=== PATIENT | male | born 1980 | race Caucasian/White ===

== ENCOUNTER 2025-02-22 13:12 | Inpatient (IN) | payer OTHER, SELFPAY ==
[2025-02-22] VITALS (12 sets, daily range): BP systolic 91–106; BP diastolic 45–77; PULSE 101–125; RESP 18–28; TEMP 36.4–36.7; O2SAT 9–100; BMI 22.9
--- NOTE | ~2025-02-22 | US_ITS ---
EXAMINATION: US venous doppler UAlejandra LT, 03/01/2025 15:30 OCULARIST HISTORY: swelling Comparison: None Technique: Multiple almendarez scale and color Doppler sonographic images were obtained of the internal jugular, subclavian, axillary, brachial, basilar, radial and ulnar veins. Findings: Venous System:There is thrombus with diminished flow in the jugular vein, subclavian, axillary and distal cephalic veins. Soft tissues: Soft tissues are unremarkable. Impression: DVT with superficial thrombophlebitis. Reviewed, dictated and finalized at location P. ARIST Impression: DVT with superficial thrombophlebitis.
--- NOTE | ~2025-02-22 | CT_ITS ---
EXAMINATION:CT diagnostic chest wo con DATE: 02/25/2025 09:12 INDICATION: Pneumonia TECHNIQUE: Computed tomography (CT) of the chest was performed without intravenous contrast. The dose-length product (DLP) was 139.95 mGy-cm. COMPARISON: February 22, 2025 FINDINGS: Large left and moderate right-sided pleural effusions present have increased somewhat since the February 22 exam. Extensive volume loss and consolidation throughout the left lung, and to a lesser extent the right lower lobe also appear slightly worse. Heart and great vessels stable. Small pericardial effusion. Mild cardiomegaly. No gross interval change seen in the visualized portion of the upper abdomen, bony thorax or extrathoracic soft tissues. IMPRESSION: Worsening bilateral effusions and consolidations as well as at atelectatic changes, left worse than right. Reviewed, dictated and finalized at location A. OECONOMICS PROFESSOR IMPRESSION: Worsening bilateral effusions and consolidations as well as at atelectatic baneg[place] ges, left worse than right.
--- NOTE | ~2025-02-22 | US_ITS ---
EXAMINATION: US abdomen limited, US retroperitoneal duplex ltd DATE: 02/23/2025 19:28 INDICATION: Abnormal liver enzymes. TECHNIQUE: Multiple grayscale and Doppler ultrasound images of the abdomen were obtained. Doppler evaluation of liver. COMPARISON: CT chest, abdomen and pelvis dated 02/22/2025 FINDINGS: Liver measures 10 cm in length. Portal vein and hepatic veins are patent. Increased size of the hepatic veins suggest hepatic venous congestion. Small quantity of free fluid is noted in the peritoneal cavity around the liver. Evidence of mobile gallstones in the gallbladder. Thickening of the wall of the gallbladder. Common hepatic duct measures 4 mm. 1 cm cyst within the liver. IMPRESSION: 1. Normal size liver. One CM cyst of the right lobe of the liver. Portal veins and hepatic veins are patent. Prominent size of hepatic veins noted. This is consistent with hepatic venous congestion. 2. Evidence of gallstones. Extrahepatic bile ducts are normal in size. 3. Small amount of free fluid around the liver and in the peritoneal cavity. Reviewed, dictated and finalized at location T. TRAINER TEACHER IMPRESSION: 1. Normal size liver. One CM cyst of the right lobe of the liver. Portal veins and hepatic veins are patent. Prominent size of hepatic veins noted. This is co nsistent with hepatic venous congestion. 2. Evidence of gallstones. Extrahepatic bile ducts are normal in size. 3. Small amount of free fluid around the liver and in the peritoneal cavity.
--- NOTE | ~2025-02-22 | XR_ITS ---
EXAMINATION: XR chest 1V portable DATE: 02/24/2025 17:16 INDICATION: Congestive heart failure. TECHNIQUE: A single frontal view of the chest was obtained. COMPARISON: Severe cardiomegaly. Evidence of size pleural effusion on the left side. Mild congestion of right lung base with possible edema of the right infrahilar region. FINDINGS: Severe cardiomegaly. Left-sided pleural effusion. Patchy airspace opacity of right lung base, probable pulmonary edema. IMPRESSION: 1. Reviewed, dictated and finalized at location T. HER OPERATOR IMPRESSION: 1.
--- NOTE | ~2025-02-22 | CT_ITS ---
EXAMINATION: CTA chest PE abdomen pel DATE: 02/22/2025 17:45 INDICATION: Hemoptysis. Chest pain, shortness of breath. Recent use of estrogen. TECHNIQUE: Computed tomography angiography (CTA) of the chest was performed with 100 mL Omnipaque-350 intravenous contrast timed to evaluate the pulmonary arteries. Coronal maximum intensity projection 3D-reconstructions were created by the technologist. Computed tomography (CT) of the abdomen and pelvis was performed with intravenous contrast. Automated exposure control and iterative reconstruction technique were employed. The dose-length product was 585.80 mGy-cm. COMPARISON: No prior imaging studies are available. FINDINGS: CTA chest: No evidence of pulmonary emboli. Significant cardiomegaly is noted. Significant bilateral pleural effusion. Airspace opacity likely due to pulmonary edema predominantly in the left mid and lower lung carter and to a lesser degree in the right lower lung field. Findings suggestive of congestive heart failure. On the delayed postcontrast study, low- density defect in the apex of left ventricle suggests thrombus the apex of left ventricle. CT abdomen and pelvis: Below the diaphragm, no focal lesions of liver and spleen. No definite acute findings of gallbladder, pancreas and the kidneys. Diffuse ascites in the upper abdomen and pelvis. Mild subcutaneous edema of the abdominal wall. IMPRESSION: 1. Anasarca with bilateral pleural effusion, ascites. Pulmonary edema, left more than the right lung. Findings are suggestive of congestive heart failure. Cardiomegaly. 2. No evidence of pulmonary emboli. Suggestion of thrombus at the apex of left ventricle on delayed contrast study. Correlation with echocardiogram is recommended. 3. No focal acute findings in the abdomen and pelvis. Reviewed, dictated and finalized at location T. ACCOUNTING CLERK IMPRESSION: 1. Anasarca with bilateral pleural effusion, ascites. Pulmonary edema, left mor e than the right lung. Findings are suggestive of congestive heart failure. Car diomegaly. 2. No evidence of pulmonary emboli. Suggestion of thrombus at the apex of left ventricle on delayed contrast study. Correlation with echocardiogram is recomme nded. 3. No focal acute findings in the abdomen and pelvis.
--- NOTE | 2025-02-22 16:10 | ED_ITS ---
HPI - SOB/Dyspnea General Chief Complaint: Shortness of Breath/Dyspnea <CARTER Vázquez Last Filed: 02/22/25 16:21> Stated Complaint: trouble breathing <CARTER Vázquez Last Filed: 02/22/25 16:21> Time Seen by Provider: 02/22/25 16:10 <CARTER Vázquez Last Filed: 02/22/25 16:21> Focused HPI: Patient is a 45 y/o male who presents to the ED with c/o SOB and weakness. Patient reports he has been having SOB, worse with exertion, as well as generalized weakness, fatigue/malaise for the past few weeks. States he was able to get everything in order which allowed him to come be evaluated today. Patient also reports having intermittent hemoptysis and chest pain over the past few weeks. Denies CP currently. C/o abdominal bloating, decreased appetite, cough. Denies N/V, significant abdominal pain, fever. Patient mentions he was recently in the process of transitioning to female, ad previously been on spironolactone and estradiol, but quit taking these 3 months ago. GENERAL: Mildly ill/jaundiced-appearing, well-nourished, and in no acute distress. HEAD: Normocephalic, atraumatic. CHEST: Clear to auscultation. ?No respiratory distress. HEART: Regular rate and rhythm.? NEURO: ?Alert and oriented x3. Patient screened in triage and initial orders placed.? ?Additional care and disposition to be based upon?diagnostic testing and treatment. <CARTER Vázquez Last Filed: 02/22/25 16:21> Source: patient <CARTER Vázquez Last Filed: 02/22/25 16:21> Mode of arrival: ambulatory <CARTER Vázquez Last Filed: 02/22/25 16:21> Limitations: no limitations <CARTER Vázquez Last Filed: 02/22/25 16:21> History of Present Illness HPI Narrative: Agree with above HPI. <MARTÍN Gonzalez Last Filed: 02/23/25 01:21> Related Data Home Medications: Home Medications ?Medication ?Instructions ?Recorded ?Confirmed ?Last Taken ?Type No Home Medications 02/22/25 02/22/25 U nknown History <CARTER Vázquez Last Filed: 02/22/25 16:21> Allergies/Adverse Reactions: Allergies Allergy/AdvReac Type Severity Reaction Status Date / Time No Known Allergies Allergy Verified 02/22/25 17:00 <Staci Voss PA-C - Last Filed: 02/22/25 16:21> Review of Systems 2 Review of Systems: All systems reviewed & are unremarkable except as noted in HPI and below <MARTÍN Gonzalez Last Filed: 02/23/25 01:21> [facility] Family History Family History: Family History (Updated 02/22/25 @ 22:21 by Naomi Mcmullen RN) Mother Diabetes mellitus Alcoholism Father Parkinsons disease Alcoholism Other Diabetes 1.5, managed as type 1 <Staci Voss PA-C - Last Filed: 02/22/25 16:21> Social History Social History: Social History Smoking status: Never smoker Alcohol intake: former Substance use: former Substance use type: former substance user and marijuana Other substance usage details: quit a few weeks ago Lack of Transportation: No Lack of Food: Never True Current Housing: I Have Housing Concerned About Future Housing: Decline to Answer Difficulty Paying Gas/Electric Bills: No Difficulty Paying for Meds: No Currently Unemployed: No Education: Bachelor's Degree Difficulty w/ Childcare or Family Care: No Spiritual care concerns: No <Staci Voss PA-C - Last Filed: 02/22/25 16:21> Exam 2 Narrative: GENERAL: No acute distress. Jaundiced. Fatigued. HEAD: Normocephalic, atraumatic. EYES: PERRLA and EOMI. Jaundiced. ENT: Nares clear, no rhinorrhea or epistaxis. Mucous membranes moist. Oropharynx without tonsillar hypertrophy exudate or other lesions. Bilateral TMs pearly almendarez non-bulging NECK: Supple. No adenopathy or masses. No carotid bruits or JVD CHEST: No respiratory distress. Crackles noted to bilateral lung bases. HEART: Tachycardic, regular rhythm. No murmur heard. Normal peripheral pulses. ABDOMEN: Soft, nontender, nondistended, normal active bowel sounds. EXTREMITIES: Normal range of motion. Bilateral LE pitting edema up to mid calf. SKIN: Jaundiced. NEURO: No focal deficits. Alert and oriented x3. PSYCH: Normal mood and affect. <MARTÍN Gonzalez - Last Filed: 02/23/25 01:21> [facility]/PA Physician Supervision This visit was performed by both a physician and an APC; I performed all aspects of the medical decision making component of this evaluation as documented. <Dunia Collier MD - Last Filed: 02/22/25 21:49> Vital Signs Vital signs: Vital Signs Temperature 97.6 F 02/22/25 13:52 Pulse Rate 102 H 02/22/25 13:52 Respiratory Rate 18 02/22/25 13:52 Blood Pressure 91/59 L 02/22/25 13:52 Pulse Oximetry 100 02/22/25 13:52 Oxygen Delivery Room Air 02/22/25 13:52 Temperature 97.8 F 02/23/25 00:00 Pulse Rate 112 H 02/23/25 01:14 Respiratory Rate 18 02/23/25 01:14 Blood Pressure 102/58 L 02/23/25 00:30 Pulse Oximetry 100 02/23/25 00:00 Oxygen Delivery Room Air 02/23/25 00:00 <Staci Voss PA-C - Last Filed: 02/22/25 16:21> Vital Signs Temperature 97.6 F 02/22/25 13:52 Pulse Rate 102 H 02/22/25 13:52 Respiratory Rate 18 02/22/25 13:52 Blood Pressure 91/59 L 02/22/25 13:52 Pulse Oximetry 100 02/22/25 13:52 Oxygen Delivery Room Air 02/22/25 13:52 Temperature 97.8 F 02/23/25 00:00 Pulse Rate 112 H 02/23/25 01:14 Respiratory Rate 18 02/23/25 01:14 Blood Pressure 102/58 L 02/23/25 00:30 Pulse Oximetry 100 02/23/25 00:00 Oxygen Delivery Room Air 02/23/25 00:00 <MARTÍN Gonzalez - Last Filed: 02/23/25 01:21> Vital Signs Temperature 97.6 F 02/22/25 13:52 Pulse Rate 102 H 02/22/25 13:52 Respiratory Rate 18 02/22/25 13:52 Blood Pressure 91/59 L 02/22/25 13:52 Pulse Oximetry 100 02/22/25 13:52 Oxygen Delivery Room Air 02/22/25 13:52 Temperature 97.8 F 02/23/25 00:00 Pulse Rate 112 H 02/23/25 01:14 Respiratory Rate 18 02/23/25 01:14 Blood Pressure 102/58 L 02/23/25 00:30 Pulse Oximetry 100 02/23/25 00:00 Oxygen Delivery Room Air 02/23/25 00:00 <Dunia Collier MD - Last Filed: 02/22/25 21:49> MDM MDM Narrative Medical decision making narrative: MSE by HELEN in triage <Staci Voss PA-C - Last Filed: 02/22/25 16:21> MSE by HELEN in triage Focused HPI: Patient is a 45 y/o male who presents to the ED with c/o SOB and weakness. Patient reports he has been having SOB, worse with exertion, as well as generalized weakness, fatigue/malaise for the past few weeks. States he was able to get everything in order which allowed him to come be evaluated today. Patient also reports having intermittent hemoptysis and chest pain over the past few weeks. Denies CP currently. C/o abdominal bloating, decreased appetite, cough. Denies N/V, significant abdominal pain, fever. Upon my initial assessment patient appears jaundiced with borderline vitals consisting of bp of 91/59 and and HR of 102. Labs include significant electrolyte abnormalities with hyperkalemia at 6.8 and sodium at 107. ECG corroborates these findings with peaked T waves. Hyperkalemia protocol initiated. BNP is 30,000 and LFTs are all elevated. CTA demonstrates anasarca with bilateral pleural effusion, ascites. Pulmonary edema, left more than the right lung. Findings are suggestive of congestive heart failure. Cardiomegaly. No evidence of pulmonary emboli. Suggestion of thrombus at the apex of left ventricle on delayed contrast study. Correlation with echocardiogram is recommended. No focal acute findings in the abdomen and pelvis. Discussed with Dr. Morel patient presentation and workup. Agrees with admission at this time. Recommended speaking with GI, starting Lasix, and scheduled Midodrine. Discussed with Dr. Ellis patient presentation and workup. He recommends speaking with Cardiology as the workup is concerning for a possible cardiomyopathy. Dr. Delgado with Cardiology agreed with workup and admission and had no further recommendations. Patient is stable awaiting transfer upstairs. <MARTÍN Gonzalez - Last Filed: 02/23/25 01:21> Differential Diagnosis Differential Diagnosis: Differential diagnostic considerations for shortness of breath include respiratory failure, pulmonary embolus, ACS, COPD, CHF, pneumonia, pneumothorax, asthma, metabolic disorder, anxiety. <MARTÍN Gonzalez - Last Filed: 02/23/25 01:21> Lab Data MDM Lab Attestation statement: I personally reviewed the patient's lab results. <MARTÍN Gonzalez - Last Filed: 02/23/25 01:21> Result diagrams: 02/22/25 17:02 02/23/25 00:53 <Staci Voss PA-C - Last Filed: 02/22/25 16:21> Labs: Lab Results 02/22/25 02/22/25 02/22/25 Range/Units 17:02 17:12 18:04 WBC 16.8 H (4.5-10.0) K/mm3 RBC 4.72 (4.6-6.20) M/mm3 Hgb 14.2 (14.0-18.0) g/dL Hct 41.9 L (42.0-52.0) % MCV 88.8 (80-100) fl MCH 30.1 (26-34) pg MCHC 33.9 (32-36) g/dl RDW 16.3 H (11.5-14.5) % Plt Count 233 (150-375) k/mm3 MPV 10.8 H (7.4-10.4) fl Immature Gran % (Auto) 1.1 H (0-0.5) % Neut % (Auto) 82.2 H (45.5-73.1) % Lymph % (Auto) 7.3 L (18.3-44.2) % [facility] % (Auto) 9.1 H (2.6-8.5) % Eos % (Auto) 0.2 (0-4.4) % Baso % (Auto) 0.1 L (0.2-1.2) % Lymph # (Auto) 1.23 (0.9-3.2) K/mm3 [facility] # (Auto) 1.5 H (0.1-0.6) K/mm3 Eos # (Auto) 0.0 (0-0.3) K/mm3 Baso # (Auto) 0.0 (0.0-0.1) K/mm3 Abs Immat Gran (auto) 0.19 H (0.00-0.031) K/mm3 Absolute Neuts (auto) 13.8 H (1.3-6.7) K/mm3 Absolute Nucleated RBC 0.030 H (0.0-0.012) K/mm3 Nucleated RBC % 0.2 (0.0-0.2) % PT 18.4 H (11.1-14.7) Seconds INR 1.6 APTT 29.1 (22.3-36.8) Seconds Sodium 107 L* (137-145) mmol/L Potassium 6.8 H* (3.4-5.0) mmol/L Chloride 79 L (98-107) mmol/L Carbon Dioxide 18 L (22-30) mmol/L Anion Gap 10 (4-12) mmol/L BUN 40 H (9-20) mg/dL Creatinine 1.18 (0.7-1.3) mg/dL Estim Creat Clear Calc 74 ml/min Estimated GFR > 60 (59 - ) Glucose 125 H (65-110) mg/dL POC Capillary Glucose 117 H (65-105) mg/dl Lactic Acid (0.7-2.0) mmol/L Calcium 7.9 L (8.4-10.2) mg/dL Magnesium 2.5 H (1.6-2.3) mg/dL Total Bilirubin 5.7 H (0.2-1.3) mg/dL AST 126 H (17-59) U/L ALT 510 H (6-50) U/L Alkaline Phosphatase 170 H (38-126) U/L Troponin I 0.016 (0.000-0.034) ng/mL NT-Pro-B Natriuret Pep > 04740 H (19.9-100) pg/mL Total Protein 6.7 (6.3-8.2) g/dL Albumin 3.5 (3.5-5.1) g/dL Lipase 85 (23-300) U/L Urine Color Dark yellow (Yellow) Urine Appearance Clear (Clear) Urine pH 5.0 (5.0-9.0) Ur Specific [place] 1.022 (1.001-1.035) Urine Protein Negative (Negative) mg/dL Urine Glucose (UA) Negative (Negative) mg/dL Urine Ketones Negative (Negative) mg/dL Ur Blood (Man) Negative (Negative) Urine Nitrate Negative (Negative) Urine Bilirubin 1+ H (Negative) Urine Urobilinogen 1.0 (<2.0) mg/dL Add Ur Microanalysis Reviewed Leukocyte Esterase Rfl Negative (Negative) JOSSIE/UL Urine RBC 3-5 H (0-2) /hpf Urine WBC 0-5 (0-3) /hpf Ur Squamous Epith Cells Occasional (Few) /hpf Urine Bacteria None seen /hpf Urine Casts 6-10 Urine Opiates Screen Negative (Negative) Urine Methadone Screen Negative (Negative) Ur Barbiturates Screen Negative (Negative) Ur Phencyclidine Scrn Negative (Negative) Ur Amphetamine Screen Negative (Negative) U Benzodiazepines Scrn Negative (Negative) Urine Cocaine Screen Negative (Negative) U Cannabinoids Screen Negative (Negative) 02/22/25 Range/Units 18:13 WBC (4.5-10.0) K/mm3 RBC (4.6-6.20) M/mm3 Hgb (14.0-18.0) g/dL Hct (42.0-52.0) % MCV (80-100) fl MCH (26-34) pg MCHC (32-36) g/dl RDW (11.5-14.5) % Plt Count (150-375) k/mm3 MPV (7.4-10.4) fl Immature Gran % (Auto) (0-0.5) % Neut % (Auto) (45.5-73.1) % Lymph % (Auto) (18.3-44.2) % [facility] % (Auto) (2.6-8.5) % Eos % (Auto) (0-4.4) % Baso % (Auto) (0.2-1.2) % Lymph # (Auto) (0.9-3.2) K/mm3 [facility] # (Auto) (0.1-0.6) K/mm3 Eos # (Auto) (0-0.3) K/mm3 Baso # (Auto) (0.0-0.1) K/mm3 Abs Immat Gran (auto) (0.00-0.031) K/mm3 Absolute Neuts (auto) (1.3-6.7) K/mm3 Absolute Nucleated RBC (0.0-0.012) K/mm3 Nucleated RBC % (0.0-0.2) % PT (11.1-14.7) Seconds INR APTT (22.3-36.8) Seconds Sodium (137-145) mmol/L Potassium (3.4-5.0) mmol/L Chloride (98-107) mmol/L Carbon Dioxide (22-30) mmol/L Anion Gap (4-12) mmol/L BUN (9-20) mg/dL Creatinine (0.7-1.3) mg/dL Estim Creat Clear Calc ml/min Estimated GFR (59 - ) Glucose (65-110) mg/dL POC Capillary Glucose (65-105) mg/dl Lactic Acid 2.7 H (0.7-2.0) mmol/L Calcium (8.4-10.2) mg/dL Magnesium (1.6-2.3) mg/dL Total Bilirubin (0.2-1.3) mg/dL AST (17-59) U/L ALT (6-50) U/L Alkaline Phosphatase (38-126) U/L Troponin I (0.000-0.034) ng/mL NT-Pro-B Natriuret Pep (19.9-100) pg/mL Total Protein (6.3-8.2) g/dL Albumin (3.5-5.1) g/dL Lipase (23-300) U/L Urine Color (Yellow) Urine Appearance (Clear) Urine pH (5.0-9.0) Ur Specific [place] (1.001-1.035) Urine Protein (Negative) mg/dL Urine Glucose (UA) (Negative) mg/dL Urine Ketones (Negative) mg/dL Ur Blood (Man) (Negative) Urine Nitrate (Negative) Urine Bilirubin (Negative) Urine Urobilinogen (<2.0) mg/dL Add Ur Microanalysis Leukocyte Esterase Rfl (Negative) JOSSIE/UL Urine RBC (0-2) /hpf Urine WBC (0-3) /hpf Ur Squamous Epith Cells (Few) /hpf Urine Bacteria /hpf Urine Casts Urine Opiates Screen (Negative) Urine Methadone Screen (Negative) Ur Barbiturates Screen (Negative) Ur Phencyclidine Scrn (Negative) Ur Amphetamine Screen (Negative) U Benzodiazepines Scrn (Negative) Urine Cocaine Screen (Negative) U Cannabinoids Screen (Negative) <Staci Voss PA-C - Last Filed: 02/22/25 16:21> Lab Results 02/22/25 02/22/25 02/22/25 Range/Units 17:02 17:12 18:04 WBC 16.8 H (4.5-10.0) K/mm3 RBC 4.72 (4.6-6.20) M/mm3 Hgb 14.2 (14.0-18.0) g/dL Hct 41.9 L (42.0-52.0) % MCV 88.8 (80-100) fl MCH 30.1 (26-34) pg MCHC 33.9 (32-36) g/dl RDW 16.3 H (11.5-14.5) % Plt Count 233 (150-375) k/mm3 MPV 10.8 H (7.4-10.4) fl Immature Gran % (Auto) 1.1 H (0-0.5) % Neut % (Auto) 82.2 H (45.5-73.1) % Lymph % (Auto) 7.3 L (18.3-44.2) % [facility] % (Auto) 9.1 H (2.6-8.5) % Eos % (Auto) 0.2 (0-4.4) % Baso % (Auto) 0.1 L (0.2-1.2) % Lymph # (Auto) 1.23 (0.9-3.2) K/mm3 [facility] # (Auto) 1.5 H (0.1-0.6) K/mm3 Eos # (Auto) 0.0 (0-0.3) K/mm3 Baso # (Auto) 0.0 (0.0-0.1) K/mm3 Abs Immat Gran (auto) 0.19 H (0.00-0.031) K/mm3 Absolute Neuts (auto) 13.8 H (1.3-6.7) K/mm3 Absolute Nucleated RBC 0.030 H (0.0-0.012) K/mm3 Nucleated RBC % 0.2 (0.0-0.2) % PT 18.4 H (11.1-14.7) Seconds INR 1.6 APTT 29.1 (22.3-36.8) Seconds Sodium 107 L* (137-145) mmol/L Potassium 6.8 H* (3.4-5.0) mmol/L Chloride 79 L (98-107) mmol/L Carbon Dioxide 18 L (22-30) mmol/L Anion Gap 10 (4-12) mmol/L BUN 40 H (9-20) mg/dL Creatinine 1.18 (0.7-1.3) mg/dL Estim Creat Clear Calc 74 ml/min Estimated GFR > 60 (59 - ) Glucose 125 H (65-110) mg/dL POC Capillary Glucose 117 H (65-105) mg/dl Lactic Acid (0.7-2.0) mmol/L Calcium 7.9 L (8.4-10.2) mg/dL Magnesium 2.5 H (1.6-2.3) mg/dL Total Bilirubin 5.7 H (0.2-1.3) mg/dL AST 126 H (17-59) U/L ALT 510 H (6-50) U/L Alkaline Phosphatase 170 H (38-126) U/L Troponin I 0.016 (0.000-0.034) ng/mL NT-Pro-B Natriuret Pep > 36108 H (19.9-100) pg/mL Total Protein 6.7 (6.3-8.2) g/dL Albumin 3.5 (3.5-5.1) g/dL Lipase 85 (23-300) U/L Urine Color Dark yellow (Yellow) Urine Appearance Clear (Clear) Urine pH 5.0 (5.0-9.0) Ur Specific [place] 1.022 (1.001-1.035) Urine Protein Negative (Negative) mg/dL Urine Glucose (UA) Negative (Negative) mg/dL Urine Ketones Negative (Negative) mg/dL Ur Blood (Man) Negative (Negative) Urine Nitrate Negative (Negative) Urine Bilirubin 1+ H (Negative) Urine Urobilinogen 1.0 (<2.0) mg/dL Add Ur Microanalysis Reviewed Leukocyte Esterase Rfl Negative (Negative) JOSSIE/UL Urine RBC 3-5 H (0-2) /hpf Urine WBC 0-5 (0-3) /hpf Ur Squamous Epith Cells Occasional (Few) /hpf Urine Bacteria None seen /hpf Urine Casts 6-10 Urine Opiates Screen Negative (Negative) Urine Methadone Screen Negative (Negative) Ur Barbiturates Screen Negative (Negative) Ur Phencyclidine Scrn Negative (Negative) Ur Amphetamine Screen Negative (Negative) U Benzodiazepines Scrn Negative (Negative) Urine Cocaine Screen Negative (Negative) U Cannabinoids Screen Negative (Negative) 02/22/25 Range/Units 18:13 WBC (4.5-10.0) K/mm3 RBC (4.6-6.20) M/mm3 Hgb (14.0-18.0) g/dL Hct (42.0-52.0) % MCV (80-100) fl MCH (26-34) pg MCHC (32-36) g/dl RDW (11.5-14.5) % Plt Count (150-375) k/mm3 MPV (7.4-10.4) fl Immature Gran % (Auto) (0-0.5) % Neut % (Auto) (45.5-73.1) % Lymph % (Auto) (18.3-44.2) % [facility] % (Auto) (2.6-8.5) % Eos % (Auto) (0-4.4) % Baso % (Auto) (0.2-1.2) % Lymph # (Auto) (0.9-3.2) K/mm3 [facility] # (Auto) (0.1-0.6) K/mm3 Eos # (Auto) (0-0.3) K/mm3 Baso # (Auto) (0.0-0.1) K/mm3 Abs Immat Gran (auto) (0.00-0.031) K/mm3 Absolute Neuts (auto) (1.3-6.7) K/mm3 Absolute Nucleated RBC (0.0-0.012) K/mm3 Nucleated RBC % (0.0-0.2) % PT (11.1-14.7) Seconds INR APTT (22.3-36.8) Seconds Sodium (137-145) mmol/L Potassium (3.4-5.0) mmol/L Chloride (98-107) mmol/L Carbon Dioxide (22-30) mmol/L Anion Gap (4-12) mmol/L BUN (9-20) mg/dL Creatinine (0.7-1.3) mg/dL Estim Creat Clear Calc ml/min Estimated GFR (59 - ) Glucose (65-110) mg/dL POC Capillary Glucose (65-105) mg/dl Lactic Acid 2.7 H (0.7-2.0) mmol/L Calcium (8.4-10.2) mg/dL Magnesium (1.6-2.3) mg/dL Total Bilirubin (0.2-1.3) mg/dL AST (17-59) U/L ALT (6-50) U/L Alkaline Phosphatase (38-126) U/L Troponin I (0.000-0.034) ng/mL NT-Pro-B Natriuret Pep (19.9-100) pg/mL Total Protein (6.3-8.2) g/dL Albumin (3.5-5.1) g/dL Lipase (23-300) U/L Urine Color (Yellow) Urine Appearance (Clear) Urine pH (5.0-9.0) Ur Specific [place] (1.001-1.035) Urine Protein (Negative) mg/dL Urine Glucose (UA) (Negative) mg/dL Urine Ketones (Negative) mg/dL Ur Blood (Man) (Negative) Urine Nitrate (Negative) Urine Bilirubin (Negative) Urine Urobilinogen (<2.0) mg/dL Add Ur Microanalysis Leukocyte Esterase Rfl (Negative) JOSSIE/UL Urine RBC (0-2) /hpf Urine WBC (0-3) /hpf Ur Squamous Epith Cells (Few) /hpf Urine Bacteria /hpf Urine Casts Urine Opiates Screen (Negative) Urine Methadone Screen (Negative) Ur Barbiturates Screen (Negative) Ur Phencyclidine Scrn (Negative) Ur Amphetamine Screen (Negative) U Benzodiazepines Scrn (Negative) Urine Cocaine Screen (Negative) U Cannabinoids Screen (Negative) <MARTÍN Gonzalez - Last Filed: 02/23/25 01:21> Lab Results 02/22/25 02/22/25 02/22/25 Range/Units 17:02 17:12 18:04 WBC 16.8 H (4.5-10.0) K/mm3 RBC 4.72 (4.6-6.20) M/mm3 Hgb 14.2 (14.0-18.0) g/dL Hct 41.9 L (42.0-52.0) % MCV 88.8 (80-100) fl MCH 30.1 (26-34) pg MCHC 33.9 (32-36) g/dl RDW 16.3 H (11.5-14.5) % Plt Count 233 (150-375) k/mm3 MPV 10.8 H (7.4-10.4) fl Immature Gran % (Auto) 1.1 H (0-0.5) % Neut % (Auto) 82.2 H (45.5-73.1) % Lymph % (Auto) 7.3 L (18.3-44.2) % [facility] % (Auto) 9.1 H (2.6-8.5) % Eos % (Auto) 0.2 (0-4.4) % Baso % (Auto) 0.1 L (0.2-1.2) % Lymph # (Auto) 1.23 (0.9-3.2) K/mm3 [facility] # (Auto) 1.5 H (0.1-0.6) K/mm3 Eos # (Auto) 0.0 (0-0.3) K/mm3 Baso # (Auto) 0.0 (0.0-0.1) K/mm3 Abs Immat Gran (auto) 0.19 H (0.00-0.031) K/mm3 Absolute Neuts (auto) 13.8 H (1.3-6.7) K/mm3 Absolute Nucleated RBC 0.030 H (0.0-0.012) K/mm3 Nucleated RBC % 0.2 (0.0-0.2) % PT 18.4 H (11.1-14.7) Seconds INR 1.6 APTT 29.1 (22.3-36.8) Seconds Sodium 107 L* (137-145) mmol/L Potassium 6.8 H* (3.4-5.0) mmol/L Chloride 79 L (98-107) mmol/L Carbon Dioxide 18 L (22-30) mmol/L Anion Gap 10 (4-12) mmol/L BUN 40 H (9-20) mg/dL Creatinine 1.18 (0.7-1.3) mg/dL Estim Creat Clear Calc 74 ml/min Estimated GFR > 60 (59 - ) Glucose 125 H (65-110) mg/dL POC Capillary Glucose 117 H (65-105) mg/dl Lactic Acid (0.7-2.0) mmol/L Calcium 7.9 L (8.4-10.2) mg/dL Magnesium 2.5 H (1.6-2.3) mg/dL Total Bilirubin 5.7 H (0.2-1.3) mg/dL AST 126 H (17-59) U/L ALT 510 H (6-50) U/L Alkaline Phosphatase 170 H (38-126) U/L Troponin I 0.016 (0.000-0.034) ng/mL NT-Pro-B Natriuret Pep > 30817 H (19.9-100) pg/mL Total Protein 6.7 (6.3-8.2) g/dL Albumin 3.5 (3.5-5.1) g/dL Lipase 85 (23-300) U/L Urine Color Dark yellow (Yellow) Urine Appearance Clear (Clear) Urine pH 5.0 (5.0-9.0) Ur Specific [place] 1.022 (1.001-1.035) Urine Protein Negative (Negative) mg/dL Urine Glucose (UA) Negative (Negative) mg/dL Urine Ketones Negative (Negative) mg/dL Ur Blood (Man) Negative (Negative) Urine Nitrate Negative (Negative) Urine Bilirubin 1+ H (Negative) Urine Urobilinogen 1.0 (<2.0) mg/dL Add Ur Microanalysis Reviewed Leukocyte Esterase Rfl Negative (Negative) JOSSIE/UL Urine RBC 3-5 H (0-2) /hpf Urine WBC 0-5 (0-3) /hpf Ur Squamous Epith Cells Occasional (Few) /hpf Urine Bacteria None seen /hpf Urine Casts 6-10 Urine Opiates Screen Negative (Negative) Urine Methadone Screen Negative (Negative) Ur Barbiturates Screen Negative (Negative) Ur Phencyclidine Scrn Negative (Negative) Ur Amphetamine Screen Negative (Negative) U Benzodiazepines Scrn Negative (Negative) Urine Cocaine Screen Negative (Negative) U Cannabinoids Screen Negative (Negative) 02/22/25 Range/Units 18:13 WBC (4.5-10.0) K/mm3 RBC (4.6-6.20) M/mm3 Hgb (14.0-18.0) g/dL Hct (42.0-52.0) % MCV (80-100) fl MCH (26-34) pg MCHC (32-36) g/dl RDW (11.5-14.5) % Plt Count (150-375) k/mm3 MPV (7.4-10.4) fl Immature Gran % (Auto) (0-0.5) % Neut % (Auto) (45.5-73.1) % Lymph % (Auto) (18.3-44.2) % [facility] % (Auto) (2.6-8.5) % Eos % (Auto) (0-4.4) % Baso % (Auto) (0.2-1.2) % Lymph # (Auto) (0.9-3.2) K/mm3 [facility] # (Auto) (0.1-0.6) K/mm3 Eos # (Auto) (0-0.3) K/mm3 Baso # (Auto) (0.0-0.1) K/mm3 Abs Immat Gran (auto) (0.00-0.031) K/mm3 Absolute Neuts (auto) (1.3-6.7) K/mm3 Absolute Nucleated RBC (0.0-0.012) K/mm3 Nucleated RBC % (0.0-0.2) % PT (11.1-14.7) Seconds INR APTT (22.3-36.8) Seconds Sodium (137-145) mmol/L Potassium (3.4-5.0) mmol/L Chloride (98-107) mmol/L Carbon Dioxide (22-30) mmol/L Anion Gap (4-12) mmol/L BUN (9-20) mg/dL Creatinine (0.7-1.3) mg/dL Estim Creat Clear Calc ml/min Estimated GFR (59 - ) Glucose (65-110) mg/dL POC Capillary Glucose (65-105) mg/dl Lactic Acid 2.7 H (0.7-2.0) mmol/L Calcium (8.4-10.2) mg/dL Magnesium (1.6-2.3) mg/dL Total Bilirubin (0.2-1.3) mg/dL AST (17-59) U/L ALT (6-50) U/L Alkaline Phosphatase (38-126) U/L Troponin I (0.000-0.034) ng/mL NT-Pro-B Natriuret Pep (19.9-100) pg/mL Total Protein (6.3-8.2) g/dL Albumin (3.5-5.1) g/dL Lipase (23-300) U/L Urine Color (Yellow) Urine Appearance (Clear) Urine pH (5.0-9.0) Ur Specific [place] (1.001-1.035) Urine Protein (Negative) mg/dL Urine Glucose (UA) (Negative) mg/dL Urine Ketones (Negative) mg/dL Ur Blood (Man) (Negative) Urine Nitrate (Negative) Urine Bilirubin (Negative) Urine Urobilinogen (<2.0) mg/dL Add Ur Microanalysis Leukocyte Esterase Rfl (Negative) JOSSIE/UL Urine RBC (0-2) /hpf Urine WBC (0-3) /hpf Ur Squamous Epith Cells (Few) /hpf Urine Bacteria /hpf Urine Casts Urine Opiates Screen (Negative) Urine Methadone Screen (Negative) Ur Barbiturates Screen (Negative) Ur Phencyclidine Scrn (Negative) Ur Amphetamine Screen (Negative) U Benzodiazepines Scrn (Negative) Urine Cocaine Screen (Negative) U Cannabinoids Screen (Negative) <Dunia Collier MD - Last Filed: 02/22/25 21:49> Imaging Data Radiologist's impression: ITS Impressions Chest/Abdomen/Pelvis CTA 02/22/25 17:46 IMPRESSION: 1. Anasarca with bilateral pleural effusion, ascites. Pulmonary edema, left more than the right lung. Findings are suggestive of congestive heart failure. Cardiomegaly. 2. No evidence of pulmonary emboli. Suggestion of thrombus at the apex of left ventricle on delayed contrast study. Correlation with echocardiogram is recommended. 3. No focal acute findings in the abdomen and pelvis. <Staci Voss PA-C - Last Filed: 02/22/25 16:21> ITS Impressions Chest/Abdomen/Pelvis CTA 02/22/25 17:46 IMPRESSION: 1. Anasarca with bilateral pleural effusion, ascites. Pulmonary edema, left more than the right lung. Findings are suggestive of congestive heart failure. Cardiomegaly. 2. No evidence of pulmonary emboli. Suggestion of thrombus at the apex of left ventricle on delayed contrast study. Correlation with echocardiogram is recommended. 3. No focal acute findings in the abdomen and pelvis. <MARTÍN Gonzalez Last Filed: 02/23/25 01:21> ITS Impressions Chest/Abdomen/Pelvis CTA 02/22/25 17:46 IMPRESSION: 1. Anasarca with bilateral pleural effusion, ascites. Pulmonary edema, left more than the right lung. Findings are suggestive of congestive heart failure. Cardiomegaly. 2. No evidence of pulmonary emboli. Suggestion of thrombus at the apex of left ventricle on delayed contrast study. Correlation with echocardiogram is recommended. 3. No focal acute findings in the abdomen and pelvis. <Dunia Collier MD - Last Filed: 02/22/25 21:49> Discharge Plan Discharge Clinical Impression: Hyperkalemia, Acute CHF, Acute hyponatremia, Electrolyte abnormality <CARTER Vázquez Last Filed: 02/22/25 16:21> Patient Disposition: Still a Patient <CARTER Vázquez Last Filed: 02/22/25 16:21> Condition: Stable <CARTER Vázquez Last Filed: 02/22/25 16:21>
--- NOTE | 2025-02-22 16:17 | ECG_ITS ---
Test Date: 2025-02-22 16:59:44 Measurements Intervals [place] Rate: 108 P: 42 MA: 189 QRS: -51 QRSD: 125 T: 85 QT: 342 QTc: 460 Interpretive Statements SINUS TACHYCARDIA POSSIBLE LEFT ATRIAL ENLARGEMENT LOW VOLTAGE IN LIMB LEADS LEFT ANTERIOR FASCICULAR BLOCK CANNOT R/O SEPTAL INFARCT, AGE INDETERMINATE BORDERLINE ST-T WAVE ABNORMALITY- HIGH LATERAL LEADS BASELINE ARTIFACT- I, II, AVR, AVL, V1 ABNORMAL ECG No previous ECG available for comparison Electronically Signed On 02-22-2025 18:58:20 LEADERSHIP DEVELOPMENT CONSULTANT by Sunday Owens D.O.
[2025-02-22 17:13] LABS: Hematocrit 41.9 % (42.0-52.0); Hemoglobin 14.2 g/dL (14.0-18.0); Immature Granulocyte Percent A 1.1 % (0-0.5); Lymphocytes Absolute Auto 1.23 K/mm3 (0.9-3.2); Mean Corpuscular HGB Conc 33.9 g/dl (32-36); Mean Corpuscular Hemoglobin 30.1 pg (26-34); Mean Corpuscular Volume 88.8 fl (80-100); Nucleated Red Blood Cells Absolute Auto 0.030 K/mm3 (0.0-0.012); Nucleated Red Blood Cells Perc 0.2 % (0.0-0.2); Platelet Count Result 233 k/mm3 (150-375); Red Blood Count 4.72 M/mm3 (4.6-6.20); White Blood Count 16.8 K/mm3 (4.5-10.0)
[2025-02-22 17:20] LABS: Add Urine Microscopic? YES; Appearance Urine Clear (Clear); Glucose Urine UA Negative (Negative); Leukocyte Esterase Ur Negative LEU/UL (Negative); Nitrate Urine Negative (Negative); Specific Grav Ur 1.022 (1.001-1.035)
[2025-02-22 17:29] LABS: Alanine Aminotransferase 510 U/L (6-50); Albumin Level 3.5 g/dL (3.5-5.1); Alkaline Phosphatase 170 U/L (38-126); Anion Gap 10 mmol/L (4-12); Aspartate Amino Transferase 126 U/L (17-59); Bilirubin,Total 5.7 mg/dL (0.2-1.3); Blood Urea Nitrogen 40 mg/dL (9-20); Calcium 7.9 mg/dL (8.4-10.2); Carbon Dioxide 18 mmol/L (22-30); Chloride 79 mmol/L (98-107); Estimated CRCL calculation 74 ml/min; Estimated Glomerular Filt Rate > 60; Glucose 125 mg/dL (65-110); Lipase 85 U/L (23-300); Magnesium 2.5 mg/dL (1.6-2.3); Potassium 6.8 mmol/L (3.4-5.0); Sodium 107 mmol/L (137-145); Total Protein 6.7 g/dL (6.3-8.2)
[2025-02-22 17:30] LABS: INR 1.6; Partial Thromboplastin Time 29.1 Seconds (22.3-36.8); Prothrombin Time 18.4 Seconds (11.1-14.7)
[2025-02-22 17:37] LABS: Need Manual Microscopic Reviewed
[2025-02-22 17:39] LABS: NT Pro B Type Natriuretic Pept > 30000 pg/mL (19.9-100); Troponin I 0.016 ng/mL (0.000-0.034)
[2025-02-22] MEDS: CALCIUM GLUCONATE 1,000 MG/10 ML VIAL 1000 MG IV PUSH (18:01)
[2025-02-22] MEDS: DEXTROSE 50% 25 GM/50 ML SYRINGE IV PUSH (18:02)
[2025-02-22] MEDS: INSULIN HUMAN REGULAR (*BKC) 100 UNITS/ML IV PUSH (18:02)
[2025-02-22] MEDS: SODIUM BICARBONATE 8.4% 50 MEQ/50 ML SYRINGE IV PUSH (18:02)
[2025-02-22] MEDS: SODIUM ZIRCONIUM CYCLOSILICATE 10 GM POWD.PACK PO (18:03)
[2025-02-22] MEDS: FUROSEMIDE INJ 40 MG/4 ML VIAL IV PUSH (18:36)
--- NOTE | 2025-02-22 18:42 | PM.IMHP2 ---
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 Noted orthopnea and PND, and Leg edema. No vomiting, abd pain or diarrhea ER eval notable for BP 96/45, TN 110, RR 26 and on room air Labs notable for WBC 16.8, Na 107, K 6.8, Cr 1.18, NT-proBNP >36332, AST 126, ALT 510 CTA chest and Ab showed pulm edema with ascites, pleural effusion adn cardiomegaly Patient was given Insulin, dextrose and calcium glucoante prior to admission Review of Systems Review of Systems: All other systems were reviewed and negative except as noted in the HPI above Meds Home Medications and Allergies Allergies Allergy/AdvReac Type Severity Reaction Status Date / Time No Known Allergies Allergy Verified 02/22/25 17:00 Vital Signs Vital Signs - 24 hr 02/22/25 13:52 02/22/25 16:45 02/22/25 16:50 Temperature 97.6 F Pulse Rate 102 H 109 H Respiratory Rate 18 20 Blood Pressure 91/59 L 91/61 L Pulse Oximetry 100 100 99 Oxygen Delivery Room Air Room Air Room Air 02/22/25 16:51 02/22/25 17:15 02/22/25 17:30 Temperature Pulse Rate 109 H 108 H 107 H Respiratory Rate 20 28 H 18 Blood Pressure 91/61 L 95/62 L 94/74 L Pulse Oximetry 100 100 99 Oxygen Delivery 02/22/25 17:47 Temperature Pulse Rate 110 H Respiratory Rate 26 H Blood Pressure 96/45 L Pulse Oximetry 9 L Oxygen Delivery Exam Narrative: General: alert and comfortable Eyes: EOMI, PERRLA ENNT External ears normal, Neck is supple, no masses, Respiratory systems: Clear to auscultation Cardiovascular S1, S2, normal rhythm, no murmur, rub, or gallop; no thrill or palpable murmurs on palpation. Gastrointestinal: soft, non-tender, and non-distended abdomen with no masses; BS present Skin: no rash, lesions, ulcerations, subcutaneous nodules or induration Musculoskeletal: no abnormality and no tenderness, normal ROM Neurologic: Alert and oriented x3, non focal Mental Status Exam: normal affect Results Labs Labs: Short CBC 02/22/25 Range/Units 17:02 WBC 16.8 H (4.5-10.0) K/mm3 Hgb 14.2 (14.0-18.0) g/dL Hct 41.9 L (42.0-52.0) % Plt Count 233 (150-375) k/mm3 BMP 02/22/25 17:02 Sodium 107 L* Potassium 6.8 H* Chloride 79 L Carbon Dioxide 18 L BUN 40 H Creatinine 1.18 Glucose 125 H Calcium 7.9 L Cardiac Enzymes 02/22/25 Range/Units 17:02 Troponin I 0.016 (0.000-0.034) ng/mL Liver Function 02/22/25 Range/Units 17:02 Total Bilirubin 5.7 H (0.2-1.3) mg/dL AST 126 H (17-59) U/L ALT 510 H (6-50) U/L Alkaline Phosphatase 170 H (38-126) U/L Albumin 3.5 (3.5-5.1) g/dL Urine 02/22/25 Range/Units 17:12 Urine Color Dark yellow (Yellow) Urine Appearance Clear (Clear) Urine pH 5.0 (5.0-9.0) Ur Specific [place] 1.022 (1.001-1.035) Urine Protein Negative (Negative) mg/dL Urine Glucose (UA) Negative (Negative) mg/dL Assessment and Plan Assessment and plan (1) CHF (congestive heart failure): Code(s): I50.9 - Heart failure, unspecified Status: Acute (2) Hyperkalemia: Code(s): E87.5 - Hyperkalemia Status: Acute Plan New onset CHF presented with worsening SOB, orthopnea and PND Leg edema 3+ on exam CTA chest PA showed cardiomegaly, anasarca, pulm edema and pleural effusion lasix 40mg bid IV, Midodrine 10mg tid ECHO and cardiology consulted Hyperkalemia k 6.8 s/p Ca gluconate, insulin and dextrose Continue lasix as above 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 identifies as male, his biological sex DVT prophylaxis on Sq Lovenox full code Hospitalist MIPS Advance Care Plan I have confirmed that the patient's Advanced Care Plan is present, code status is documented, or surrogate decision maker is listed in patient medical record.: Yes Medication Reconciliation I have utilized all available resources to obtain, update and review the patients current medications (includes all prescriptions, OTC, herbals, cannabis, and nutritional supplements).: Yes
[2025-02-22] MEDS: MIDODRINE HCL 10 MG TABLET PO (18:47)
[2025-02-22 19:41] LABS: Cholesterol 119 mg/dL (0-200); HDL Direct 17 mg/dL; Triglycerides 99 mg/dL (<150)
[2025-02-22] MEDS: levoFLOXacin 750 MG/D5W 150 ML 750 MG/150 ML BAG 100 MG IVPB (19:43)
[2025-02-22 19:54] LABS: Hemoglobin A1C 6.3 % (<5.7)
[2025-02-22 21:15] LABS: Anion Gap 7 mmol/L (4-12); Blood Urea Nitrogen 39 mg/dL (9-20); Calcium 7.9 mg/dL (8.4-10.2); Carbon Dioxide 22 mmol/L (22-30); Chloride 79 mmol/L (98-107); Estimated CRCL calculation 80 ml/min; Estimated Glomerular Filt Rate > 60; Glucose 122 mg/dL (65-110); Potassium 6.4 mmol/L (3.4-5.0); Sodium 108 mmol/L (137-145)
--- NOTE | 2025-02-22 21:22 | WPCEDHO ---
ED Hand Off Checklist All vitals saved: yes IV Site documented: yes All med administrations documented: yes Triage Note Triage Note patient from with difficulty 02/22/25 16:45 breathing. sent for lightheadedness as well with low BP. patient 100% RA able to speak in full and complete sent but noted that he had 91/59 BP agree with triage note. pt states he quit smoking marijuana 2 weeks ago when all of the sx started. Allergies No Known Allergies Allergy (Verified 02/22/25 17:00) Current Diagnoses Hyperkalemia (02/22/25) Heart failure, unspecified (02/22/25) Administered/Completed Medications Discontinued Medications Calcium Gluconate (Calcium Gluconate 1,000 Mg/10 Ml Vial) 1,000 mg IV PUSH ONCE STA Stop: 02/22/25 17:38 Last Admin: 02/22/25 18:01 Dose: 1,000 mg Documented By: TRINO Calcium Gluconate (Calcium Gluconate 1,000 Mg/10 Ml Vial) Confirm Administered Dose 1,000 mg .ROUTE .STK-MED ONE Stop: 02/22/25 18:08 Last Admin: 02/22/25 18:20 Dose: Not Given Documented By: CFG Non-Admin Reason: Duplicate Dose Dextrose (Dextrose 50% 25 Gm/50 Ml Syringe) 25 gm IV PUSH ONCE STA Stop: 02/22/25 17:38 Last Admin: 02/22/25 18:02 Dose: 25 gm Documented By: TRINO Furosemide (Furosemide Inj 40 Mg/4 Ml Vial) 40 mg IV PUSH ONCE STA Stop: 02/22/25 18:28 Last Admin: 02/22/25 18:36 Dose: 40 mg Documented By: CFG Sodium Chloride (Normal Saline Iv) 1,000 mls @ 999 mls/hr IV CONT .Q1H1M STA Stop: 02/22/25 18:37 Last Admin: 02/22/25 18:20 Dose: Not Given Documented By: CFG Non-Admin Reason: Order Discontinued Levofloxacin/Dextrose (Levaquin 750 Mg/D5w 150 Ml) 750 mg in 150 mls @ 100 mls/hr IVPB ONCE STA Stop: 02/22/25 20:16 Last Infusion: 02/22/25 21:11 Dose: Infused Documented By: Admin: 02/22/25 19:43 Dose: 100 mls/hr Documented By: ACS Insulin Human Regular (Insulin Human Regular (*Bkc) 100 Units/Ml) 5 units IV PUSH ONCE STA Stop: 02/22/25 17:38 Last Admin: 02/22/25 18:02 Dose: 5 units Documented By: TRINO Co-signed By: ANT Midodrine (Midodrine Hcl 10 Mg Tablet) 10 mg PO ONCE STA Stop: 02/22/25 18:30 Last Admin: 02/22/25 18:47 Dose: 10 mg Documented By: CFG Sodium Bicarbonate (Sodium Bicarbonate 8.4% 50 Meq/50 Ml Syringe) 50 meq IV PUSH ONCE STA Stop: 02/22/25 17:38 Last Admin: 02/22/25 18:02 Dose: 50 meq Documented By: TRINO Sodium Zirconium Cyclosilicate (Sodium Zirconium Cyclosilicate 10 Gm Powd.Pack) 10 gm PO ONCE STA Stop: 02/22/25 17:38 Last Admin: 02/22/25 18:03 Dose: 10 gm Documented By: TRINO Interventions/Assessments IV / Saline Lock, Insert Start: 02/22/25 13:50 Freq: Status: Active Protocol: Document 02/22/25 19:27 LDD (Rec: 02/22/25 19:28 LDD [id number]) IV Assessment Peripheral Access Left Antecubital IV Catheter Access Initiated IV Insertion Date 02/22/25 IV Insertion Time 19:28 Catheter Gauge 18 IV Insertion 1 Attempts Ultrasound Used for No Placement IV Site Assessment WNL IV Care and WNL Maintenance PA: Cardiovascular Assessment Start: 02/22/25 13:50 Freq: Status: Complete Protocol: Document 02/22/25 16:50 LDD (Rec: 02/22/25 16:51 LDD [id number]) Cardiovascular Assessment Skin Description Normal Color Heart Sounds Normal Jugular Vein None Distention PA: Respiratory Assessment Start: 02/22/25 13:50 Freq: Status: Complete Protocol: Document 02/22/25 16:50 LDD (Rec: 02/22/25 16:51 LDD [id number]) Respiratory Assessment Symptoms Congestion,Cough,Shortness of Breath at Rest,Shortness of Breath With Exertion Effort Normal Pattern Regular Depth Normal Chest Expansion Symmetrical Cough Description Acute,Productive Oxygen Delivery Oxygen Delivery Room Air Pulse Oximetry (90- 99 100) Last Vital Signs Temperature 97.6 F 02/22/25 13:52 Pulse Rate 112 H 02/22/25 20:59 Respiratory Rate 24 H 02/22/25 20:59 Pulse Oximetry 99 02/22/25 20:59 Blood Pressure 93/77 L 02/22/25 20:59 Blood Pressure Mean 82 02/22/25 20:59 Blood Pressure Position Sitting 02/22/25 16:45 Oxygen Delivery Room Air 02/22/25 16:50 Weight 73.9 kg 02/22/25 16:45 Last Result - Abnormals Only WBC 16.8 K/mm3 (4.5-10.0) H 02/22/25 17:02 Hct 41.9 % (42.0-52.0) L 02/22/25 17:02 RDW 16.3 % (11.5-14.5) H 02/22/25 17:02 MPV 10.8 fl (7.4-10.4) H 02/22/25 17:02 Immature Gran % (Auto) 1.1 % (0-0.5) H 02/22/25 17:02 Neut % (Auto) 82.2 % (45.5-73.1) H 02/22/25 17:02 Lymph % (Auto) 7.3 % (18.3-44.2) L 02/22/25 17:02 Randall % (Auto) 9.1 % (2.6-8.5) H 02/22/25 17:02 Baso % (Auto) 0.1 % (0.2-1.2) L 02/22/25 17:02 Randall # (Auto) 1.5 K/mm3 (0.1-0.6) H 02/22/25 17:02 Abs Immat Gran (auto) 0.19 K/mm3 (0.00-0.031) H 02/22/25 17:02 Absolute Neuts (auto) 13.8 K/mm3 (1.3-6.7) H 02/22/25 17:02 Absolute Nucleated RBC 0.030 K/mm3 (0.0-0.012) H 02/22/25 17:02 PT 18.4 Seconds (11.1-14.7) H 02/22/25 17:02 Sodium 108 mmol/L (137-145) L* 02/22/25 20:55 Potassium 6.4 mmol/L (3.4-5.0) H* 02/22/25 20:55 Chloride 79 mmol/L (98-107) L 02/22/25 20:55 Carbon Dioxide 18 mmol/L (22-30) L 02/22/25 17:02 BUN 39 mg/dL (9-20) H 02/22/25 20:55 Glucose 122 mg/dL (65-110) H 02/22/25 20:55 POC Capillary Glucose 155 mg/dl (65-105) H 02/22/25 19:18 Hemoglobin A1c 6.3 % (<5.7) H 02/22/25 19:24 Lactic Acid 3.3 mmol/L (0.7-2.0) H 02/22/25 20:55 Calcium 7.9 mg/dL (8.4-10.2) L 02/22/25 20:55 Magnesium 2.5 mg/dL (1.6-2.3) H 02/22/25 17:02 Total Bilirubin 5.7 mg/dL (0.2-1.3) H 02/22/25 17:02 AST 126 U/L (17-59) H 02/22/25 17:02 ALT 510 U/L (6-50) H 02/22/25 17:02 Alkaline Phosphatase 170 U/L (38-126) H 02/22/25 17:02 NT-Pro-B Natriuret Pep > 73640 pg/mL (19.9-100) H 02/22/25 17:02 Urine Bilirubin 1+ (Negative) H 02/22/25 17:12 Urine RBC 3-5 /hpf (0-2) H 02/22/25 17:12 Most Recent Suicide Severity Rating Suicide Severity Rating NO RISK INDICATED 02/22/25 16:45
--- NOTE | 2025-02-22 22:17 | ADMGEN ---
This patient, Roni Grace, was admitted to IMU Room 205-01. Patient/family oriented to hospital policies and general routines including ID bracelet, bed and alarms, visiting hours, pain management, procedures, bathroom and other care routines, personal items, smoking policy, room service/diet, and visiting hours. Information on how to activate the Rapid Response Team has been discussed. Patient/Family are encouraged to report perceived risks to care and to ask questions if they do not understand what they are told or what they should do.
[2025-02-22 23:18] LABS: Cannabinoid Screen Urine Negative (Negative)
[2025-02-23] VITALS (17 sets, daily range): BP systolic 93–105; BP diastolic 52–58; PULSE 102–118; RESP 12–20; TEMP 36.3–36.8; O2SAT 93–100
--- NOTE | 2025-02-23 | ECHO_ITS ---
Patient Info Name: Roni Grace Age: 45 years : 1980 Gender: Male Ht: 70 in Wt: 159 lbs BSA: 1.89 m2 HR: 114 bpm BP: 94 / 52 mmHg Technical Quality: Good Exam Date: 02/23/2025 9:12 AM Patient Status: O Admit Date: 02/22/2025 Exam Type: CA echo doppler color flow Complete two-dimensional, color flow and Doppler transthoracic echocardiogram is performed. Staff Referring Physician: Cindy Fajardo Division Head: Papito Shin III Attending Provider: Jeri Morel Summary 1. Complete two-dimensional, color flow and Doppler transthoracic echocardiogram is performed. 2. Left ventricular chamber dimension is moderately enlarged. 3. Left ventricular systolic function is severely reduced, estimated at 15-20. 4. Right ventricular chamber dimension is mildly enlarged. 5. Right ventricular systolic function is reduced. 6. Left atrial chamber dimension is moderately enlarged. 7. Right atrial chamber dimension is mildly enlarged. 8. There is mild mitral valve regurgitation. 9. There is mild tricuspid valve regurgitation. 10. Mild pulmonary hypertension, estimated pulmonary arterial systolic pressure is 40 mmHg. 11. Large Pleural effusion. Left Ventricle Left ventricular chamber dimension is moderately enlarged. Left ventricular systolic function is severely reduced, estimated at 15-20. There is no increased left ventricular wall thickness. The left ventricular diastolic function is abnormal. Right Ventricle Right ventricular chamber dimension is mildly enlarged. Right ventricular systolic function is reduced. Left Atria Left atrial chamber dimension is moderately enlarged. Right Atria Right atrial chamber dimension is mildly enlarged. Aortic Valve The aortic valve is trileaflet. There is no aortic valve sclerosis. There is no aortic valve stenosis. There is no aortic valve regurgitation. Pulmonic Valve The pulmonic valve is normal. There is no pulmonic valve stenosis. There is no pulmonic regurgitation. Mitral Valve The mitral valve has normal leaflets. There is no mitral valve stenosis. There is mild mitral valve regurgitation. Tricuspid Valve The tricuspid valve leaflets are normal. There is no significant tricuspid valve stenosis. There is mild tricuspid valve regurgitation. Mild pulmonary hypertension, estimated pulmonary arterial systolic pressure is 40 mmHg. Pericardium/Pleural The pericardium appears normal. There is no pericardial effusion. Inferior Vena Cava Normal inferior vena cava with >50% collapse upon inspiration consistent with normal right atrial pressure, 5 mmHg. Aorta The aortic root size at the sinus of Valsalva is normal. The prox ascending aorta size is normal. Left Ventricular Outflow Tract Name Value Normal LVOT 2D LVOT Diameter 2.3 cm LVOT Doppler LVOT Peak Velocity 56 cm/s LVOT Peak Gradient 1 mmHg LVOT Mean Gradient 1 mmHg LVOT VTI 8 cm LVOT VTI/AV VTI Ratio 0.8 LVOT Stroke Volume 34 ml LVOT CO 3.8 l/min LVOT CI 2.0 l/min/m2 Pulmonic Valve Name Value Normal PV Doppler PV Peak Velocity 63 cm/s PV Peak Gradient 2 mmHg PV Mean Gradient 1 mmHg Mitral Valve Name Value Normal MV Doppler MV Peak Gradient 3 mmHg MV Mean Gradient 1 mmHg MV Area (Cont Eq VTI) 3.3 cm2 MV Regurgitation Doppler MR Peak Gradient 50 mmHg MV Diastolic Function MV E Peak Velocity 92 cm/s MV Decel Time (PW) 145 ms MV Annular TDI MV E/e' (Septal) 29.2 MV E/e' (Lateral) 10.0 MV E/e' (Average) 19.6 Tricuspid Valve Name Value Normal TV Regurgitation Doppler TR Peak Velocity 295 cm/s TR Peak Gradient 35 mmHg Estimated PAP/RSVP RA Pressure 5 mmHg <=5 PA Systolic Pressure 40 mmHg <36 RV Systolic Pressure 40 mmHg <36 TV Annular TDI TV Lateral [place]' Velocity 11.3 cm/s >=9.5 Aortic Valve Name Value Normal AV Doppler AV Peak Velocity 77 cm/s AV Peak Gradient 2 mmHg AV Mean Gradient 1 mmHg AV VTI 10 cm AV Area (Cont Eq VTI) 3.3 cm2 >=3.0 AV Area (Cont Eq [place]) 3.0 cm2 AV DI ([place]) 0.73 AV Regurgitation 2D LVOT Area 4.1 cm2 Ventricles Name Value Normal LV Dimensions 2D/MM IVS Diastolic Thickness (2D) 0.5 cm 0.6-1.0 LVID Diastole (2D) 6.5 cm 4.2-5.8 LVIW Diastolic Thickness (2D) 1.0 cm 0.6-1.0 LVID Systole (2D) 6.3 cm 2.5-4.0 LVOT Diameter 2.3 cm LV Mass (2D Cubed) 210.00 g 88.00-224.00 LV Mass Index (2D Cubed) 111 g/m2 49-115 Relative Wall Thickness (2D) 0.32 <=0.42 LV Fractional Shortening/Ejection Fraction 2D/MM LV Fractional Shortening (2D) 3 % 25-43 LV EF (2D Teichholz) 7 % LV Diastolic Volume (4C MOD) 188 ml LV EF (4C MOD) 15 % LV Diastolic Volume (2C MOD) 230 ml LV EF (2C MOD) 17 % LV Diastolic Volume (BP MOD) 231 ml 62-150 LV Diastolic Volume Index (BP MOD) 122 ml/m2 34-74 LV Systolic Volume (BP MOD) 187 ml 21-61 LV Systolic Volume Index (BP MOD) 99 ml/m2 11-31 LV EF (BP MOD) 19 % 52-72 LV Diastolic Length (4C) 8.4 cm LV Systolic Length (4C) 7.9 cm LV Stroke Volume (4C MOD) 29 ml Atria Name Value Normal LA Dimensions LA Volume (4C A-L) 94 ml LA Volume (BP A-L) 107 ml RA Dimensions RA Systolic Major [place] Length (4C) 4.9 cm 2.1-2.7 RA Area (4C) 20.4 cm2 <=18.0 Report Signatures
[2025-02-23] MEDS: ALBUTEROL SULFATE NEB 2.5 MG/3 ML INH 15 MG INHALATION (00:11)
[2025-02-23 00:24] LABS: Troponin I 0.013 ng/mL (0.000-0.034)
[2025-02-23] MEDS: CALCIUM GLUCONATE 1,000 MG/10 ML VIAL 1000 MG IV PUSH (00:39)
[2025-02-23] MEDS: INSULIN HUMAN REGULAR (*BKC) 100 UNITS/ML 10 UNITS IV PUSH (00:52)
[2025-02-23] MEDS: DEXTROSE 50% 25 GM/50 ML SYRINGE IV PUSH (00:53)
[2025-02-23] MEDS: SODIUM BICARBONATE 8.4% 50 MEQ/50 ML SYRINGE IV PUSH (00:55)
[2025-02-23 01:11] LABS: Anion Gap 9 mmol/L (4-12); Blood Urea Nitrogen 37 mg/dL (9-20); Calcium 7.8 mg/dL (8.4-10.2); Carbon Dioxide 20 mmol/L (22-30); Chloride 81 mmol/L (98-107); Estimated CRCL calculation 85 ml/min; Estimated Glomerular Filt Rate > 60; Glucose 96 mg/dL (65-110); Potassium 5.3 mmol/L (3.4-5.0); Sodium 110 mmol/L (137-145)
[2025-02-23 05:07] LABS: Hematocrit 35.3 % (42.0-52.0); Hemoglobin 12.3 g/dL (14.0-18.0); Immature Granulocyte Percent A 1.1 % (0-0.5); Lymphocytes Absolute Auto 0.97 K/mm3 (0.9-3.2); Mean Corpuscular HGB Conc 34.8 g/dl (32-36); Mean Corpuscular Hemoglobin 30.4 pg (26-34); Mean Corpuscular Volume 87.2 fl (80-100); Nucleated Red Blood Cells Absolute Auto 0.000 K/mm3 (0.0-0.012); Nucleated Red Blood Cells Perc 0.0 % (0.0-0.2); Platelet Count Result 196 k/mm3 (150-375); Red Blood Count 4.05 M/mm3 (4.6-6.20); White Blood Count 14.1 K/mm3 (4.5-10.0)
[2025-02-23 05:23] LABS: Alanine Aminotransferase 353 U/L (6-50); Albumin Level 2.6 g/dL (3.5-5.1); Alkaline Phosphatase 130 U/L (38-126); Anion Gap 5 mmol/L (4-12); Aspartate Amino Transferase 80 U/L (17-59); Bilirubin,Total 5.3 mg/dL (0.2-1.3); Blood Urea Nitrogen 34 mg/dL (9-20); Calcium 7.5 mg/dL (8.4-10.2); Carbon Dioxide 22 mmol/L (22-30); Chloride 84 mmol/L (98-107); Estimated CRCL calculation 91 ml/min; Estimated Glomerular Filt Rate > 60; Glucose 76 mg/dL (65-110); Magnesium 2.2 mg/dL (1.6-2.3); Potassium 4.9 mmol/L (3.4-5.0); Sodium 111 mmol/L (137-145); Total Protein 5.3 g/dL (6.3-8.2)
--- NOTE | 2025-02-23 08:18 | P.CONCA_ITS ---
Assessment and Plan Assessment and plan (1) Acute CHF: Code(s): I50.9 - Heart failure, unspecified Status: Acute Assessment and Plan: * patient presents with acute decompensated heart failure, unclear is systolic of diastolic * echo will be done for further evaluation * his pBNP is >19945 and Na of 108 on admission * CTA chest with bilateral pleural effusions and pulmonary edema * started on IV lasix 40 mg IVP BID and would continue * monitor intake and output closely * if echo suggest systolic dysfunction may benefit from dobutamine or milrinone * unable to initiate GDMT d/t his hypotension at this time * monitor renal function and electrolytes with diuresis (2) Transaminitis: Code(s): R74.01 - Elevation of levels of liver transaminase levels Status: Acute Assessment and Plan: * may represent hepatic congestion in the setting of acute CHF * will trend with diuresis. * CT of abd/pelvis did not suggest any acute finding (3) Acute hyponatremia: Code(s): E87.1 - Hypo-osmolality and hyponatremia Status: Acute Assessment and Plan: * his sodium was 108 on admission * currently 111 with initiation of diuresis * will need close monitoring of sodium (4) Hyperkalemia: Code(s): E87.5 - Hyperkalemia Status: Acute Assessment and Plan: * potassium of 6.4 on admission * has normalized * was previously on aldactone at home, but was stopped a few weeks ago (5) Hypotension: Code(s): I95.9 - Hypotension, unspecified Status: Acute Assessment and Plan: * patient BP noted to be low normal * was started on midodrine 10 mg TID per primary team * would attempt to wean off as tolerated * could consider use of dobutamine/milrinone History of Present Illness History of Present Illness Consult date/time: 02/23/25 08:18 Requesting physician: Jeri Morel MD Consult reason: congestive heart failure Reason For Visit: Electrolyte abnormalities Narrative: Roni Grace is a 45 y.o. male who presented to the ER with c/o shortness of breath and LE edema. He states he had been in the process of transitioning and taking Aldactone and estradiol at home, but began feeling unwell a few weeks ago so he stopped all medications. He states he was short of breath with any activity and had began limiting what he did d/t SOB. States he was unable to lie flat and when he tried he noted a heaviness in his chest. He also began noting swelling in the bilateral LE and his abdomen felt bloated. He finally decided to come to ER as his symptoms were not improving. He is currently lying in bed and on room air. He states he is feeling much improved after IV lasix. In the ER patient noted to have a pBNP >30,000 and sodium of 108. We were consulted for CHF and management Review of Systems 2 Review of Systems: All systems reviewed & are unremarkable except as noted in HPI and below PMFSH Family History Family History (Updated 02/22/25 @ 22:21 by Naomi Mcmullen RN) Mother Diabetes mellitus Alcoholism Father Parkinsons disease Alcoholism Other Diabetes 1.5, managed as type 1 Social History Social History Smoking status: Never smoker Alcohol intake: former Substance use: former Substance use type: former substance user and marijuana Other substance usage details: quit a few weeks ago Lack of Transportation: No Lack of Food: Never True Current Housing: I Have Housing Concerned About Future Housing: Decline to Answer Difficulty Paying Gas/Electric Bills: No Difficulty Paying for Meds: No Currently Unemployed: No Education: Bachelor's Degree Difficulty w/ Childcare or Family Care: No Spiritual care concerns: No Meds Home Medications and Allergies Home Medications ?Medication ?Instructions ?Recorded ?Confirmed ?Type No Home Medications 02/22/25 02/22/25 H istory Allergies Allergy/AdvReac Type Severity Reaction Status Date / Time No Known Allergies Allergy Verified 02/22/25 17:00 Vital Signs Vital Signs - 24 hr 02/22/25 13:52 02/22/25 16:45 02/22/25 16:50 Temperature 36.4 C Pulse Rate 102 H 109 H Respiratory Rate 18 20 Blood Pressure 91/59 L 91/61 L Pulse Oximetry 100 100 99 Oxygen Delivery Room Air Room Air Room Air 02/22/25 16:51 02/22/25 17:15 02/22/25 17:30 Temperature Pulse Rate 109 H 108 H 107 H Respiratory Rate 20 28 H 18 Blood Pressure 91/61 L 95/62 L 94/74 L Pulse Oximetry 100 100 99 Oxygen Delivery 02/22/25 17:47 02/22/25 20:02 02/22/25 20:59 Temperature Pulse Rate 110 H 125 H 112 H Respiratory Rate 26 H 25 H 24 H Blood Pressure 96/45 L 106/45 L 93/77 L Pulse Oximetry 9 L 99 99 Oxygen Delivery 02/22/25 21:58 02/22/25 22:10 02/22/25 22:43 Temperature 36.7 C Pulse Rate 112 H 107 H 101 H Respiratory Rate 24 H 20 Blood Pressure 93/77 L 105/55 L Pulse Oximetry 99 99 Oxygen Delivery 02/23/25 00:00 02/23/25 00:00 02/23/25 00:00 Temperature 36.6 C Pulse Rate 106 H 103 H Respiratory Rate 20 Blood Pressure Pulse Oximetry 100 Oxygen Delivery Room Air 02/23/25 00:20 02/23/25 00:30 02/23/25 01:14 Temperature Pulse Rate 102 H 112 H Respiratory Rate 18 18 Blood Pressure 102/58 L Pulse Oximetry Oxygen Delivery 02/23/25 02:00 02/23/25 04:00 02/23/25 04:00 Temperature Pulse Rate 116 H 110 H Respiratory Rate Blood Pressure Pulse Oximetry Oxygen Delivery Room Air 02/23/25 04:16 02/23/25 06:00 02/23/25 07:31 Temperature 36.8 C 36.8 C Pulse Rate 113 H 114 H 112 H Respiratory Rate 16 12 Blood Pressure 94/52 L 93/55 L Pulse Oximetry 93 95 Oxygen Delivery Exam 2 Const: General: comfortable; No no acute distress Eyes: Sclera: sclerae normal Neck: Neck: supple Resp: Effort & Inspection: normal respiratory effort Auscultation: crackles Cardio: Rate: tachycardic Rhythm: regular rhythm Heart sounds: no gallops, no murmurs and no rubs Skin: General skin exam: normal color Neuro: Speech: normal speech Extrem: General: edema bilateral Results Labs and Meds 02/23/25 04:57 02/23/25 04:57 Lab results: Cardiac Enzymes 02/22/25 02/22/25 02/23/25 Range/Units 17:02 20:55 04:57 AST 126 H 80 H (17-59) U/L Troponin I 0.016 0.013 (0.000-0.034) ng/mL Coagulation 02/22/25 Range/Units 17:02 PT 18.4 H (11.1-14.7) Seconds APTT 29.1 (22.3-36.8) Seconds Lipids 02/22/25 Range/Units 19:24 Triglycerides 99 (<150) mg/dL Cholesterol 119 (0-200) mg/dL CBC 02/22/25 02/23/25 Range/Units 17:02 04:57 WBC 16.8 H 14.1 H (4.5-10.0) K/mm3 RBC 4.72 4.05 L (4.6-6.20) M/mm3 Hgb 14.2 12.3 L (14.0-18.0) g/dL Hct 41.9 L 35.3 L (42.0-52.0) % Plt Count 233 196 (150-375) k/mm3 Lymph # (Auto) 1.23 0.97 (0.9-3.2) K/mm3 [place] # (Auto) 1.5 H 1.8 H (0.1-0.6) K/mm3 Eos # (Auto) 0.0 0.0 (0-0.3) K/mm3 Baso # (Auto) 0.0 0.0 (0.0-0.1) K/mm3 Comprehensive Metabolic Panel 02/22/25 02/22/25 02/23/25 Range/Units 17:02 20:55 00:53 Sodium 107 L* 108 L* 110 L* (137-145) mmol/L Potassium 6.8 H* 6.4 H* 5.3 H (3.4-5.0) mmol/L Chloride 79 L 79 L 81 L (98-107) mmol/L Carbon Dioxide 18 L 22 20 L (22-30) mmol/L BUN 40 H 39 H 37 H (9-20) mg/dL Creatinine 1.18 1.08 1.01 (0.7-1.3) mg/dL Glucose 125 H 122 H 96 (65-110) mg/dL Calcium 7.9 L 7.9 L 7.8 L (8.4-10.2) mg/dL AST 126 H (17-59) U/L ALT 510 H (6-50) U/L Alkaline Phosphatase 170 H (38-126) U/L Total Protein 6.7 (6.3-8.2) g/dL Albumin 3.5 (3.5-5.1) g/dL 02/23/25 Range/Units 04:57 Sodium 111 L* (137-145) mmol/L Potassium 4.9 (3.4-5.0) mmol/L Chloride 84 L (98-107) mmol/L Carbon Dioxide 22 (22-30) mmol/L BUN 34 H (9-20) mg/dL Creatinine 0.94 (0.7-1.3) mg/dL Glucose 76 (65-110) mg/dL Calcium 7.5 L (8.4-10.2) mg/dL AST 80 H (17-59) U/L ALT 353 H (6-50) U/L Alkaline Phosphatase 130 H (38-126) U/L Total Protein 5.3 L (6.3-8.2) g/dL Albumin 2.6 L (3.5-5.1) g/dL Intake and Output 02/22/25 02/23/25 02/23/25 23:59 07:59 15:59 Intake Total 150 Balance 150 Intake: IV 150 levoFLOXacin 750 MG/D5W 150 ML 150 750 mg In 150 ml @ 100 mls/hr IVPB ONCE STA Rx#:[id number] Other: # Unmeasured Voids 1 Patient Weight 02/23/25 23:59 Weight 72.5 kg Imaging and Cardiology EKG results: report reviewed EKG Interpretation EKG: sinus rhythm and no acute changes EKG shows: sinus rhythm (rate of 108 bpm with LAFB no acute ST/T wave changes )
[2025-02-23 09:30] LABS: Anion Gap 4 mmol/L (4-12); Blood Urea Nitrogen 32 mg/dL (9-20); Calcium 7.6 mg/dL (8.4-10.2); Carbon Dioxide 23 mmol/L (22-30); Chloride 84 mmol/L (98-107); Estimated CRCL calculation 91 ml/min; Estimated Glomerular Filt Rate > 60; Glucose 84 mg/dL (65-110); Potassium 4.9 mmol/L (3.4-5.0); Sodium 111 mmol/L (137-145)
[2025-02-23] MEDS: MIDODRINE HCL 10 MG TABLET PO ×3 (09:47→17:28)
[2025-02-23] MEDS: FUROSEMIDE INJ 40 MG/4 ML VIAL IV PUSH ×2 (09:47→17:29)
--- NOTE | 2025-02-23 12:54 | P.CONGI_ITS ---
Assessment and Plan Assessment and plan (1) Acute CHF: Code(s): I50.9 - Heart failure, unspecified Status: Acute (2) Transaminitis: Code(s): R74.01 - Elevation of levels of liver transaminase levels Status: Acute (3) Acute hyponatremia: Code(s): E87.1 - Hypo-osmolality and hyponatremia Status: Acute Assessment and Plan: * (4) Hyperkalemia: Code(s): E87.5 - Hyperkalemia Status: Acute Assessment and Plan: * (5) Hypotension: Code(s): I95.9 - Hypotension, unspecified Status: Acute Assessment and Plan: Plan PLAN: 1. Elevated liver enzymes/hypotension/acute CHF/hyponatremia/Anemia. He presented to the ER with shortness of breath and fatigue. CTA chest PA showed cardiomegaly, anasarca, pulm edema and pleural effusion and admitted with Acute decompensated CHF. Blood pressure noted to be low in ER. He was found to have significantly elevated liver enzymes with a total bilirubin of 5.7, AST 126, ALT 510, and alkaline phosphatase of 170 in ER. BNP> 42631. CTA of abdomen and pelvis showed no liver focal liver lesions or acute findings of gallbladder or pancreas. Started on diuretics per Cardiology and feeling better. Repeat labs this morning show improving liver function with a total bilirubin of 5.3, AST 80, ALT 353, and alkaline phosphatase of 130. Elevated LFTs 2/2 to hepatic congestion in setting of CHF verses shock liver. He has 20 year history of chronic alcohol use but quit drinking 5 years ago. He was recently taking Aldactone and estradiol but discontinue several weeks ago. DDX: Congestive hepatopathy 2/2 CHF vs Drug-induced liver injury vs Alcoholic liver disease -Continue trending LFTs -Acute hepatis Panel ordered -Abdominal ultrasound with Doppler of liver to assess vascular status. GI Consult Note Consult date/time: 02/23/25 12:54 Reason for consult: abnormal labs HPI: Roni Grace is a 45 year old male who we are asked to see for abnormal liver labs. He presented to the ER with appr 3 week history shortness of breath, generalized weakness, and fatigue. In the ER, BP was noted to be 96/45, Pulse 110. Labs showed WBC 16.8, Na 107, K 6.8, Cr 1.18, NT-proBNP >87802, tbili 5.7, AST 126, ALT 510, Alk phos 170. CTA chest and Abd/pelvis showed pulm edema with ascites, pleural effusion and cardiomegaly and admitted for acute decompensated heart failure. He was taking Aldactone and estradiol at home as part of a transitioning process but stopped these medications a few weeks ago when he started feeling unwell. He denies any other new medications or herbal supplements. He denies any prior history of elevated LFTs or liver disease. He reports a 20 year history of alcohol use, drinking 6-12 beers daily but discontinued 5 years ago. Reports use of ecstasy in teenager years but no IV drug use. He denies prior history of jaundice. He denies any RUQ pain, nausea, or vomiting. He reports regular BM. Family history of Mother with liver transplant 2/2 to alcohol use. Never had scopes. He reports feeling much improved after receiving IV Lasix. ENDOSCOPY HISTORY: EGD: No prior EGD available. COLONOSCOPY: No prior colonoscopy available. LABS AND STOOL STUDIES: 02/23/2025 Sodium 108, BUN, creatinine, and GFR WBC's, HGB, HCT, MCV, PLATELETS, INR 1.6 total bilirubin 5.3, AST 80, ALT 353, and Alkaline Phosphate 130 pBNP >30,000, albumin 3.5 IMAGING: Date of Service: 02/22/25 Procedure(s): CTA chest PE abdomen pel Accession Number(s): [id number] cc: Roxie Marc PA-C; Staci Voss PA-C; Joy, Viktoriya Chan MD~ EXAMINATION: CTA chest PE abdomen pel DATE: 02/22/2025 17:45 INDICATION: Hemoptysis. Chest pain, shortness of breath. Recent use of estrogen. TECHNIQUE: Computed tomography angiography (CTA) of the chest was performed with 100 mL Omnipaque-350 intravenous contrast timed to evaluate the pulmonary arteries. Coronal maximum intensity projection 3D-reconstructions were created by the technologist. Computed tomography (CT) of the abdomen and pelvis was performed with intravenous contrast. Automated exposure control and iterative reconstruction technique were employed. The dose-length product was 585.80 mGy- cm. COMPARISON: No prior imaging studies are available. FINDINGS: CTA chest: No evidence of pulmonary emboli. Significant cardiomegaly is noted. Significant bilateral pleural effusion. Airspace opacity likely due to pulmonary edema predominantly in the left mid and lower lung carter and to a lesser degree in the right lower lung field. Findings suggestive of congestive heart failure. On the delayed postcontrast study, low- density defect in the apex of left ventricle suggests thrombus the apex of left ventricle. CT abdomen and pelvis: Below the diaphragm, no focal lesions of liver and spleen. No definite acute findings of gallbladder, pancreas and the kidneys. Diffuse ascites in the upper abdomen and pelvis. Mild subcutaneous edema of the abdominal wall. Review of Systems 2 Review of Systems: All systems reviewed & are unremarkable except as noted in HPI and below Constitutional: Constitutional: Reports as per HPI Eyes: Eyes: Denies blurry vision ENT: Reports Normal hearing present Cardiovascular: Cardiovascular: Reports as per HPI Respiratory: Respiratory: Reports as per HPI Gastrointestinal: Gastrointestinal: Denies abdominal pain, Denies melena, Denies bloating, Denies constipation, Denies heartburn, Denies diarrhea, Denies nausea and Denies vomiting Musculoskeletal: Musculoskeletal: Reports no additional musculoskeletal complaints Integumentary/Breasts: Skin/Breast: Reports system reviewed and no additional complaints, except as docu Neurologic: Reports system reviewed and no additional complaints, except as documented Psychiatric: Psychiatric: Reports no additional psychiatric complaints [facility] Family History Family History (Updated 02/22/25 @ 22:21 by Naomi Mcmullen RN) Mother Diabetes mellitus Alcoholism Father Parkinsons disease Alcoholism Other Diabetes 1.5, managed as type 1 Social History Social History Smoking status: Never smoker Alcohol intake: former Substance use: former Substance use type: former substance user and marijuana Other substance usage details: quit a few weeks ago Lack of Transportation: No Lack of Food: Never True Current Housing: I Have Housing Concerned About Future Housing: Decline to Answer Difficulty Paying Gas/Electric Bills: No Difficulty Paying for Meds: No Currently Unemployed: No Education: Bachelor's Degree Difficulty w/ Childcare or Family Care: No Spiritual care concerns: No Meds Home Medications and Allergies Home Medications ?Medication ?Instructions ?Recorded ?Confirmed ?Type No Home Medications 02/22/25 02/22/25 H istory Allergies Allergy/AdvReac Type Severity Reaction Status Date / Time No Known Allergies Allergy Verified 02/22/25 17:00 Vital Signs Vital Signs - 24 hr 02/22/25 13:52 02/22/25 16:45 02/22/25 16:50 Temperature 97.6 F Pulse Rate 102 H 109 H Respiratory Rate 18 20 Blood Pressure 91/59 L 91/61 L Pulse Oximetry 100 100 99 Oxygen Delivery Room Air Room Air Room Air 02/22/25 16:51 02/22/25 17:15 02/22/25 17:30 Temperature Pulse Rate 109 H 108 H 107 H Respiratory Rate 20 28 H 18 Blood Pressure 91/61 L 95/62 L 94/74 L Pulse Oximetry 100 100 99 Oxygen Delivery 02/22/25 17:47 02/22/25 20:02 02/22/25 20:59 Temperature Pulse Rate 110 H 125 H 112 H Respiratory Rate 26 H 25 H 24 H Blood Pressure 96/45 L 106/45 L 93/77 L Pulse Oximetry 9 L 99 99 Oxygen Delivery 02/22/25 21:58 02/22/25 22:10 02/22/25 22:43 Temperature 98.0 F Pulse Rate 112 H 107 H 101 H Respiratory Rate 24 H 20 Blood Pressure 93/77 L 105/55 L Pulse Oximetry 99 99 Oxygen Delivery 02/23/25 00:00 02/23/25 00:00 02/23/25 00:00 Temperature 97.8 F Pulse Rate 106 H 103 H Respiratory Rate 20 Blood Pressure Pulse Oximetry 100 Oxygen Delivery Room Air 02/23/25 00:20 02/23/25 00:30 02/23/25 01:14 Temperature Pulse Rate 102 H 112 H Respiratory Rate 18 18 Blood Pressure 102/58 L Pulse Oximetry Oxygen Delivery 02/23/25 02:00 02/23/25 04:00 02/23/25 04:00 Temperature Pulse Rate 116 H 110 H Respiratory Rate Blood Pressure Pulse Oximetry Oxygen Delivery Room Air 02/23/25 04:16 02/23/25 06:00 02/23/25 07:31 Temperature 98.2 F 98.3 F Pulse Rate 113 H 114 H 112 H Respiratory Rate 16 12 Blood Pressure 94/52 L 93/55 L Pulse Oximetry 93 95 Oxygen Delivery 02/23/25 11:43 Temperature 98 F Pulse Rate 113 H Respiratory Rate 16 Blood Pressure 105/52 L Pulse Oximetry 94 Oxygen Delivery Exam 2 Const: General: comfortable HENMT: Head: normal to inspection Eyes: Sclera: sclerae normal Resp: Effort & Inspection: normal respiratory effort Cardio: Rate: regular rate Rhythm: regular rhythm GI: Inspection: normal to inspection and non-distended GI Palp: Yes Soft to palpation, No Guarding due to palpation present (GI) and No Ascites present A uscultation: normal bowel sounds Skin: General skin exam: jaundice Neuro: Speech: normal speech Extrem: General: normal to inspection Results Labs 02/23/25 04:57 02/23/25 08:59 Labs: Short CBC 02/22/25 02/23/25 Range/Units 17:02 04:57 WBC 16.8 H 14.1 H (4.5-10.0) K/mm3 Hgb 14.2 12.3 L (14.0-18.0) g/dL Hct 41.9 L 35.3 L (42.0-52.0) % Plt Count 233 196 (150-375) k/mm3 [facility] 02/22/25 02/22/25 02/23/25 17:02 20:55 00:53 Sodium 107 L* 108 L* 110 L* Potassium 6.8 H* 6.4 H* 5.3 H Chloride 79 L 79 L 81 L Carbon Dioxide 18 L 22 20 L BUN 40 H 39 H 37 H Creatinine 1.18 1.08 1.01 Glucose 125 H 122 H 96 Calcium 7.9 L 7.9 L 7.8 L 02/23/25 02/23/25 04:57 08:59 Sodium 111 L* 111 L* Potassium 4.9 4.9 Chloride 84 L 84 L Carbon Dioxide 22 23 BUN 34 H 32 H Creatinine 0.94 0.94 Glucose 76 84 Calcium 7.5 L 7.6 L Cardiac Enzymes 02/22/25 02/22/25 Range/Units 17:02 20:55 Troponin I 0.016 0.013 (0.000-0.034) ng/mL Liver Function 02/22/25 02/23/25 Range/Units 17:02 04:57 Total Bilirubin 5.7 H 5.3 H (0.2-1.3) mg/dL AST 126 H 80 H (17-59) U/L ALT 510 H 353 H (6-50) U/L Alkaline Phosphatase 170 H 130 H (38-126) U/L Albumin 3.5 2.6 L (3.5-5.1) g/dL Urine 02/22/25 Range/Units 17:12 Urine Color Dark yellow (Yellow) Urine Appearance Clear (Clear) Urine pH 5.0 (5.0-9.0) Ur Specific [place] 1.022 (1.001-1.035) Urine Protein Negative (Negative) mg/dL Urine Glucose (UA) Negative (Negative) mg/dL
--- NOTE | 2025-02-23 13:43 | P.PNIM_ITS ---
Assessment and Plan Assessment and Plan (1) CHF (congestive heart failure): Code(s): I50.9 - Heart failure, unspecified Status: Acute (2) Hyperkalemia: Code(s): E87.5 - Hyperkalemia Status: Acute Plan New onset CHF presented with worsening SOB, orthopnea and PND Leg edema 3+ on exam CTA chest PA showed cardiomegaly, anasarca, pulm edema and pleural effusion lasix 40mg bid IV, Midodrine 10mg tid ECHO pending Cardiology following Hyperkalemia k 4.5, resolved s/p Ca gluconate, insulin and dextrose Continue lasix as above Hyponatremia From CHF Na 111 from 107 continue diuresis and monitor 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 identifies as male, his biological sex DVT prophylaxis on Sq Lovenox full code Subjective Date/time seen: 02/23/25 13:43 Interval history: Comfortable at bedside Review of Systems Review of Systems: All other systems were reviewed and negative except as noted in the HPI above Exam Narrative: General: alert and comfortable Eyes: EOMI, PERRLA ENNT External ears normal, Neck is supple, no masses, Respiratory systems: Clear to auscultation Cardiovascular S1, S2, normal rhythm, no murmur, rub, or gallop; no thrill or palpable murmurs on palpation. Gastrointestinal: soft, non-tender, and non-distended abdomen with no masses; BS present Skin: no rash, lesions, ulcerations, subcutaneous nodules or induration Musculoskeletal: no abnormality and no tenderness, normal ROM Neurologic: Alert and oriented x3, non focal Mental Status Exam: normal affect Objective Data Vital Signs Vital Signs: Vital Signs - 24 hr 02/22/25 13:52 02/22/25 16:45 02/22/25 16:50 Temperature 97.6 F Pulse Rate 102 H 109 H Respiratory Rate 18 20 Blood Pressure 91/59 L 91/61 L Pulse Oximetry 100 100 99 Oxygen Delivery Room Air Room Air Room Air 02/22/25 16:51 02/22/25 17:15 02/22/25 17:30 Temperature Pulse Rate 109 H 108 H 107 H Respiratory Rate 20 28 H 18 Blood Pressure 91/61 L 95/62 L 94/74 L Pulse Oximetry 100 100 99 Oxygen Delivery 02/22/25 17:47 02/22/25 20:02 02/22/25 20:59 Temperature Pulse Rate 110 H 125 H 112 H Respiratory Rate 26 H 25 H 24 H Blood Pressure 96/45 L 106/45 L 93/77 L Pulse Oximetry 9 L 99 99 Oxygen Delivery 02/22/25 21:58 02/22/25 22:10 02/22/25 22:43 Temperature 98.0 F Pulse Rate 112 H 107 H 101 H Respiratory Rate 24 H 20 Blood Pressure 93/77 L 105/55 L Pulse Oximetry 99 99 Oxygen Delivery 02/23/25 00:00 02/23/25 00:00 02/23/25 00:00 Temperature 97.8 F Pulse Rate 106 H 103 H Respiratory Rate 20 Blood Pressure Pulse Oximetry 100 Oxygen Delivery Room Air 02/23/25 00:20 02/23/25 00:30 02/23/25 01:14 Temperature Pulse Rate 102 H 112 H Respiratory Rate 18 18 Blood Pressure 102/58 L Pulse Oximetry Oxygen Delivery 02/23/25 02:00 02/23/25 04:00 02/23/25 04:00 Temperature Pulse Rate 116 H 110 H Respiratory Rate Blood Pressure Pulse Oximetry Oxygen Delivery Room Air 02/23/25 04:16 02/23/25 06:00 02/23/25 07:31 Temperature 98.2 F 98.3 F Pulse Rate 113 H 114 H 112 H Respiratory Rate 16 12 Blood Pressure 94/52 L 93/55 L Pulse Oximetry 93 95 Oxygen Delivery 02/23/25 11:43 Temperature 98 F Pulse Rate 113 H Respiratory Rate 16 Blood Pressure 105/52 L Pulse Oximetry 94 Oxygen Delivery Intake/Output Intake/Output: Intake & Output 02/20/25 02/21/25 02/22/25 02/23/25 23:59 23:59 23:59 23:59 Intake Total 150 Output Total 300 Balance 150 -300 Meds/Results Medications: Active Medications Generic Name Dose Route Start Last Admin Trade Name Freq PRN Reason Stop Dose Admin Dextrose 12.5 gm 02/22/25 23:55 Dextrose 50% 25 Gm/50 Ml Syringe IV PUSH PRN PRN Hypoglycemia Protocol Furosemide 40 mg 02/23/25 09:00 02/23/25 09:47 Furosemide Inj 40 Mg/4 Ml Vial IV PUSH 40 mg BID CHARISMA Administration Glucagon 1 mg 02/22/25 23:55 Glucagon For Inj 1 Mg Vial IM PRN PRN Hypoglycemia Protocol Glucose 15 gm 02/22/25 23:55 Glucose Oral Gel 15 Gm Of Glucse In 37.5 Gm Tube PO PRN PRN Hypoglycemia Protocol Dextrose 1,000 mls @ 100 mls/hr 02/22/25 23:55 Dextrose 5% 1,000 Ml IVPB PRN PRN Hypoglycemia Protocol Midodrine 10 mg 02/23/25 09:00 02/23/25 13:31 Midodrine Hcl 10 Mg Tablet PO 10 mg TID CHARISMA Administration Perflutren Lipid Microsphere 0 ml 02/22/25 18:39 Perflutren Lipid Microspheres 1.5 Ml Vial Diluted To 10 Ml Total Volume IV PUSH 02/25/25 18:40 ONCE PRN adequate visualization Protocol Radiology Results: ITS Impressions Chest/Abdomen/Pelvis CTA 02/22/25 17:46 IMPRESSION: 1. Anasarca with bilateral pleural effusion, ascites. Pulmonary edema, left more than the right lung. Findings are suggestive of congestive heart failure. Cardiomegaly. 2. No evidence of pulmonary emboli. Suggestion of thrombus at the apex of left ventricle on delayed contrast study. Correlation with echocardiogram is recommended. 3. No focal acute findings in the abdomen and pelvis. Labs Labs: Laboratory Results - last 24 hr 02/22/25 02/22/25 02/22/25 17:02 17:12 18:04 WBC 16.8 H RBC 4.72 Hgb 14.2 Hct 41.9 L MCV 88.8 MCH 30.1 MCHC 33.9 RDW 16.3 H Plt Count 233 MPV 10.8 H Immature Gran % (Auto) 1.1 H Neut % (Auto) 82.2 H Lymph % (Auto) 7.3 L [place] % (Auto) 9.1 H Eos % (Auto) 0.2 Baso % (Auto) 0.1 L Lymph # (Auto) 1.23 [place] # (Auto) 1.5 H Eos # (Auto) 0.0 Baso # (Auto) 0.0 Abs Immat Gran (auto) 0.19 H Absolute Neuts (auto) 13.8 H Absolute Nucleated RBC 0.030 H Nucleated RBC % 0.2 PT 18.4 H INR 1.6 APTT 29.1 Sodium 107 L* Potassium 6.8 H* Chloride 79 L Carbon Dioxide 18 L Anion Gap 10 BUN 40 H Creatinine 1.18 Estim Creat Clear Calc 74 Estimated GFR > 60 Glucose 125 H POC Capillary Glucose 117 H Hemoglobin A1c Lactic Acid Calcium 7.9 L Magnesium 2.5 H Total Bilirubin 5.7 H AST 126 H ALT 510 H Alkaline Phosphatase 170 H Troponin I 0.016 NT-Pro-B Natriuret Pep > 32223 H Total Protein 6.7 Albumin 3.5 Triglycerides Cholesterol LDL Cholesterol Direct HDL Direct Lipase 85 Urine Color Dark yellow Urine Appearance Clear Urine pH 5.0 Ur Specific [place] 1.022 Urine Protein Negative Urine Glucose (UA) Negative Urine Ketones Negative Ur Blood (Man) Negative Urine Nitrate Negative Urine Bilirubin 1+ H Urine Urobilinogen 1.0 Add Ur Microanalysis Reviewed Leukocyte Esterase Rfl Negative Urine RBC 3-5 H Urine WBC 0-5 Ur Squamous Epith Cells Occasional Urine Bacteria None seen Urine Casts 6-10 Urine Opiates Screen Negative Urine Methadone Screen Negative Ur Barbiturates Screen Negative Ur Phencyclidine Scrn Negative Ur Amphetamine Screen Negative U Benzodiazepines Scrn Negative Urine Cocaine Screen Negative U Cannabinoids Screen Negative 02/22/25 02/22/25 02/22/25 18:13 19:18 19:24 WBC RBC Hgb Hct MCV MCH MCHC RDW Plt Count MPV Immature Gran % (Auto) Neut % (Auto) Lymph % (Auto) [place] % (Auto) Eos % (Auto) Baso % (Auto) Lymph # (Auto) [place] # (Auto) Eos # (Auto) Baso # (Auto) Abs Immat Gran (auto) Absolute Neuts (auto) Absolute Nucleated RBC Nucleated RBC % PT INR APTT Sodium Potassium Chloride Carbon Dioxide Anion Gap BUN Creatinine Estim Creat Clear Calc Estimated GFR Glucose POC Capillary Glucose 155 H Hemoglobin A1c 6.3 H Lactic Acid 2.7 H Calcium Magnesium Total Bilirubin AST ALT Alkaline Phosphatase Troponin I NT-Pro-B Natriuret Pep Total Protein Albumin Triglycerides 99 Cholesterol 119 LDL Cholesterol Direct 84 HDL Direct 17 Lipase Urine Color Urine Appearance Urine pH Ur Specific [place] Urine Protein Urine Glucose (UA) Urine Ketones Ur Blood (Man) Urine Nitrate Urine Bilirubin Urine Urobilinogen Add Ur Microanalysis Leukocyte Esterase Rfl Urine RBC Urine WBC Ur Squamous Epith Cells Urine Bacteria Urine Casts Urine Opiates Screen Urine Methadone Screen Ur Barbiturates Screen Ur Phencyclidine Scrn Ur Amphetamine Screen U Benzodiazepines Scrn Urine Cocaine Screen U Cannabinoids Screen 02/22/25 02/23/25 02/23/25 20:55 00:53 04:57 WBC 14.1 H RBC 4.05 L Hgb 12.3 L Hct 35.3 L MCV 87.2 MCH 30.4 MCHC 34.8 RDW 16.2 H Plt Count 196 MPV 10.4 Immature Gran % (Auto) 1.1 H Neut % (Auto) 79.2 H Lymph % (Auto) 6.9 L [place] % (Auto) 12.6 H Eos % (Auto) 0.1 Baso % (Auto) 0.1 L Lymph # (Auto) 0.97 [place] # (Auto) 1.8 H Eos # (Auto) 0.0 Baso # (Auto) 0.0 Abs Immat Gran (auto) 0.15 H Absolute Neuts (auto) 11.1 H Absolute Nucleated RBC 0.000 Nucleated RBC % 0.0 PT INR APTT Sodium 108 L* 110 L* 111 L* Potassium 6.4 H* 5.3 H 4.9 Chloride 79 L 81 L 84 L Carbon Dioxide 22 20 L 22 Anion Gap 7 9 5 BUN 39 H 37 H 34 H Creatinine 1.08 1.01 0.94 Estim Creat Clear Calc 80 85 91 Estimated GFR > 60 > 60 > 60 Glucose 122 H 96 76 POC Capillary Glucose Hemoglobin A1c Lactic Acid 3.3 H Calcium 7.9 L 7.8 L 7.5 L Magnesium 2.2 Total Bilirubin 5.3 H AST 80 H ALT 353 H Alkaline Phosphatase 130 H Troponin I 0.013 NT-Pro-B Natriuret Pep Total Protein 5.3 L Albumin 2.6 L Triglycerides Cholesterol LDL Cholesterol Direct HDL Direct Lipase Urine Color Urine Appearance Urine pH Ur Specific [place] Urine Protein Urine Glucose (UA) Urine Ketones Ur Blood (Man) Urine Nitrate Urine Bilirubin Urine Urobilinogen Add Ur Microanalysis Leukocyte Esterase Rfl Urine RBC Urine WBC Ur Squamous Epith Cells Urine Bacteria Urine Casts Urine Opiates Screen Urine Methadone Screen Ur Barbiturates Screen Ur Phencyclidine Scrn Ur Amphetamine Screen U Benzodiazepines Scrn Urine Cocaine Screen U Cannabinoids Screen 02/23/25 08:59 WBC RBC Hgb Hct MCV MCH MCHC RDW Plt Count MPV Immature Gran % (Auto) Neut % (Auto) Lymph % (Auto) [place] % (Auto) Eos % (Auto) Baso % (Auto) Lymph # (Auto) [place] # (Auto) Eos # (Auto) Baso # (Auto) Abs Immat Gran (auto) Absolute Neuts (auto) Absolute Nucleated RBC Nucleated RBC % PT INR APTT Sodium 111 L* Potassium 4.9 Chloride 84 L Carbon Dioxide 23 Anion Gap 4 BUN 32 H Creatinine 0.94 Estim Creat Clear Calc 91 Estimated GFR > 60 Glucose 84 POC Capillary Glucose Hemoglobin A1c Lactic Acid Calcium 7.6 L Magnesium Total Bilirubin AST ALT Alkaline Phosphatase Troponin I NT-Pro-B Natriuret Pep Total Protein Albumin Triglycerides Cholesterol LDL Cholesterol Direct HDL Direct Lipase Urine Color Urine Appearance Urine pH Ur Specific [place] Urine Protein Urine Glucose (UA) Urine Ketones Ur Blood (Man) Urine Nitrate Urine Bilirubin Urine Urobilinogen Add Ur Microanalysis Leukocyte Esterase Rfl Urine RBC Urine WBC Ur Squamous Epith Cells Urine Bacteria Urine Casts Urine Opiates Screen Urine Methadone Screen Ur Barbiturates Screen Ur Phencyclidine Scrn Ur Amphetamine Screen U Benzodiazepines Scrn Urine Cocaine Screen U Cannabinoids Screen
[2025-02-23 13:51] LABS: Anion Gap 6 mmol/L (4-12); Blood Urea Nitrogen 30 mg/dL (9-20); Calcium 7.5 mg/dL (8.4-10.2); Carbon Dioxide 25 mmol/L (22-30); Chloride 83 mmol/L (98-107); Estimated CRCL calculation 90 ml/min; Estimated Glomerular Filt Rate > 60; Glucose 94 mg/dL (65-110); Potassium 3.9 mmol/L (3.4-5.0); Sodium 114 mmol/L (137-145)
[2025-02-23 14:38] LABS: Hepatitis B Surface Antigen Negative (Negative)
[2025-02-23 14:43] LABS: HAV RESULT Negative (Negative); Hepatitis B Core IgM Result Negative (Negative)
[2025-02-23 18:07] LABS: Anion Gap 7 mmol/L (4-12); Blood Urea Nitrogen 29 mg/dL (9-20); Calcium 7.5 mg/dL (8.4-10.2); Carbon Dioxide 24 mmol/L (22-30); Chloride 83 mmol/L (98-107); Estimated CRCL calculation 91 ml/min; Estimated Glomerular Filt Rate > 60; Glucose 140 mg/dL (65-110); Magnesium 2.1 mg/dL (1.6-2.3); Potassium 3.9 mmol/L (3.4-5.0); Sodium 114 mmol/L (137-145)
[2025-02-23 21:55] LABS: Anion Gap 9 mmol/L (4-12); Blood Urea Nitrogen 27 mg/dL (9-20); Calcium 7.4 mg/dL (8.4-10.2); Carbon Dioxide 27 mmol/L (22-30); Chloride 80 mmol/L (98-107); Estimated CRCL calculation 94 ml/min; Estimated Glomerular Filt Rate > 60; Glucose 146 mg/dL (65-110); Potassium 3.4 mmol/L (3.4-5.0); Sodium 116 mmol/L (137-145)
[2025-02-24] VITALS (12 sets, daily range): BP systolic 90–117; BP diastolic 39–68; PULSE 108–127; RESP 14–27; TEMP 36.3–37; O2SAT 94–96; BMI 22.1
--- NOTE | 2025-02-24 | ECHO_ITS ---
Patient Info Name: Roni Grace Age: 45 years : 1980 Gender: Male Ht: 70 in Wt: 154 lbs BSA: 1.86 m2 HR: 122 bpm BP: 101 / 39 mmHg Technical Quality: Excellent Exam Date: 02/24/2025 3:19 PM Patient Status: I Admit Date: 02/24/2025 Exam Type: CA echo limited w contrast Limited two-dimensional transthoracic echocardiogram is performed with contrast. Staff Referring Physician: Jeri Morel [employer] [facility] Director: Papito Shin III Attending Provider: Jeri Morel Contrast/Agitated Saline Contrast/Ag. Saline: Definity Amount: 2.00 ml Administered By: Papito Shin III Existing IV Access: Yes IV Access Condition: patent with no signs of infiltration Summary 1. The left ventricle is mildly dilated with severely reduced systolic function. The left ventricular ejection fraction is visually estimated to be less than 15%. There is no left ventricular thrombus. Left Ventricle The left ventricle is mildly dilated with severely reduced systolic function. The left ventricular ejection fraction is visually estimated to be less than 15%. There is no left ventricular thrombus. Right Ventricle The right ventricle is normal size with reduced systolic function. Mitral Valve The mitral valve is normal. There is moderate mitral regurgitation. Tricuspid Valve The tricuspid valve is normal. There is mild tricuspid regurgitation. Ventricles Name Value Normal LV Dimensions 2D/MM IVS Diastolic Thickness (2D) 0.6 cm 0.6-1.0 LVID Diastole (2D) 6.7 cm 4.2-5.8 LVIW Diastolic Thickness (2D) 0.8 cm 0.6-1.0 LVID Systole (2D) 6.3 cm 2.5-4.0 LV Mass (2D Cubed) 200.71 g 88.00-224.00 LV Mass Index (2D Cubed) 108 g/m2 49-115 Relative Wall Thickness (2D) 0.25 <=0.42 LV Fractional Shortening/Ejection Fraction 2D/MM LV Fractional Shortening (2D) 6 % 25-43 LV EF (2D Teichholz) 14 % LV Diastolic Volume (4C MOD) 236 ml LV EF (4C MOD) 16 % LV Diastolic Volume (2C MOD) 300 ml LV EF (2C MOD) 14 % LV Diastolic Volume (BP MOD) 267 ml 62-150 LV Diastolic Volume Index (BP MOD) 144 ml/m2 34-74 LV Systolic Volume (BP MOD) 229 ml 21-61 LV Systolic Volume Index (BP MOD) 123 ml/m2 11-31 LV EF (BP MOD) 14 % 52-72 LV Diastolic Length (4C) 10.0 cm LV Systolic Length (4C) 9.1 cm LV Stroke Volume (4C MOD) 37 ml Report Signatures
[2025-02-24 01:31] LABS: Anion Gap 5 mmol/L (4-12); Blood Urea Nitrogen 28 mg/dL (9-20); Calcium 7.4 mg/dL (8.4-10.2); Carbon Dioxide 29 mmol/L (22-30); Chloride 81 mmol/L (98-107); Estimated CRCL calculation 103 ml/min; Estimated Glomerular Filt Rate > 60; Glucose 132 mg/dL (65-110); Potassium 3.7 mmol/L (3.4-5.0); Sodium 115 mmol/L (137-145)
[2025-02-24 05:43] LABS: Hematocrit 35.0 % (42.0-52.0); Hemoglobin 12.0 g/dL (14.0-18.0); Immature Granulocyte Percent A 0.9 % (0-0.5); Lymphocytes Absolute Auto 0.93 K/mm3 (0.9-3.2); Mean Corpuscular HGB Conc 34.3 g/dl (32-36); Mean Corpuscular Hemoglobin 29.9 pg (26-34); Mean Corpuscular Volume 87.3 fl (80-100); Nucleated Red Blood Cells Absolute Auto 0.000 K/mm3 (0.0-0.012); Nucleated Red Blood Cells Perc 0.0 % (0.0-0.2); Platelet Count Result 207 k/mm3 (150-375); Red Blood Count 4.01 M/mm3 (4.6-6.20); White Blood Count 13.9 K/mm3 (4.5-10.0)
[2025-02-24 05:57] LABS: Alanine Aminotransferase 331 U/L (6-50); Albumin Level 2.6 g/dL (3.5-5.1); Alkaline Phosphatase 154 U/L (38-126); Anion Gap 6 mmol/L (4-12); Aspartate Amino Transferase 114 U/L (17-59); Bilirubin,Total 5.0 mg/dL (0.2-1.3); Blood Urea Nitrogen 27 mg/dL (9-20); Calcium 7.4 mg/dL (8.4-10.2); Carbon Dioxide 28 mmol/L (22-30); Chloride 80 mmol/L (98-107); Estimated CRCL calculation 108 ml/min; Estimated Glomerular Filt Rate > 60; Glucose 187 mg/dL (65-110); Magnesium 1.9 mg/dL (1.6-2.3); Potassium 3.7 mmol/L (3.4-5.0); Sodium 114 mmol/L (137-145); Total Protein 5.3 g/dL (6.3-8.2)
--- NOTE | 2025-02-24 08:38 | P.PNCA_ITS ---
Progress Note: A&P Assessment and Plan (1) Acute CHF: Code(s): I50.9 - Heart failure, unspecified Status: Acute Assessment and Plan: * patient presents with acute decompensated heart failure * Echo showed severe LV dysfunction with EF 15-20% * his pBNP is >33489 and Na of 108 on admission, Na improving - 116 today * CTA chest with bilateral pleural effusions and pulmonary edema * started on IV lasix 40 mg IVP BID and would continue * monitor intake and output closely * if echo suggest systolic dysfunction may benefit from dobutamine or milrinone * unable to initiate GDMT d/t his hypotension at this time * monitor renal function and electrolytes with diuresis * Pln for R/LHC tomorrow. NPO at nh (2) Transaminitis: Code(s): R74.01 - Elevation of levels of liver transaminase levels Status: Acute Assessment and Plan: * may represent hepatic congestion in the setting of acute CHF * will trend with diuresis. * CT of abd/pelvis did not suggest any acute finding (3) Acute hyponatremia: Code(s): E87.1 - Hypo-osmolality and hyponatremia Status: Acute Assessment and Plan: * his sodium was 108 on admission * 116 today * will need close monitoring of sodium (4) Hyperkalemia: Code(s): E87.5 - Hyperkalemia Status: Acute Assessment and Plan: * potassium of 6.4 on admission * has normalized * was previously on aldactone at home, but was stopped a few weeks ago (5) Hypotension: Code(s): I95.9 - Hypotension, unspecified Status: Acute Assessment and Plan: * patient BP noted to be low normal * was started on midodrine 10 mg TID per primary team * would attempt to wean off as tolerated * could consider use of dobutamine/milrinone Subjective Date/time seen: 02/24/25 08:38 Interval history: Cardiology follow up visit for CHF, severe cardiomyopathy Date of service 02/24/2025: Feeling better, denies shortness of breath. Lower extremity swelling has resolved. No chest pain Review of Systems Review of Systems: All systems reviewed & are unremarkable except as noted in HPI and below Exam Const: General: comfortable; No no acute distress Other: Lying flat in bed breathing comfortably Eyes: General: appearance normal, both eyes and all related structures Neck: Neck: supple Resp: Effort & Inspection: normal respiratory effort Auscultation: crackles bilateral 1/[address] way up Cardio: Rate: tachycardic Rhythm: regular rhythm Heart sounds: no gal lops, no murmurs and no rubs Skin: General skin exam: normal color Neuro: Speech: normal speech Extrem: General: no edema Psych: Appearance: grossly normal Mental Status: mental status grossly normal Objective Data Vital Signs Vital Signs: Vital Signs - 24 hr 02/23/25 11:43 02/23/25 12:00 02/23/25 15:35 Temperature 36.6 C Pulse Rate 113 H 109 H 105 H Respiratory Rate 16 Blood Pressure 105/52 L Pulse Oximetry 94 Oxygen Delivery 02/23/25 16:00 02/23/25 16:40 02/23/25 20:00 Temperature 36.6 C 36.3 C L Pulse Rate 112 H 104 H 117 H Respiratory Rate 14 14 Blood Pressure 93/52 L 93/56 L Pulse Oximetry 97 98 Oxygen Delivery 02/23/25 20:00 02/23/25 20:00 02/23/25 22:00 Temperature Pulse Rate 118 H 113 H Respiratory Rate Blood Pressure Pulse Oximetry Oxygen Delivery Room Air 02/24/25 00:00 02/24/25 00:00 02/24/25 00:00 Temperature 36.8 C Pulse Rate 113 H 113 H Respiratory Rate 14 Blood Pressure 107/63 Pulse Oximetry 95 Oxygen Delivery Room Air 02/24/25 02:00 02/24/25 04:00 02/24/25 04:00 Temperature 37.0 C Pulse Rate 124 H 119 H Respiratory Rate 20 Blood Pressure 90/55 L Pulse Oximetry 94 Oxygen Delivery Room Air 02/24/25 04:00 02/24/25 06:00 02/24/25 08:00 Temperature 36.7 C Pulse Rate 119 H 124 H 127 H Respiratory Rate 27 H Blood Pressure 97/64 L Pulse Oximetry 96 Oxygen Delivery Intake/Output Intake/Output: Intake & Output 02/21/25 02/22/25 02/23/25 02/24/25 23:59 23:59 23:59 23:59 Intake Total 150 240 500 Output Total 2550 800 Balance 150 -2310 -300 Meds/Results Medications: Active Medications Generic Name Dose Route Start Last Admin Trade Name Freq PRN Reason Stop Dose Admin Dextrose 12.5 gm 02/22/25 23:55 Dextrose 50% 25 Gm/50 Ml Syringe IV PUSH PRN PRN Hypoglycemia Protocol Furosemide 40 mg 02/23/25 09:00 02/23/25 17:29 Furosemide Inj 40 Mg/4 Ml Vial IV PUSH 40 mg BID CHARISMA Administration Glucagon 1 mg 02/22/25 23:55 Glucagon For Inj 1 Mg Vial IM PRN PRN Hypoglycemia Protocol Glucose 15 gm 02/22/25 23:55 Glucose Oral Gel 15 Gm Of Glucse In 37.5 Gm Tube PO PRN PRN Hypoglycemia Protocol Dextrose 1,000 mls @ 100 mls/hr 02/22/25 23:55 Dextrose 5% 1,000 Ml IVPB PRN PRN Hypoglycemia Protocol Midodrine 10 mg 02/23/25 09:00 02/23/25 17:28 Midodrine Hcl 10 Mg Tablet PO 10 mg TID CHARISMA Administration Perflutren Lipid Microsphere 0 ml 02/22/25 18:39 Perflutren Lipid Microspheres 1.5 Ml Vial Diluted To 10 Ml Total Volume IV PUSH 02/25/25 18:40 ONCE PRN adequate visualization Protocol Radiology Results: ITS Impressions Chest/Abdomen/Pelvis CTA 02/22/25 17:46 IMPRESSION: 1. Anasarca with bilateral pleural effusion, ascites. Pulmonary edema, left more than the right lung. Findings are suggestive of congestive heart failure. Cardiomegaly. 2. No evidence of pulmonary emboli. Suggestion of thrombus at the apex of left ventricle on delayed contrast study. Correlation with echocardiogram is recommended. 3. No focal acute findings in the abdomen and pelvis. Abdomen Ultrasound 02/23/25 19:33 IMPRESSION: 1. Normal size liver. One CM cyst of the right lobe of the liver. Portal veins and hepatic veins are patent. Prominent size of hepatic veins noted. This is consistent with hepatic venous congestion. 2. Evidence of gallstones. Extrahepatic bile ducts are normal in size. 3. Small amount of free fluid around the liver and in the peritoneal cavity. Arterial/Peripheral Duplex 02/23/25 19:33 IMPRESSION: 1. Normal size liver. One CM cyst of the right lobe of the liver. Portal veins and hepatic veins are patent. Prominent size of hepatic veins noted. This is consistent with hepatic venous congestion. 2. Evidence of gallstones. Extrahepatic bile ducts are normal in size. 3. Small amount of free fluid around the liver and in the peritoneal cavity. Labs Labs: Laboratory Results - last 24 hr 02/23/25 02/23/25 02/23/25 04:57 08:59 13:08 WBC RBC Hgb Hct MCV MCH MCHC RDW Plt Count MPV Immature Gran % (Auto) Neut % (Auto) Lymph % (Auto) [place] % (Auto) Eos % (Auto) Baso % (Auto) Lymph # (Auto) [place] # (Auto) Eos # (Auto) Baso # (Auto) Abs Immat Gran (auto) Absolute Neuts (auto) Absolute Nucleated RBC Nucleated RBC % Sodium 111 L* 114 L* Potassium 4.9 3.9 Chloride 84 L 83 L Carbon Dioxide 23 25 Anion Gap 4 6 BUN 32 H 30 H Creatinine 0.94 0.95 Estim Creat Clear Calc 91 90 Estimated GFR > 60 > 60 Glucose 84 94 Calcium 7.6 L 7.5 L Magnesium Total Bilirubin AST ALT Alkaline Phosphatase Total Protein Albumin Hepatitis A IgM Ab Negative Hep Bs Antigen Negative Hep B Core IgM Ab Negative Hepatitis C Ab Screen Negative 02/23/25 02/23/25 02/24/25 17:45 21:27 01:13 WBC RBC Hgb Hct MCV MCH MCHC RDW Plt Count MPV Immature Gran % (Auto) Neut % (Auto) Lymph % (Auto) [place] % (Auto) Eos % (Auto) Baso % (Auto) Lymph # (Auto) [place] # (Auto) Eos # (Auto) Baso # (Auto) Abs Immat Gran (auto) Absolute Neuts (auto) Absolute Nucleated RBC Nucleated RBC % Sodium 114 L* 116 L* 115 L* Potassium 3.9 3.4 3.7 Chloride 83 L 80 L 81 L Carbon Dioxide 24 27 29 Anion Gap 7 9 5 BUN 29 H 27 H 28 H Creatinine 0.93 0.90 0.82 Estim Creat Clear Calc 91 94 103 Estimated GFR > 60 > 60 > 60 Glucose 140 H 146 H 132 H Calcium 7.5 L 7.4 L 7.4 L Magnesium 2.1 Total Bilirubin AST ALT Alkaline Phosphatase Total Protein Albumin Hepatitis A IgM Ab Hep Bs Antigen Hep B Core IgM Ab Hepatitis C Ab Screen 02/24/25 05:37 WBC 13.9 H RBC 4.01 L Hgb 12.0 L Hct 35.0 L MCV 87.3 MCH 29.9 MCHC 34.3 RDW 16.2 H Plt Count 207 MPV 10.1 Immature Gran % (Auto) 0.9 H Neut % (Auto) 81.5 H Lymph % (Auto) 6.7 L [place] % (Auto) 10.6 H Eos % (Auto) 0.2 Baso % (Auto) 0.1 L Lymph # (Auto) 0.93 [place] # (Auto) 1.5 H Eos # (Auto) 0.0 Baso # (Auto) 0.0 Abs Immat Gran (auto) 0.12 H Absolute Neuts (auto) 11.3 H Absolute Nucleated RBC 0.000 Nucleated RBC % 0.0 Sodium 114 L* Potassium 3.7 Chloride 80 L Carbon Dioxide 28 Anion Gap 6 BUN 27 H Creatinine 0.78 Estim Creat Clear Calc 108 Estimated GFR > 60 Glucose 187 H Calcium 7.4 L Magnesium 1.9 Total Bilirubin 5.0 H AST 114 H ALT 331 H Alkaline Phosphatase 154 H Total Protein 5.3 L Albumin 2.6 L Hepatitis A IgM Ab Hep Bs Antigen Hep B Core IgM Ab Hepatitis C Ab Screen
[2025-02-24] MEDS: MIDODRINE HCL 10 MG TABLET PO ×3 (09:39→16:58)
[2025-02-24] MEDS: FUROSEMIDE INJ 40 MG/4 ML VIAL IV PUSH ×2 (09:39→16:58)
[2025-02-24 10:01] LABS: Anion Gap 6 mmol/L (4-12); Blood Urea Nitrogen 26 mg/dL (9-20); Calcium 7.5 mg/dL (8.4-10.2); Carbon Dioxide 29 mmol/L (22-30); Chloride 81 mmol/L (98-107); Estimated CRCL calculation 104 ml/min; Estimated Glomerular Filt Rate > 60; Glucose 181 mg/dL (65-110); Potassium 3.6 mmol/L (3.4-5.0); Sodium 116 mmol/L (137-145)
--- NOTE | 2025-02-24 12:36 | PM.IMPN2 ---
Assessment and Plan Assessment and Plan (1) CHF (congestive heart failure): Code(s): I50.9 - Heart failure, unspecified Status: Acute (2) Hyperkalemia: Code(s): E87.5 - Hyperkalemia Status: Acute Plan New onset CHF ECCHO showed EF 15-20% presented with worsening SOB, orthopnea and PND Leg edema 3+ on exam CTA chest PA showed cardiomegaly, anasarca, pulm edema and pleural effusion lasix 40mg bid IV, Midodrine 10mg tid Cardiology following Hyperkalemia k 3.6, resolved s/p Ca gluconate, insulin and dextrose Continue lasix as above Hyponatremia From CHF Na 116 from 107 continue diuresis and monitor Congestive Hepatopathy Elevated liver enzymes from CHF improving continue above care and monitor 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 identifies as male, his biological sex DVT prophylaxis on Sq Lovenox full code Subjective Date/time seen: 02/24/25 12:36 Interval history: Comfortable at bedside ECHO showed EF 15-20% Review of Systems Review of Systems: All other systems were reviewed and negative except as noted in the HPI above Exam Narrative: General: alert and comfortable Eyes: EOMI, PERRLA ENNT External ears normal, Neck is supple, no masses, Respiratory systems: Clear to auscultation Cardiovascular S1, S2, normal rhythm, no murmur, rub, or gallop; no thrill or palpable murmurs on palpation. Gastrointestinal: soft, non-tender, and non-distended abdomen with no masses; BS present Skin: no rash, lesions, ulcerations, subcutaneous nodules or induration Musculoskeletal: no abnormality and no tenderness, normal ROM Neurologic: Alert and oriented x3, non focal Mental Status Exam: normal affect Objective Data Vital Signs Vital Signs: Vital Signs - 24 hr 02/23/25 15:35 02/23/25 16:00 02/23/25 16:40 Temperature 97.8 F Pulse Rate 105 H 112 H 104 H Respiratory Rate 14 Blood Pressure 93/52 L Pulse Oximetry 97 Oxygen Delivery 02/23/25 20:00 02/23/25 20:00 02/23/25 20:00 Temperature 97.3 F L Pulse Rate 117 H 118 H Respiratory Rate 14 Blood Pressure 93/56 L Pulse Oximetry 98 Oxygen Delivery Room Air 02/23/25 22:00 02/24/25 00:00 02/24/25 00:00 Temperature 98.3 F Pulse Rate 113 H 113 H Respiratory Rate 14 Blood Pressure 107/63 Pulse Oximetry 95 Oxygen Delivery Room Air 02/24/25 00:00 02/24/25 02:00 02/24/25 04:00 Temperature Pulse Rate 113 H 124 H Respiratory Rate Blood Pressure Pulse Oximetry Oxygen Delivery Room Air 02/24/25 04:00 02/24/25 04:00 02/24/25 06:00 Temperature 98.6 F Pulse Rate 119 H 119 H 124 H Respiratory Rate 20 Blood Pressure 90/55 L Pulse Oximetry 94 Oxygen Delivery 02/24/25 08:00 02/24/25 12:00 Temperature 98.0 F 98.4 F Pulse Rate 127 H 123 H Respiratory Rate 27 H 24 H Blood Pressure 97/64 L 101/39 L Pulse Oximetry 96 95 Oxygen Delivery Intake/Output Intake/Output: Intake & Output 02/21/25 02/22/25 02/23/25 02/24/25 23:59 23:59 23:59 23:59 Intake Total 150 240 860 Output Total 2550 800 Balance 150 -2310 60 Meds/Results Medications: Active Medications Generic Name Dose Route Start Last Admin Trade Name Freq PRN Reason Stop Dose Admin Dextrose 12.5 gm 02/22/25 23:55 Dextrose 50% 25 Gm/50 Ml Syringe IV PUSH PRN PRN Hypoglycemia Protocol Furosemide 40 mg 02/23/25 09:00 02/24/25 09:39 Furosemide Inj 40 Mg/4 Ml Vial IV PUSH 40 mg BID CHARISMA Administration Glucagon 1 mg 02/22/25 23:55 Glucagon For Inj 1 Mg Vial IM PRN PRN Hypoglycemia Protocol Glucose 15 gm 02/22/25 23:55 Glucose Oral Gel 15 Gm Of Glucse In 37.5 Gm Tube PO PRN PRN Hypoglycemia Protocol Dextrose 1,000 mls @ 100 mls/hr 02/22/25 23:55 Dextrose 5% 1,000 Ml IVPB PRN PRN Hypoglycemia Protocol Midodrine 10 mg 02/23/25 09:00 02/24/25 12:33 Midodrine Hcl 10 Mg Tablet PO 10 mg TID CHARISMA Administration Perflutren Lipid Microsphere 0 ml 02/22/25 18:39 Perflutren Lipid Microspheres 1.5 Ml Vial Diluted To 10 Ml Total Volume IV PUSH 02/25/25 18:40 ONCE PRN adequate visualization Protocol Radiology Results: ITS Impressions Chest/Abdomen/Pelvis CTA 02/22/25 17:46 IMPRESSION: 1. Anasarca with bilateral pleural effusion, ascites. Pulmonary edema, left more than the right lung. Findings are suggestive of congestive heart failure. Cardiomegaly. 2. No evidence of pulmonary emboli. Suggestion of thrombus at the apex of left ventricle on delayed contrast study. Correlation with echocardiogram is recommended. 3. No focal acute findings in the abdomen and pelvis. Abdomen Ultrasound 02/23/25 19:33 IMPRESSION: 1. Normal size liver. One CM cyst of the right lobe of the liver. Portal veins and hepatic veins are patent. Prominent size of hepatic veins noted. This is consistent with hepatic venous congestion. 2. Evidence of gallstones. Extrahepatic bile ducts are normal in size. 3. Small amount of free fluid around the liver and in the peritoneal cavity. Arterial/Peripheral Duplex 02/23/25 19:33 IMPRESSION: 1. Normal size liver. One CM cyst of the right lobe of the liver. Portal veins and hepatic veins are patent. Prominent size of hepatic veins noted. This is consistent with hepatic venous congestion. 2. Evidence of gallstones. Extrahepatic bile ducts are normal in size. 3. Small amount of free fluid around the liver and in the peritoneal cavity. Labs Labs: Laboratory Results - last 24 hr 02/23/25 02/23/25 02/23/25 04:57 13:08 17:45 WBC RBC Hgb Hct MCV MCH MCHC RDW Plt Count MPV Immature Gran % (Auto) Neut % (Auto) Lymph % (Auto) Fisher % (Auto) Eos % (Auto) Baso % (Auto) Lymph # (Auto) Fisher # (Auto) Eos # (Auto) Baso # (Auto) Abs Immat Gran (auto) Absolute Neuts (auto) Absolute Nucleated RBC Nucleated RBC % Sodium 114 L* 114 L* Potassium 3.9 3.9 Chloride 83 L 83 L Carbon Dioxide 25 24 Anion Gap 6 7 BUN 30 H 29 H Creatinine 0.95 0.93 Estim Creat Clear Calc 90 91 Estimated GFR > 60 > 60 Glucose 94 140 H Calcium 7.5 L 7.5 L Magnesium 2.1 Total Bilirubin AST ALT Alkaline Phosphatase Total Protein Albumin Hepatitis A IgM Ab Negative Hep Bs Antigen Negative Hep B Core IgM Ab Negative Hepatitis C Ab Screen Negative 02/23/25 02/24/25 02/24/25 21:27 01:13 05:37 WBC 13.9 H RBC 4.01 L Hgb 12.0 L Hct 35.0 L MCV 87.3 MCH 29.9 MCHC 34.3 RDW 16.2 H Plt Count 207 MPV 10.1 Immature Gran % (Auto) 0.9 H Neut % (Auto) 81.5 H Lymph % (Auto) 6.7 L Fisher % (Auto) 10.6 H Eos % (Auto) 0.2 Baso % (Auto) 0.1 L Lymph # (Auto) 0.93 Fisher # (Auto) 1.5 H Eos # (Auto) 0.0 Baso # (Auto) 0.0 Abs Immat Gran (auto) 0.12 H Absolute Neuts (auto) 11.3 H Absolute Nucleated RBC 0.000 Nucleated RBC % 0.0 Sodium 116 L* 115 L* 114 L* Potassium 3.4 3.7 3.7 Chloride 80 L 81 L 80 L Carbon Dioxide 27 29 28 Anion Gap 9 5 6 BUN 27 H 28 H 27 H Creatinine 0.90 0.82 0.78 Estim Creat Clear Calc 94 103 108 Estimated GFR > 60 > 60 > 60 Glucose 146 H 132 H 187 H Calcium 7.4 L 7.4 L 7.4 L Magnesium 1.9 Total Bilirubin 5.0 H AST 114 H ALT 331 H Alkaline Phosphatase 154 H Total Protein 5.3 L Albumin 2.6 L Hepatitis A IgM Ab Hep Bs Antigen Hep B Core IgM Ab Hepatitis C Ab Screen 02/24/25 09:25 WBC RBC Hgb Hct MCV MCH MCHC RDW Plt Count MPV Immature Gran % (Auto) Neut % (Auto) Lymph % (Auto) Fisher % (Auto) Eos % (Auto) Baso % (Auto) Lymph # (Auto) Fisher # (Auto) Eos # (Auto) Baso # (Auto) Abs Immat Gran (auto) Absolute Neuts (auto) Absolute Nucleated RBC Nucleated RBC % Sodium 116 L* Potassium 3.6 Chloride 81 L Carbon Dioxide 29 Anion Gap 6 BUN 26 H Creatinine 0.78 Estim Creat Clear Calc 104 Estimated GFR > 60 Glucose 181 H Calcium 7.5 L Magnesium Total Bilirubin AST ALT Alkaline Phosphatase Total Protein Albumin Hepatitis A IgM Ab Hep Bs Antigen Hep B Core IgM Ab Hepatitis C Ab Screen
--- NOTE | 2025-02-24 13:17 | PM.CNNEP ---
History of Present Illness Reason for Consult Consult date: 02/24/25 Reason for consult: hyponatremia Chief Complaint Chief complaint: Electrolyte abnormalities [facility] Past Medical History Medical History (Updated 02/24/25 @ 17:26 by Kingsley Ellis MD) Elevated liver enzymes Hyponatremia Anasarca Acute systolic (congestive) heart failure Family History Family History (Updated 02/22/25 @ 22:21 by Naomi Mcmullen RN) Mother Diabetes mellitus Alcoholism Father Parkinsons disease Alcoholism Other Diabetes 1.5, managed as type 1 Social History Social History Smoking status: Never smoker Alcohol intake: former Substance use: former Substance use type: former substance user and marijuana Other substance usage details: quit a few weeks ago Lack of Transportation: No Lack of Food: Never True Current Housing: I Have Housing Concerned About Future Housing: Decline to Answer Difficulty Paying Gas/Electric Bills: No Difficulty Paying for Meds: No Currently Unemployed: No Education: Bachelor's Degree Difficulty w/ Childcare or Family Care: No Spiritual care concerns: No Meds Home Medications and Allergies Home Medications ?Medication ?Instructions ?Recorded ?Confirmed ?Type No Home Medications 02/22/25 02/22/25 History Allergies Allergy/AdvReac Type Severity Reaction Status Date / Time No Known Allergies Allergy Verified 02/22/25 17:00 Vital Signs Laboratory Tests 02/23/25 02/24/25 02/24/25 21:27 01:13 05:37 WBC 13.9 H Hgb 12.0 L Hct 35.0 L Plt Count 207 Sodium 116 L* 115 L* 114 L* Potassium 3.4 3.7 3.7 Chloride 80 L 81 L 80 L Carbon Dioxide 27 29 28 Anion Gap 9 5 6 BUN 27 H 28 H 27 H Creatinine 0.90 0.82 0.78 Estim Creat Clear Calc 94 103 108 Estimated GFR > 60 > 60 > 60 Glucose 146 H 132 H 187 H Calcium 7.4 L 7.4 L 7.4 L Magnesium 1.9 Total Bilirubin 5.0 H AST 114 H ALT 331 H Alkaline Phosphatase 154 H Total Protein 5.3 L Albumin 2.6 L TSH 02/24/25 02/24/25 09:25 13:16 Sodium 116 L* 116 L* Potassium 3.6 3.3 L Chloride 81 L 80 L Carbon Dioxide 29 32 H Anion Gap 6 4 BUN 26 H 26 H Creatinine 0.78 0.81 Estim Creat Clear Calc 104 101 Estimated GFR > 60 > 60 Glucose 181 H 134 H Calcium 7.5 L 7.3 L Microbiology 02/22/25 18:13 Blood Blood Culture - Preliminary Results Lab Results 02/24/25 05:37 02/24/25 13:16 Lab results: Most recent lab results Calcium 7.3 mg/dL (8.4-10.2) L 02/24/25 13:16 Magnesium 1.9 mg/dL (1.6-2.3) 02/24/25 05:37
[2025-02-24] MEDS: ALBUMIN HUMAN 25% 25 GM/100 ML 100 ML IVPB (13:29)
[2025-02-24 14:01] LABS: Anion Gap 4 mmol/L (4-12); Blood Urea Nitrogen 26 mg/dL (9-20); Calcium 7.3 mg/dL (8.4-10.2); Carbon Dioxide 32 mmol/L (22-30); Chloride 80 mmol/L (98-107); Estimated CRCL calculation 101 ml/min; Estimated Glomerular Filt Rate > 60; Glucose 134 mg/dL (65-110); Potassium 3.3 mmol/L (3.4-5.0); Sodium 116 mmol/L (137-145)
[2025-02-24] MEDS: PERFLUTREN LIPID MICROSPHERES 1.5 ML VIAL DILUTED TO 10 ML TOTAL VOLUME IV PUSH (15:40)
[2025-02-24] MEDS: POTASSIUM CHLORIDE 20 MEQ ER TABLET 40 MEQ PO (16:57)
[2025-02-24] MEDS: POTASSIUM CHLORIDE INJ 40 MEQ in SODIUM CHLORIDE 0.9% IV 500 ML 130 MEQ IVPB (16:57)
--- NOTE | 2025-02-24 17:24 | P.PNGI_ITS ---
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 liver doppler us without clot, jarrett smiley, etc CHF management by primary team, also hyponatremia expect liver enzymes will remain elevated until CHF is controlled will follow as needed, no need of further liver work up (2) Anasarca: Code(s): R60.1 - Generalized edema Status: Acute (3) Hyponatremia: Code(s): E87.1 - Hypo-osmolality and hyponatremia Status: Acute (4) Elevated liver enzymes: Code(s): R74.8 - Abnormal levels of other serum enzymes Status: Acute Subjective Date/time seen: 02/24/25 17:24 Interval history: Echo showed EF 15% no major changes Review of Systems Review of Systems: All systems reviewed & are unremarkable except as noted in HPI and below Exam Const: General: comfortable; No no acute distress Other: Lying flat in bed breathing comfortably HENMT: Face/Nose/Sinus: Normal nares present Eyes: General: appearance normal, both eyes and all related structures Neck: Neck: supple Resp: Effort & Inspection: normal respiratory effort Auscultation: crackles bilateral 1/[address] up Cardio: Rate: tachycardic Rhythm: regular rhythm Heart sounds: no gallops, no murmurs and no rubs GI: GI Palp: Yes Soft to palpation and No Tenderness to palpation present (GI) Auscultation: normal bowel sounds Skin: General skin exam: normal color Neuro: Speech: normal speech Extrem: General: no edema Psych: Appearance: grossly normal Mental Status: mental status grossly normal Objective Data Vital Signs Vital Signs: Vital Signs - 24 hr 02/23/25 20:00 02/23/25 20:00 02/23/25 20:00 Temperature 97.3 F L Pulse Rate 117 H 118 H Respiratory Rate 14 Blood Pressure 93/56 L Pulse Oximetry 98 Oxygen Delivery Room Air 02/23/25 22:00 02/24/25 00:00 02/24/25 00:00 Temperature 98.3 F Pulse Rate 113 H 113 H Respiratory Rate 14 Blood Pressure 107/63 Pulse Oximetry 95 Oxygen Delivery Room Air 02/24/25 00:00 02/24/25 02:00 02/24/25 04:00 Temperature Pulse Rate 113 H 124 H Respiratory Rate Blood Pressure Pulse Oximetry Oxygen Delivery Room Air 02/24/25 04:00 02/24/25 04:00 02/24/25 06:00 Temperature 98.6 F Pulse Rate 119 H 119 H 124 H Respiratory Rate 20 Blood Pressure 90/55 L Pulse Oximetry 94 Oxygen Delivery 02/24/25 08:00 02/24/25 08:00 02/24/25 10:00 Temperature 98.0 F Pulse Rate 127 H 124 H 108 H Respiratory Rate 27 H Blood Pressure 97/64 L Pulse Oximetry 96 Oxygen Delivery 02/24/25 12:00 02/24/25 12:00 02/24/25 14:00 Temperature 98.4 F Pulse Rate 123 H 124 H 122 H Respiratory Rate 24 H Blood Pressure 101/39 L Pulse Oximetry 95 Oxygen Delivery 02/24/25 16:00 Temperature Pulse Rate 112 H Respiratory Rate Blood Pressure Pulse Oximetry Oxygen Delivery Intake/Output Intake/Output: Intake & Output 02/21/25 02/22/25 02/23/25 02/24/25 23:59 23:59 23:59 23:59 Intake Total 117 949 8712 Output Total 2550 1600 Balance 150 -1650 -500 Meds/Results Medications: Active Medications Generic Name Dose Route Start Last Admin Trade Name Freq PRN Reason Stop Dose Admin Dextrose 12.5 gm 02/22/25 23:55 Dextrose 50% 25 Gm/50 Ml Syringe IV PUSH PRN PRN Hypoglycemia Protocol Furosemide 40 mg 02/23/25 09:00 02/24/25 16:58 Furosemide Inj 40 Mg/4 Ml Vial IV PUSH 40 mg BID CHARISMA Administration Glucagon 1 mg 02/22/25 23:55 Glucagon For Inj 1 Mg Vial IM PRN PRN Hypoglycemia Protocol Glucose 15 gm 02/22/25 23:55 Glucose Oral Gel 15 Gm Of Glucse In 37.5 Gm Tube PO PRN PRN Hypoglycemia Protocol Dextrose 1,000 mls @ 100 mls/hr 02/22/25 23:55 Dextrose 5% 1,000 Ml IVPB PRN PRN Hypoglycemia Protocol Potassium Chloride 40 meq/ 520 mls @ 130 mls/hr 02/24/25 16:37 02/24/25 16:57 Sodium Chloride IVPB 02/24/25 20:36 130 mls/hr ONCE ONE Administration Midodrine 10 mg 02/23/25 09:00 02/24/25 16:58 Midodrine Hcl 10 Mg Tablet PO 10 mg TID CHARISMA Administration Perflutren Lipid Microsphere 0 ml 02/24/25 14:41 Perflutren Lipid Microspheres 1.5 Ml Vial Diluted To 10 Ml Total Volume IV PUSH 02/27/25 14:41 ONCE PRN adequate visualization Protocol Radiology Results: ITS Impressions Chest/Abdomen/Pelvis CTA 02/22/25 17:46 IMPRESSION: 1. Anasarca with bilateral pleural effusion, ascites. Pulmonary edema, left more than the right lung. Findings are suggestive of congestive heart failure. Cardiomegaly. 2. No evidence of pulmonary emboli. Suggestion of thrombus at the apex of left ventricle on delayed contrast study. Correlation with echocardiogram is recommended. 3. No focal acute findings in the abdomen and pelvis. Abdomen Ultrasound 02/23/25 19:33 IMPRESSION: 1. Normal size liver. One CM cyst of the right lobe of the liver. Portal veins and hepatic veins are patent. Prominent size of hepatic veins noted. This is consistent with hepatic venous congestion. 2. Evidence of gallstones. Extrahepatic bile ducts are normal in size. 3. Small amount of free fluid around the liver and in the peritoneal cavity. Arterial/Peripheral Duplex 02/23/25 19:33 IMPRESSION: 1. Normal size liver. One CM cyst of the right lobe of the liver. Portal veins and hepatic veins are patent. Prominent size of hepatic veins noted. This is consistent with hepatic venous congestion. 2. Evidence of gallstones. Extrahepatic bile ducts are normal in size. 3. Small amount of free fluid around the liver and in the peritoneal cavity. Chest X-Ray 02/24/25 17:20 IMPRESSION: 1. Labs Labs: Laboratory Results - last 24 hr 02/23/25 02/23/25 02/24/25 17:45 21:27 01:13 WBC RBC Hgb Hct MCV MCH MCHC RDW Plt Count MPV Immature Gran % (Auto) Neut % (Auto) Lymph % (Auto) [place] % (Auto) Eos % (Auto) Baso % (Auto) Lymph # (Auto) [place] # (Auto) Eos # (Auto) Baso # (Auto) Abs Immat Gran (auto) Absolute Neuts (auto) Absolute Nucleated RBC Nucleated RBC % Sodium 114 L* 116 L* 115 L* Potassium 3.9 3.4 3.7 Chloride 83 L 80 L 81 L Carbon Dioxide 24 27 29 Anion Gap 7 9 5 BUN 29 H 27 H 28 H Creatinine 0.93 0.90 0.82 Estim Creat Clear Calc 91 94 103 Estimated GFR > 60 > 60 > 60 Glucose 140 H 146 H 132 H Calcium 7.5 L 7.4 L 7.4 L Magnesium 2.1 Total Bilirubin AST ALT Alkaline Phosphatase Total Protein Albumin 02/24/25 02/24/25 02/24/25 05:37 09:25 13:16 WBC 13.9 H RBC 4.01 L Hgb 12.0 L Hct 35.0 L MCV 87.3 MCH 29.9 MCHC 34.3 RDW 16.2 H Plt Count 207 MPV 10.1 Immature Gran % (Auto) 0.9 H Neut % (Auto) 81.5 H Lymph % (Auto) 6.7 L [place] % (Auto) 10.6 H Eos % (Auto) 0.2 Baso % (Auto) 0.1 L Lymph # (Auto) 0.93 [place] # (Auto) 1.5 H Eos # (Auto) 0.0 Baso # (Auto) 0.0 Abs Immat Gran (auto) 0.12 H Absolute Neuts (auto) 11.3 H Absolute Nucleated RBC 0.000 Nucleated RBC % 0.0 Sodium 114 L* 116 L* 116 L* Potassium 3.7 3.6 3.3 L Chloride 80 L 81 L 80 L Carbon Dioxide 28 29 32 H Anion Gap 6 6 4 BUN 27 H 26 H 26 H Creatinine 0.78 0.78 0.81 Estim Creat Clear Calc 108 104 101 Estimated GFR > 60 > 60 > 60 Glucose 187 H 181 H 134 H Calcium 7.4 L 7.5 L 7.3 L Magnesium 1.9 Total Bilirubin 5.0 H AST 114 H ALT 331 H Alkaline Phosphatase 154 H Total Protein 5.3 L Albumin 2.6 L
[2025-02-24 18:53] LABS: Anion Gap 6 mmol/L (4-12); Blood Urea Nitrogen 26 mg/dL (9-20); Calcium 7.3 mg/dL (8.4-10.2); Carbon Dioxide 28 mmol/L (22-30); Chloride 80 mmol/L (98-107); Estimated CRCL calculation 112 ml/min; Estimated Glomerular Filt Rate > 60; Glucose 163 mg/dL (65-110); Potassium 3.5 mmol/L (3.4-5.0); Sodium 114 mmol/L (137-145)
[2025-02-24 19:14] LABS: Thyroid Stimulating Hormone 5.620 uIU/mL (0.465-4.680)
[2025-02-24 22:34] LABS: Anion Gap 6 mmol/L (4-12); Blood Urea Nitrogen 26 mg/dL (9-20); Calcium 7.4 mg/dL (8.4-10.2); Carbon Dioxide 29 mmol/L (22-30); Chloride 81 mmol/L (98-107); Estimated CRCL calculation 104 ml/min; Estimated Glomerular Filt Rate > 60; Glucose 131 mg/dL (65-110); Potassium 4.0 mmol/L (3.4-5.0); Sodium 116 mmol/L (137-145)
[2025-02-25] VITALS (23 sets, daily range): BP systolic 88–110; BP diastolic 53–75; PULSE 80–140; RESP 14–28; TEMP 36.4–37.3; O2SAT 94–100
[2025-02-25 04:16] LABS: Hematocrit 36.8 % (42.0-52.0); Hemoglobin 12.3 g/dL (14.0-18.0); Immature Granulocyte Percent A 1.0 % (0-0.5); Lymphocytes Absolute Auto 0.96 K/mm3 (0.9-3.2); Mean Corpuscular HGB Conc 33.4 g/dl (32-36); Mean Corpuscular Hemoglobin 29.8 pg (26-34); Mean Corpuscular Volume 89.1 fl (80-100); Nucleated Red Blood Cells Absolute Auto 0.000 K/mm3 (0.0-0.012); Nucleated Red Blood Cells Perc 0.0 % (0.0-0.2); Platelet Count Result 200 k/mm3 (150-375); Red Blood Count 4.13 M/mm3 (4.6-6.20); White Blood Count 15.8 K/mm3 (4.5-10.0)
[2025-02-25 04:45] LABS: Alanine Aminotransferase 279 U/L (6-50); Albumin Level 3.1 g/dL (3.5-5.1); Alkaline Phosphatase 157 U/L (38-126); Anion Gap 7 mmol/L (4-12); Aspartate Amino Transferase 83 U/L (17-59); Bilirubin,Total 4.9 mg/dL (0.2-1.3); Blood Urea Nitrogen 26 mg/dL (9-20); Calcium 7.6 mg/dL (8.4-10.2); Carbon Dioxide 26 mmol/L (22-30); Chloride 85 mmol/L (98-107); Estimated CRCL calculation 112 ml/min; Estimated Glomerular Filt Rate > 60; Glucose 124 mg/dL (65-110); Magnesium 1.9 mg/dL (1.6-2.3); Potassium 4.2 mmol/L (3.4-5.0); Sodium 118 mmol/L (137-145); Total Protein 5.9 g/dL (6.3-8.2)
--- NOTE | 2025-02-25 09:28 | P.SEDATION_ITS ---
Moderate Sedation Note-Pt Data Patient Data Allergies Allergy/AdvReac Type Severity Reaction Status Date / Time No Known Allergies Allergy Verified 02/22/25 17:00 Home Medications ?Medication ?Instructions ?Recorded ?Confirmed ?Type No Home Medications 02/22/25 02/22/25 H istory Current Medications: Active Medications Dextrose (Dextrose 50% 25 Gm/50 Ml Syringe) 12.5 gm IV PUSH PRN PRN; Protocol PRN Reason: Hypoglycemia Furosemide (Furosemide Inj 40 Mg/4 Ml Vial) 40 mg IV PUSH BID [facility] Last Admin: 02/24/25 16:58 Dose: 40 mg Glucagon (Glucagon For Inj 1 Mg Vial) 1 mg IM PRN PRN; Protocol PRN Reason: Hypoglycemia Glucose (Glucose Oral Gel 15 Gm Of Glucse In 37.5 Gm Tube) 15 gm PO PRN PRN; Protocol PRN Reason: Hypoglycemia Dextrose (Dextrose 5% 1,000 Ml) 1,000 mls @ 100 mls/hr IVPB PRN PRN; Protocol PRN Reason: Hypoglycemia Midodrine (Midodrine Hcl 10 Mg Tablet) 10 mg PO TID [facility] Last Admin: 02/24/25 16:58 Dose: 10 mg Perflutren Lipid Microsphere (Perflutren Lipid Microspheres 1.5 Ml Vial Diluted To 10 Ml Total Volume) 0 ml IV PUSH ONCE PRN; Protocol PRN Reason: adequate visualization Stop: 02/27/25 14:41 Sedation/Anesthesia: No previous sedation/anesthesia problems (including family history). [facility] Past Medical History Medical History (Updated 02/24/25 @ 17:26 by Kingsley Ellis MD) Elevated liver enzymes Hyponatremia Anasarca Acute systolic (congestive) heart failure Family History Family History (Updated 02/22/25 @ 22:21 by Naomi Mcmullen RN) Mother Diabetes mellitus Alcoholism Father Parkinsons disease Alcoholism Other Diabetes 1.5, managed as type 1 Social History Social History Smoking status: Never smoker Alcohol intake: former Substance use: former Substance use type: former substance user and marijuana Other substance usage details: quit a few weeks ago Lack of Transportation: No Lack of Food: Never True Current Housing: I Have Housing Concerned About Future Housing: Decline to Answer Difficulty Paying Gas/Electric Bills: No Difficulty Paying for Meds: No Currently Unemployed: No Education: Bachelor's Degree Difficulty w/ Childcare or Family Care: No Spiritual care concerns: No Mod Sed Physical Exam Physical Exam Pre Procedural Exam: Normal: Lungs, Heart Rate and Heart Rhythm and Variation: Heart Size (enlarged) Hours since solid foods: 12 Hours since liquid intake: 12 Mallampati Classification: class II Internal Medicine - PN: Obj Da Vital Signs Vital Signs: Vital Signs - 24 hr 02/24/25 10:00 02/24/25 12:00 02/24/25 12:00 Temperature 36.9 C Pulse Rate 108 H 123 H 124 H Respiratory Rate 24 H Blood Pressure 101/39 L Pulse Oximetry 95 Oxygen Delivery Oxygen Flow Rate 02/24/25 14:00 02/24/25 16:00 02/24/25 16:00 Temperature 36.6 C Pulse Rate 122 H 112 H 120 H Respiratory Rate 20 Blood Pressure 117/56 L Pulse Oximetry 95 Oxygen Delivery Oxygen Flow Rate 02/24/25 18:00 02/24/25 20:00 02/24/25 20:00 Temperature 36.3 C L Pulse Rate 116 H 115 H 114 H Respiratory Rate 16 Blood Pressure 113/68 Pulse Oximetry 95 Oxygen Delivery Oxygen Flow Rate 02/24/25 22:00 02/25/25 00:00 02/25/25 00:00 Temperature 36.4 C L Pulse Rate 113 H 119 H 117 H Respiratory Rate 16 Blood Pressure 110/61 Pulse Oximetry 96 Oxygen Delivery Oxygen Flow Rate 02/25/25 00:00 02/25/25 02:00 02/25/25 03:22 Temperature Pulse Rate 119 H 127 H 122 H Respiratory Rate 16 20 Blood Pressure 103/59 L Pulse Oximetry 96 97 Oxygen Delivery Room Air Room Air Oxygen Flow Rate 02/25/25 04:00 02/25/25 04:00 02/25/25 04:00 Temperature 36.4 C L Pulse Rate 80 126 H 126 H Respiratory Rate 20 20 Blood Pressure 103/59 L Pulse Oximetry 97 100 Oxygen Delivery Nasal Cannula Oxygen Flow Rate 2 02/25/25 06:00 02/25/25 08:00 Temperature 36.9 C Pulse Rate 114 H 120 H Respiratory Rate 16 Blood Pressure 104/59 L Pulse Oximetry 98 Oxygen Delivery Oxygen Flow Rate Intake/Output Intake/Output: Intake & Output 02/22/25 02/23/25 02/24/25 02/25/25 23:59 23:59 23:59 23:59 Intake Total 440 156 9205 400 Output Total 2550 2600 700 Balance 150 -2310 360 -300 Meds/Results Medications: Active Medications Generic Name Dose Route Start Last Admin Trade Name Freq PRN Reason Stop Dose Admin Dextrose 12.5 gm 02/22/25 23:55 Dextrose 50% 25 Gm/50 Ml Syringe IV PUSH PRN PRN Hypoglycemia Protocol Furosemide 40 mg 02/23/25 09:00 02/24/25 16:58 Furosemide Inj 40 Mg/4 Ml Vial IV PUSH 40 mg BID CHARISMA Administration Glucagon 1 mg 02/22/25 23:55 Glucagon For Inj 1 Mg Vial IM PRN PRN Hypoglycemia Protocol Glucose 15 gm 02/22/25 23:55 Glucose Oral Gel 15 Gm Of Glucse In 37.5 Gm Tube PO PRN PRN Hypoglycemia Protocol Dextrose 1,000 mls @ 100 mls/hr 02/22/25 23:55 Dextrose 5% 1,000 Ml IVPB PRN PRN Hypoglycemia Protocol Midodrine 10 mg 02/23/25 09:00 02/24/25 16:58 Midodrine Hcl 10 Mg Tablet PO 10 mg TID CHARISMA Administration Perflutren Lipid Microsphere 0 ml 02/24/25 14:41 Perflutren Lipid Microspheres 1.5 Ml Vial Diluted To 10 Ml Total Volume IV PUSH 02/27/25 14:41 ONCE PRN adequate visualization Protocol Radiology Results: ITS Impressions Chest/Abdomen/Pelvis CTA 02/22/25 17:46 IMPRESSION: 1. Anasarca with bilateral pleural effusion, ascites. Pulmonary edema, left more than the right lung. Findings are suggestive of congestive heart failure. Cardiomegaly. 2. No evidence of pulmonary emboli. Suggestion of thrombus at the apex of left ventricle on delayed contrast study. Correlation with echocardiogram is recommended. 3. No focal acute findings in the abdomen and pelvis. Abdomen Ultrasound 02/23/25 19:33 IMPRESSION: 1. Normal size liver. One CM cyst of the right lobe of the liver. Portal veins and hepatic veins are patent. Prominent size of hepatic veins noted. This is consistent with hepatic venous congestion. 2. Evidence of gallstones. Extrahepatic bile ducts are normal in size. 3. Small amount of free fluid around the liver and in the peritoneal cavity. Arterial/Peripheral Duplex 02/23/25 19:33 IMPRESSION: 1. Normal size liver. One CM cyst of the right lobe of the liver. Portal veins and hepatic veins are patent. Prominent size of hepatic veins noted. This is consistent with hepatic venous congestion. 2. Evidence of gallstones. Extrahepatic bile ducts are normal in size. 3. Small amount of free fluid around the liver and in the peritoneal cavity. Chest X-Ray 02/24/25 17:20 IMPRESSION: 1. Chest CT 02/25/25 09:13 IMPRESSION: Worsening bilateral effusions and consolidations as well as at atelectatic changes, left worse than right. Labs 02/25/25 03:55 02/25/25 03:55 Labs: Laboratory Results - last 24 hr 02/24/25 02/24/25 02/24/25 09:25 13:16 18:01 WBC RBC Hgb Hct MCV MCH MCHC RDW Plt Count MPV Immature Gran % (Auto) Neut % (Auto) Lymph % (Auto) [place] % (Auto) Eos % (Auto) Baso % (Auto) Lymph # (Auto) [place] # (Auto) Eos # (Auto) Baso # (Auto) Abs Immat Gran (auto) Absolute Neuts (auto) Absolute Nucleated RBC Nucleated RBC % Sodium 116 L* 116 L* 114 L* Potassium 3.6 3.3 L 3.5 Chloride 81 L 80 L 80 L Carbon Dioxide 29 32 H 28 Anion Gap 6 4 6 BUN 26 H 26 H 26 H Creatinine 0.78 0.81 0.72 Estim Creat Clear Calc 104 101 112 Estimated GFR > 60 > 60 > 60 Glucose 181 H 134 H 163 H Calcium 7.5 L 7.3 L 7.3 L Magnesium Total Bilirubin AST ALT Alkaline Phosphatase Total Protein Albumin TSH 5.620 H 02/24/25 02/24/25 02/25/25 18:01 21:57 03:55 WBC 15.8 H RBC 4.13 L Hgb 12.3 L Hct 36.8 L MCV 89.1 MCH 29.8 MCHC 33.4 RDW 17.1 H Plt Count 200 MPV 10.1 Immature Gran % (Auto) 1.0 H Neut % (Auto) 82.4 H Lymph % (Auto) 6.1 L [place] % (Auto) 10.1 H Eos % (Auto) 0.3 Baso % (Auto) 0.1 L Lymph # (Auto) 0.96 [place] # (Auto) 1.6 H Eos # (Auto) 0.0 Baso # (Auto) 0.0 Abs Immat Gran (auto) 0.15 H Absolute Neuts (auto) 13.0 H Absolute Nucleated RBC 0.000 Nucleated RBC % 0.0 Sodium 116 L* 118 L* Potassium 4.0 4.2 Chloride 81 L 85 L Carbon Dioxide 29 26 Anion Gap 6 7 BUN 26 H 26 H Creatinine 0.78 0.72 Estim Creat Clear Calc 104 112 Estimated GFR > 60 > 60 Glucose 131 H 124 H Calcium 7.4 L 7.6 L Magnesium 1.9 Total Bilirubin 4.9 H AST 83 H ALT 279 H Alkaline Phosphatase 157 H Total Protein 5.9 L Albumin 3.1 L TSH Cancelled ASA Classification/Sedation ASA Classification/Sedation ASA Class: III Emergent: No Risks: Risks, benefits and alternatives explained and patient/family accepted plan for sedation. Patient re-evaluated immediately prior to sedation.
--- NOTE | 2025-02-25 09:28 | WPDHPUPDATE1 ---
History and Physical Update Update Date/Time: 02/25/25 09:28 History and Physical has been reviewed, including an updated exam of the patient. There are NO changes in the patient's condition. Risks, benefits, and alternatives have been discussed and questions answered. Patient agrees to proceed with procedure.
[2025-02-25] MEDS: FUROSEMIDE INJ 40 MG/4 ML VIAL IV PUSH (09:45)
[2025-02-25] MEDS: MIDODRINE HCL 10 MG TABLET PO (09:45)
[2025-02-25 11:36] LABS: Urea Random Urine 1420 MG/DL
[2025-02-25 11:41] LABS: Alveolar/Arterial O2 Gradient 42.5 mmHg; HCO3 ABG 26.9 mEq/l (22.0-26.0); Oxygen Content ABG 16.1 %vol (16.0-22.0); Oxygen Saturation ABG 93.8 % (95.0-100.0); PCO2 ABG 36.6 mmHg (35.0-45.0); PO2 ABG 63.4 mmHg (80.0-100.0)
--- NOTE | 2025-02-25 11:41 | WPDCARDPROC ---
Cardiac Cath Procedure Note Date of procedure:: 02/25/25 Performing physician:: CATHETERIZATION LABORATORY REPORT Procedure Date: 02/25/2025 Referring Physician: Dr. Morel Anesthesia: Versed and Fentanyl were ordered and given in my presence at 1044, procedure ended at 1134. Supervision of nurse, Kellie Valentin monitored moderate sedation with 2mg Versed and 100mcg Fentanyl was provided for 50 minutes. Pre-op Diagnosis: New onset acute systolic heart failure Post-op Diagnosis: New onset acute systolic heart failure Procedure(s): Left heart catheterization with coronary angiography Right heart catheterization Access Site: Right common femoral artery Right femoral vein Brief History and Clinical Indications: All risks, benefits and alternatives to left heart catheterization with or without percutaneous coronary intervention was discussed at length with the patient. Risk of complications including but not limited to bleeding, infection, arrhythmia, stroke, worsening kidney function, blood loss, groin hematoma, limb loss, emergency coronary artery bypass grafting, and even were discussed with the patient and all questions were answered. The patient understood and wished to proceed. Time out called, patient name, date of , medical record number, allergies, procedure performed, identify State Inspector, patient and staff member concurred with accurate data, procedure carried on. Findings: LEFT HEART CATHETERIZATION FINDINGS: 1. Left main: The left main coronary artery is widely patent without any significant obstructive disease. 2. Left anterior descending: The LAD and the diagonal branches have no angiographic stenosis. 3. Left circumflex: The left circumflex artery is a dominant vessel. The left circumflex and main marginal branches have mild luminal irregularities without any significant obstructive angiographic disease. 4. Right coronary artery: The RCA is non selectively engaged and there were no high-grade proximal stenosis. 5. Left ventricle: A. End-diastolic pressure 22 mmHg. B. LV gram deferred. C. No significant gradient across aortic valve on catheter pullback. 6. Opening AO pressure 90/60 and closing AO pressure 90/64 7. Right iliofemoral angiogram: no angiographic stenosis in the visualized portions. RIGHT HEART CATHETERIZATION FINDINGS: Pressures (mmHg): RA: 14 RV: 55/9 PA: 54/31 (42) without oxygen. 49/19 (33) with oxygen PCWP: 16 (v 20) Saturations (%): PA: 63.4 Arterial: 92.5 CO/CI: Matt: 4.8/2.6 Description of Procedure: Informed consent signed and placed in the chart. Patient transferred to clinical laboratory technician room. Prepped and draped in usual sterile fashion. 2% lidocaine injected subcutaneously in right groin area. Femoral vein was accessed using micropuncture technique under ultrasound and fluoroscopy guidance. 7F sheath placed. Under ultrasound and fluoroscopy guidance micropuncture needle was used to access the right common femoral artery with modified Seldinger technique. J-wire was advanced under fluoroscopy followed by micropuncture cannula valve switched out for a 5F sheath. 7F [place] catheter was advanced into the right side of the heart chambers and pressures were measured and oximetry information obtained. 5F JL4 diagnostic catheter engaged Left Main Coronary Artery. 5F JR4 diagnostic catheter nonselectively engaged Right Coronary Artery. Multiple orthogonal angiogram obtained and reviewed 5F JR4 diagnostic catheter crossed aortic valve to obtain LVEDP, LV angiogram deferred. 5F Pigtail used for aortic root angiogram. Hemostasis of common femoral artery was achieved with Angio-Seal. Hemostasis femoral vein was achieved with Mynx. Assessment: Acute Systolic Heart Failure NICM Post Operative Condition: Stable No significant blood loss Disposition: Floor Plan: Wean midodrine to 5mg PO TID and eventually off Continue diuresis Will need GDMT and LifeVest [facility] Interventional Cardiology
[2025-02-25 11:42] LABS: Carboxyhemoglobin 1.9 % THb (0-2.0); Methemoglobin ABG 0.1 %THb (0-1.5); PO2 FiO2 Ratio Arterial Blood 3.02 %; Reduced Hemoglobin 7.7 %THb (0-5.0)
[2025-02-25 11:43] LABS: PCO2 ABG 41.0 mmHg (35.0-45.0)
[2025-02-25 11:44] LABS: HCO3 ABG 27.5 mEq/l (22.0-26.0); PO2 ABG 31.7 mmHg (80.0-100.0)
[2025-02-25 11:45] LABS: Alveolar/Arterial O2 Gradient 68.9 mmHg; Oxygen Content ABG 10.3 %vol (16.0-22.0); Oxygen Saturation ABG 63.4 % (95.0-100.0)
[2025-02-25 11:46] LABS: Carboxyhemoglobin 2.0 % THb (0-2.0); Methemoglobin ABG 0.2 %THb (0-1.5); PO2 FiO2 Ratio Arterial Blood 1.51 %; Reduced Hemoglobin 40.3 %THb (0-5.0)
[2025-02-25 11:47] LABS: PCO2 ABG 41.1 mmHg (35.0-45.0)
[2025-02-25 11:48] LABS: PO2 ABG 35.3 mmHg (80.0-100.0)
[2025-02-25 11:49] LABS: HCO3 ABG 28.8 mEq/l (22.0-26.0); Oxygen Saturation ABG 71.1 % (95.0-100.0)
[2025-02-25 11:50] LABS: Alveolar/Arterial O2 Gradient 65.2 mmHg; Carboxyhemoglobin 1.8 % THb (0-2.0); Methemoglobin ABG 0.1 %THb (0-1.5); Oxygen Content ABG 11.4 %vol (16.0-22.0)
[2025-02-25 11:51] LABS: PO2 FiO2 Ratio Arterial Blood 1.68 %; Reduced Hemoglobin 31.0 %THb (0-5.0)
[2025-02-25 11:52] LABS: Alveolar/Arterial O2 Gradient 49.7 mmHg; Carboxyhemoglobin 2.2 % THb (0-2.0); HCO3 ABG 25.3 mEq/l (22.0-26.0); Methemoglobin ABG 0.1 %THb (0-1.5); Oxygen Content ABG 14.9 %vol (16.0-22.0); Oxygen Saturation ABG 92.5 % (95.0-100.0); PCO2 ABG 34.4 mmHg (35.0-45.0); PO2 ABG 58.8 mmHg (80.0-100.0)
[2025-02-25 11:53] LABS: PO2 FiO2 Ratio Arterial Blood 2.80 %; Reduced Hemoglobin 7.9 %THb (0-5.0)
[2025-02-25 12:45] LABS: Total Protein Urine Random < 5 mg/dL
[2025-02-25 12:46] LABS: Ur Ttl Prot Creatinine Ratio < 0.04 mg/mg (0-0.20)
--- NOTE | 2025-02-25 13:26 | IVDEFINITY ---
Prior to administration of IV Definity the patient was educated on the risks and benefits of the imaging enhancing agent including potential adverse side effects. The patient verbalized understanding. Allergies were verified. No exclusion criteria were identified and at least one of the following inclusion criteria were met: 1) physician request, 2) patient technically difficult to image (per the [place] [employer] guidelines of two or more segments not discernable within the apical view), or 3) questionable left ventricular function. ?
--- NOTE | 2025-02-25 13:31 | PM.PNNEP ---
Subjective Date/time seen: 02/25/25 13:31 Interval history: Follow-up for acute hyponatremia (presumably acute). Objective Data Vital Signs Vital Signs: Vital Signs Temp Pulse Pulse Resp BP Pulse Ox O2 Del Method 02/25/25 13:30 98.4 F 114 H 28 H 95/55 L 100 02/25/25 13:00 109 H 22 H 92/67 L 100 Nasal Cannula 02/25/25 13:00 109 H 02/25/25 12:45 109 H 22 H 98/75 L 100 Nasal Cannula 02/25/25 12:45 109 H 02/25/25 12:30 105 H 20 98/73 L 100 Nasal Cannula 02/25/25 12:30 105 H 02/25/25 12:15 103 H 02/25/25 12:15 103 H 16 105/68 94 Nasal Cannula 02/25/25 12:00 104 H 14 103/62 98 Nasal Cannula 02/25/25 12:00 104 H 02/25/25 10:00 118 H 02/25/25 08:00 123 H 02/25/25 08:00 98.5 F 120 H 16 104/59 L 98 02/25/25 07:51 95 Room Air 02/25/25 06:00 114 H 02/25/25 04:00 126 H 02/25/25 04:00 126 H 20 100 Nasal Cannula 02/25/25 04:00 97.5 F L 80 20 103/59 L 97 02/25/25 03:22 122 H 20 103/59 L 97 Room Air 02/25/25 02:00 127 H 02/25/25 00:00 119 H 16 96 Room Air 02/25/25 00:00 117 H 02/25/25 00:00 97.5 F L 119 H 16 110/61 96 02/24/25 22:00 113 H 02/24/25 20:00 114 H 02/24/25 20:00 97.4 F L 115 H 16 113/68 95 02/24/25 18:00 116 H Intake/Output Intake/Output: Intake & Output 02/22/25 02/23/25 02/24/25 02/25/25 23:59 23:59 23:59 23:59 Intake Total 358 155 9952 790 Output Total 2550 2600 2300 Balance 150 -2310 360 -1510 Meds/Results Medications: Active Medications Generic Name Dose Route Start Last Admin Trade Name Freq PRN Reason Stop Dose Admin Dextrose 12.5 gm 02/22/25 23:55 Dextrose 50% 25 Gm/50 Ml Syringe IV PUSH PRN PRN Hypoglycemia Protocol Furosemide 40 mg 02/23/25 09:00 02/25/25 09:45 Furosemide Inj 40 Mg/4 Ml Vial IV PUSH 40 mg BID CHARISMA Administration Glucagon 1 mg 02/22/25 23:55 Glucagon For Inj 1 Mg Vial IM PRN PRN Hypoglycemia Protocol Glucose 15 gm 02/22/25 23:55 Glucose Oral Gel 15 Gm Of Glucse In 37.5 Gm Tube PO PRN PRN Hypoglycemia Protocol Dextrose 1,000 mls @ 100 mls/hr 02/22/25 23:55 Dextrose 5% 1,000 Ml IVPB PRN PRN Hypoglycemia Protocol Levofloxacin/Dextrose 750 mg in 150 mls @ 100 mls/hr 02/25/25 15:00 02/25/25 17:32 Levaquin 750 Mg/D5w 150 Ml IVPB Infused Q24H [facility] Infusion Midodrine 15 mg 02/25/25 17:50 Midodrine Hcl 2.5 Mg Tablet PO TID [facility] Perflutren Lipid Microsphere 0 ml 02/24/25 14:41 Perflutren Lipid Microspheres 1.5 Ml Vial Diluted To 10 Ml Total Volume IV PUSH 02/27/25 14:41 ONCE PRN adequate visualization Protocol Pregabalin 50 mg 02/25/25 21:00 Pregabalin (*Crx) 50 Mg Capsule PO Q12HR [facility] Radiology Results: ITS Impressions Chest/Abdomen/Pelvis CTA 02/22/25 17:46 IMPRESSION: 1. Anasarca with bilateral pleural effusion, ascites. Pulmonary edema, left more than the right lung. Findings are suggestive of congestive heart failure. Cardiomegaly. 2. No evidence of pulmonary emboli. Suggestion of thrombus at the apex of left ventricle on delayed contrast study. Correlation with echocardiogram is recommended. 3. No focal acute findings in the abdomen and pelvis. Abdomen Ultrasound 02/23/25 19:33 IMPRESSION: 1. Normal size liver. One CM cyst of the right lobe of the liver. Portal veins and hepatic veins are patent. Prominent size of hepatic veins noted. This is consistent with hepatic venous congestion. 2. Evidence of gallstones. Extrahepatic bile ducts are normal in size. 3. Small amount of free fluid around the liver and in the peritoneal cavity. Arterial/Peripheral Duplex 02/23/25 19:33 IMPRESSION: 1. Normal size liver. One CM cyst of the right lobe of the liver. Portal veins and hepatic veins are patent. Prominent size of hepatic veins noted. This is consistent with hepatic venous congestion. 2. Evidence of gallstones. Extrahepatic bile ducts are normal in size. 3. Small amount of free fluid around the liver and in the peritoneal cavity. Chest X-Ray 02/24/25 17:20 IMPRESSION: 1. Chest CT 02/25/25 09:13 IMPRESSION: Worsening bilateral effusions and consolidations as well as at atelectatic changes, left worse than right. Labs Labs: Laboratory Tests 02/25/25 02/25/25 03:55 09:03 WBC 15.8 H Hgb 12.3 L Hct 36.8 L Plt Count 200 10.1 O2 Liters/Min Sodium 118 L* Potassium 4.2 Chloride 85 L Carbon Dioxide 26 Anion Gap 7 BUN 26 H Creatinine 0.72 Estim Creat Clear Calc 112 Estimated GFR > 60 Glucose 124 H Lactic Acid 2.2 H Calcium 7.6 L Magnesium 1.9 Total Bilirubin 4.9 H AST 83 H ALT 279 H Alkaline Phosphatase 157 H Total Protein 5.9 L Albumin 3.1 L Free T4 0.87 Microbiology 02/22/25 18:13 Blood Blood Culture - Preliminary
[2025-02-25] MEDS: MIDODRINE HCL 2.5 MG TABLET 5 MG PO (13:41)
--- NOTE | 2025-02-25 13:50 | PM.IMPN2 ---
Assessment and Plan Assessment and Plan (1) CHF (congestive heart failure): Code(s): I50.9 - Heart failure, unspecified Status: Acute (2) Hyperkalemia: Code(s): E87.5 - Hyperkalemia Status: Acute Plan New onset CHF ECHO showed EF 15-20% presented with worsening SOB, orthopnea and PND Leg edema 3+ on exam CTA chest PA showed cardiomegaly, anasarca, pulm edema and pleural effusion lasix 40mg bid IV, Midodrine 10mg tid For cardiac cath today Cardiology following Hyperkalemia k 4.2, resolved s/p Ca gluconate, insulin and dextrose Continue lasix as above Hyponatremia From CHF Na 118 from 107 continue diuresis and monitor Congestive Hepatopathy Elevated liver enzymes from CHF improving continue above care and monitor 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 identifies as male, his biological sex DVT prophylaxis on Sq Lovenox full code Subjective Date/time seen: 02/25/25 13:50 Interval history: Comfortable at bedside Review of Systems Review of Systems: All other systems were reviewed and negative except as noted in the HPI above Exam Narrative: General: alert and comfortable Eyes: EOMI, PERRLA ENNT External ears normal, Neck is supple, no masses, Respiratory systems: Clear to auscultation Cardiovascular S1, S2, normal rhythm, no murmur, rub, or gallop; no thrill or palpable murmurs on palpation. Gastrointestinal: soft, non-tender, and non-distended abdomen with no masses; BS present Skin: no rash, lesions, ulcerations, subcutaneous nodules or induration Musculoskeletal: no abnormality and no tenderness, normal ROM Neurologic: Alert and oriented x3, non focal Mental Status Exam: normal affect Objective Data Vital Signs Vital Signs: Vital Signs - 24 hr 02/24/25 14:00 02/24/25 16:00 02/24/25 16:00 Temperature 97.9 F Pulse Rate 122 H 112 H 120 H Pulse Rate [Right Pedal (Dorsalis Pedis)] Respiratory Rate 20 Blood Pressure 117/56 L Pulse Oximetry 95 Oxygen Delivery Oxygen Flow Rate 02/24/25 18:00 02/24/25 20:00 02/24/25 20:00 Temperature 97.4 F L Pulse Rate 116 H 115 H 114 H Pulse Rate [Right Pedal (Dorsalis Pedis)] Respiratory Rate 16 Blood Pressure 113/68 Pulse Oximetry 95 Oxygen Delivery Oxygen Flow Rate 02/24/25 22:00 02/25/25 00:00 02/25/25 00:00 Temperature 97.5 F L Pulse Rate 113 H 119 H 117 H Pulse Rate [Right Pedal (Dorsalis Pedis)] Respiratory Rate 16 Blood Pressure 110/61 Pulse Oximetry 96 Oxygen Delivery Oxygen Flow Rate 02/25/25 00:00 02/25/25 02:00 02/25/25 03:22 Temperature Pulse Rate 119 H 127 H 122 H Pulse Rate [Right Pedal (Dorsalis Pedis)] Respiratory Rate 16 20 Blood Pressure 103/59 L Pulse Oximetry 96 97 Oxygen Delivery Room Air Room Air Oxygen Flow Rate 02/25/25 04:00 02/25/25 04:00 02/25/25 04:00 Temperature 97.5 F L Pulse Rate 80 126 H 126 H Pulse Rate [Right Pedal (Dorsalis Pedis)] Respiratory Rate 20 20 Blood Pressure 103/59 L Pulse Oximetry 97 100 Oxygen Delivery Nasal Cannula Oxygen Flow Rate 2 02/25/25 06:00 02/25/25 07:51 02/25/25 08:00 Temperature 98.5 F Pulse Rate 114 H 120 H Pulse Rate [Right Pedal (Dorsalis Pedis)] Respiratory Rate 16 Blood Pressure 104/59 L Pulse Oximetry 95 98 Oxygen Delivery Room Air Oxygen Flow Rate 02/25/25 08:00 02/25/25 10:00 02/25/25 12:00 Temperature Pulse Rate 123 H 118 H Pulse Rate [Right Pedal (Dorsalis Pedis)] 104 H Respiratory Rate Blood Pressure Pulse Oximetry Oxygen Delivery Oxygen Flow Rate 02/25/25 12:00 02/25/25 12:15 02/25/25 12:15 Temperature Pulse Rate 104 H 103 H Pulse Rate [Right Pedal (Dorsalis Pedis)] 103 H Respiratory Rate 14 16 Blood Pressure 103/62 105/68 Pulse Oximetry 98 94 Oxygen Delivery Nasal Cannula Nasal Cannula Oxygen Flow Rate 2 2 02/25/25 12:30 02/25/25 12:30 02/25/25 12:45 Temperature Pulse Rate 105 H Pulse Rate [Right Pedal (Dorsalis Pedis)] 105 H 109 H Respiratory Rate 20 Blood Pressure 98/73 L Pulse Oximetry 100 Oxygen Delivery Nasal Cannula Oxygen Flow Rate 2 02/25/25 12:45 02/25/25 13:00 02/25/25 13:00 Temperature Pulse Rate 109 H 109 H Pulse Rate [Right Pedal (Dorsalis Pedis)] 109 H Respiratory Rate 22 H 22 H Blood Pressure 98/75 L 92/67 L Pulse Oximetry 100 100 Oxygen Delivery Nasal Cannula Nasal Cannula Oxygen Flow Rate 2 2 02/25/25 13:30 Temperature 98.4 F Pulse Rate 114 H Pulse Rate [Right Pedal (Dorsalis Pedis)] Respiratory Rate 28 H Blood Pressure 95/55 L Pulse Oximetry 100 Oxygen Delivery Oxygen Flow Rate Intake/Output Intake/Output: Intake & Output 02/22/25 02/23/25 02/24/25 02/25/25 23:59 23:59 23:59 23:59 Intake Total 447 181 0203 400 Output Total 2550 2600 975 Balance 150 -2310 360 -575 Meds/Results Medications: Active Medications Generic Name Dose Route Start Last Admin Trade Name Freq PRN Reason Stop Dose Admin Dextrose 12.5 gm 02/22/25 23:55 Dextrose 50% 25 Gm/50 Ml Syringe IV PUSH PRN PRN Hypoglycemia Protocol Furosemide 40 mg 02/23/25 09:00 02/25/25 09:45 Furosemide Inj 40 Mg/4 Ml Vial IV PUSH 40 mg BID CHARISMA Administration Glucagon 1 mg 02/22/25 23:55 Glucagon For Inj 1 Mg Vial IM PRN PRN Hypoglycemia Protocol Glucose 15 gm 02/22/25 23:55 Glucose Oral Gel 15 Gm Of Glucse In 37.5 Gm Tube PO PRN PRN Hypoglycemia Protocol Dextrose 1,000 mls @ 100 mls/hr 02/22/25 23:55 Dextrose 5% 1,000 Ml IVPB PRN PRN Hypoglycemia Protocol Midodrine 5 mg 02/25/25 13:00 02/25/25 13:41 Midodrine Hcl 2.5 Mg Tablet PO 5 mg TID CHARISMA Administration Perflutren Lipid Microsphere 0 ml 02/24/25 14:41 Perflutren Lipid Microspheres 1.5 Ml Vial Diluted To 10 Ml Total Volume IV PUSH 02/27/25 14:41 ONCE PRN adequate visualization Protocol Radiology Results: ITS Impressions Chest/Abdomen/Pelvis CTA 02/22/25 17:46 IMPRESSION: 1. Anasarca with bilateral pleural effusion, ascites. Pulmonary edema, left more than the right lung. Findings are suggestive of congestive heart failure. Cardiomegaly. 2. No evidence of pulmonary emboli. Suggestion of thrombus at the apex of left ventricle on delayed contrast study. Correlation with echocardiogram is recommended. 3. No focal acute findings in the abdomen and pelvis. Abdomen Ultrasound 02/23/25 19:33 IMPRESSION: 1. Normal size liver. One CM cyst of the right lobe of the liver. Portal veins and hepatic veins are patent. Prominent size of hepatic veins noted. This is consistent with hepatic venous congestion. 2. Evidence of gallstones. Extrahepatic bile ducts are normal in size. 3. Small amount of free fluid around the liver and in the peritoneal cavity. Arterial/Peripheral Duplex 02/23/25 19:33 IMPRESSION: 1. Normal size liver. One CM cyst of the right lobe of the liver. Portal veins and hepatic veins are patent. Prominent size of hepatic veins noted. This is consistent with hepatic venous congestion. 2. Evidence of gallstones. Extrahepatic bile ducts are normal in size. 3. Small amount of free fluid around the liver and in the peritoneal cavity. Chest X-Ray 02/24/25 17:20 IMPRESSION: 1. Chest CT 02/25/25 09:13 IMPRESSION: Worsening bilateral effusions and consolidations as well as at atelectatic changes, left worse than right. Labs Labs: Laboratory Results - last 24 hr 02/24/25 02/24/25 02/24/25 13:16 18:01 18:01 WBC RBC Hgb Hct MCV MCH MCHC RDW Plt Count MPV Immature Gran % (Auto) Neut % (Auto) Lymph % (Auto) [place] % (Auto) Eos % (Auto) Baso % (Auto) Lymph # (Auto) [place] # (Auto) Eos # (Auto) Baso # (Auto) Abs Immat Gran (auto) Absolute Neuts (auto) Absolute Nucleated RBC Nucleated RBC % Puncture Site ABG pH ABG pCO2 ABG pO2 ABG PO2/FiO2 Ratio ABG HCO3 ABG O2 Saturation ABG O2 Content ABG Base Excess A-a Gradient Oxyhemoglobin Carboxyhemoglobin Methemoglobin Reduced Hemoglobin Total Hemoglobin O2 Delivery Device O2 Liters/Min Sodium 116 L* 114 L* Potassium 3.3 L 3.5 Chloride 80 L 80 L Carbon Dioxide 32 H 28 Anion Gap 4 6 BUN 26 H 26 H Creatinine 0.81 0.72 Estim Creat Clear Calc 101 112 Estimated GFR > 60 > 60 Glucose 134 H 163 H Lactic Acid Calcium 7.3 L 7.3 L Magnesium Total Bilirubin AST ALT Alkaline Phosphatase Total Protein Albumin TSH 5.620 H Cancelled U Random Total Protein Ur Random Sodium Ur Random Urea Urine Creatinine Protein/Creat Ratio 2 02/24/25 02/25/25 02/25/25 21:57 03:55 09:03 WBC 15.8 H RBC 4.13 L Hgb 12.3 L Hct 36.8 L MCV 89.1 MCH 29.8 MCHC 33.4 RDW 17.1 H Plt Count 200 MPV 10.1 Immature Gran % (Auto) 1.0 H Neut % (Auto) 82.4 H Lymph % (Auto) 6.1 L [place] % (Auto) 10.1 H Eos % (Auto) 0.3 Baso % (Auto) 0.1 L Lymph # (Auto) 0.96 [place] # (Auto) 1.6 H Eos # (Auto) 0.0 Baso # (Auto) 0.0 Abs Immat Gran (auto) 0.15 H Absolute Neuts (auto) 13.0 H Absolute Nucleated RBC 0.000 Nucleated RBC % 0.0 Puncture Site ABG pH ABG pCO2 ABG pO2 ABG PO2/FiO2 Ratio ABG HCO3 ABG O2 Saturation ABG O2 Content ABG Base Excess A-a Gradient Oxyhemoglobin Carboxyhemoglobin Methemoglobin Reduced Hemoglobin Total Hemoglobin O2 Delivery Device O2 Liters/Min Sodium 116 L* 118 L* Potassium 4.0 4.2 Chloride 81 L 85 L Carbon Dioxide 29 26 Anion Gap 6 7 BUN 26 H 26 H Creatinine 0.78 0.72 Estim Creat Clear Calc 104 112 Estimated GFR > 60 > 60 Glucose 131 H 124 H Lactic Acid 2.2 H Calcium 7.4 L 7.6 L Magnesium 1.9 Total Bilirubin 4.9 H AST 83 H ALT 279 H Alkaline Phosphatase 157 H Total Protein 5.9 L Albumin 3.1 L TSH U Random Total Protein Ur Random Sodium Ur Random Urea Urine Creatinine Protein/Creat Ratio 2 02/25/25 02/25/25 02/25/25 11:01 11:30 11:32 WBC RBC Hgb Hct MCV MCH MCHC RDW Plt Count MPV Immature Gran % (Auto) Neut % (Auto) Lymph % (Auto) [place] % (Auto) Eos % (Auto) Baso % (Auto) Lymph # (Auto) [place] # (Auto) Eos # (Auto) Baso # (Auto) Abs Immat Gran (auto) Absolute Neuts (auto) Absolute Nucleated RBC Nucleated RBC % Puncture Site Not Reportable Not Reportable ABG pH 7.484 H 7.444 ABG pCO2 36.6 41.0 ABG pO2 63.4 L 31.7 L* ABG PO2/FiO2 Ratio 3.02 1.51 ABG HCO3 26.9 H 27.5 H ABG O2 Saturation 93.8 L 63.4 L* ABG O2 Content 16.1 10.3 L ABG Base Excess 3.5 3.1 A-a Gradient 42.5 68.9 Oxyhemoglobin 90.3 57.5 L* Carboxyhemoglobin 1.9 2.0 Methemoglobin 0.1 0.2 Reduced Hemoglobin 7.7 H 40.3 H Total Hemoglobin 12.7 12.8 O2 Delivery Device Not Reportable Not Reportable O2 Liters/Min Not Reportable Not Reportable Sodium Potassium Chloride Carbon Dioxide Anion Gap BUN Creatinine Estim Creat Clear Calc Estimated GFR Glucose Lactic Acid Calcium Magnesium Total Bilirubin AST ALT Alkaline Phosphatase Total Protein Albumin TSH U Random Total Protein < 5 Ur Random Sodium < 5 Ur Random Urea 1420 Urine Creatinine 127.9 Protein/Creat Ratio 2 < 0.04 02/25/25 02/25/25 11:34 11:35 WBC RBC Hgb Hct MCV MCH MCHC RDW Plt Count MPV Immature Gran % (Auto) Neut % (Auto) Lymph % (Auto) [place] % (Auto) Eos % (Auto) Baso % (Auto) Lymph # (Auto) [place] # (Auto) Eos # (Auto) Baso # (Auto) Abs Immat Gran (auto) Absolute Neuts (auto) Absolute Nucleated RBC Nucleated RBC % Puncture Site Not Reportable Not Reportable ABG pH 7.463 H 7.485 H ABG pCO2 41.1 34.4 L ABG pO2 35.3 L* 58.8 L ABG PO2/FiO2 Ratio 1.68 2.80 ABG HCO3 28.8 H 25.3 ABG O2 Saturation 71.1 L* 92.5 L ABG O2 Content 11.4 L 14.9 L ABG Base Excess 4.6 2.2 A-a Gradient 65.2 49.7 Oxyhemoglobin 67.1 L* 89.8 L Carboxyhemoglobin 1.8 2.2 H Methemoglobin 0.1 0.1 Reduced Hemoglobin 31.0 H 7.9 H Total Hemoglobin 12.1 11.8 L O2 Delivery Device Not Reportable Not Reportable O2 Liters/Min Not Reportable Not Reportable Sodium Potassium Chloride Carbon Dioxide Anion Gap BUN Creatinine Estim Creat Clear Calc Estimated GFR Glucose Lactic Acid Calcium Magnesium Total Bilirubin AST ALT Alkaline Phosphatase Total Protein Albumin TSH U Random Total Protein Ur Random Sodium Ur Random Urea Urine Creatinine Protein/Creat Ratio 2
[2025-02-25 14:30] LABS: Sodium 118 mmol/L (137-145)
[2025-02-25 15:00] LABS: Free T4 Free Thyroxine 0.87 ng/dL (0.78-2.19)
[2025-02-25] MEDS: levoFLOXacin 750 MG/D5W 150 ML 750 MG/150 ML BAG 100 MG IVPB (15:43)
[2025-02-25 16:26] LABS: MRSA (PCR) NOT DETECTED (NOT DETECTE)
--- NOTE | 2025-02-25 18:00 | ECG_ITS ---
Test Date: 2025-02-25 18:08:43 Measurements Intervals [place] Rate: 134 P: 62 IN: 149 QRS: -17 QRSD: 90 T: 82 QT: 290 QTc: 434 Interpretive Statements SINUS TACHYCARDIA WITH FREQUENT VENTRICULAR PREMATURE COMPLEXES LEFT ATRIAL ENLAREGMENT LOW QRS VOLTAGE IN LIMB LEADS CONSIDER ANTERIOR INFARCT, AGE INDETERMINATE BORDERLINE T WAVE ABNORMALITY- HIGH LATERAL LEADS ABNORMAL ECG Compared to ECG 02/22/2025 16:59:44 HEART RATE HAS INCREASED Ventricular premature complex(es) now present Electronically Signed On 02-28-2025 12:05:28 [employer] by Sunday Owens D.O.
[2025-02-25] MEDS: MIDODRINE HCL 2.5 MG TABLET 15 MG PO (18:27)
[2025-02-25 18:58] LABS: Anion Gap 9 mmol/L (4-12); Blood Urea Nitrogen 23 mg/dL (9-20); Calcium 7.7 mg/dL (8.4-10.2); Carbon Dioxide 27 mmol/L (22-30); Chloride 83 mmol/L (98-107); Estimated CRCL calculation 91 ml/min; Estimated Glomerular Filt Rate > 60; Glucose 184 mg/dL (65-110); Potassium 4.1 mmol/L (3.4-5.0); Sodium 119 mmol/L (137-145)
[2025-02-25] MEDS: PREGABALIN (*CRX) 50 MG CAPSULE PO (20:57)
[2025-02-25 21:09] LABS: Sodium 117 mmol/L (137-145)
[2025-02-26] VITALS (17 sets, daily range): BP systolic 86–95; BP diastolic 48–69; PULSE 115–136; RESP 18–22; TEMP 36.4–37.1; O2SAT 93–100
[2025-02-26] MEDS: MIDODRINE HCL 2.5 MG TABLET 15 MG PO ×4 (00:09→17:01)
[2025-02-26 05:06] LABS: Hematocrit 36.7 % (42.0-52.0); Hemoglobin 12.4 g/dL (14.0-18.0); Immature Granulocyte Percent A 1.3 % (0-0.5); Lymphocytes Absolute Auto 1.07 K/mm3 (0.9-3.2); Mean Corpuscular HGB Conc 33.8 g/dl (32-36); Mean Corpuscular Hemoglobin 29.8 pg (26-34); Mean Corpuscular Volume 88.2 fl (80-100); Nucleated Red Blood Cells Absolute Auto 0.000 K/mm3 (0.0-0.012); Nucleated Red Blood Cells Perc 0.0 % (0.0-0.2); Platelet Count Result 212 k/mm3 (150-375); Red Blood Count 4.16 M/mm3 (4.6-6.20); White Blood Count 15.9 K/mm3 (4.5-10.0)
[2025-02-26 05:26] LABS: Alanine Aminotransferase 242 U/L (6-50); Albumin Level 3.0 g/dL (3.5-5.1); Alkaline Phosphatase 145 U/L (38-126); Anion Gap 6 mmol/L (4-12); Aspartate Amino Transferase 67 U/L (17-59); Bilirubin,Total 5.3 mg/dL (0.2-1.3); Blood Urea Nitrogen 27 mg/dL (9-20); Calcium 7.7 mg/dL (8.4-10.2); Carbon Dioxide 29 mmol/L (22-30); Chloride 82 mmol/L (98-107); Estimated CRCL calculation 90 ml/min; Estimated Glomerular Filt Rate > 60; Glucose 123 mg/dL (65-110); Magnesium 1.9 mg/dL (1.6-2.3); Potassium 4.4 mmol/L (3.4-5.0); Sodium 117 mmol/L (137-145); Total Protein 5.8 g/dL (6.3-8.2)
--- NOTE | 2025-02-26 06:00 | ECG_ITS ---
Test Date: 2025-02-26 06:04:43 Measurements Intervals [place] Rate: 120 P: 60 [place]: 160 QRS: -20 QRSD: 92 T: 86 QT: 324 QTc: 458 Interpretive Statements SINUS TACHYCARDIA LOW QRS VOLTAGE IN EXTREMITY LEADS POSSIBLE ANTERIOR MYOCARDIAL INFARCTION BORDERLINE T WAVE ABNORMALITY- HIGH LATERAL LEADS BASELINE ARTIFACT- I, II, III, AVR, AVL ABNORMAL ECG Compared to ECG 02/22/2025 16:59:44 Left anterior fascicular block no longer present Electronically Signed On 02-26-2025 08:40:26 SENIOR DIRECTOR [employer] by Sunday Owens D.O.
--- NOTE | 2025-02-26 08:40 | P.PNCA_ITS ---
Progress Note: A&P Assessment and Plan (1) Acute CHF: Code(s): I50.9 - Heart failure, unspecified Status: Acute Assessment and Plan: * -ejection fraction 15%. Large pleural effusion. * Cardiac catheterization done during this admission nonischemic cardiomyopathy. * Patient has soft blood pressure overnight therefore was started on midodrine 15 mg q.6 hours. * His sodium is low. I did call the pharmacy and will administer tolvaptan 15 mg x 1 today. * Will start digoxin loading dose 250 mcg x2 today IV. * Patient reports previous history of heavy alcohol drinking and quit 5 years ago. * If no improvement overnight will consider transfer to [facility] for further management. * Consider dobutamine after digoxin loading. * * Total time spent on this patient today was 58 minutes managing patient, talking to pharmacy and the overnight rural electrification engineer doctor and speaking to the patient and the nurse (2) Transaminitis: Code(s): R74.01 - Elevation of levels of liver transaminase levels Status: Acute Assessment and Plan: * may represent hepatic congestion in the setting of acute CHF * will trend with diuresis. * CT of abd/pelvis did not suggest any acute finding (3) Acute hyponatremia: Code(s): E87.1 - Hypo-osmolality and hyponatremia Status: Acute Assessment and Plan: * his sodium was 108 on admission * 116 today * will need close monitoring of sodium * -administer tolvaptan 15 mg x 1 today. Hold off Lasix for now (4) Hyperkalemia: Code(s): E87.5 - Hyperkalemia Status: Acute Assessment and Plan: * potassium of 6.4 on admission * has normalized * was previously on aldactone at home, but was stopped a few weeks ago (5) Hypotension: Code(s): I95.9 - Hypotension, unspecified Status: Acute Assessment and Plan: * Continue midodrine. * Might consider dobutamine after the giving some digoxin Subjective Date/time seen: Date of service 02/26/25 08:40 Interval history: Cardiology follow up visit for CHF, severe cardiomyopathy Date of service 02/24/2025: Feeling better, denies shortness of breath. Lower extremity swelling has resolved. No chest pain Date of service 02/26-resting comfortably in flat position. Sinus tachycardia at heart rate 120. Episodes of nonsustained VT. Denies extremity edema. Blood pressure has been soft. His midodrine was increased overnight to 15 mg Q 6 hours. Review of Systems Review of Systems: All systems reviewed & are unremarkable except as noted in HPI and below Constitutional: Comments: Tired Eyes: Comments: No discharge ENT: Comments: No bleeding Cardiovascular: Comments: Dyspnea on exertion but no chest pain Respiratory: Comments: Dyspnea on exertion no chest pain Gastrointestinal: Comments: Denies abdominal pain Genitourinary: Comments: Denies dysuria Musculoskeletal: Comments: No joint swelling Integumentary/Breasts: Comments: No rash Neurologic: Comments: Denies focal deficit Psychiatric: Comments: No depression Endocrine: Comments: No polyuria Hematologic/Lymphatic: Comments: No bruising Exam Narrative: Comfortable Const: General: comfortable; No no acute distress Other: Lying flat in bed breathing comfortably HENMT: Other: No discharge Eyes: General: appearance normal, both eyes and all related structures Sclera: sclerae normal Neck: Neck: supple Resp: Effort & Inspection: normal respiratory effort Auscultation: crackles bilateral 1/[address] up Cardio: Rate: tachycardic Rhythm: regular rhythm Heart sounds: no gallops, no murmurs and no rubs Skin: General skin exam: normal color Neuro: Speech: normal speech Extrem: General: no edema Psych: Appearance: grossly normal Mental Status: mental status grossly normal Objective Data Vital Signs Vital Signs: Vital Signs - 24 hr 02/25/25 10:00 02/25/25 12:00 02/25/25 12:00 Temperature Pulse Rate 118 H 104 H Pulse Rate [Right Pedal (Dorsalis Pedis)] 104 H Respiratory Rate 14 Blood Pressure 103/62 Pulse Oximetry 98 Oxygen Delivery Nasal Cannula Oxygen Flow Rate 2 02/25/25 12:15 02/25/25 12:15 02/25/25 12:30 Temperature Pulse Rate 103 H Pulse Rate [Right Pedal (Dorsalis Pedis)] 103 H 105 H Respiratory Rate 16 Blood Pressure 105/68 Pulse Oximetry 94 Oxygen Delivery Nasal Cannula Oxygen Flow Rate 2 02/25/25 12:30 02/25/25 12:45 02/25/25 12:45 Temperature Pulse Rate 105 H 109 H Pulse Rate [Right Pedal (Dorsalis Pedis)] 109 H Respiratory Rate 20 22 H Blood Pressure 98/73 L 98/75 L Pulse Oximetry 100 100 Oxygen Delivery Nasal Cannula Nasal Cannula Oxygen Flow Rate 2 2 02/25/25 13:00 02/25/25 13:00 02/25/25 13:30 Temperature 36.9 C Pulse Rate 109 H 114 H Pulse Rate [Right Pedal (Dorsalis Pedis)] 109 H Respiratory Rate 22 H 28 H Blood Pressure 92/67 L 95/55 L Pulse Oximetry 100 100 Oxygen Delivery Nasal Cannula Oxygen Flow Rate 2 02/25/25 14:00 02/25/25 14:00 02/25/25 15:00 Temperature 36.9 C 36.6 C Pulse Rate 125 H 118 H 125 H Pulse Rate [Right Pedal (Dorsalis Pedis)] Respiratory Rate 20 24 H Blood Pressure 96/55 L 98/58 L Pulse Oximetry 100 98 Oxygen Delivery Oxygen Flow Rate 02/25/25 16:00 02/25/25 16:00 02/25/25 17:26 Temperature 37.3 C Pulse Rate 131 H 136 H 137 H Pulse Rate [Right Pedal (Dorsalis Pedis)] Respiratory Rate 22 H 20 Blood Pressure 103/65 92/53 L Pulse Oximetry 100 100 Oxygen Delivery Oxygen Flow Rate 02/25/25 17:31 02/25/25 19:33 02/25/25 20:00 Temperature 36.8 C Pulse Rate 140 H 139 H 131 H Pulse Rate [Right Pedal (Dorsalis Pedis)] Respiratory Rate 23 H Blood Pressure 88/64 L Pulse Oximetry 100 100 Oxygen Delivery Nasal Cannula Oxygen Flow Rate 2 02/25/25 20:00 02/25/25 20:50 02/25/25 22:00 Temperature Pulse Rate 136 H 134 H Pulse Rate [Right Pedal (Dorsalis Pedis)] Respiratory Rate Blood Pressure 91/67 L Pulse Oximetry Oxygen Delivery Oxygen Flow Rate 02/26/25 00:00 02/26/25 00:00 02/26/25 00:00 Temperature 36.4 C L Pulse Rate 135 H 136 H 131 H Pulse Rate [Right Pedal (Dorsalis Pedis)] Respiratory Rate 18 Blood Pressure 86/69 L Pulse Oximetry 99 99 Oxygen Delivery Nasal Cannula Oxygen Flow Rate 2 02/26/25 02:00 02/26/25 04:00 02/26/25 04:00 Temperature Pulse Rate 121 H 117 H 117 H Pulse Rate [Right Pedal (Dorsalis Pedis)] Respiratory Rate Blood Pressure Pulse Oximetry 100 Oxygen Delivery Nasal Cannula Oxygen Flow Rate 2 02/26/25 04:00 02/26/25 06:00 02/26/25 06:30 Temperature 37.1 C Pulse Rate 122 H 119 H Pulse Rate [Right Pedal (Dorsalis Pedis)] Respiratory Rate 19 Blood Pressure 87/59 L 88/64 L Pulse Oximetry 100 Oxygen Delivery Oxygen Flow Rate 02/26/25 07:39 Temperature 36.9 C Pulse Rate 130 H Pulse Rate [Right Pedal (Dorsalis Pedis)] Respiratory Rate 18 Blood Pressure 90/48 L Pulse Oximetry 100 Oxygen Delivery Oxygen Flow Rate Intake/Output Intake/Output: Intake & Output 02/23/25 02/24/25 02/25/25 02/26/25 23:59 23:59 23:59 23:59 Intake Total 240 2960 790 740 Output Total 2550 2600 2300 525 Balance -2310 360 -1510 215 Meds/Results Medications: Active Medications Generic Name Dose Route Start Last Admin Trade Name Freq PRN Reason Stop Dose Admin Dextrose 12.5 gm 02/22/25 23:55 Dextrose 50% 25 Gm/50 Ml Syringe IV PUSH PRN PRN Hypoglycemia Protocol Digoxin 250 mcg 02/26/25 08:38 Digoxin Inj 250 Mcg/Ml 2 Ml Amp (*Bkc) IV PUSH 02/26/25 08:39 ONCE ONE Digoxin 250 mcg 02/26/25 15:00 Digoxin Inj 250 Mcg/Ml 2 Ml Amp (*Bkc) IV PUSH 02/26/25 15:01 ONCE ONE Furosemide 40 mg 02/23/25 09:00 02/25/25 18:23 Furosemide Inj 40 Mg/4 Ml Vial IV PUSH Not Given BID CHARISMA Glucagon 1 mg 02/22/25 23:55 Glucagon For Inj 1 Mg Vial IM PRN PRN Hypoglycemia Protocol Glucose 15 gm 02/22/25 23:55 Glucose Oral Gel 15 Gm Of Glucse In 37.5 Gm Tube PO PRN PRN Hypoglycemia Protocol Dextrose 1,000 mls @ 100 mls/hr 02/22/25 23:55 Dextrose 5% 1,000 Ml IVPB PRN PRN Hypoglycemia Protocol Levofloxacin/Dextrose 750 mg in 150 mls @ 100 mls/hr 02/25/25 15:00 02/25/25 17:32 Levaquin 750 Mg/D5w 150 Ml IVPB Infused Q24H CHARISMA Infusion Metoprolol Tartrate 2.5 mg 02/25/25 21:25 Metoprolol Tartrate Inj 5 Mg/5 Ml Vial IV PUSH Q6HR PRN Heart Rate- High Midodrine 15 mg 02/26/25 00:00 02/26/25 06:00 Midodrine Hcl 2.5 Mg Tablet PO 15 mg Q6HR CHARISMA Administration Tolvaptan 15 Mg 1 each 02/26/25 08:40 BY MOUTH 02/26/25 08:41 ONCE ONE Perflutren Lipid Microsphere 0 ml 02/24/25 14:41 Perflutren Lipid Microspheres 1.5 Ml Vial Diluted To 10 Ml Total Volume IV PUSH 02/27/25 14:41 ONCE PRN adequate visualization Protocol Pregabalin 50 mg 02/25/25 21:00 02/25/25 20:57 Pregabalin (*Crx) 50 Mg Capsule PO 50 mg Q12HR CHARISMA Administration Radiology Results: ITS Impressions Chest/Abdomen/Pelvis CTA 02/22/25 17:46 IMPRESSION: 1. Anasarca with bilateral pleural effusion, ascites. Pulmonary edema, left more than the right lung. Findings are suggestive of congestive heart failure. Cardiomegaly. 2. No evidence of pulmonary emboli. Suggestion of thrombus at the apex of left ventricle on delayed contrast study. Correlation with echocardiogram is recommended. 3. No focal acute findings in the abdomen and pelvis. Abdomen Ultrasound 02/23/25 19:33 IMPRESSION: 1. Normal size liver. One CM cyst of the right lobe of the liver. Portal veins and hepatic veins are patent. Prominent size of hepatic veins noted. This is consistent with hepatic venous congestion. 2. Evidence of gallstones. Extrahepatic bile ducts are normal in size. 3. Small amount of free fluid around the liver and in the peritoneal cavity. Arterial/Peripheral Duplex 02/23/25 19:33 IMPRESSION: 1. Normal size liver. One CM cyst of the right lobe of the liver. Portal veins and hepatic veins are patent. Prominent size of hepatic veins noted. This is consistent with hepatic venous congestion. 2. Evidence of gallstones. Extrahepatic bile ducts are normal in size. 3. Small amount of free fluid around the liver and in the peritoneal cavity. Chest X-Ray 02/24/25 17:20 IMPRESSION: 1. Chest CT 02/25/25 09:13 IMPRESSION: Worsening bilateral effusions and consolidations as well as at atelectatic changes, left worse than right. Labs Labs: Laboratory Results - last 24 hr 02/25/25 02/25/25 02/25/25 09:03 11:01 11:30 WBC RBC Hgb Hct MCV MCH MCHC RDW Plt Count MPV Immature Gran % (Auto) Neut % (Auto) Lymph % (Auto) [place] % (Auto) Eos % (Auto) Baso % (Auto) Lymph # (Auto) [place] # (Auto) Eos # (Auto) Baso # (Auto) Abs Immat Gran (auto) Absolute Neuts (auto) Absolute Nucleated RBC Nucleated RBC % Puncture Site Not Reportable ABG pH 7.484 H ABG pCO2 36.6 ABG pO2 63.4 L ABG PO2/FiO2 Ratio 3.02 ABG HCO3 26.9 H ABG O2 Saturation 93.8 L ABG O2 Content 16.1 ABG Base Excess 3.5 A-a Gradient 42.5 Oxyhemoglobin 90.3 Carboxyhemoglobin 1.9 Methemoglobin 0.1 Reduced Hemoglobin 7.7 H Total Hemoglobin 12.7 O2 Delivery Device Not Reportable O2 Liters/Min Not Reportable Sodium Potassium Chloride Carbon Dioxide Anion Gap BUN Creatinine Estim Creat Clear Calc Estimated GFR Glucose Lactic Acid 2.2 H Calcium Magnesium Total Bilirubin AST ALT Alkaline Phosphatase Total Protein Albumin Free T4 0.87 Random Cortisol U Random Total Protein < 5 Ur Random Sodium < 5 Ur Random Urea 1420 Urine Creatinine 127.9 Protein/Creat Ratio 2 < 0.04 Nasal MRSA (PCR) 02/25/25 02/25/25 02/25/25 11:32 11:34 11:35 WBC RBC Hgb Hct MCV MCH MCHC RDW Plt Count MPV Immature Gran % (Auto) Neut % (Auto) Lymph % (Auto) [place] % (Auto) Eos % (Auto) Baso % (Auto) Lymph # (Auto) [place] # (Auto) Eos # (Auto) Baso # (Auto) Abs Immat Gran (auto) Absolute Neuts (auto) Absolute Nucleated RBC Nucleated RBC % Puncture Site Not Reportable Not Reportable Not Reportable ABG pH 7.444 7.463 H 7.485 H ABG pCO2 41.0 41.1 34.4 L ABG pO2 31.7 L* 35.3 L* 58.8 L ABG PO2/FiO2 Ratio 1.51 1.68 2.80 ABG HCO3 27.5 H 28.8 H 25.3 ABG O2 Saturation 63.4 L* 71.1 L* 92.5 L ABG O2 Content 10.3 L 11.4 L 14.9 L ABG Base Excess 3.1 4.6 2.2 A-a Gradient 68.9 65.2 49.7 Oxyhemoglobin 57.5 L* 67.1 L* 89.8 L Carboxyhemoglobin 2.0 1.8 2.2 H Methemoglobin 0.2 0.1 0.1 Reduced Hemoglobin 40.3 H 31.0 H 7.9 H Total Hemoglobin 12.8 12.1 11.8 L O2 Delivery Device Not Reportable Not Reportable Not Reportable O2 Liters/Min Not Reportable Not Reportable Not Reportable Sodium Potassium Chloride Carbon Dioxide Anion Gap BUN Creatinine Estim Creat Clear Calc Estimated GFR Glucose Lactic Acid Calcium Magnesium Total Bilirubin AST ALT Alkaline Phosphatase Total Protein Albumin Free T4 Random Cortisol U Random Total Protein Ur Random Sodium Ur Random Urea Urine Creatinine Protein/Creat Ratio 2 Nasal MRSA (PCR) 02/25/25 02/25/25 02/25/25 13:52 15:02 18:21 WBC RBC Hgb Hct MCV MCH MCHC RDW Plt Count MPV Immature Gran % (Auto) Neut % (Auto) Lymph % (Auto) [place] % (Auto) Eos % (Auto) Baso % (Auto) Lymph # (Auto) [place] # (Auto) Eos # (Auto) Baso # (Auto) Abs Immat Gran (auto) Absolute Neuts (auto) Absolute Nucleated RBC Nucleated RBC % Puncture Site ABG pH ABG pCO2 ABG pO2 ABG PO2/FiO2 Ratio ABG HCO3 ABG O2 Saturation ABG O2 Content ABG Base Excess A-a Gradient Oxyhemoglobin Carboxyhemoglobin Methemoglobin Reduced Hemoglobin Total Hemoglobin O2 Delivery Device O2 Liters/Min Sodium 118 L* 119 L* Potassium 4.1 Chloride 83 L Carbon Dioxide 27 Anion Gap 9 BUN 23 H Creatinine 0.90 Estim Creat Clear Calc 91 Estimated GFR > 60 Glucose 184 H Lactic Acid 3.2 H Calcium 7.7 L Magnesium Total Bilirubin AST ALT Alkaline Phosphatase Total Protein Albumin Free T4 Random Cortisol 32.60 U Random Total Protein Ur Random Sodium Ur Random Urea Urine Creatinine Protein/Creat Ratio 2 Nasal MRSA (PCR) Not detected 02/25/25 02/26/25 20:52 04:07 WBC 15.9 H RBC 4.16 L Hgb 12.4 L Hct 36.7 L MCV 88.2 MCH 29.8 MCHC 33.8 RDW 17.2 H Plt Count 212 MPV 10.0 Immature Gran % (Auto) 1.3 H Neut % (Auto) 82.1 H Lymph % (Auto) 6.7 L [place] % (Auto) 9.7 H Eos % (Auto) 0.1 Baso % (Auto) 0.1 L Lymph # (Auto) 1.07 Calvert # (Auto) 1.6 H Eos # (Auto) 0.0 Baso # (Auto) 0.0 Abs Immat Gran (auto) 0.21 H Absolute Neuts (auto) 13.0 H Absolute Nucleated RBC 0.000 Nucleated RBC % 0.0 Puncture Site ABG pH ABG pCO2 ABG pO2 ABG PO2/FiO2 Ratio ABG HCO3 ABG O2 Saturation ABG O2 Content ABG Base Excess A-a Gradient Oxyhemoglobin Carboxyhemoglobin Methemoglobin Reduced Hemoglobin Total Hemoglobin O2 Delivery Device O2 Liters/Min Sodium 117 L* 117 L* Potassium 4.4 Chloride 82 L Carbon Dioxide 29 Anion Gap 6 BUN 27 H Creatinine 0.91 Estim Creat Clear Calc 90 Estimated GFR > 60 Glucose 123 H Lactic Acid Calcium 7.7 L Magnesium 1.9 Total Bilirubin 5.3 H AST 67 H ALT 242 H Alkaline Phosphatase 145 H Total Protein 5.8 L Albumin 3.0 L Free T4 Random Cortisol U Random Total Protein Ur Random Sodium Ur Random Urea Urine Creatinine Protein/Creat Ratio 2 Nasal MRSA (PCR)
[2025-02-26] MEDS: PREGABALIN (*CRX) 50 MG CAPSULE PO ×2 (08:56→21:09)
[2025-02-26] MEDS: DIGOXIN INJ 250 MCG/ML 2 ML AMP (*BKC) IV PUSH ×2 (08:58→15:11)
--- NOTE | 2025-02-26 11:24 | P.PNNP_ITS ---
Subjective Date/time seen: 02/26/25 11:24 Interval history: Follow-up for acute hyponatremia (presumably acute). S/P cardiac catheterization yesterday with results/findings noted; resting comfortably in bed at the time of my visit; lower extremity swelling/edema appears better if not resolved; sodium had been improving (up to 119mmol/L) but then dropped overnight and this morning; ongoing relative hypotension so midodrone dose/frequency increased to compensate; no acute distress noted when seen; dosed with tolvaptan today per Cardiology in an effort to improve sodium level. Exam 2 Narrative: General: WD/WN male in NAD Heart: tachycardic, normal S1 and S2; no rub Lungs: some bibasilar crackles noted Abdomen: soft, nontender, nondistended, positive bowel sounds Extremities: no cyanosis or clubbing; no edema Skin: warm and intact Objective Data Vital Signs Vital Signs: Vital Signs Temp Pulse Resp BP Pulse Ox O2 Del Method O2 Flow Rate 02/26/25 11:10 97.6 F 126 H 22 H 91/62 L 99 02/26/25 08:00 122 H 02/26/25 07:39 98.4 F 130 H 18 90/48 L 100 02/26/25 06:30 88/64 L 02/26/25 06:00 119 H 02/26/25 04:00 98.8 F 122 H 19 87/59 L 100 02/26/25 04:00 117 H 02/26/25 04:00 117 H 100 Nasal Cannula 2 02/26/25 02:00 121 H 02/26/25 00:00 131 H 02/26/25 00:00 136 H 99 Nasal Cannula 2 02/26/25 00:00 97.5 F L 135 H 18 86/69 L 99 02/25/25 22:00 134 H 02/25/25 20:50 91/67 L 02/25/25 20:00 136 H 02/25/25 20:00 131 H 100 Nasal Cannula 2 02/25/25 19:33 98.2 F 139 H 23 H 88/64 L 100 02/25/25 17:31 140 H 02/25/25 17:26 137 H 20 92/53 L 100 02/25/25 16:00 99.1 F 136 H 22 H 103/65 100 02/25/25 16:00 131 H 02/25/25 15:00 98 F 125 H 24 H 98/58 L 98 02/25/25 14:00 98.4 F 118 H 20 96/55 L 100 02/25/25 14:00 125 H Intake/Output Intake/Output: Intake & Output 02/23/25 02/24/25 02/25/25 02/26/25 23:59 23:59 23:59 23:59 Intake Total 240 2960 790 980 Output Total 2550 2600 2300 525 Balance -2310 360 -1510 455 Meds/Results Medications: Active Medications Generic Name Dose Route Start Last Admin Trade Name Freq PRN Reason Stop Dose Admin Dextrose 12.5 gm 02/22/25 23:55 Dextrose 50% 25 Gm/50 Ml Syringe IV PUSH PRN PRN Hypoglycemia Protocol Digoxin 250 mcg 02/26/25 15:00 Digoxin Inj 250 Mcg/Ml 2 Ml Amp (*Bkc) IV PUSH 02/26/25 15:01 ONCE ONE Furosemide 40 mg 02/23/25 09:00 02/26/25 08:52 Furosemide Inj 40 Mg/4 Ml Vial IV PUSH Not Given BID CHARISMA Glucagon 1 mg 02/22/25 23:55 Glucagon For Inj 1 Mg Vial IM PRN PRN Hypoglycemia Protocol Glucose 15 gm 02/22/25 23:55 Glucose Oral Gel 15 Gm Of Glucse In 37.5 Gm Tube PO PRN PRN Hypoglycemia Protocol Dextrose 1,000 mls @ 100 mls/hr 02/22/25 23:55 Dextrose 5% 1,000 Ml IVPB PRN PRN Hypoglycemia Protocol Levofloxacin/Dextrose 750 mg in 150 mls @ 100 mls/hr 02/25/25 15:00 02/25/25 17:32 Levaquin 750 Mg/D5w 150 Ml IVPB Infused Q24H CHARISMA Infusion Metoprolol Tartrate 2.5 mg 02/25/25 21:25 Metoprolol Tartrate Inj 5 Mg/5 Ml Vial IV PUSH Q6HR PRN Heart Rate- High Midodrine 15 mg 02/26/25 00:00 02/26/25 12:11 Midodrine Hcl 2.5 Mg Tablet PO 15 mg Q6HR CHARISMA Administration Perflutren Lipid Microsphere 0 ml 02/24/25 14:41 Perflutren Lipid Microspheres 1.5 Ml Vial Diluted To 10 Ml Total Volume IV PUSH 02/27/25 14:41 ONCE PRN adequate visualization Protocol Pregabalin 50 mg 02/25/25 21:00 02/26/25 08:56 Pregabalin (*Crx) 50 Mg Capsule PO 50 mg Q12HR CHARISMA Administration Radiology Results: ITS Impressions Chest/Abdomen/Pelvis CTA 02/22/25 17:46 IMPRESSION: 1. Anasarca with bilateral pleural effusion, ascites. Pulmonary edema, left more than the right lung. Findings are suggestive of congestive heart failure. Cardiomegaly. 2. No evidence of pulmonary emboli. Suggestion of thrombus at the apex of left ventricle on delayed contrast study. Correlation with echocardiogram is recommended. 3. No focal acute findings in the abdomen and pelvis. Abdomen Ultrasound 02/23/25 19:33 IMPRESSION: 1. Normal size liver. One CM cyst of the right lobe of the liver. Portal veins and hepatic veins are patent. Prominent size of hepatic veins noted. This is consistent with hepatic venous congestion. 2. Evidence of gallstones. Extrahepatic bile ducts are normal in size. 3. Small amount of free fluid around the liver and in the peritoneal cavity. Arterial/Peripheral Duplex 02/23/25 19:33 IMPRESSION: 1. Normal size liver. One CM cyst of the right lobe of the liver. Portal veins and hepatic veins are patent. Prominent size of hepatic veins noted. This is consistent with hepatic venous congestion. 2. Evidence of gallstones. Extrahepatic bile ducts are normal in size. 3. Small amount of free fluid around the liver and in the peritoneal cavity. Chest X-Ray 02/24/25 17:20 IMPRESSION: 1. Chest CT 02/25/25 09:13 IMPRESSION: Worsening bilateral effusions and consolidations as well as at atelectatic changes, left worse than right. Labs Labs: Laboratory Tests 02/26/25 04:07 02/26/25 04:07 Calcium 7.7 L Magnesium 1.9 Total Bilirubin 5.3 H AST 67 H ALT 242 H Alkaline Phosphatase 145 H Total Protein 5.8 L Albumin 3.0 L Microbiology 02/22/25 19:24 Blood Blood Culture - Preliminary 02/22/25 18:13 Blood Blood Culture - Preliminary
--- NOTE | 2025-02-26 13:59 | PM.IMPN2 ---
Assessment and Plan Assessment and Plan (1) CHF (congestive heart failure): Code(s): I50.9 - Heart failure, unspecified Status: Acute (2) Hyperkalemia: Code(s): E87.5 - Hyperkalemia Status: Acute Plan Non ischemic Cardiomyopathy ECHO showed EF 15-20% presented with worsening SOB, orthopnea and PND Leg edema resovled CTA chest PA showed cardiomegaly, anasarca, pulm edema and pleural effusion decreased lasix to 20mg due to sinut tachycardia , Midodrine 10mg tid, digoxin loading per cardiology Cardiology following Hyperkalemia k 4.2, resolved Hyponatremia From CHF Na 117 from 107 s/p Tolvaptan continue diuresis and monitor Congestive Hepatopathy Elevated liver enzymes from CHF improving continue above care and monitor 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 identifies as male, his biological sex DVT prophylaxis on Sq Lovenox full code Subjective Date/time seen: 02/26/25 13:59 Interval history: Comfortable at bedside still tachycardic, cardiology started on Cardizem q6 Also given one dose ot Tolvaptan Review of Systems Review of Systems: All other systems were reviewed and negative except as noted in the HPI above Exam Narrative: General: alert and comfortable Eyes: EOMI, PERRLA ENNT External ears normal, Neck is supple, no masses, Respiratory systems: Clear to auscultation Cardiovascular S1, S2, normal rhythm, no murmur, rub, or gallop; no thrill or palpable murmurs on palpation. Gastrointestinal: soft, non-tender, and non-distended abdomen with no masses; BS present Skin: no rash, lesions, ulcerations, subcutaneous nodules or induration Musculoskeletal: no abnormality and no tenderness, normal ROM Neurologic: Alert and oriented x3, non focal Mental Status Exam: normal affect Objective Data Vital Signs Vital Signs: Vital Signs - 24 hr 02/25/25 14:00 02/25/25 14:00 02/25/25 15:00 Temperature 98.4 F 98 F Pulse Rate 125 H 118 H 125 H Respiratory Rate 20 24 H Blood Pressure 96/55 L 98/58 L Pulse Oximetry 100 98 Oxygen Delivery Oxygen Flow Rate 02/25/25 16:00 02/25/25 16:00 02/25/25 17:26 Temperature 99.1 F Pulse Rate 131 H 136 H 137 H Respiratory Rate 22 H 20 Blood Pressure 103/65 92/53 L Pulse Oximetry 100 100 Oxygen Delivery Oxygen Flow Rate 02/25/25 17:31 02/25/25 19:33 02/25/25 20:00 Temperature 98.2 F Pulse Rate 140 H 139 H 131 H Respiratory Rate 23 H Blood Pressure 88/64 L Pulse Oximetry 100 100 Oxygen Delivery Nasal Cannula Oxygen Flow Rate 2 02/25/25 20:00 02/25/25 20:50 02/25/25 22:00 Temperature Pulse Rate 136 H 134 H Respiratory Rate Blood Pressure 91/67 L Pulse Oximetry Oxygen Delivery Oxygen Flow Rate 02/26/25 00:00 02/26/25 00:00 02/26/25 00:00 Temperature 97.5 F L Pulse Rate 135 H 136 H 131 H Respiratory Rate 18 Blood Pressure 86/69 L Pulse Oximetry 99 99 Oxygen Delivery Nasal Cannula Oxygen Flow Rate 2 02/26/25 02:00 02/26/25 04:00 02/26/25 04:00 Temperature Pulse Rate 121 H 117 H 117 H Respiratory Rate Blood Pressure Pulse Oximetry 100 Oxygen Delivery Nasal Cannula Oxygen Flow Rate 2 02/26/25 04:00 02/26/25 06:00 02/26/25 06:30 Temperature 98.8 F Pulse Rate 122 H 119 H Respiratory Rate 19 Blood Pressure 87/59 L 88/64 L Pulse Oximetry 100 Oxygen Delivery Oxygen Flow Rate 02/26/25 07:39 02/26/25 08:00 02/26/25 10:00 Temperature 98.4 F Pulse Rate 130 H 122 H 124 H Respiratory Rate 18 Blood Pressure 90/48 L Pulse Oximetry 100 Oxygen Delivery Oxygen Flow Rate 02/26/25 11:30 02/26/25 12:00 Temperature 97.6 F Pulse Rate 126 H 130 H Respiratory Rate 22 H Blood Pressure 91/62 L Pulse Oximetry 99 Oxygen Delivery Oxygen Flow Rate Intake/Output Intake/Output: Intake & Output 02/23/25 02/24/25 02/25/25 02/26/25 23:59 23:59 23:59 23:59 Intake Total 240 2960 790 980 Output Total 2550 2600 2300 525 Balance -2310 360 -1510 455 Meds/Results Medications: Active Medications Generic Name Dose Route Start Last Admin Trade Name Freq PRN Reason Stop Dose Admin Dextrose 12.5 gm 02/22/25 23:55 Dextrose 50% 25 Gm/50 Ml Syringe IV PUSH PRN PRN Hypoglycemia Protocol Digoxin 250 mcg 02/26/25 15:00 Digoxin Inj 250 Mcg/Ml 2 Ml Amp (*Bkc) IV PUSH 02/26/25 15:01 ONCE ONE Furosemide 40 mg 02/23/25 09:00 02/26/25 08:52 Furosemide Inj 40 Mg/4 Ml Vial IV PUSH Not Given BID CHARISMA Glucagon 1 mg 02/22/25 23:55 Glucagon For Inj 1 Mg Vial IM PRN PRN Hypoglycemia Protocol Glucose 15 gm 02/22/25 23:55 Glucose Oral Gel 15 Gm Of Glucse In 37.5 Gm Tube PO PRN PRN Hypoglycemia Protocol Dextrose 1,000 mls @ 100 mls/hr 02/22/25 23:55 Dextrose 5% 1,000 Ml IVPB PRN PRN Hypoglycemia Protocol Levofloxacin/Dextrose 750 mg in 150 mls @ 100 mls/hr 02/25/25 15:00 02/25/25 17:32 Levaquin 750 Mg/D5w 150 Ml IVPB Infused Q24H CHARISMA Infusion Metoprolol Tartrate 2.5 mg 02/25/25 21:25 Metoprolol Tartrate Inj 5 Mg/5 Ml Vial IV PUSH Q6HR PRN Heart Rate- High Midodrine 15 mg 02/26/25 00:00 02/26/25 12:11 Midodrine Hcl 2.5 Mg Tablet PO 15 mg Q6HR CHARISMA Administration Perflutren Lipid Microsphere 0 ml 02/24/25 14:41 Perflutren Lipid Microspheres 1.5 Ml Vial Diluted To 10 Ml Total Volume IV PUSH 02/27/25 14:41 ONCE PRN adequate visualization Protocol Pregabalin 50 mg 02/25/25 21:00 02/26/25 08:56 Pregabalin (*Crx) 50 Mg Capsule PO 50 mg Q12HR CHARISMA Administration Radiology Results: ITS Impressions Chest/Abdomen/Pelvis CTA 02/22/25 17:46 IMPRESSION: 1. Anasarca with bilateral pleural effusion, ascites. Pulmonary edema, left more than the right lung. Findings are suggestive of congestive heart failure. Cardiomegaly. 2. No evidence of pulmonary emboli. Suggestion of thrombus at the apex of left ventricle on delayed contrast study. Correlation with echocardiogram is recommended. 3. No focal acute findings in the abdomen and pelvis. Abdomen Ultrasound 02/23/25 19:33 IMPRESSION: 1. Normal size liver. One CM cyst of the right lobe of the liver. Portal veins and hepatic veins are patent. Prominent size of hepatic veins noted. This is consistent with hepatic venous congestion. 2. Evidence of gallstones. Extrahepatic bile ducts are normal in size. 3. Small amount of free fluid around the liver and in the peritoneal cavity. Arterial/Peripheral Duplex 02/23/25 19:33 IMPRESSION: 1. Normal size liver. One CM cyst of the right lobe of the liver. Portal veins and hepatic veins are patent. Prominent size of hepatic veins noted. This is consistent with hepatic venous congestion. 2. Evidence of gallstones. Extrahepatic bile ducts are normal in size. 3. Small amount of free fluid around the liver and in the peritoneal cavity. Chest X-Ray 02/24/25 17:20 IMPRESSION: 1. Chest CT 02/25/25 09:13 IMPRESSION: Worsening bilateral effusions and consolidations as well as at atelectatic changes, left worse than right. Labs Labs: Laboratory Results - last 24 hr 02/25/25 02/25/25 02/25/25 09:03 13:52 15:02 WBC RBC Hgb Hct MCV MCH MCHC RDW Plt Count MPV Immature Gran % (Auto) Neut % (Auto) Lymph % (Auto) [place] % (Auto) Eos % (Auto) Baso % (Auto) Lymph # (Auto) [place] # (Auto) Eos # (Auto) Baso # (Auto) Abs Immat Gran (auto) Absolute Neuts (auto) Absolute Nucleated RBC Nucleated RBC % Sodium 118 L* Potassium Chloride Carbon Dioxide Anion Gap BUN Creatinine Estim Creat Clear Calc Estimated GFR Glucose Lactic Acid 3.2 H Calcium Magnesium Total Bilirubin AST ALT Alkaline Phosphatase Total Protein Albumin Free T4 0.87 Random Cortisol 32.60 Nasal MRSA (PCR) Not detected 02/25/25 02/25/25 02/26/25 18:21 20:52 04:07 WBC 15.9 H RBC 4.16 L Hgb 12.4 L Hct 36.7 L MCV 88.2 MCH 29.8 MCHC 33.8 RDW 17.2 H Plt Count 212 MPV 10.0 Immature Gran % (Auto) 1.3 H Neut % (Auto) 82.1 H Lymph % (Auto) 6.7 L [place] % (Auto) 9.7 H Eos % (Auto) 0.1 Baso % (Auto) 0.1 L Lymph # (Auto) 1.07 [place] # (Auto) 1.6 H Eos # (Auto) 0.0 Baso # (Auto) 0.0 Abs Immat Gran (auto) 0.21 H Absolute Neuts (auto) 13.0 H Absolute Nucleated RBC 0.000 Nucleated RBC % 0.0 Sodium 119 L* 117 L* 117 L* Potassium 4.1 4.4 Chloride 83 L 82 L Carbon Dioxide 27 29 Anion Gap 9 6 BUN 23 H 27 H Creatinine 0.90 0.91 Estim Creat Clear Calc 91 90 Estimated GFR > 60 > 60 Glucose 184 H 123 H Lactic Acid Calcium 7.7 L 7.7 L Magnesium 1.9 Total Bilirubin 5.3 H AST 67 H ALT 242 H Alkaline Phosphatase 145 H Total Protein 5.8 L Albumin 3.0 L Free T4 Random Cortisol Nasal MRSA (PCR)
[2025-02-26] MEDS: levoFLOXacin 750 MG/D5W 150 ML 750 MG/150 ML BAG 150 MG IVPB (15:11)
[2025-02-26] MEDS: FUROSEMIDE INJ 40 MG/4 ML VIAL 20 MG IV PUSH (17:02)
[2025-02-27] VITALS (16 sets, daily range): BP systolic 88–133; BP diastolic 49–72; PULSE 104–125; RESP 15–21; TEMP 36.4–36.9; O2SAT 95–100
[2025-02-27] MEDS: MIDODRINE HCL 2.5 MG TABLET 15 MG PO ×5 (00:12→23:25)
[2025-02-27 04:33] LABS: Hematocrit 32.6 % (42.0-52.0); Hemoglobin 10.8 g/dL (14.0-18.0); Immature Granulocyte Percent A 0.9 % (0-0.5); Lymphocytes Absolute Auto 1.04 K/mm3 (0.9-3.2); Mean Corpuscular HGB Conc 33.1 g/dl (32-36); Mean Corpuscular Hemoglobin 29.6 pg (26-34); Mean Corpuscular Volume 89.3 fl (80-100); Nucleated Red Blood Cells Absolute Auto 0.000 K/mm3 (0.0-0.012); Nucleated Red Blood Cells Perc 0.0 % (0.0-0.2); Platelet Count Result 204 k/mm3 (150-375); Red Blood Count 3.65 M/mm3 (4.6-6.20); White Blood Count 15.2 K/mm3 (4.5-10.0)
[2025-02-27 04:56] LABS: Alanine Aminotransferase 194 U/L (6-50); Albumin Level 2.8 g/dL (3.5-5.1); Alkaline Phosphatase 139 U/L (38-126); Anion Gap 1 mmol/L (4-12); Aspartate Amino Transferase 66 U/L (17-59); Bilirubin,Total 4.1 mg/dL (0.2-1.3); Blood Urea Nitrogen 25 mg/dL (9-20); Calcium 8.1 mg/dL (8.4-10.2); Carbon Dioxide 35 mmol/L (22-30); Chloride 86 mmol/L (98-107); Estimated CRCL calculation 117 ml/min; Estimated Glomerular Filt Rate > 60; Glucose 138 mg/dL (65-110); Magnesium 2.3 mg/dL (1.6-2.3); Potassium 3.7 mmol/L (3.4-5.0); Sodium 122 mmol/L (137-145); Total Protein 5.5 g/dL (6.3-8.2)
--- NOTE | 2025-02-27 07:58 | P.PNCA_ITS ---
Progress Note: A&P Assessment and Plan (1) Acute CHF: Code(s): I50.9 - Heart failure, unspecified Status: Acute Assessment and Plan: * -ejection fraction 15%. Large pleural effusion. * Cardiac catheterization done during this admission nonischemic cardiomyopathy. * Patient has soft blood pressure overnight therefore was started on midodrine 15 mg q.6 hours. * His sodium is low. Yesterday received 1 dose of tolvaptan 15 mg and sodium improved from 117 to 122. Will repeat tolvaptan today. Hold the morning dose of Lasix and administer the evening dosage. * Yesterday received 2 dosages of digoxin 250 mcg. Repeat 1 dosage today 250mcg x1 today. * Patient reports previous history of heavy alcohol drinking and quit 5 years ago. * If no improvement overnight will consider transfer to [facility] for further management. * Unable to add an inotrope due to tachycardia and nonsustained VT. * * (2) Transaminitis: Code(s): R74.01 - Elevation of levels of liver transaminase levels Status: Acute Assessment and Plan: * may represent hepatic congestion in the setting of acute CHF * Liver enzymes are improving with IV diuretics and using tolvaptan. Continue Lasix and tolvaptan * CT of abd/pelvis did not suggest any acute finding (3) Acute hyponatremia: Code(s): E87.1 - Hypo-osmolality and hyponatremia Status: Acute Assessment and Plan: * his sodium was 108 on admission * 116 today * will need close monitoring of sodium * -repeat tolvaptan 15 mg x 1 today. Hold of morning dosage of Lasix and and administer the evening dosage (4) Hyperkalemia: Code(s): E87.5 - Hyperkalemia Status: Acute Assessment and Plan: * potassium of 6.4 on admission * has normalized * was previously on aldactone at home, but was stopped a few weeks ago (5) Hypotension: Code(s): I95.9 - Hypotension, unspecified Status: Acute Assessment and Plan: * Continue midodrine. * Subjective Date/time seen: Date of service 02/27/25 07:58 Interval history: Cardiology follow up visit for CHF, severe cardiomyopathy Date of service 02/24/2025: Feeling better, denies shortness of breath. Lower extremity swelling has resolved. No chest pain Date of service 02/26-resting comfortably in flat position. Sinus tachycardia at heart rate 120. Episodes of nonsustained VT. Denies extremity edema. Blood pressure has been soft. His midodrine was increased overnight to 15 mg Q 6 hours. Date of service 02/27/2025-he feels better today. There is improved after receiving tolvaptan yesterday. He remains tachycardic though with episodes of nonsustained VT. Blood pressure is soft to despite receiving midodrine Review of Systems Review of Systems: All systems reviewed & are unremarkable except as noted in HPI and below Exam Narrative: Comfortable Const: General: comfortable; No no acute distress Other: Lying flat in bed breathing comfortably HENMT: Other: No discharge Eyes: General: appearance normal, both eyes and all related structures Sclera: sclerae normal Neck: Neck: supple Resp: Effort & Inspection: normal respiratory effort Auscultation: crackles bilateral 1/[address] up Cardio: Rate: tachycardic Rhythm: regular rhythm Heart sounds: no gallops, no murmurs and no rubs Skin: General skin exam: normal color Neuro: Speech: normal speech Extrem: General: no edema Psych: Appearance: grossly normal Mental Status: mental status grossly normal Objective Data Vital Signs Vital Signs: Vital Signs - 24 hr 02/26/25 08:00 02/26/25 10:00 02/26/25 11:30 Temperature 36.4 C Pulse Rate 122 H 124 H 126 H Respiratory Rate 22 H Blood Pressure 91/62 L Pulse Oximetry 99 Oxygen Delivery Oxygen Flow Rate Fraction of Inspired Oxygen 02/26/25 12:00 02/26/25 14:00 02/26/25 15:56 Temperature 36.8 C Pulse Rate 130 H 130 H 124 H Respiratory Rate 20 Blood Pressure 95/63 L Pulse Oximetry 99 Oxygen Delivery Oxygen Flow Rate Fraction of Inspired Oxygen 02/26/25 16:00 02/26/25 17:59 02/26/25 20:00 Temperature 36.7 C Pulse Rate 120 H 128 H 117 H Respiratory Rate 19 Blood Pressure 91/51 L Pulse Oximetry 99 Oxygen Delivery Oxygen Flow Rate Fraction of Inspired Oxygen 02/26/25 20:00 02/26/25 20:00 02/26/25 20:58 Temperature Pulse Rate 115 H Respiratory Rate Blood Pressure Pulse Oximetry 99 93 Oxygen Delivery Nasal Cannula Nasal Cannula Oxygen Flow Rate 2 2 Fraction of Inspired Oxygen 02/26/25 22:00 02/27/25 00:00 02/27/25 00:00 Temperature 36.4 C L Pulse Rate 120 H 115 H Respiratory Rate 15 Blood Pressure 88/62 L Pulse Oximetry 100 100 Oxygen Delivery Nasal Cannula Oxygen Flow Rate 2 Fraction of Inspired Oxygen 02/27/25 00:00 02/27/25 02:00 02/27/25 03:51 Temperature 36.8 C Pulse Rate 111 H 110 H 115 H Respiratory Rate 21 H Blood Pressure 90/53 L Pulse Oximetry 96 Oxygen Delivery Oxygen Flow Rate Fraction of Inspired Oxygen 02/27/25 04:00 02/27/25 04:00 02/27/25 06:00 Temperature Pulse Rate 114 H 111 H Respiratory Rate Blood Pressure Pulse Oximetry 100 Oxygen Delivery Nasal Cannula Oxygen Flow Rate 2 Fraction of Inspired Oxygen Intake/Output Intake/Output: Intake & Output 02/24/25 02/25/25 02/26/25 02/27/25 23:59 23:59 23:59 23:59 Intake Total 2960 790 1370 536 Output Total 2600 2300 1875 1550 Balance 623 -4049 -791 -6016 Meds/Results Medications: Active Medications Generic Name Dose Route Start Last Admin Trade Name Freq PRN Reason Stop Dose Admin Dextrose 12.5 gm 02/22/25 23:55 Dextrose 50% 25 Gm/50 Ml Syringe IV PUSH PRN PRN Hypoglycemia Protocol Furosemide 20 mg 02/26/25 17:00 02/26/25 17:02 Furosemide Inj 40 Mg/4 Ml Vial IV PUSH 20 mg BID CHARISMA Administration Glucagon 1 mg 02/22/25 23:55 Glucagon For Inj 1 Mg Vial IM PRN PRN Hypoglycemia Protocol Glucose 15 gm 02/22/25 23:55 Glucose Oral Gel 15 Gm Of Glucse In 37.5 Gm Tube PO PRN PRN Hypoglycemia Protocol Dextrose 1,000 mls @ 100 mls/hr 02/22/25 23:55 Dextrose 5% 1,000 Ml IVPB PRN PRN Hypoglycemia Protocol Levofloxacin/Dextrose 750 mg in 150 mls @ 100 mls/hr 02/25/25 15:00 02/26/25 17:17 Levaquin 750 Mg/D5w 150 Ml IVPB Infused Q24H CHARISMA Infusion Metoprolol Tartrate 2.5 mg 02/25/25 21:25 Metoprolol Tartrate Inj 5 Mg/5 Ml Vial IV PUSH Q6HR PRN Heart Rate- High Midodrine 15 mg 02/26/25 00:00 02/27/25 06:02 Midodrine Hcl 2.5 Mg Tablet PO 15 mg Q6HR CHARISMA Administration Tolvaptan 15 Mg 1 each 02/27/25 08:00 BY MOUTH 02/27/25 08:01 ONCE ONE Perflutren Lipid Microsphere 0 ml 02/24/25 14:41 Perflutren Lipid Microspheres 1.5 Ml Vial Diluted To 10 Ml Total Volume IV PUSH 02/27/25 14:41 ONCE PRN adequate visualization Protocol Pregabalin 50 mg 02/25/25 21:00 02/26/25 21:09 Pregabalin (*Crx) 50 Mg Capsule PO 50 mg Q12HR CHARISMA Administration Radiology Results: ITS Impressions Chest/Abdomen/Pelvis CTA 02/22/25 17:46 IMPRESSION: 1. Anasarca with bilateral pleural effusion, ascites. Pulmonary edema, left more than the right lung. Findings are suggestive of congestive heart failure. Cardiomegaly. 2. No evidence of pulmonary emboli. Suggestion of thrombus at the apex of left ventricle on delayed contrast study. Correlation with echocardiogram is recommended. 3. No focal acute findings in the abdomen and pelvis. Abdomen Ultrasound 02/23/25 19:33 IMPRESSION: 1. Normal size liver. One CM cyst of the right lobe of the liver. Portal veins and hepatic veins are patent. Prominent size of hepatic veins noted. This is consistent with hepatic venous congestion. 2. Evidence of gallstones. Extrahepatic bile ducts are normal in size. 3. Small amount of free fluid around the liver and in the peritoneal cavity. Arterial/Peripheral Duplex 02/23/25 19:33 IMPRESSION: 1. Normal size liver. One CM cyst of the right lobe of the liver. Portal veins and hepatic veins are patent. Prominent size of hepatic veins noted. This is consistent with hepatic venous congestion. 2. Evidence of gallstones. Extrahepatic bile ducts are normal in size. 3. Small amount of free fluid around the liver and in the peritoneal cavity. Chest X-Ray 02/24/25 17:20 IMPRESSION: 1. Chest CT 02/25/25 09:13 IMPRESSION: Worsening bilateral effusions and consolidations as well as at atelectatic changes, left worse than right. Labs Labs: Laboratory Results - last 24 hr 02/27/25 04:02 WBC 15.2 H RBC 3.65 L Hgb 10.8 L Hct 32.6 L MCV 89.3 MCH 29.6 MCHC 33.1 RDW 17.1 H Plt Count 204 MPV 9.7 Immature Gran % (Auto) 0.9 H Neut % (Auto) 80.7 H Lymph % (Auto) 6.9 L [place] % (Auto) 11.3 H Eos % (Auto) 0.1 Baso % (Auto) 0.1 L Lymph # (Auto) 1.04 [place] # (Auto) 1.7 H Eos # (Auto) 0.0 Baso # (Auto) 0.0 Abs Immat Gran (auto) 0.13 H Absolute Neuts (auto) 12.3 H Absolute Nucleated RBC 0.000 Nucleated RBC % 0.0 Sodium 122 L Potassium 3.7 Chloride 86 L Carbon Dioxide 35 H Anion Gap 1 L BUN 25 H Creatinine 0.69 L Estim Creat Clear Calc 117 Estimated GFR > 60 Glucose 138 H Calcium 8.1 L Magnesium 2.3 Total Bilirubin 4.1 H AST 66 H ALT 194 H Alkaline Phosphatase 139 H Total Protein 5.5 L Albumin 2.8 L
[2025-02-27 08:14] LABS: Iron 44 ug/dL (49-181)
[2025-02-27 08:23] LABS: Percent Iron Saturation 18 % (20-50)
[2025-02-27] MEDS: PREGABALIN (*CRX) 50 MG CAPSULE PO ×2 (08:55→20:59)
[2025-02-27] MEDS: DIGOXIN INJ 250 MCG/ML 2 ML AMP (*BKC) IV PUSH (09:01)
--- NOTE | 2025-02-27 10:07 | P.PNIM_ITS ---
Assessment and Plan Assessment and Plan (1) CHF (congestive heart failure): Code(s): I50.9 - Heart failure, unspecified Status: Acute (2) Hyperkalemia: Code(s): E87.5 - Hyperkalemia Status: Acute Plan Non ischemic Cardiomyopathy ECHO showed EF 15-20% presented with worsening SOB, orthopnea and PND Leg edema resolved CTA chest PA showed cardiomegaly, anasarca, pulm edema and pleural effusion decreased lasix to 20mg due to sinus tachycardia , Midodrine 10mg tid, s/p Digoxin loading Cardiology following Hyperkalemia k 4.2, resolved Hyponatremia From CHF Na 122 from 107 s/p Tolvaptan continue diuresis and monitor iron deficiency anemia Hb 10.8, isat 18 venofer 200/1000 monitor H and H Congestive Hepatopathy Elevated liver enzymes from CHF improving continue above care and monitor Former Transitioner Quit Estradiol and Spironolactone 3 weeks ago. identifies as male, his biological sex DVT prophylaxis on Sq Lovenox full code Subjective Date/time seen: 02/27/25 10:07 Interval history: Comfortable at bedside Cardiology considering transfer to [facility] if no improvement overnight Review of Systems Review of Systems: All other systems were reviewed and negative except as noted in the HPI above Exam Narrative: General: alert and comfortable Eyes: EOMI, PERRLA ENNT External ears normal, Neck is supple, no masses, Respiratory systems: Clear to auscultation Cardiovascular S1, S2, normal rhythm, no murmur, rub, or gallop; no thrill or palpable murmurs on palpation. Gastrointestinal: soft, non-tender, and non-distended abdomen with no masses; BS present Skin: no rash, lesions, ulcerations, subcutaneous nodules or induration Musculoskeletal: no abnormality and no tenderness, normal ROM Neurologic: Alert and oriented x3, non focal Mental Status Exam: normal affect Objective Data Vital Signs Vital Signs: Vital Signs - 24 hr 02/26/25 11:30 02/26/25 12:00 02/26/25 14:00 Temperature 97.6 F Pulse Rate 126 H 130 H 130 H Respiratory Rate 22 H Blood Pressure 91/62 L Pulse Oximetry 99 Oxygen Delivery Oxygen Flow Rate Fraction of Inspired Oxygen 02/26/25 15:56 02/26/25 16:00 02/26/25 17:59 Temperature 98.3 F Pulse Rate 124 H 120 H 128 H Respiratory Rate 20 Blood Pressure 95/63 L Pulse Oximetry 99 Oxygen Delivery Oxygen Flow Rate Fraction of Inspired Oxygen 02/26/25 20:00 02/26/25 20:00 02/26/25 20:00 Temperature 98.0 F Pulse Rate 117 H 115 H Respiratory Rate 19 Blood Pressure 91/51 L Pulse Oximetry 99 99 Oxygen Delivery Nasal Cannula Oxygen Flow Rate 2 Fraction of Inspired Oxygen 02/26/25 20:58 02/26/25 22:00 02/27/25 00:00 Temperature 97.5 F L Pulse Rate 120 H 115 H Respiratory Rate 15 Blood Pressure 88/62 L Pulse Oximetry 93 100 Oxygen Delivery Nasal Cannula Oxygen Flow Rate 2 Fraction of Inspired Oxygen 28 02/27/25 00:00 02/27/25 00:00 02/27/25 02:00 Temperature Pulse Rate 111 H 110 H Respiratory Rate Blood Pressure Pulse Oximetry 100 Oxygen Delivery Nasal Cannula Oxygen Flow Rate 2 Fraction of Inspired Oxygen 02/27/25 03:51 02/27/25 04:00 02/27/25 04:00 Temperature 98.2 F Pulse Rate 115 H 114 H Respiratory Rate 21 H Blood Pressure 90/53 L Pulse Oximetry 96 100 Oxygen Delivery Nasal Cannula Oxygen Flow Rate 2 Fraction of Inspired Oxygen 02/27/25 06:00 02/27/25 08:00 02/27/25 09:01 Temperature Pulse Rate 111 H 123 H 125 H Respiratory Rate Blood Pressure Pulse Oximetry Oxygen Delivery Oxygen Flow Rate Fraction of Inspired Oxygen Intake/Output Intake/Output: Intake & Output 02/24/25 02/25/25 02/26/25 02/27/25 23:59 23:59 23:59 23:59 Intake Total 2960 790 1370 836 Output Total 2600 2300 1875 2350 Balance 549 [phone] Meds/Results Medications: Active Medications Generic Name Dose Route Start Last Admin Trade Name Freq PRN Reason Stop Dose Admin Dextrose 12.5 gm 02/22/25 23:55 Dextrose 50% 25 Gm/50 Ml Syringe IV PUSH PRN PRN Hypoglycemia Protocol Furosemide 20 mg 02/26/25 17:00 02/27/25 09:07 Furosemide Inj 40 Mg/4 Ml Vial IV PUSH Not Given BID CHARISMA Glucagon 1 mg 02/22/25 23:55 Glucagon For Inj 1 Mg Vial IM PRN PRN Hypoglycemia Protocol Glucose 15 gm 02/22/25 23:55 Glucose Oral Gel 15 Gm Of Glucse In 37.5 Gm Tube PO PRN PRN Hypoglycemia Protocol Dextrose 1,000 mls @ 100 mls/hr 02/22/25 23:55 Dextrose 5% 1,000 Ml IVPB PRN PRN Hypoglycemia Protocol Levofloxacin/Dextrose 750 mg in 150 mls @ 100 mls/hr 02/25/25 15:00 02/26/25 17:17 Levaquin 750 Mg/D5w 150 Ml IVPB Infused Q24H CHARISMA Infusion Metoprolol Tartrate 2.5 mg 02/25/25 21:25 Metoprolol Tartrate Inj 5 Mg/5 Ml Vial IV PUSH Q6HR PRN Heart Rate- High Midodrine 15 mg 02/26/25 00:00 02/27/25 06:02 Midodrine Hcl 2.5 Mg Tablet PO 15 mg Q6HR CHARISMA Administration Perflutren Lipid Microsphere 0 ml 02/24/25 14:41 Perflutren Lipid Microspheres 1.5 Ml Vial Diluted To 10 Ml Total Volume IV PUSH 02/27/25 14:41 ONCE PRN adequate visualization Protocol Pregabalin 50 mg 02/25/25 21:00 02/27/25 08:55 Pregabalin (*Crx) 50 Mg Capsule PO 50 mg Q12HR CHARISMA Administration Radiology Results: ITS Impressions Chest/Abdomen/Pelvis CTA 02/22/25 17:46 IMPRESSION: 1. Anasarca with bilateral pleural effusion, ascites. Pulmonary edema, left more than the right lung. Findings are suggestive of congestive heart failure. Cardiomegaly. 2. No evidence of pulmonary emboli. Suggestion of thrombus at the apex of left ventricle on delayed contrast study. Correlation with echocardiogram is recommended. 3. No focal acute findings in the abdomen and pelvis. Abdomen Ultrasound 02/23/25 19:33 IMPRESSION: 1. Normal size liver. One CM cyst of the right lobe of the liver. Portal veins and hepatic veins are patent. Prominent size of hepatic veins noted. This is consistent with hepatic venous congestion. 2. Evidence of gallstones. Extrahepatic bile ducts are normal in size. 3. Small amount of free fluid around the liver and in the peritoneal cavity. Arterial/Peripheral Duplex 02/23/25 19:33 IMPRESSION: 1. Normal size liver. One CM cyst of the right lobe of the liver. Portal veins and hepatic veins are patent. Prominent size of hepatic veins noted. This is consistent with hepatic venous congestion. 2. Evidence of gallstones. Extrahepatic bile ducts are normal in size. 3. Small amount of free fluid around the liver and in the peritoneal cavity. Chest X-Ray 02/24/25 17:20 IMPRESSION: 1. Chest CT 02/25/25 09:13 IMPRESSION: Worsening bilateral effusions and consolidations as well as at atelectatic changes, left worse than right. Labs Labs: Laboratory Results - last 24 hr 02/27/25 02/27/25 03:57 04:02 WBC 15.2 H RBC 3.65 L Hgb 10.8 L Hct 32.6 L MCV 89.3 MCH 29.6 MCHC 33.1 RDW 17.1 H Plt Count 204 MPV 9.7 Immature Gran % (Auto) 0.9 H Neut % (Auto) 80.7 H Lymph % (Auto) 6.9 L [place] % (Auto) 11.3 H Eos % (Auto) 0.1 Baso % (Auto) 0.1 L Lymph # (Auto) 1.04 [place] # (Auto) 1.7 H Eos # (Auto) 0.0 Baso # (Auto) 0.0 Abs Immat Gran (auto) 0.13 H Absolute Neuts (auto) 12.3 H Absolute Nucleated RBC 0.000 Nucleated RBC % 0.0 Sodium 122 L Potassium 3.7 Chloride 86 L Carbon Dioxide 35 H Anion Gap 1 L BUN 25 H Creatinine 0.69 L Estim Creat Clear Calc 117 Estimated GFR > 60 Glucose 138 H Calcium 8.1 L Magnesium 2.3 Iron 44 L TIBC 249 L % Saturation 18 L Total Bilirubin 4.1 H AST 66 H ALT 194 H Alkaline Phosphatase 139 H Total Protein 5.5 L Albumin 2.8 L
[2025-02-27] MEDS: IRON SUCROSE COMPLEX 200 MG in SODIUM CHLORIDE 0.9% IV 100 ML 220 MG IVPB (11:10)
--- NOTE | 2025-02-27 15:08 | P.PNNP_ITS ---
Subjective Date/time seen: 02/27/25 11:15 Interval history: Follow-up for acute hyponatremia (presumably acute). Noted improvement in sodium level with dosing with tolvaptan yesterday with expected increase in urine output; repeat doing with tolvaptan today as per Cardiology; continues to be tachycardic with on/off episodes of nonsustained Vtach despite dosing with digoxin; no other acute issues/events overnight or earlier this morning. Exam 2 Narrative: General: WD/WN male in NAD Heart: tachycardic, normal S1 and S2; no rub Lungs: few bibasilar crackles present Abdomen: soft, nontender, nondistended, positive bowel sounds Extremities: no cyanosis or clubbing; no edema Skin: no rash Objective Data Vital Signs Vital Signs: Vital Signs Temp Pulse Resp BP Pulse Ox O2 Del Method O2 Flow Rate 02/27/25 10:00 123 H 02/27/25 09:01 125 H 02/27/25 08:00 97.5 F L 104 H 16 108/68 95 02/27/25 08:00 123 H 02/27/25 06:00 111 H 02/27/25 04:00 114 H 02/27/25 04:00 100 Nasal Cannula 2 02/27/25 03:51 98.2 F 115 H 21 H 90/53 L 96 02/27/25 02:00 110 H 02/27/25 00:00 111 H 02/27/25 00:00 100 Nasal Cannula 2 02/27/25 00:00 97.5 F L 115 H 15 88/62 L 100 02/26/25 22:00 120 H 02/26/25 20:58 93 Nasal Cannula 2 02/26/25 20:00 115 H 02/26/25 20:00 99 Nasal Cannula 2 02/26/25 20:00 98.0 F 117 H 19 91/51 L 99 02/26/25 17:59 128 H 02/26/25 16:00 120 H 02/26/25 15:56 98.3 F 124 H 20 95/63 L 99 Intake/Output Intake/Output: Intake & Output 02/24/25 02/25/25 02/26/25 02/27/25 23:59 23:59 23:59 23:59 Intake Total 2960 790 1370 956 Output Total 2600 2300 1875 3350 Balance 360 -1510 -505 -2394 Meds/Results Medications: Active Medications Generic Name Dose Route Start Last Admin Trade Name Freq PRN Reason Stop Dose Admin Dextrose 12.5 gm 02/22/25 23:55 Dextrose 50% 25 Gm/50 Ml Syringe IV PUSH PRN PRN Hypoglycemia Protocol Furosemide 20 mg 02/26/25 17:00 02/27/25 09:07 Furosemide Inj 40 Mg/4 Ml Vial IV PUSH Not Given BID CHARISMA Glucagon 1 mg 02/22/25 23:55 Glucagon For Inj 1 Mg Vial IM PRN PRN Hypoglycemia Protocol Glucose 15 gm 02/22/25 23:55 Glucose Oral Gel 15 Gm Of Glucse In 37.5 Gm Tube PO PRN PRN Hypoglycemia Protocol Dextrose 1,000 mls @ 100 mls/hr 02/22/25 23:55 Dextrose 5% 1,000 Ml IVPB PRN PRN Hypoglycemia Protocol Levofloxacin/Dextrose 750 mg in 150 mls @ 100 mls/hr 02/25/25 15:00 02/26/25 17:17 Levaquin 750 Mg/D5w 150 Ml IVPB Infused Q24H CHARISMA Infusion Metoprolol Tartrate 2.5 mg 02/25/25 21:25 Metoprolol Tartrate Inj 5 Mg/5 Ml Vial IV PUSH Q6HR PRN Heart Rate- High Midodrine 15 mg 02/26/25 00:00 02/27/25 11:10 Midodrine Hcl 2.5 Mg Tablet PO 15 mg Q6HR CHARISMA Administration Pregabalin 50 mg 02/25/25 21:00 02/27/25 08:55 Pregabalin (*Crx) 50 Mg Capsule PO 50 mg Q12HR CHARISMA Administration Radiology Results: ITS Impressions Chest/Abdomen/Pelvis CTA 02/22/25 17:46 IMPRESSION: 1. Anasarca with bilateral pleural effusion, ascites. Pulmonary edema, left more than the right lung. Findings are suggestive of congestive heart failure. Cardiomegaly. 2. No evidence of pulmonary emboli. Suggestion of thrombus at the apex of left ventricle on delayed contrast study. Correlation with echocardiogram is recommended. 3. No focal acute findings in the abdomen and pelvis. Abdomen Ultrasound 02/23/25 19:33 IMPRESSION: 1. Normal size liver. One CM cyst of the right lobe of the liver. Portal veins and hepatic veins are patent. Prominent size of hepatic veins noted. This is consistent with hepatic venous congestion. 2. Evidence of gallstones. Extrahepatic bile ducts are normal in size. 3. Small amount of free fluid around the liver and in the peritoneal cavity. Arterial/Peripheral Duplex 02/23/25 19:33 IMPRESSION: 1. Normal size liver. One CM cyst of the right lobe of the liver. Portal veins and hepatic veins are patent. Prominent size of hepatic veins noted. This is consistent with hepatic venous congestion. 2. Evidence of gallstones. Extrahepatic bile ducts are normal in size. 3. Small amount of free fluid around the liver and in the peritoneal cavity. Chest X-Ray 02/24/25 17:20 IMPRESSION: 1. Chest CT 02/25/25 09:13 IMPRESSION: Worsening bilateral effusions and consolidations as well as at atelectatic changes, left worse than right. Labs Labs: Laboratory Tests 02/27/25 04:02 02/27/25 04:02 Calcium 8.1 L Magnesium 2.3 Total Bilirubin 4.1 H AST 66 H ALT 194 H Alkaline Phosphatase 139 H Total Protein 5.5 L Albumin 2.8 L 02/24/25 02/24/25 02/25/25 02/25/25 02/25/25 02/25/25 02/26/25 18:01 21:57 03:55 13:52 18:21 20:52 04:07 Sodium 114 L* 116 L* 118 L* 118 L* 119 L* 117 L* 117 L* Microbiology 02/25/25 15:43 Blood Blood Culture - Preliminary 02/25/25 15:43 Blood Blood Culture - Preliminary 02/22/25 19:24 Blood Blood Culture - Preliminary
[2025-02-27] MEDS: levoFLOXacin 750 MG/D5W 150 ML 750 MG/150 ML BAG 150 MG IVPB (15:11)
[2025-02-27] MEDS: FUROSEMIDE INJ 40 MG/4 ML VIAL 20 MG IV PUSH (17:04)
--- NOTE | 2025-02-27 18:07 | PC.NURSE ---
Patient presented with his left medial forearm with infiltration from IV. KATHY Baker at bedside, we discontinued the IV and called pharmacy. Pharmacy stated no vesicant or antidote for the IV iron infusion, levaquin, or IVP lasix. Warm compress is the recommended treatment. Patient has no complains of pain.
[2025-02-28] VITALS (14 sets, daily range): BP systolic 90–118; BP diastolic 47–74; PULSE 104–129; RESP 18–24; TEMP 36.2–36.9; O2SAT 93–98
[2025-02-28 04:27] LABS: Hematocrit 35.5 % (42.0-52.0); Hemoglobin 11.1 g/dL (14.0-18.0); Immature Granulocyte Percent A 0.8 % (0-0.5); Lymphocytes Absolute Auto 0.99 K/mm3 (0.9-3.2); Mean Corpuscular HGB Conc 31.3 g/dl (32-36); Mean Corpuscular Hemoglobin 29.4 pg (26-34); Mean Corpuscular Volume 93.9 fl (80-100); Nucleated Red Blood Cells Absolute Auto 0.000 K/mm3 (0.0-0.012); Nucleated Red Blood Cells Perc 0.0 % (0.0-0.2); Platelet Count Result 204 k/mm3 (150-375); Red Blood Count 3.78 M/mm3 (4.6-6.20); White Blood Count 14.7 K/mm3 (4.5-10.0)
[2025-02-28 04:50] LABS: Alanine Aminotransferase 173 U/L (6-50); Albumin Level 2.7 g/dL (3.5-5.1); Alkaline Phosphatase 135 U/L (38-126); Anion Gap 1 mmol/L (4-12); Aspartate Amino Transferase 80 U/L (17-59); Bilirubin,Total 3.7 mg/dL (0.2-1.3); Blood Urea Nitrogen 13 mg/dL (9-20); Calcium 7.9 mg/dL (8.4-10.2); Carbon Dioxide 37 mmol/L (22-30); Chloride 90 mmol/L (98-107); Estimated CRCL calculation 139 ml/min; Estimated Glomerular Filt Rate > 60; Glucose 94 mg/dL (65-110); Magnesium 2.0 mg/dL (1.6-2.3); Potassium 3.5 mmol/L (3.4-5.0); Sodium 128 mmol/L (137-145); Total Protein 5.5 g/dL (6.3-8.2)
[2025-02-28] MEDS: MIDODRINE HCL 2.5 MG TABLET 15 MG PO ×2 (06:23→11:27)
[2025-02-28] MEDS: PREGABALIN (*CRX) 50 MG CAPSULE PO ×2 (09:32→21:09)
[2025-02-28] MEDS: DIGOXIN INJ 250 MCG/ML 2 ML AMP (*BKC) IV PUSH (09:40)
--- NOTE | 2025-02-28 10:45 | P.PNNP_ITS ---
Subjective Date/time seen: 02/28/25 10:45 Interval history: Follow-up for acute hyponatremia (presumably acute). Sodium level continues to improve following use of tolvaptan (once a day x 2 days) with associated increase in urine output; no apparent distress noted at the time of my visit; no other issues/events overnight or earlier this morning. Exam 2 Narrative: General: WD/WN male in NAD Heart: tachycardic, normal S1 and S2; no rub Lungs: few bibasilar crackles present Abdomen: soft, nontender, nondistended, positive bowel sounds Extremities: no cyanosis or clubbing; no edema Skin: no nodules Objective Data Vital Signs Vital Signs: Vital Signs Temp Pulse Resp BP Pulse Ox O2 Del Method 02/28/25 10:00 122 H 02/28/25 09:40 120 H 02/28/25 08:00 115 H 02/28/25 08:00 98 Room Air 02/28/25 08:00 97.8 F 125 H 24 H 107/60 93 02/28/25 06:00 124 H 02/28/25 04:00 98.5 F 105 H 18 90/47 L 95 02/28/25 04:00 95 Room Air 02/28/25 04:00 104 H 02/28/25 02:00 104 H 02/28/25 00:00 107 H 02/28/25 00:00 96 Room Air 02/28/25 00:00 98.3 F 105 H 19 97/65 L 94 02/27/25 22:00 109 H 02/27/25 20:00 117 H 02/27/25 20:00 96 Room Air 02/27/25 20:00 98.1 F 111 H 15 102/49 L 96 02/27/25 18:00 110 H Intake/Output Intake/Output: Intake & Output 02/25/25 02/26/25 02/27/25 02/28/25 23:59 23:59 23:59 23:59 Intake Total 790 1370 1766 920 Output Total 2300 1875 5350 2510 [facility] [place] -[phone] [phone] Meds/Results Medications: Active Medications Generic Name Dose Route Start Last Admin Trade Name Freq PRN Reason Stop Dose Admin Dextrose 12.5 gm 02/22/25 23:55 Dextrose 50% 25 Gm/50 Ml Syringe IV PUSH PRN PRN Hypoglycemia Protocol Furosemide 20 mg 02/26/25 17:00 02/27/25 17:04 Furosemide Inj 40 Mg/4 Ml Vial IV PUSH 20 mg BID CHARISMA Administration Glucagon 1 mg 02/22/25 23:55 Glucagon For Inj 1 Mg Vial IM PRN PRN Hypoglycemia Protocol Glucose 15 gm 02/22/25 23:55 Glucose Oral Gel 15 Gm Of Glucse In 37.5 Gm Tube PO PRN PRN Hypoglycemia Protocol Dextrose 1,000 mls @ 100 mls/hr 02/22/25 23:55 Dextrose 5% 1,000 Ml IVPB PRN PRN Hypoglycemia Protocol Levofloxacin 750 mg 02/28/25 15:00 02/28/25 14:52 Levofloxacin 750 Mg Tablet PO 03/03/25 15:01 750 mg Q24H CHARISMA Administration Metoprolol Tartrate 2.5 mg 02/25/25 21:25 Metoprolol Tartrate Inj 5 Mg/5 Ml Vial IV PUSH Q6HR PRN Heart Rate- High Midodrine 10 mg 02/28/25 17:00 Midodrine Hcl 10 Mg Tablet PO BID CHARISMA Pregabalin 50 mg 02/25/25 21:00 02/28/25 09:32 Pregabalin (*Crx) 50 Mg Capsule PO 50 mg Q12HR CHARISMA Administration Radiology Results: ITS Impressions Chest/Abdomen/Pelvis CTA 02/22/25 17:46 IMPRESSION: 1. Anasarca with bilateral pleural effusion, ascites. Pulmonary edema, left more than the right lung. Findings are suggestive of congestive heart failure. Cardiomegaly. 2. No evidence of pulmonary emboli. Suggestion of thrombus at the apex of left ventricle on delayed contrast study. Correlation with echocardiogram is recommended. 3. No focal acute findings in the abdomen and pelvis. Abdomen Ultrasound 02/23/25 19:33 IMPRESSION: 1. Normal size liver. One CM cyst of the right lobe of the liver. Portal veins and hepatic veins are patent. Prominent size of hepatic veins noted. This is consistent with hepatic venous congestion. 2. Evidence of gallstones. Extrahepatic bile ducts are normal in size. 3. Small amount of free fluid around the liver and in the peritoneal cavity. Arterial/Peripheral Duplex 02/23/25 19:33 IMPRESSION: 1. Normal size liver. One CM cyst of the right lobe of the liver. Portal veins and hepatic veins are patent. Prominent size of hepatic veins noted. This is consistent with hepatic venous congestion. 2. Evidence of gallstones. Extrahepatic bile ducts are normal in size. 3. Small amount of free fluid around the liver and in the peritoneal cavity. Chest X-Ray 02/24/25 17:20 IMPRESSION: 1. Chest CT 02/25/25 09:13 IMPRESSION: Worsening bilateral effusions and consolidations as well as at atelectatic changes, left worse than right. Labs Labs: Laboratory Tests 02/28/25 03:49 02/28/25 03:49 Calcium 7.9 L Magnesium 2.0 Total Bilirubin 3.7 H AST 80 H ALT 173 H Alkaline Phosphatase 135 H Total Protein 5.5 L Albumin 2.7 L Microbiology 02/25/25 15:43 Blood Blood Culture - Preliminary 02/25/25 15:43 Blood Blood Culture - Preliminary 02/22/25 18:13 Blood Blood Culture - Final
--- NOTE | 2025-02-28 12:37 | P.PNCA_ITS ---
Progress Note: A&P Assessment and Plan (1) Acute CHF: Code(s): I50.9 - Heart failure, unspecified Status: Acute Assessment and Plan: * -ejection fraction 15%. Large pleural effusion. * Cardiac catheterization done during this admission nonischemic cardiomyopathy. * Patient has soft blood pressure overnight therefore was started on midodrine 15 mg q.6 hours. * His sodium is low. Yesterday received 1 dose of tolvaptan 15 mg and sodium improved from 117 to 128. Will repeat tolvaptan today. Hold the morning dose of Lasix and administer the evening dosage. * Yesterday received 2 dosages of digoxin 250 mcg. Repeat 1 dosage today 250mcg x1 today. * Patient reports previous history of heavy alcohol drinking and quit 5 years ago. * If no improvement overnight will consider transfer to [facility] for further management. * Unable to add an inotrope due to tachycardia and nonsustained VT. * Order placed for LifeVest (2) Transaminitis: Code(s): R74.01 - Elevation of levels of liver transaminase levels Status: Acute Assessment and Plan: * may represent hepatic congestion in the setting of acute CHF * Liver enzymes are improving with IV diuretics and using tolvaptan. Continue Lasix and tolvaptan * CT of abd/pelvis did not suggest any acute finding (3) Acute hyponatremia: Code(s): E87.1 - Hypo-osmolality and hyponatremia Status: Acute Assessment and Plan: * his sodium was 108 on admission * 128 today * will need close monitoring of sodium * repeat tolvaptan 15 mg x 1 today. Hold of morning dosage of Lasix and and administer the evening dosage (4) Hyperkalemia: Code(s): E87.5 - Hyperkalemia Status: Acute Assessment and Plan: * potassium of 6.4 on admission * has normalized * was previously on aldactone at home, but was stopped a few weeks ago (5) Hypotension: Code(s): I95.9 - Hypotension, unspecified Status: Acute Assessment and Plan: * Continue midodrine. Subjective Date/time seen: 02/28/25 12:37 Interval history: Cardiology follow up visit for CHF, severe cardiomyopathy Date of service 02/24/2025: Feeling better, denies shortness of breath. Lower extremity swelling has resolved. No chest pain Date of service 02/26-resting comfortably in flat position. Sinus tachycardia at heart rate 120. Episodes of nonsustained VT. Denies extremity edema. Blood pressure has been soft. His midodrine was increased overnight to 15 mg Q 6 hours. Date of service 02/27/2025-he feels better today. There is improved after receiving tolvaptan yesterday. He remains tachycardic though with episodes of nonsustained VT. Blood pressure is soft to despite receiving midodrine Date of service 02/28/2025: Continues to feel well. He denies any shortness of breath, orthopnea, swelling, chest pain, palpitations. Review of Systems Review of Systems: All systems reviewed & are unremarkable except as noted in HPI and below Exam Narrative: Comfortable Const: General: comfortable; No no acute distress Other: Lying flat in bed breathing comfortably HENMT: Other: No discharge Eyes: General: appearance normal, both eyes and all related structures Sclera: sclerae normal Neck: Neck: supple Resp: Effort & Inspection: normal respiratory effort Auscultation: clear to auscultation bilaterally Cardio: Rate: tachycardic Rhythm: regular rhythm Heart sounds: no gallops, no murmurs and no rubs Skin: General skin exam: normal color Neuro: Speech: normal speech Extrem: General: no edema Psych: Appearance: grossly normal Mental Status: mental status grossly normal Objective Data Vital Signs Vital Signs: Vital Signs - 24 hr 02/27/25 14:00 02/27/25 15:35 02/27/25 16:00 Temperature 36.9 C Pulse Rate 114 H 112 H Respiratory Rate 20 Blood Pressure 133/72 Pulse Oximetry 96 99 Oxygen Delivery Room Air 02/27/25 16:00 02/27/25 18:00 02/27/25 20:00 Temperature 36.7 C Pulse Rate 121 H 110 H 111 H Respiratory Rate 15 Blood Pressure 102/49 L Pulse Oximetry 96 Oxygen Delivery 02/27/25 20:00 02/27/25 20:00 02/27/25 22:00 Temperature Pulse Rate 117 H 109 H Respiratory Rate Blood Pressure Pulse Oximetry 96 Oxygen Delivery Room Air 02/28/25 00:00 02/28/25 00:00 02/28/25 00:00 Temperature 36.8 C Pulse Rate 105 H 107 H Respiratory Rate 19 Blood Pressure 97/65 L Pulse Oximetry 94 96 Oxygen Delivery Room Air 02/28/25 02:00 02/28/25 04:00 02/28/25 04:00 Temperature Pulse Rate 104 H 104 H Respiratory Rate Blood Pressure Pulse Oximetry 95 Oxygen Delivery Room Air 02/28/25 04:00 02/28/25 06:00 02/28/25 08:00 Temperature 36.9 C 36.6 C Pulse Rate 105 H 124 H 125 H Respiratory Rate 18 24 H Blood Pressure 90/47 L 107/60 Pulse Oximetry 95 93 Oxygen Delivery 02/28/25 08:00 02/28/25 09:40 02/28/25 11:55 Temperature Pulse Rate 120 H Respiratory Rate Blood Pressure Pulse Oximetry 98 98 Oxygen Delivery Room Air Room Air Intake/Output Intake/Output: Intake & Output 02/25/25 02/26/25 02/27/25 02/28/25 23:59 23:59 23:59 23:59 Intake Total 790 1370 1766 800 Output Total 2300 1875 5350 1910 [facility] -[phone] Meds/Results Medications: Active Medications Generic Name Dose Route Start Last Admin Trade Name Freq PRN Reason Stop Dose Admin Dextrose 12.5 gm 02/22/25 23:55 Dextrose 50% 25 Gm/50 Ml Syringe IV PUSH PRN PRN Hypoglycemia Protocol Furosemide 20 mg 02/26/25 17:00 02/27/25 17:04 Furosemide Inj 40 Mg/4 Ml Vial IV PUSH 20 mg On Hold: 02/28/25 08:07 BID CHARISMA Administration Glucagon 1 mg 02/22/25 23:55 Glucagon For Inj 1 Mg Vial IM PRN PRN Hypoglycemia Protocol Glucose 15 gm 02/22/25 23:55 Glucose Oral Gel 15 Gm Of Glucse In 37.5 Gm Tube PO PRN PRN Hypoglycemia Protocol Dextrose 1,000 mls @ 100 mls/hr 02/22/25 23:55 Dextrose 5% 1,000 Ml IVPB PRN PRN Hypoglycemia Protocol Levofloxacin/Dextrose 750 mg in 150 mls @ 100 mls/hr 02/25/25 15:00 02/27/25 18:55 Levaquin 750 Mg/D5w 150 Ml IVPB Infused Q24H CHARISMA Infusion Metoprolol Tartrate 2.5 mg 02/25/25 21:25 Metoprolol Tartrate Inj 5 Mg/5 Ml Vial IV PUSH Q6HR PRN Heart Rate- High Midodrine 15 mg 02/26/25 00:00 02/28/25 11:27 Midodrine Hcl 2.5 Mg Tablet PO 15 mg Q6HR CHARISMA Administration Pregabalin 50 mg 02/25/25 21:00 02/28/25 09:32 Pregabalin (*Crx) 50 Mg Capsule PO 50 mg Q12HR CHARISMA Administration Radiology Results: ITS Impressions Chest/Abdomen/Pelvis CTA 02/22/25 17:46 IMPRESSION: 1. Anasarca with bilateral pleural effusion, ascites. Pulmonary edema, left more than the right lung. Findings are suggestive of congestive heart failure. Cardiomegaly. 2. No evidence of pulmonary emboli. Suggestion of thrombus at the apex of left ventricle on delayed contrast study. Correlation with echocardiogram is recommended. 3. No focal acute findings in the abdomen and pelvis. Abdomen Ultrasound 02/23/25 19:33 IMPRESSION: 1. Normal size liver. One CM cyst of the right lobe of the liver. Portal veins and hepatic veins are patent. Prominent size of hepatic veins noted. This is consistent with hepatic venous congestion. 2. Evidence of gallstones. Extrahepatic bile ducts are normal in size. 3. Small amount of free fluid around the liver and in the peritoneal cavity. Arterial/Peripheral Duplex 02/23/25 19:33 IMPRESSION: 1. Normal size liver. One CM cyst of the right lobe of the liver. Portal veins and hepatic veins are patent. Prominent size of hepatic veins noted. This is consistent with hepatic venous congestion. 2. Evidence of gallstones. Extrahepatic bile ducts are normal in size. 3. Small amount of free fluid around the liver and in the peritoneal cavity. Chest X-Ray 02/24/25 17:20 IMPRESSION: 1. Chest CT 02/25/25 09:13 IMPRESSION: Worsening bilateral effusions and consolidations as well as at atelectatic changes, left worse than right. Labs Labs: Laboratory Results - last 24 hr 02/28/25 03:49 WBC 14.7 H RBC 3.78 L Hgb 11.1 L Hct 35.5 L MCV 93.9 D MCH 29.4 MCHC 31.3 L RDW 18.3 H Plt Count 204 MPV 9.4 Immature Gran % (Auto) 0.8 H Neut % (Auto) 81.4 H Lymph % (Auto) 6.8 L [place] % (Auto) 10.8 H Eos % (Auto) 0.1 Baso % (Auto) 0.1 L Lymph # (Auto) 0.99 [place] # (Auto) 1.6 H Eos # (Auto) 0.0 Baso # (Auto) 0.0 Abs Immat Gran (auto) 0.11 H Absolute Neuts (auto) 11.9 H Absolute Nucleated RBC 0.000 Nucleated RBC % 0.0 Sodium 128 L Potassium 3.5 Chloride 90 L Carbon Dioxide 37 H Anion Gap 1 L BUN 13 D Creatinine 0.58 L Estim Creat Clear Calc 139 Estimated GFR > 60 Glucose 94 Calcium 7.9 L Magnesium 2.0 Total Bilirubin 3.7 H AST 80 H ALT 173 H Alkaline Phosphatase 135 H Total Protein 5.5 L Albumin 2.7 L
--- NOTE | 2025-02-28 13:31 | P.PNIM_ITS ---
Assessment and Plan Assessment and Plan (1) CHF (congestive heart failure): Code(s): I50.9 - Heart failure, unspecified Status: Acute (2) Hyperkalemia: Code(s): E87.5 - Hyperkalemia Status: Acute Plan Non ischemic Cardiomyopathy ECHO showed EF 15-20% presented with worsening SOB, orthopnea and PND Leg edema resolved CTA chest PA showed cardiomegaly, anasarca, pulm edema and pleural effusion decreased lasix to 20mg due to sinus tachycardia , Midodrine 10mg tid, s/p Digoxin loading Cardiology following, considering possible transfer awaiting decision today Hyperkalemia k 4.2, resolved Hyponatremia From CHF Na 128 from 107 s/p Tolvaptan continue diuresis and monitor iron deficiency anemia Hb 10.8, isat 18 venofer 300/1000 monitor H and H Congestive Hepatopathy Elevated liver enzymes from CHF improving continue above care and monitor Former Transitioner Quit Estradiol and Spironolactone 3 weeks ago prior to admission identifies as male, his biological sex DVT prophylaxis on Sq Lovenox full code Subjective Date/time seen: 02/28/25 13:31 Interval history: Comfortable at bedside awaiting cardiology eval Review of Systems Review of Systems: All other systems were reviewed and negative except as noted in the HPI above Exam Narrative: General: alert and comfortable Eyes: EOMI, PERRLA ENNT External ears normal, Neck is supple, no masses, Respiratory systems: Clear to auscultation Cardiovascular S1, S2, normal rhythm, no murmur, rub, or gallop; no thrill or palpable murmurs on palpation. Gastrointestinal: soft, non-tender, and non-distended abdomen with no masses; BS present Skin: no rash, lesions, ulcerations, subcutaneous nodules or induration Musculoskeletal: no abnormality and no tenderness, normal ROM Neurologic: Alert and oriented x3, non focal Mental Status Exam: normal affect Objective Data Vital Signs Vital Signs: Vital Signs - 24 hr 02/27/25 14:00 02/27/25 15:35 02/27/25 16:00 Temperature 98.4 F Pulse Rate 114 H 112 H Respiratory Rate 20 Blood Pressure 133/72 Pulse Oximetry 96 99 Oxygen Delivery Room Air 02/27/25 16:00 02/27/25 18:00 02/27/25 20:00 Temperature 98.1 F Pulse Rate 121 H 110 H 111 H Respiratory Rate 15 Blood Pressure 102/49 L Pulse Oximetry 96 Oxygen Delivery 02/27/25 20:00 02/27/25 20:00 02/27/25 22:00 Temperature Pulse Rate 117 H 109 H Respiratory Rate Blood Pressure Pulse Oximetry 96 Oxygen Delivery Room Air 02/28/25 00:00 02/28/25 00:00 02/28/25 00:00 Temperature 98.3 F Pulse Rate 105 H 107 H Respiratory Rate 19 Blood Pressure 97/65 L Pulse Oximetry 94 96 Oxygen Delivery Room Air 02/28/25 02:00 02/28/25 04:00 02/28/25 04:00 Temperature Pulse Rate 104 H 104 H Respiratory Rate Blood Pressure Pulse Oximetry 95 Oxygen Delivery Room Air 02/28/25 04:00 02/28/25 06:00 02/28/25 08:00 Temperature 98.5 F 97.8 F Pulse Rate 105 H 124 H 125 H Respiratory Rate 18 24 H Blood Pressure 90/47 L 107/60 Pulse Oximetry 95 93 Oxygen Delivery 02/28/25 08:00 02/28/25 08:00 02/28/25 09:40 Temperature Pulse Rate 115 H 120 H Respiratory Rate Blood Pressure Pulse Oximetry 98 Oxygen Delivery Room Air 02/28/25 10:00 02/28/25 11:55 02/28/25 12:00 Temperature 97.2 F L Pulse Rate 122 H 125 H Respiratory Rate 22 H Blood Pressure 118/71 Pulse Oximetry 98 95 Oxygen Delivery Room Air 02/28/25 12:00 Temperature Pulse Rate 120 H Respiratory Rate Blood Pressure Pulse Oximetry Oxygen Delivery Intake/Output Intake/Output: Intake & Output 02/25/25 02/26/25 02/27/25 02/28/25 23:59 23:59 23:59 23:59 Intake Total 790 1370 1766 800 Output Total 2300 1875 0420 1910 [facility]1510 [phone] Meds/Results Medications: Active Medications Generic Name Dose Route Start Last Admin Trade Name Freq PRN Reason Stop Dose Admin Dextrose 12.5 gm 02/22/25 23:55 Dextrose 50% 25 Gm/50 Ml Syringe IV PUSH PRN PRN Hypoglycemia Protocol Furosemide 20 mg 02/26/25 17:00 02/27/25 17:04 Furosemide Inj 40 Mg/4 Ml Vial IV PUSH 20 mg On Hold: 02/28/25 08:07 BID CHARISMA Administration Glucagon 1 mg 02/22/25 23:55 Glucagon For Inj 1 Mg Vial IM PRN PRN Hypoglycemia Protocol Glucose 15 gm 02/22/25 23:55 Glucose Oral Gel 15 Gm Of Glucse In 37.5 Gm Tube PO PRN PRN Hypoglycemia Protocol Dextrose 1,000 mls @ 100 mls/hr 02/22/25 23:55 Dextrose 5% 1,000 Ml IVPB PRN PRN Hypoglycemia Protocol Levofloxacin 750 mg 02/28/25 15:00 Levofloxacin 750 Mg Tablet PO 03/03/25 15:01 Q24H CHARISMA Metoprolol Tartrate 2.5 mg 02/25/25 21:25 Metoprolol Tartrate Inj 5 Mg/5 Ml Vial IV PUSH Q6HR PRN Heart Rate- High Midodrine 15 mg 02/26/25 00:00 02/28/25 11:27 Midodrine Hcl 2.5 Mg Tablet PO 15 mg Q6HR CHARISMA Administration Pregabalin 50 mg 02/25/25 21:00 02/28/25 09:32 Pregabalin (*Crx) 50 Mg Capsule PO 50 mg Q12HR CHARISMA Administration Radiology Results: ITS Impressions Chest/Abdomen/Pelvis CTA 02/22/25 17:46 IMPRESSION: 1. Anasarca with bilateral pleural effusion, ascites. Pulmonary edema, left more than the right lung. Findings are suggestive of congestive heart failure. Cardiomegaly. 2. No evidence of pulmonary emboli. Suggestion of thrombus at the apex of left ventricle on delayed contrast study. Correlation with echocardiogram is recommended. 3. No focal acute findings in the abdomen and pelvis. Abdomen Ultrasound 02/23/25 19:33 IMPRESSION: 1. Normal size liver. One CM cyst of the right lobe of the liver. Portal veins and hepatic veins are patent. Prominent size of hepatic veins noted. This is consistent with hepatic venous congestion. 2. Evidence of gallstones. Extrahepatic bile ducts are normal in size. 3. Small amount of free fluid around the liver and in the peritoneal cavity. Arterial/Peripheral Duplex 02/23/25 19:33 IMPRESSION: 1. Normal size liver. One CM cyst of the right lobe of the liver. Portal veins and hepatic veins are patent. Prominent size of hepatic veins noted. This is consistent with hepatic venous congestion. 2. Evidence of gallstones. Extrahepatic bile ducts are normal in size. 3. Small amount of free fluid around the liver and in the peritoneal cavity. Chest X-Ray 02/24/25 17:20 IMPRESSION: 1. Chest CT 02/25/25 09:13 IMPRESSION: Worsening bilateral effusions and consolidations as well as at atelectatic changes, left worse than right. Labs Labs: Laboratory Results - last 24 hr 02/28/25 03:49 WBC 14.7 H RBC 3.78 L Hgb 11.1 L Hct 35.5 L MCV 93.9 D MCH 29.4 MCHC 31.3 L RDW 18.3 H Plt Count 204 MPV 9.4 Immature Gran % (Auto) 0.8 H Neut % (Auto) 81.4 H Lymph % (Auto) 6.8 L [place] % (Auto) 10.8 H Eos % (Auto) 0.1 Baso % (Auto) 0.1 L Lymph # (Auto) 0.99 [place] # (Auto) 1.6 H Eos # (Auto) 0.0 Baso # (Auto) 0.0 Abs Immat Gran (auto) 0.11 H Absolute Neuts (auto) 11.9 H Absolute Nucleated RBC 0.000 Nucleated RBC % 0.0 Sodium 128 L Potassium 3.5 Chloride 90 L Carbon Dioxide 37 H Anion Gap 1 L BUN 13 D Creatinine 0.58 L Estim Creat Clear Calc 139 Estimated GFR > 60 Glucose 94 Calcium 7.9 L Magnesium 2.0 Total Bilirubin 3.7 H AST 80 H ALT 173 H Alkaline Phosphatase 135 H Total Protein 5.5 L Albumin 2.7 L
[2025-02-28 15:09] LABS: Albumin 2.6 g/dL (2.9-4.4); Alpha-1-Globulin 0.5 g/dL (0.0-0.4); Alpha-2-Globulin 0.7 g/dL (0.4-1.0); Gamma Globulin 0.6 g/dL (0.4-1.8); Osmolality, Serum 263 mOsmol/kg (275-295)
[2025-02-28] MEDS: MIDODRINE HCL 10 MG TABLET PO (17:46)
[2025-02-28] MEDS: FUROSEMIDE INJ 40 MG/4 ML VIAL 20 MG IV PUSH (17:50)
--- NOTE | 2025-02-28 18:35 | PC.NURSE ---
On 02/28/25, the SERVER DEVELOPER, Danny Shin, provided care and completed [facility] documentation on this patient. I have reviewed the SERVER DEVELOPER's documentation and agree with the findings.
[2025-03-01] VITALS (8 sets, daily range): BP systolic 95–115; BP diastolic 60–75; PULSE 113–136; RESP 14–18; TEMP 36.8–37.2; O2SAT 93–97
--- NOTE | 2025-03-01 00:28 | ADMGEN ---
This patient, Roni Grace, was admitted to Medical Room 346-01. Patient/family oriented to hospital policies and general routines including ID bracelet, bed and alarms, visiting hours, pain management, procedures, bathroom and other care routines, personal items, smoking policy, room service/diet, and visiting hours. Information on how to activate the Rapid Response Team has been discussed. Patient/Family are encouraged to report perceived risks to care and to ask questions if they do not understand what they are told or what they should do.
--- NOTE | 2025-03-01 04:23 | PC.NURSE ---
Patient telemetry reading showed 19 run non-sustained ventricular tachycardia. Patient was in bed playing game on phone as staff entered room. Patient was asymptomatic, denies heart palpitations, shortness of breath, or syncope. Kalyani Hicks, orders given to repeat magnesium levels this morning and send strip to cardiology to view. Patient vital sign within normal limit, heart rate 120 BPM which is not new finding. Call light/personal belongings within reach, below in lowest position, bed alarm set. Will continue to monitor patient progress.
[2025-03-01 06:01] LABS: Hematocrit 39.6 % (42.0-52.0); Hemoglobin 12.5 g/dL (14.0-18.0); Immature Granulocyte Percent A 1.0 % (0-0.5); Lymphocytes Absolute Auto 0.96 K/mm3 (0.9-3.2); Mean Corpuscular HGB Conc 31.6 g/dl (32-36); Mean Corpuscular Hemoglobin 29.6 pg (26-34); Mean Corpuscular Volume 93.6 fl (80-100); Nucleated Red Blood Cells Absolute Auto 0.000 K/mm3 (0.0-0.012); Nucleated Red Blood Cells Perc 0.0 % (0.0-0.2); Platelet Count Result 238 k/mm3 (150-375); Red Blood Count 4.23 M/mm3 (4.6-6.20); White Blood Count 18.4 K/mm3 (4.5-10.0)
[2025-03-01 06:26] LABS: Alanine Aminotransferase 159 U/L (6-50); Albumin Level 2.9 g/dL (3.5-5.1); Alkaline Phosphatase 148 U/L (38-126); Anion Gap 5 mmol/L (4-12); Aspartate Amino Transferase 75 U/L (17-59); Bilirubin,Total 3.9 mg/dL (0.2-1.3); Blood Urea Nitrogen 13 mg/dL (9-20); Calcium 8.0 mg/dL (8.4-10.2); Carbon Dioxide 36 mmol/L (22-30); Chloride 88 mmol/L (98-107); Estimated CRCL calculation 124 ml/min; Estimated Glomerular Filt Rate > 60; Glucose 121 mg/dL (65-110); Magnesium 1.9 mg/dL (1.6-2.3); Potassium 3.5 mmol/L (3.4-5.0); Sodium 129 mmol/L (137-145); Total Protein 5.8 g/dL (6.3-8.2)
[2025-03-01 07:09] LABS: Albumin, U 22.1 % (.); Alpha-1-Globulin, U 3.6 % (.); Alpha-2-Globulin, U 34.5 % (.); Beta Globulin, U 26.2 % (.); Gamma Globulin, U 13.7 % (.)
[2025-03-01] MEDS: PREGABALIN (*CRX) 50 MG CAPSULE PO ×2 (08:31→20:16)
[2025-03-01] MEDS: MIDODRINE HCL 10 MG TABLET PO ×2 (08:31→17:10)
--- NOTE | 2025-03-01 10:31 | PM.PNNEP ---
Subjective Date/time seen: 03/01/25 10:31 Interval history: Follow-up for acute hyponatremia (presumably acute). No apparent distress noted at this time; states he feels quite well when seen; denies any shortness of breath or issues with swelling/edema currently; no issues overnight or earlier this morning. Objective Data Vital Signs Vital Signs: Vital Signs Temp Pulse Resp BP Pulse Ox O2 Del Method 03/01/25 08:00 129 H 03/01/25 08:00 98.3 F 129 H 14 95/72 L 97 03/01/25 04:05 131 H 03/01/25 04:00 98.7 F 124 H 18 109/68 93 03/01/25 01:53 98.9 F 120 H 18 114/69 96 02/28/25 22:00 116 H 02/28/25 20:00 127 H 02/28/25 20:00 98.3 F 129 H 22 H 100/59 L 96 02/28/25 18:00 122 H Intake/Output Intake/Output: Intake & Output 02/26/25 02/27/25 02/28/25 03/01/25 23:59 23:59 23:59 23:59 Intake Total 1370 1766 1580 1390 Output Total 1875 5350 3810 400 Balance -359 -[phone] -9723 990 Meds/Results Medications: Active Medications Generic Name Dose Route Start Last Admin Trade Name Freq PRN Reason Stop Dose Admin Dextrose 12.5 gm 02/22/25 23:55 Dextrose 50% 25 Gm/50 Ml Syringe IV PUSH PRN PRN Hypoglycemia Protocol Furosemide 40 mg 03/02/25 09:00 Furosemide 40 Mg Tablet PO DAILY CHARISMA Glucagon 1 mg 02/22/25 23:55 Glucagon For Inj 1 Mg Vial IM PRN PRN Hypoglycemia Protocol Glucose 15 gm 02/22/25 23:55 Glucose Oral Gel 15 Gm Of Glucse In 37.5 Gm Tube PO PRN PRN Hypoglycemia Protocol Dextrose 1,000 mls @ 100 mls/hr 02/22/25 23:55 Dextrose 5% 1,000 Ml IVPB PRN PRN Hypoglycemia Protocol Levofloxacin 750 mg 02/28/25 15:00 03/01/25 17:08 Levofloxacin 750 Mg Tablet PO 03/03/25 15:01 750 mg Q24H CHARISMA Administration Metoprolol Tartrate 2.5 mg 02/25/25 21:25 Metoprolol Tartrate Inj 5 Mg/5 Ml Vial IV PUSH Q6HR PRN Heart Rate- High Midodrine 10 mg 02/28/25 17:00 03/01/25 17:10 Midodrine Hcl 10 Mg Tablet PO 10 mg BID CHARISMA Administration Pregabalin 50 mg 02/25/25 21:00 03/01/25 08:31 Pregabalin (*Crx) 50 Mg Capsule PO 50 mg Q12HR CHARISMA Administration Radiology Results: ITS Impressions Chest/Abdomen/Pelvis CTA 02/22/25 17:46 IMPRESSION: 1. Anasarca with bilateral pleural effusion, ascites. Pulmonary edema, left more than the right lung. Findings are suggestive of congestive heart failure. Cardiomegaly. 2. No evidence of pulmonary emboli. Suggestion of thrombus at the apex of left ventricle on delayed contrast study. Correlation with echocardiogram is recommended. 3. No focal acute findings in the abdomen and pelvis. Abdomen Ultrasound 02/23/25 19:33 IMPRESSION: 1. Normal size liver. One CM cyst of the right lobe of the liver. Portal veins and hepatic veins are patent. Prominent size of hepatic veins noted. This is consistent with hepatic venous congestion. 2. Evidence of gallstones. Extrahepatic bile ducts are normal in size. 3. Small amount of free fluid around the liver and in the peritoneal cavity. Arterial/Peripheral Duplex 02/23/25 19:33 IMPRESSION: 1. Normal size liver. One CM cyst of the right lobe of the liver. Portal veins and hepatic veins are patent. Prominent size of hepatic veins noted. This is consistent with hepatic venous congestion. 2. Evidence of gallstones. Extrahepatic bile ducts are normal in size. 3. Small amount of free fluid around the liver and in the peritoneal cavity. Chest X-Ray 02/24/25 17:20 IMPRESSION: 1. Chest CT 02/25/25 09:13 IMPRESSION: Worsening bilateral effusions and consolidations as well as at atelectatic changes, left worse than right. Labs Labs: Laboratory Tests 03/01/25 05:29 03/01/25 05:29 Calcium 8.0 L Magnesium 1.9 Total Bilirubin 3.9 H AST 75 H ALT 159 H Alkaline Phosphatase 148 H Total Protein 5.8 L Albumin 2.9 L Microbiology 02/22/25 19:24 Blood Blood Culture - Final 02/25/25 15:43 Blood Blood Culture - Preliminary 02/25/25 15:43 Blood Blood Culture - Preliminary 02/22/25 18:13 Blood Blood Culture - Final
--- NOTE | 2025-03-01 11:12 | PCNWS ---
Weekly nutritional screen. Patient is tolerating current diet with adequate intake. No weight loss reported. No nutritional needs at this time.
--- NOTE | 2025-03-01 12:47 | P.PNCA_ITS ---
Progress Note: A&P Assessment and Plan (1) Acute CHF: Code(s): I50.9 - Heart failure, unspecified Status: Acute Assessment and Plan: * -ejection fraction 15%. Large pleural effusion. * Cardiac catheterization done during this admission nonischemic cardiomyopathy. * Patient has soft blood pressure overnight therefore was started on midodrine 15 mg q.6 hours. * His sodium is low. Yesterday received 1 dose of tolvaptan 15 mg and sodium improved from 117 to 128. Stable today. * Patient reports previous history of heavy alcohol drinking and quit 5 years ago. * LifeVest delivered * Unable to initiate any GDMT during this admission because of hypotension and continued need for midodrine * Probably discharge tomorrow (2) Transaminitis: Code(s): R74.01 - Elevation of levels of liver transaminase levels Status: Acute Assessment and Plan: * may represent hepatic congestion in the setting of acute CHF * Liver enzymes are improving with IV diuretics and using tolvaptan. Continue Lasix and tolvaptan * CT of abd/pelvis did not suggest any acute finding (3) Acute hyponatremia: Code(s): E87.1 - Hypo-osmolality and hyponatremia Status: Acute Assessment and Plan: * his sodium was 108 on admission * 128 today * will need close monitoring of sodium * repeat tolvaptan 15 mg x 1 today. Hold of morning dosage of Lasix and and administer the evening dosage (4) Hyperkalemia: Code(s): E87.5 - Hyperkalemia Status: Acute Assessment and Plan: * potassium of 6.4 on admission * has normalized * was previously on aldactone at home, but was stopped a few weeks ago (5) Hypotension: Code(s): I95.9 - Hypotension, unspecified Status: Acute Assessment and Plan: * Continue midodrine at decreased dose of 10mg daily. Subjective Date/time seen: 03/01/25 12:47 Interval history: Cardiology follow up visit for CHF, severe cardiomyopathy Date of service 02/24/2025: Feeling better, denies shortness of breath. Lower extremity swelling has resolved. No chest pain Date of service 02/26-resting comfortably in flat position. Sinus tachycardia at heart rate 120. Episodes of nonsustained VT. Denies extremity edema. Blood pressure has been soft. His midodrine was increased overnight to 15 mg Q 6 hours. Date of service 02/27/2025-he feels better today. There is improved after receiving tolvaptan yesterday. He remains tachycardic though with episodes of nonsustained VT. Blood pressure is soft to despite receiving midodrine Date of service 02/28/2025: Continues to feel well. He denies any shortness of breath, orthopnea, swelling, chest pain, palpitations. Date of service 03/01/2025: No acute events overnight. Feeling well. No shortness of breath, swelling, orthopbea, palpitations, chest pain. Review of Systems Review of Systems: All systems reviewed & are unremarkable except as noted in HPI and below Exam Narrative: Comfortable Const: General: comfortable; No no acute distress Other: Lying flat in bed breathing comfortably HENMT: Other: No discharge Eyes: General: appearance normal, both eyes and all related structures Sclera: sclerae normal Neck: Neck: supple Resp: Effort & Inspection: normal respiratory effort Auscultation: clear to auscultation bilaterally Cardio: Rate: regular rate Rhythm: regular rhythm Heart sounds: no gallops, no murmurs and no rubs Skin: General skin exam: normal color Neuro: Speech: normal speech Extrem: General: no edema Psych: Appearance: grossly normal Mental Status: mental status grossly normal Objective Data Vital Signs Vital Signs: Vital Signs - 24 hr 02/28/25 15:57 02/28/25 16:00 02/28/25 18:00 Temperature 36.7 C Pulse Rate 129 H 128 H 122 H Respiratory Rate 18 Blood Pressure 93/74 L Pulse Oximetry 97 Oxygen Delivery 02/28/25 20:00 02/28/25 20:00 02/28/25 22:00 Temperature 36.8 C Pulse Rate 129 H 127 H 116 H Respiratory Rate 22 H Blood Pressure 100/59 L Pulse Oximetry 96 Oxygen Delivery 03/01/25 01:53 03/01/25 04:00 03/01/25 04:05 Temperature 37.2 C 37.1 C Pulse Rate 120 H 124 H 131 H Respiratory Rate 18 18 Blood Pressure 114/69 109/68 Pulse Oximetry 96 93 Oxygen Delivery 03/01/25 08:00 03/01/25 08:34 03/01/25 12:00 Temperature 36.8 C Pulse Rate 129 H 119 H Respiratory Rate 14 Blood Pressure 95/72 L 108/67 Pulse Oximetry 97 97 Oxygen Delivery Room Air Intake/Output Intake/Output: Intake & Output 02/26/25 02/27/25 02/28/25 03/01/25 23:59 23:59 23:59 23:59 Intake Total 1370 1766 1580 660 Output Total 1875 5350 3810 400 Balance -089 -5308 -0480 260 Meds/Results Medications: Active Medications Generic Name Dose Route Start Last Admin Trade Name Freq PRN Reason Stop Dose Admin Dextrose 12.5 gm 02/22/25 23:55 Dextrose 50% 25 Gm/50 Ml Syringe IV PUSH PRN PRN Hypoglycemia Protocol Furosemide 20 mg 02/26/25 17:00 02/28/25 17:50 Furosemide Inj 40 Mg/4 Ml Vial IV PUSH 20 mg BID CHARISMA Administration Glucagon 1 mg 02/22/25 23:55 Glucagon For Inj 1 Mg Vial IM PRN PRN Hypoglycemia Protocol Glucose 15 gm 02/22/25 23:55 Glucose Oral Gel 15 Gm Of Glucse In 37.5 Gm Tube PO PRN PRN Hypoglycemia Protocol Dextrose 1,000 mls @ 100 mls/hr 02/22/25 23:55 Dextrose 5% 1,000 Ml IVPB PRN PRN Hypoglycemia Protocol Levofloxacin 750 mg 02/28/25 15:00 02/28/25 14:52 Levofloxacin 750 Mg Tablet PO 03/03/25 15:01 750 mg Q24H CHARISMA Administration Metoprolol Tartrate 2.5 mg 02/25/25 21:25 Metoprolol Tartrate Inj 5 Mg/5 Ml Vial IV PUSH Q6HR PRN Heart Rate- High Midodrine 10 mg 02/28/25 17:00 03/01/25 08:31 Midodrine Hcl 10 Mg Tablet PO 10 mg BID CHARISMA Administration Pregabalin 50 mg 02/25/25 21:00 03/01/25 08:31 Pregabalin (*Crx) 50 Mg Capsule PO 50 mg Q12HR CHARISMA Administration Radiology Results: ITS Impressions Chest/Abdomen/Pelvis CTA 02/22/25 17:46 IMPRESSION: 1. Anasarca with bilateral pleural effusion, ascites. Pulmonary edema, left more than the right lung. Findings are suggestive of congestive heart failure. Cardiomegaly. 2. No evidence of pulmonary emboli. Suggestion of thrombus at the apex of left ventricle on delayed contrast study. Correlation with echocardiogram is recommended. 3. No focal acute findings in the abdomen and pelvis. Abdomen Ultrasound 02/23/25 19:33 IMPRESSION: 1. Normal size liver. One CM cyst of the right lobe of the liver. Portal veins and hepatic veins are patent. Prominent size of hepatic veins noted. This is consistent with hepatic venous congestion. 2. Evidence of gallstones. Extrahepatic bile ducts are normal in size. 3. Small amount of free fluid around the liver and in the peritoneal cavity. Arterial/Peripheral Duplex 02/23/25 19:33 IMPRESSION: 1. Normal size liver. One CM cyst of the right lobe of the liver. Portal veins and hepatic veins are patent. Prominent size of hepatic veins noted. This is consistent with hepatic venous congestion. 2. Evidence of gallstones. Extrahepatic bile ducts are normal in size. 3. Small amount of free fluid around the liver and in the peritoneal cavity. Chest X-Ray 02/24/25 17:20 IMPRESSION: 1. Chest CT 02/25/25 09:13 IMPRESSION: Worsening bilateral effusions and consolidations as well as at atelectatic changes, left worse than right. Labs Labs: Laboratory Results - last 24 hr 02/25/25 02/25/25 03/01/25 11:01 13:52 05:29 WBC 18.4 H RBC 4.23 L Hgb 12.5 L Hct 39.6 L MCV 93.6 MCH 29.6 MCHC 31.6 L RDW 18.8 H Plt Count 238 MPV 9.3 Immature Gran % (Auto) 1.0 H Neut % (Auto) 84.3 H Lymph % (Auto) 5.2 L [place] % (Auto) 9.1 H Eos % (Auto) 0.2 Baso % (Auto) 0.2 Lymph # (Auto) 0.96 [place] # (Auto) 1.7 H Eos # (Auto) 0.0 Baso # (Auto) 0.0 Abs Immat Gran (auto) 0.18 H Absolute Neuts (auto) 15.6 H Absolute Nucleated RBC 0.000 Nucleated RBC % 0.0 Sodium 129 L Potassium 3.5 Chloride 88 L Carbon Dioxide 36 H Anion Gap 5 BUN 13 Creatinine 0.62 L Estim Creat Clear Calc 124 Estimated GFR > 60 Glucose 121 H Serum Osmolality 263 L Calcium 8.0 L Magnesium 1.9 Total Bilirubin 3.9 H AST 75 H ALT 159 H Alkaline Phosphatase 148 H Total Protein 5.8 L Total Protein (PEP) 5.2 L Albumin 2.9 L Albumin (PEP) 2.6 L Globulin (PEP) 2.6 Albumin/Globulin Ratio 1.0 Whhys-8-Wnzzfnjvr 0.5 H Bwgcg-1-Aclnddihu 0.7 Beta Globulins 0.8 Gamma Globulins 0.6 PEP Comment Comment Urine Total Protein 12.9 Urine Albumin (PEP) 22.1 U Hauyp-5-Deibinzc 3.6 U Ukmkd-4-Ezcechzi 34.5 U Beta Globulin 26.2 U Gamma Globulin 13.7 U Random M-Arik (%) Not observed Urine PEP Note Comment Pr Electrophoresis MSpike Not observed
[2025-03-01] MEDS: FUROSEMIDE INJ 40 MG/4 ML VIAL 20 MG IV PUSH (13:27)
[2025-03-01 14:08] LABS: Osmolality, Urine 696 mOsmol/kg (.)
--- NOTE | 2025-03-01 17:28 | PM.IMPN2 ---
Assessment and Plan Assessment and Plan (1) CHF (congestive heart failure): Code(s): I50.9 - Heart failure, unspecified Status: Acute (2) Hyperkalemia: Code(s): E87.5 - Hyperkalemia Status: Acute Plan Non ischemic Cardiomyopathy ECHO showed EF 15-20% presented with worsening SOB, orthopnea and PND Leg edema resolved CTA chest PA showed cardiomegaly, anasarca, pulm edema and pleural effusion decreased lasix to 20mg due to sinus tachycardia , Midodrine 10mg tid, s/p Digoxin loading Cardiology following, considering possible transfer awaiting decision today Hyperkalemia k 4.2, resolved Hyponatremia From CHF Na 128 from 107 s/p Tolvaptan continue diuresis and monitor iron deficiency anemia Hb 10.8, isat 18 venofer 300/1000 monitor H and H Congestive Hepatopathy Elevated liver enzymes from CHF improving continue above care and monitor DVT UE LT -possibly provoked by estradiol -Venous Doppler :DVT with superficial thrombophlebitis. -Eliquis 10 mg p.o. b.i.d. for 7 days, followed by 5 mg p.o. b.i.d. -monitor H&H and platelets -no evidence of cancer -hemodynamically stable -will monitor vitals Former Transitioner Quit Estradiol and Spironolactone 3 weeks ago prior to admission identifies as male, his biological sex DVT prophylaxis on Sq Lovenox full code Subjective Date/time seen: 03/01/25 17:28 Interval history: Patient is admitted in the setting of the CHF with ejection fraction around 15%. Patient has large pleural effusion. Ultrasound of upper extremity left shows DVT with superficial thrombophlebitis. Started on Eliquis 10 mg p.o. b.i.d. followed by 5 mg p.o. b.i.d. Review of Systems Review of Systems: All other systems were reviewed and negative except as noted in the HPI above Exam Narrative: General: alert and comfortable Eyes: EOMI, PERRLA ENNT External ears normal, Neck is supple, no masses, Respiratory systems: Clear to auscultation Cardiovascular S1, S2, normal rhythm, no murmur, rub, or gallop; no thrill or palpable murmurs on palpation. Gastrointestinal: soft, non-tender, and non-distended abdomen with no masses; BS present Skin: no rash, lesions, ulcerations, subcutaneous nodules or induration Musculoskeletal: no abnormality and no tenderness, normal ROM Neurologic: Alert and oriented x3, non focal Mental Status Exam: normal affect Objective Data Vital Signs Vital Signs: Vital Signs - 24 hr 02/28/25 18:00 02/28/25 20:00 02/28/25 20:00 Temperature 98.3 F Pulse Rate 122 H 129 H 127 H Respiratory Rate 22 H Blood Pressure 100/59 L Pulse Oximetry 96 Oxygen Delivery 02/28/25 22:00 03/01/25 01:53 03/01/25 04:00 Temperature 98.9 F 98.7 F Pulse Rate 116 H 120 H 124 H Respiratory Rate 18 18 Blood Pressure 114/69 109/68 Pulse Oximetry 96 93 Oxygen Delivery 03/01/25 04:05 03/01/25 08:00 03/01/25 08:00 Temperature 98.3 F Pulse Rate 131 H 129 H 129 H Respiratory Rate 14 Blood Pressure 95/72 L Pulse Oximetry 97 Oxygen Delivery 03/01/25 08:34 03/01/25 12:00 03/01/25 12:00 Temperature Pulse Rate 119 H 118 H Respiratory Rate Blood Pressure 108/67 Pulse Oximetry 97 Oxygen Delivery Room Air 03/01/25 16:00 03/01/25 16:00 Temperature Pulse Rate 120 H 113 H Respiratory Rate Blood Pressure 98/60 L Pulse Oximetry 96 Oxygen Delivery Intake/Output Intake/Output: Intake & Output 02/26/25 02/27/25 02/28/25 03/01/25 23:59 23:59 23:59 23:59 Intake Total 1370 1766 1580 1390 Output Total 1875 5350 3810 400 Balance -505 -8334 -2230 990 Meds/Results Medications: Active Medications Generic Name Dose Route Start Last Admin Trade Name Freq PRN Reason Stop Dose Admin Dextrose 12.5 gm 02/22/25 23:55 Dextrose 50% 25 Gm/50 Ml Syringe IV PUSH PRN PRN Hypoglycemia Protocol Furosemide 40 mg 03/02/25 09:00 Furosemide 40 Mg Tablet PO DAILY CHARISMA Glucagon 1 mg 02/22/25 23:55 Glucagon For Inj 1 Mg Vial IM PRN PRN Hypoglycemia Protocol Glucose 15 gm 02/22/25 23:55 Glucose Oral Gel 15 Gm Of Glucse In 37.5 Gm Tube PO PRN PRN Hypoglycemia Protocol Dextrose 1,000 mls @ 100 mls/hr 02/22/25 23:55 Dextrose 5% 1,000 Ml IVPB PRN PRN Hypoglycemia Protocol Levofloxacin 750 mg 02/28/25 15:00 03/01/25 17:08 Levofloxacin 750 Mg Tablet PO 03/03/25 15:01 750 mg Q24H CHARISMA Administration Metoprolol Tartrate 2.5 mg 02/25/25 21:25 Metoprolol Tartrate Inj 5 Mg/5 Ml Vial IV PUSH Q6HR PRN Heart Rate- High Midodrine 10 mg 02/28/25 17:00 03/01/25 17:10 Midodrine Hcl 10 Mg Tablet PO 10 mg BID CHARISMA Administration Pregabalin 50 mg 02/25/25 21:00 03/01/25 08:31 Pregabalin (*Crx) 50 Mg Capsule PO 50 mg Q12HR CHARISMA Administration Radiology Results: ITS Impressions Chest/Abdomen/Pelvis CTA 02/22/25 17:46 IMPRESSION: 1. Anasarca with bilateral pleural effusion, ascites. Pulmonary edema, left more than the right lung. Findings are suggestive of congestive heart failure. Cardiomegaly. 2. No evidence of pulmonary emboli. Suggestion of thrombus at the apex of left ventricle on delayed contrast study. Correlation with echocardiogram is recommended. 3. No focal acute findings in the abdomen and pelvis. Abdomen Ultrasound 02/23/25 19:33 IMPRESSION: 1. Normal size liver. One CM cyst of the right lobe of the liver. Portal veins and hepatic veins are patent. Prominent size of hepatic veins noted. This is consistent with hepatic venous congestion. 2. Evidence of gallstones. Extrahepatic bile ducts are normal in size. 3. Small amount of free fluid around the liver and in the peritoneal cavity. Arterial/Peripheral Duplex 02/23/25 19:33 IMPRESSION: 1. Normal size liver. One CM cyst of the right lobe of the liver. Portal veins and hepatic veins are patent. Prominent size of hepatic veins noted. This is consistent with hepatic venous congestion. 2. Evidence of gallstones. Extrahepatic bile ducts are normal in size. 3. Small amount of free fluid around the liver and in the peritoneal cavity. Chest X-Ray 02/24/25 17:20 IMPRESSION: 1. Chest CT 02/25/25 09:13 IMPRESSION: Worsening bilateral effusions and consolidations as well as at atelectatic changes, left worse than right. Venous Doppler Study 03/01/25 16:12 Impression: DVT with superficial thrombophlebitis. Labs Labs: Laboratory Results - last 24 hr 02/25/25 03/01/25 11:01 05:29 WBC 18.4 H RBC 4.23 L Hgb 12.5 L Hct 39.6 L MCV 93.6 MCH 29.6 MCHC 31.6 L RDW 18.8 H Plt Count 238 MPV 9.3 Immature Gran % (Auto) 1.0 H Neut % (Auto) 84.3 H Lymph % (Auto) 5.2 L [place] % (Auto) 9.1 H Eos % (Auto) 0.2 Baso % (Auto) 0.2 Lymph # (Auto) 0.96 [place] # (Auto) 1.7 H Eos # (Auto) 0.0 Baso # (Auto) 0.0 Abs Immat Gran (auto) 0.18 H Absolute Neuts (auto) 15.6 H Absolute Nucleated RBC 0.000 Nucleated RBC % 0.0 Sodium 129 L Potassium 3.5 Chloride 88 L Carbon Dioxide 36 H Anion Gap 5 BUN 13 Creatinine 0.62 L Estim Creat Clear Calc 124 Estimated GFR > 60 Glucose 121 H Calcium 8.0 L Magnesium 1.9 Total Bilirubin 3.9 H AST 75 H ALT 159 H Alkaline Phosphatase 148 H Total Protein 5.8 L Albumin 2.9 L Urine Osmolality 696 Urine Total Protein 12.9 Urine Albumin (PEP) 22.1 U [place]-5-Lpmuglyk 3.6 U [place]-2-Jqaeobcd 34.5 U Beta Globulin 26.2 U Gamma Globulin 13.7 U Random M-Arik (%) Not observed Urine PEP Note Comment Hospitalist MIPS Advance Care Plan I have confirmed that the patient's Advanced Care Plan is present, code status is documented, or surrogate decision maker is listed in patient medical record.: Yes Medication Reconciliation I have utilized all available resources to obtain, update and review the patients current medications (includes all prescriptions, OTC, herbals, cannabis, and nutritional supplements).: Yes
[2025-03-01] MEDS: APIXABAN 5 MG TABLET 10 MG PO (20:16)
[2025-03-02] VITALS (10 sets, daily range): BP systolic 91–113; BP diastolic 64–82; PULSE 119–141; RESP 16–18; TEMP 36.6–36.8; O2SAT 93–97
[2025-03-02] MEDS: FUROSEMIDE 40 MG TABLET PO (08:11)
[2025-03-02] MEDS: APIXABAN 5 MG TABLET 10 MG PO (08:11)
[2025-03-02] MEDS: MIDODRINE HCL 10 MG TABLET PO ×2 (08:11→18:05)
[2025-03-02] MEDS: PREGABALIN (*CRX) 50 MG CAPSULE PO (08:11)
--- NOTE | 2025-03-02 08:39 | P.PNCA_ITS ---
Progress Note: A&P Assessment and Plan (1) Acute CHF: Code(s): I50.9 - Heart failure, unspecified Status: Acute Assessment and Plan: * -ejection fraction 15%. Large pleural effusion on admission * Cardiac catheterization done during this admission nonischemic cardiomyopathy. * Patient blood pressure has been soft, now on toepdebah25 mg BID * His sodium is low, but improved. Has received dose of tolvaptan * Patient reports previous history of heavy alcohol drinking and quit 5 years ago. * LifeVest delivered stressed importance of wearing * Unable to initiate any GDMT during this admission because of hypotension and continued need for midodrine, BP improved today and will add Metoprolol 25 mg BID * Possible dicharge home later today (2) Transaminitis: Code(s): R74.01 - Elevation of levels of liver transaminase levels Status: Acute Assessment and Plan: * may represent hepatic congestion in the setting of acute CHF * Liver enzymes are improving with IV diuretics and using tolvaptan. Continue Lasix PO * CT of abd/pelvis did not suggest any acute finding (3) Acute hyponatremia: Code(s): E87.1 - Hypo-osmolality and hyponatremia Status: Acute Assessment and Plan: * his sodium was 108 on admission * 129 today * will need close monitoring of sodium (4) Hyperkalemia: Code(s): E87.5 - Hyperkalemia Status: Acute Assessment and Plan: * potassium of 6.4 on admission * has normalized * was previously on aldactone at home, but was stopped a few weeks ago (5) Hypotension: Code(s): I95.9 - Hypotension, unspecified Status: Acute Assessment and Plan: * Continue midodrine at decreased dose of 10mg BID * monitor with addition of Metoprolol 25 mg BID (6) NSVT (nonsustained ventricular tachycardia): Code(s): I47.29 - Other ventricular tachycardia Status: Acute Assessment and Plan: * patient continues to have runs of NSVT * will give additional potassium this am * Will add magnesium oxide 400 mg daily * cannot add amiodarone as LFTs elevated * will begin Metoprolol 25mg BID * stressed importance of lifevest with this patient Plan * will initiate Metoprolol 25 mg BID * would recommend close OP follow up and referral to [place] [facility] failure clinic * Discharge home later today if tolerates am dose of Metoprolol Subjective Date/time seen: 03/02/25 08:39 Interval history: Cardiology follow up visit for CHF, severe cardiomyopathy Date of service 02/24/2025: Feeling better, denies shortness of breath. Lower extremity swelling has resolved. No chest pain Date of service 02/26-resting comfortably in flat position. Sinus tachycardia at heart rate 120. Episodes of nonsustained VT. Denies extremity edema. Blood pressure has been soft. His midodrine was increased overnight to 15 mg Q 6 hours. Date of service 02/27/2025-he feels better today. There is improved after receiving tolvaptan yesterday. He remains tachycardic though with episodes of nonsustained VT. Blood pressure is soft to despite receiving midodrine Date of service 02/28/2025: Continues to feel well. He denies any shortness of breath, orthopnea, swelling, chest pain, palpitations. Date of service 03/01/2025: No acute events overnight. Feeling well. No shortness of breath, swelling, orthopbea, palpitations, chest pain. Date of service 03/02/25: Patient is lying in bed and feeling well. He is anxious to go home. He denies any chest pain or shortness of breath. No dizziness or palpitations. Was noted to have runs of NSVT on monitor this. Review of Systems Review of Systems: All systems reviewed & are unremarkable except as noted in HPI and below Exam Const: General: comfortable and no acute distress Neck: Neck: supple and no JVD Resp: Effort & Inspection: normal respiratory effort Auscultation: clear to auscultation bilaterally Cardio: Rate: tachycardic Rhythm: regular rhythm Heart sounds: no gallops, no murmurs and no rubs Skin: General skin exam: normal color and no erythema Extrem: General: normal to inspection and no edema Psych: Mental Status: mental status grossly normal Objective Data Vital Signs Vital Signs: Vital Signs - 24 hr 03/01/25 12:00 03/01/25 12:00 03/01/25 16:00 Temperature Pulse Rate 119 H 118 H 120 H Respiratory Rate Blood Pressure 108/67 98/60 L Pulse Oximetry 97 96 03/01/25 16:00 03/01/25 20:00 03/01/25 20:16 Temperature 36.9 C Pulse Rate 113 H 136 H 126 H Respiratory Rate 18 Blood Pressure 115/75 Pulse Oximetry 96 03/02/25 00:00 03/02/25 00:00 03/02/25 04:00 Temperature 36.8 C Pulse Rate 129 H 121 H 119 H Respiratory Rate 18 Blood Pressure 110/64 Pulse Oximetry 93 03/02/25 04:40 03/02/25 07:58 Temperature 36.8 C 36.8 C Pulse Rate 129 H 126 H Respiratory Rate 16 16 Blood Pressure 111/77 113/82 Pulse Oximetry 95 94 Intake/Output Intake/Output: Intake & Output 02/27/25 02/28/25 03/01/25 03/02/25 23:59 23:59 23:59 23:59 Intake Total 1766 1580 1630 550 Output Total 5350 3810 2400 350 [facility] -3584 -2230 -770 200 Meds/Results Medications: Active Medications Generic Name Dose Route Start Last Admin Trade Name Freq PRN Reason Stop Dose Admin Apixaban 10 mg 03/01/25 21:00 03/02/25 08:11 Apixaban 5 Mg Tablet PO 03/08/25 20:59 10 mg Q12HR CHARISMA Administration Apixaban 5 mg 03/08/25 21:00 Apixaban 5 Mg Tablet PO Q12HR CHARISMA Dextrose 12.5 gm 02/22/25 23:55 Dextrose 50% 25 Gm/50 Ml Syringe IV PUSH PRN PRN Hypoglycemia Protocol Furosemide 40 mg 03/02/25 09:00 03/02/25 08:11 Furosemide 40 Mg Tablet PO 40 mg DAILY CHARISMA Administration Glucagon 1 mg 02/22/25 23:55 Glucagon For Inj 1 Mg Vial IM PRN PRN Hypoglycemia Protocol Glucose 15 gm 02/22/25 23:55 Glucose Oral Gel 15 Gm Of Glucse In 37.5 Gm Tube PO PRN PRN Hypoglycemia Protocol Dextrose 1,000 mls @ 100 mls/hr 02/22/25 23:55 Dextrose 5% 1,000 Ml IVPB PRN PRN Hypoglycemia Protocol Levofloxacin 750 mg 02/28/25 15:00 03/01/25 17:08 Levofloxacin 750 Mg Tablet PO 03/03/25 15:01 750 mg Q24H CHARISMA Administration Metoprolol Tartrate 2.5 mg 02/25/25 21:25 Metoprolol Tartrate Inj 5 Mg/5 Ml Vial IV PUSH Q6HR PRN Heart Rate- High Midodrine 10 mg 02/28/25 17:00 03/02/25 08:11 Midodrine Hcl 10 Mg Tablet PO 10 mg BID CHARISMA Administration Pregabalin 50 mg 02/25/25 21:00 03/02/25 08:11 Pregabalin (*Crx) 50 Mg Capsule PO 50 mg Q12HR CHARISMA Administration Radiology Results: ITS Impressions Chest/Abdomen/Pelvis CTA 02/22/25 17:46 IMPRESSION: 1. Anasarca with bilateral pleural effusion, ascites. Pulmonary edema, left more than the right lung. Findings are suggestive of congestive heart failure. Cardiomegaly. 2. No evidence of pulmonary emboli. Suggestion of thrombus at the apex of left ventricle on delayed contrast study. Correlation with echocardiogram is recommended. 3. No focal acute findings in the abdomen and pelvis. Abdomen Ultrasound 02/23/25 19:33 IMPRESSION: 1. Normal size liver. One CM cyst of the right lobe of the liver. Portal veins and hepatic veins are patent. Prominent size of hepatic veins noted. This is consistent with hepatic venous congestion. 2. Evidence of gallstones. Extrahepatic bile ducts are normal in size. 3. Small amount of free fluid around the liver and in the peritoneal cavity. Arterial/Peripheral Duplex 02/23/25 19:33 IMPRESSION: 1. Normal size liver. One CM cyst of the right lobe of the liver. Portal veins and hepatic veins are patent. Prominent size of hepatic veins noted. This is consistent with hepatic venous congestion. 2. Evidence of gallstones. Extrahepatic bile ducts are normal in size. 3. Small amount of free fluid around the liver and in the peritoneal cavity. Chest X-Ray 02/24/25 17:20 IMPRESSION: 1. Chest CT 02/25/25 09:13 IMPRESSION: Worsening bilateral effusions and consolidations as well as at atelectatic changes, left worse than right. Venous Doppler Study 03/01/25 16:12 Impression: DVT with superficial thrombophlebitis. Labs Labs: Laboratory Results - last 24 hr 02/25/25 11:01 Urine Osmolality 696
[2025-03-02] MEDS: POTASSIUM CHLORIDE 20 MEQ PACKET (FOR LIQUID) PO (09:11)
[2025-03-02] MEDS: MAGNESIUM OXIDE 400 MG TABLET PO (09:11)
[2025-03-02] MEDS: METOPROLOL TARTRATE 25 MG TABLET PO (09:11)
--- NOTE | 2025-03-02 12:39 | P.DS_ITS ---
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 Patient was treated for the following condition: Non ischemic Cardiomyopathy ECHO showed EF 15-20% presented with worsening SOB, orthopnea and PND Leg edema resolved CTA chest PA showed cardiomegaly, anasarca, pulm edema and pleural effusion Decreased lasix to 20mg due to sinus tachycardia , Midodrine 10mg tid, s/p Digoxin loading As per Cardiology: * Ejection fraction 15%. Large pleural effusion. * Cardiac catheterization done during this admission nonischemic cardiomyopathy. * Patient has soft blood pressure overnight therefore was started on midodrine 15 mg q.6 hours. * His sodium is low. Yesterday received 1 dose of tolvaptan 15 mg and sodium improved from 117 to 128. Stable today. * Patient reports previous history of heavy alcohol drinking and quit 5 years ago. * LifeVest delivered * Unable to initiate any GDMT during this admission because of hypotension and continued need for midodrine Hyperkalemia k 4.2, resolved Hyponatremia From CHF Na 128 from 107 s/p Tolvaptan continue diuresis and monitor iron deficiency anemia Hb 10.8, isat 18 venofer 300/1000 monitor H and H Congestive Hepatopathy Elevated liver enzymes from CHF improving continue above care and monitor DVT UE LT -possibly provoked by estradiol -Venous Doppler :DVT with superficial thrombophlebitis. -Eliquis 10 mg p.o. b.i.d. for 7 days, followed by 5 mg p.o. b.i.d. -monitor H&H and platelets -no evidence of cancer -hemodynamically stable -will monitor vitals Patient needs to take Eliquis 10 mg PO BID until 1222 AM. 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 Gastrointestinal: soft, non-tender, and non-distended abdomen with no masses; BS present Skin: no rash, lesions, ulcerations, subcutaneous nodules or induration Musculoskeletal: no abnormality and no tenderness, normal ROM Neurologic: Alert and oriented x3, non focal Mental Status Exam: normal affect DS: Data Data Completed and Pending Labs on day of discharge: Labs from last 24 hours 02/25/25 11:01 Urine Osmolality 696 Preliminary micro results at discharge 02/25/25 15:43 Blood Culture - Preliminary Blood 02/25/25 15:43 Blood Culture - Preliminary Blood Imaging Radiologist's impression: ITS Impressions Chest/Abdomen/Pelvis CTA 02/22/25 17:46 IMPRESSION: 1. Anasarca with bilateral pleural effusion, ascites. Pulmonary edema, left more than the right lung. Findings are suggestive of congestive heart failure. Cardiomegaly. 2. No evidence of pulmonary emboli. Suggestion of thrombus at the apex of left ventricle on delayed contrast study. Correlation with echocardiogram is recommended. 3. No focal acute findings in the abdomen and pelvis. Abdomen Ultrasound 02/23/25 19:33 IMPRESSION: 1. Normal size liver. One CM cyst of the right lobe of the liver. Portal veins and hepatic veins are patent. Prominent size of hepatic veins noted. This is consistent with hepatic venous congestion. 2. Evidence of gallstones. Extrahepatic bile ducts are normal in size. 3. Small amount of free fluid around the liver and in the peritoneal cavity. Arterial/Peripheral Duplex 02/23/25 19:33 IMPRESSION: 1. Normal size liver. One CM cyst of the right lobe of the liver. Portal veins and hepatic veins are patent. Prominent size of hepatic veins noted. This is consistent with hepatic venous congestion. 2. Evidence of gallstones. Extrahepatic bile ducts are normal in size. 3. Small amount of free fluid around the liver and in the peritoneal cavity. Chest X-Ray 02/24/25 17:20 IMPRESSION: 1. Chest CT 02/25/25 09:13 IMPRESSION: Worsening bilateral effusions and consolidations as well as at atelectatic changes, left worse than right. Venous Doppler Study 03/01/25 16:12 Impression: DVT with superficial thrombophlebitis. Discharge Plan Discharge Attending physician on discharge: Serjio Alvarez Consulting providers: King Srinivasan; Shan Parisi Discharging Clinician: Serjio Alvarez Anticipated Discharge Date/Time: 03/02/25 08:00 Patient Disposition: Home Activity: as tolerated Diet: heart healthy Discharge Instructions: Patient needs to discharged with the LifeVest Patient closely follow-up with Cardiology, Gastroenterology, Hematology/Oncology and PCP within a week upon discharge In the event of shortness of breath the or chest pain or palpitation please return to ED Patient is discharged with Eliquis 10 mg p.o. bid. for 7 days follows up with the 5 mg p.o. b.i.d. Patient will benefit from Hematology/Oncology visit for DVT follow-up. Patient needs to take Eliquis 10 mg PO BID until 12 AM. From 03/07 PM needs to take Eliquis 5 mg PO BID Further instructions as per ,Combat [employer]/Oncologist. Patient Instructions: Antibiotic Form, Apixaban (By mouth), Hyponatremia (GEN), Hyperkalemia (GEN), Low-Sodium Diet (GEN) Patient Language: Romanian Stand Alone Forms: General Discharge Information Follow-up/Referrals: Wes Eller MD [Physician, Hematology] King Srinivasan MD [Physician, Cardiology] Joy,Viktoriya Lee MD [Primary Care Provider] Shan Parisi MD [Physician, Nephrology] Discharge Medications: New Eliquis 5 mg Tablet 10 mg PO Q12HR Qty: 21 0RF Rx Instructions: Patient needs to take Eliquis 10 mg PO BID until 03/07 AM. From 03/07 PM neds to take Eliquis 5 mg PO BID Further instructions as per ,Combat Systems [employer]/Oncologist furosemide 40 mg Tablet 40 mg PO DAILY Qty: 30 0RF midodrine 10 mg Tablet 10 mg PO BID Qty: 30 0RF pregabalin [Lyrica] 50 mg Capsule 50 mg PO Q12HR Qty: 30 0RF Eliquis 5 mg Tablet 5 mg PO Q12HR Qty: 60 0RF magnesium oxide 400 mg (241.3 mg magnesium) Tablet 400 mg PO DAILY Qty: 30 0RF metoprolol tartrate 25 mg Tablet 25 mg PO Q12HR Qty: 30 0RF Date of admission: 02/24/25 09:59 Primary Care Provider: Joy,Viktoriya Lee Admitting Provider: Jeri Morel Attending physician on admission: Jeri Morel Condition: Stable
[2025-03-02 15:55] LABS: Alanine Aminotransferase 124 U/L (6-50); Albumin Level 2.8 g/dL (3.5-5.1); Alkaline Phosphatase 138 U/L (38-126); Anion Gap 5 mmol/L (4-12); Aspartate Amino Transferase 64 U/L (17-59); Bilirubin,Total 3.6 mg/dL (0.2-1.3); Blood Urea Nitrogen 13 mg/dL (9-20); Calcium 7.8 mg/dL (8.4-10.2); Carbon Dioxide 33 mmol/L (22-30); Chloride 91 mmol/L (98-107); Estimated CRCL calculation 129 ml/min; Estimated Glomerular Filt Rate > 60; Glucose 104 mg/dL (65-110); Potassium 3.4 mmol/L (3.4-5.0); Sodium 129 mmol/L (137-145); Total Protein 5.8 g/dL (6.3-8.2)
[2025-03-02 15:57] LABS: Hematocrit 36.4 % (42.0-52.0); Hemoglobin 12.0 g/dL (14.0-18.0); Mean Corpuscular HGB Conc 33.0 g/dl (32-36); Mean Corpuscular Hemoglobin 30.3 pg (26-34); Mean Corpuscular Volume 91.9 fl (80-100); Platelet Count Result 265 k/mm3 (150-375); Red Blood Count 3.96 M/mm3 (4.6-6.20); White Blood Count 18.2 K/mm3 (4.5-10.0)
== END 2025-03-02 19:12 | disposition home or self-care (01) | DRG 192 ==
LOC: ANHED 19:06 → ANHIMU 19:36 → ANH3MED 03-02 08:03 → ANHIMU 03-03 09:34
PROVIDERS: Internal Medicine; Internal Medicine Nephrology; Nurse Practitioner Family; Physician Assistant; Admitting Provider Internal Medicine; PCP Family Medicine; Visit Provider General Practice
PROC: 4A023N8 Measurement of Cardiac Sampling and Pressure, Bilateral, Percutaneous Approach (ICD-10-PCS; CPT 93453; principal; 2025-02-25 10:00)
PROC: 4A023N8 Measurement of Cardiac Sampling and Pressure, Bilateral, Percutaneous Approach (ICD-10-PCS; 2025-02-25 10:00)
DX: I11.0 Hypertensive heart disease with heart failure (principal); I50.21 Acute systolic (congestive) heart failure; I82.622 Acute embolism and thrombosis of deep veins of left upper extremity; D50.9 Iron deficiency anemia, unspecified; R74.01 Elevation of levels of liver transaminase levels; E87.5 Hyperkalemia; E87.1 Hypo-osmolality and hyponatremia; I95.9 Hypotension, unspecified; I42.8 Other cardiomyopathies; I47.29 Other ventricular tachycardia; Z79.01 Long term (current) use of anticoagulants
CPT/HCPCS: 36415; 36600; 71045; 71250; 71275; 74177; 76705; 80048; 80053; 80061; 80074; 80307; 81001; 82375; 82533; 82570; 82728; 82805; 82948; 83036; 83050; 83540; 83550; 83605; 83690; 83735; 83880; 83930; 83935; 84155; 84156; 84165; 84166; 84295; 84300; 84439; 84443; 84484; 84540; 85018; 85025; 85027; 85610; 85730; 87040; 87641; 93005; 93306; 93308; 93460; 93971; 93976; 94640; 96365; 96375; 99285; A9270; C1760; C1769; C1887; C1894; C8924; G0269; G0378; G0379; J0612; J1160; J1250; J1644; J1756; J1815; J1938; J1956; J2003; J2250; J2305; J3010; J3480; J7040; P9047; Q9957; Q9967

== ENCOUNTER 2025-03-11 22:31 | Inpatient (IN) | payer OTHER, SELFPAY ==
[2025-03-11] VITALS (13 sets, daily range): BP systolic 64–102; BP diastolic 22–70; PULSE 117–123; RESP 25–38; TEMP 36–36.1; O2SAT 100
--- NOTE | ~2025-03-11 | XR_ITS ---
Examination: XR chest 1V portable Clinical History: sob Comparison: 02/24/2025 Technique: Portable AP Findings: Cardiomegaly. Large circumferential left sided and small right-sided pleural effusions. Significant left lung atelectasis and airspace disease. Right basilar airspace disease. No acute bony abnormality. IMPRESSION: 1. Large left and small right pleural effusions. 2. Bilateral atelectasis and/or airspace disease, left lung worse. Reviewed, dictated and finalized at location R. ENTICE ARCHITECT
--- NOTE | ~2025-03-11 | US_ITS ---
ULTRASOUND ABDOMEN LIMITED (RIGHT UPPER QUADRANT) Clinical History: CT findings of GB wall thickening Comparison: CT hours prior Technique: Right upper quadrant sonography Findings: Liver: Enlarged. Echogenic. Probable micronodular contour. No intrahepatic biliary ductal dilatation. Normal hepatopedal flow main portal vein. Bidirectional flow within hepatic veins. Common Duct: Normal caliber. 5 mm. Gallbladder: Stones. Wall thickening. No pericholecystic fluid. Negative sonographic Desir's sign per technologist report. Pancreas: Visualized portion unremarkable. Right kidney: Unremarkable. Retrohepatic IVC: Unremarkable. Ascites. IMPRESSION: 1. Nonspecific gallbladder wall thickening in the presence of ascites and probable cirrhosis. If clinical ambiguity for cholecystitis, consider HIDA scan. 2. Hepatomegaly, with steatosis. Suspect cirrhosis. 3. Hepatic vein waveforms suggest right heart dysfunction. Reviewed, dictated and finalized at location R. COVERER MACHINE OPERATOR IMPRESSION: 1. Nonspecific gallbladder wall thickening in the presence of ascites and prob able cirrhosis. If clinical ambiguity for cholecystitis, consider HIDA scan. 2. Hepatomegaly, with steatosis. Suspect cirrhosis. 3. Hepatic vein waveforms suggest right heart dysfunction.
--- NOTE | ~2025-03-11 | CT_ITS ---
CTA CHEST CT ABDOMEN PELVIS CLINICAL HISTORY: SOB, dimer >13; also transaminitis . COMPARISON: Chest x-ray today TECHNIQUE: Helical CT performed from thoracic inlet to symphysis pubis 100 mL Omnipaque 350 Coronal, sagittal reformats. Multiplanar MIPS CT images acquired with automatic exposure control for dose reduction DLP: 660 mGy-cm FINDINGS: CHEST- Thoracic Aorta: No dissection. No aneurysm. Pulmonary arteries: Small PE right lower lobe lateral segment. Equivocal for small PE left lower lobe but poor opacification. Lungs/Pleura: Massive left circumferential pleural effusion. Significant left lung atelectasis and superimposed consolidation. Large right pleural effusion, associated dependent atelectasis. Heart: Enlarged. Tracheobronchial tree: Patent. Nodes: No enlarged nodes. Small mediastinal nodes Bones: No acute bony abnormality. Soft tissues: Unremarkable. ABDOMEN/PELVIS- Liver: Heterogeneous parenchyma, possibly venous congestion. Suspect cirrhosis. A few tiny hypodense foci probably cysts but too small to characterize. Gallbladder: Wall thickening. Spleen: Unremarkable. Pancreas: Unremarkable. Adrenal glands: Unremarkable. Kidneys: Right kidney- No hydronephrosis. No renal stones. Left kidney- No hydronephrosis. No renal stones. Distal esophagus/stomach: Unremarkable. Small bowel loops: Normal caliber and wall thickness. Colon: Normal caliber and wall thickness. Normal RLQ appendix. Nodes: No enlarged nodes. Peritoneum: Moderate scattered ascites. No free air. Urinary bladder: Unremarkable. Prostate: Unremarkable. Bones: No acute bony abnormality. Soft tissues: Unremarkable. Abdominal aorta: Unremarkable. IVC: Unremarkable. Main portal vein, SMV: Patent. Findings delivered via telephone by myself to Dr. Kyara Davis in the ED at 9:28 AM EST. IMPRESSION: CHEST- 1. Small PE right lower lobe. 2. Cardiomegaly, no evidence of right heart strain. But suspect right heart dysfunction. 3. Massive left circumferential pleural effusion with significant lobar atelectasis and diffuse airspace consolidation/pneumonia. Underlying pulmonary lesion cannot be excluded. Recommend repeat CT chest in one month. PET/CT can also be considered if pleural effusion and lobar consolidation persists. 4. Large right pleural effusion. ABDOMEN/PELVIS- 1. Moderate ascites. 2. Nonspecific gallbladder wall thickening given ascites and liver disease probable cirrhosis. 3. Otherwise no acute abdominopelvic findings. Reviewed, dictated and finalized at location [facility] [employer] [employer] IMPRESSION: CHEST- 1. Small PE right lower lobe. 2. Cardiomegaly, no evidence of right heart strain. But suspect right heart dy sfunction. 3. Massive left circumferential pleural effusion with significant lobar atelec tasis and diffuse airspace consolidation/pneumonia. Underlying pulmonary lesion cannot be excluded. Recommend repeat CT chest in one month. PET/CT can also be considered if pleural effusion and lobar consolidation persists. 4. Large right pleural effusion. ABDOMEN/PELVIS- 1. Moderate ascites. 2. Nonspecific gallbladder wall thickening given ascites and liver disease pro bable cirrhosis. 3. Otherwise no acute abdominopelvic findings.
--- OUTSIDE RECORDS SUMMARY | 2025-03-11 23:21 | XMS_ITS | Clinical Summary ---
Author Organization [address] [id number] Care Team Providers Care Chore Worker Name Role Phone Unknown, Notinfile Primary Care Provider Unavail able Allergies No known active allergies Medications No known medications Active Problems No known active problems Encounters Date Type Department Care Team Description 03/07/2025 Orders Only [facility] Medical [facility] Cardiology [address] [place] [address] [place] [phone] Jimena Sanchez, JIMENEZ 03/03/2025 Telephone [facility] Cardiology [address] [place] [address] [place] [phone] Jimena Sanchez, JIMENEZ 03/02/2025 Telephone Cardiology Jimena Sanchez NP 02/24/2025 Orders Only [facility] Health Information Management [address] [place] [address] Emilia Kessler NP 02/22/2025 12:30 PM NEWSPERSON Office Visit [facility] Medical [facility] Care at [address] [phone] Emmanuelle Robertson NP Shortness of breath (Primary Dx); Jaundice; Hypotension, unspecified hypotension type; Tachycardia; Weakness from Last 3 Months Surgical History Surgery Date Site/Laterality Comments KNEE SURGERY Left Social History Tobacco Use Types Packs/Day Years Used Date Smoking Tobacco: Never Assessed Sex and Gender Information Value Date Recorded Sex Assigned at Not on file Legal Sex Male 12:22 PM NEWSPERSON Gender Identity Not on file Sexual Orientation Not on file Last Filed Vital Signs Vital Sign Reading Time Taken Comments Blood Pressure 84/50 02/22/2025 12:48 PM NEWSPERSON Pulse 112 02/22/2025 12:48 PM NEWSPERSON Temperature 36.4 C (97.5 F) 02/22/2025 12:30 PM NEWSPERSON Respiratory Rate 26 02/22/2025 12:3 0 PM NEWSPERSON Oxygen Saturation 100% 02/22/2025 12: 30 PM NEWSPERSON Inhaled Oxygen Concentration - - Weight 76.1 kg (167 lb 11.2 oz) 025 12:30 PM NEWSPERSON Height 177.8 cm (5' 10) 02/22/2025 12: 30 PM NEWSPERSON Body Mass Index 24.06 02/22/2025 12:30 PM NEWSPERSON Plan of Treatment Health Maintenance Due Date Last Done Comments Depression Screening 1981 Hepatitis C Screening 1981 DTaP/Tdap/Td Vaccine (1 - Tdap) 02/16/1992 Varicella Vaccines (1 of 2 - 13+ 2-dose series) 1994 Hepatitis B Screening 1999 Regular Well Visit/Exam 18-64 1999 HPV Vaccines (1 - 3-dose SCD M series) 02/16/2008 Influenza Vaccine (#1) 2024 Pneumococcal vaccine <65 Aged Out No longer eligible based on patient's age to complete this topic Procedures Procedure Name Priority Date/Time Associated Diagnosis Comments CARDIOLOGY DOCUMENT SCAN Routine 03/01/2025 5:25 PM NEWSPERSON CARDIOLOGY DOCUMENT SCAN Routine 02/28/2025 5:18 PM NEWSPERSON CARDIOLOGY DOCUMENT SCAN Routine 02/27/2025 5:16 PM NEWSPERSON CARDIOLOGY DOCUMENT SCAN Routine 02/26/2025 5:14 PM NEWSPERSON CARDIOLOGY DOCUMENT SCAN Routine 02/25/2025 5:11 PM NEWSPERSON CARDIOLOGY DOCUMENT SCAN Routine 02/24/2025 5:09 PM NEWSPERSON CARDIOLOGY DOCUMENT SCAN 02/24/2025 CARDIOLOGY DOCUMENT SCAN Routine 02/23/2025 5:01 PM NEWSPERSON from Last 3 Months Results * Cardiology Document Scan (03/01/2025 5:25 PM NEWSPERSON) Anatomical Region Laterality Modality Other Emilia Kessler NP CV CARDIAC SERVICES PROCEDUR ES Final Result * Cardiology Document Scan (02/28/2025 5:18 PM NEWSPERSON) Anatomical Region Laterality Modality Other Emiila Kessler NP CV CARDIAC SERVICES PROCEDUR ES Final Result * Cardiology Document Scan (02/27/2025 5:16 PM NEWSPERSON) Anatomical Region Laterality Modality Other King Srinivasan MD CV CARDIAC SERVICES PROCEDURES Final Result * Cardiology Document Scan (02/26/2025 5:14 PM NEWSPERSON) Anatomical Region Laterality Modality Other King Srinivasan MD CV CARDIAC SERVICES PROCEDURES Final Result * Cardiology Document Scan (02/25/2025 5:11 PM NEWSPERSON) Anatomical Region Laterality Modality Other Manolo Licona MD CV CARDIAC SERVICES PROCEDURES F inal Result * Cardiology Document Scan (02/24/2025 5:09 PM NEWSPERSON) Anatomical Region Laterality Modality Other Emilia Kessler NP CV CARDIAC SERVICES PROCEDUR ES Final Result * Cardiology Document Scan (02/24/2025) Anatomical Region Laterality Modality Other Emilia Kessler NP CV CARDIAC SERVICES PROCEDUR ES Final Result * Cardiology Document Scan (02/23/2025 5:01 PM NEWSPERSON) Anatomical Region Laterality Modality Other Jimena Sanchez NP CV CARDIAC SERVICE S PROCEDURES Final Result from Last 3 Months Insurance [facility] Member Subscriber Plan / Payer (Ef fective 2025-Present) Name:Roni Grace Relation to Subscriber:Self Name:Roni Grace Payer ID:[id number] (NAIC) Group ID:Not on file Type:MEDICAID RISK OTHER Address: [facility] [id number] [place] [id number] Care Teams Chore Worker Relationship Specialty Start Date End Date Unknown, Notinfile PCP - General 02/22/25
--- NOTE | 2025-03-11 23:32 | ED_ITS ---
HPI - SOB/Dyspnea General Chief Complaint: Shortness of Breath/Dyspnea Stated Complaint: fluid retention Time Seen by Provider: 03/11/25 23:07 Source: patient Limitations: no limitations History of Present Illness HPI Narrative: 45 yo male Patient (pronouns he/him/his) presents with concern for fluid retention and shortness of breath. Recently diagnosed with CHF and put on Lasix BID which he has been taking but does not feel that the urine output, although present, has been commensurate with this. Also continues taking his other recently prescribed heart failure meds. No improvement in symptoms. Last dose Lasix 2030. Has b/l LE edema. On midodrine for BP. Denies chest pain. Has had a little cough. Quit smoking approximatly 1 month ago. Cough had some blood and then also chunky brown/villarreal mucous. Related Data Allergies Allergy/AdvReac Type Severity Reaction Status Date / Time No Known Allergies Allergy Verified 03/12/25 10:13 [facility] Past Medical History Medical History (Updated 03/13/25 @ 07:33 by Kyara Davis MD) Elevated liver enzymes Hyponatremia Anasarca Acute systolic (congestive) heart failure Family History Family History (Updated 02/22/25 @ 22:21 by Naomi Mcmullen RN) Mother Diabetes mellitus Alcoholism Father Parkinsons disease Alcoholism Other Diabetes 1.5, managed as type 1 Social History Social History (Updated 03/13/25 @ 07:21 by Kyara Davis MD) Smoking status: Former smoker Alcohol intake: former Substance use: former Substance use type: marijuana Other substance usage details: quit a few weeks ago Lack of Transportation: No Lack of Food: Never True Current Housing: I Have Housing Concerned About Future Housing: No Difficulty Paying Gas/Electric Bills: No Difficulty Paying for Meds: No Currently Unemployed: No Education: Bachelor's Degree Difficulty w/ Childcare or Family Care: No Spiritual care concerns: No Exam 2 Narrative: GENERAL: Ill-appearing, well-nourished, pallor HEAD: Normocephalic, atraumatic. EYES: Non injected, but icteric bilaterally ENT: Nares clear, no rhinorrhea or epistaxis. Gross auditory acuity intact. NECK: Supple. No meningismus. CHEST: Speaking in full sentences. Tachypneic, in respiratory distress. Poor air movement, significantly diminished on the left. HEART: Tachycardic rate and rhythm. . ABDOMEN: Soft, nondistended. No rigidity or guarding. Not peritoneal EXTREMITIES: Normal range of motion. 4+ bilateral lower extremity edema. SKIN: Warm, dry, no rash. NEURO: No focal deficits. Alert and oriented. Answering questions. Following commands. Normal speech without aphasia or dysarthria. PSYCH: Normal mood and affect. Course Vital Signs Vital signs: Vital Signs Temperature 97.0 F L 03/11/25 22:47 Pulse Rate 121 H 03/11/25 22:47 Respiratory Rate 28 H 03/11/25 22:47 Blood Pressure 81/53 L 03/11/25 22:47 Pulse Oximetry 100 03/11/25 22:47 Oxygen Delivery Room Air 03/11/25 22:47 Temperature 97.9 F 03/12/25 15:55 Pulse Rate 126 H 03/12/25 16:00 Respiratory Rate 22 H 03/12/25 15:55 Blood Pressure 121/76 03/12/25 17:58 Pulse Oximetry 99 03/12/25 15:55 Oxygen Delivery Nasal Cannula 03/12/25 03:30 Oxygen Flow Rate 2 03/12/25 03:30 Fraction of Inspired Oxygen 30 03/12/25 02:00 [facility] MDM Narrative Medical decision making narrative: 45 yo male (pronouns he/him/his) presents with concern for fluid retention, shortness of breath, lower extremity edema. Recently diagnosed with heart failure within the past month. In the emergency department he is afebrile with vital signs notable for tachypnea, tachycardia, and hypotension. Patient had previously mentioned on last ED presentation that he was recently in the process of transitioning to female, had previously been on spironolactone and estradiol, but quit taking these 3+ months ago. Echo 02/24/25 showed Summary 1. The left ventricle is mildly dilated with severely reduced systolic function. The left ventricular ejection fraction is visually estimated to be less than 15%. There is no left ventricular thrombus. Left Ventricle The left ventricle is mildly dilated with severely reduced systolic function. The left ventricular ejection fraction is visually estimated to be less than 15%. There is no left ventricular thrombus. Right Ventricle The right ventricle is normal size with reduced systolic function. Mitral Valve The mitral valve is normal. There is moderate mitral regurgitation. Tricuspid Valve The tricuspid valve is normal. There is mild tricuspid regurgitation. = Cardiology consult during recent hospitaliation * Cardiac catheterization done during this admission nonischemic cardiomyopathy. * Patient blood pressure has been soft, now on [id number] mg BID * His sodium is low, but improved. Has received dose of tolvaptan * Patient reports previous history of heavy alcohol drinking and quit 5 years ago. * LifeVest delivered stressed importance of wearing * Unable to initiate any GDMT during this admission because of hypotension and continued need for midodrine, BP improved today and will add Metoprolol 25 mg BID == Chronic normocytic anemia. Also has a leukocytosis which appears chronic. New thrombocytosis, likely acute phase reactant/stress response. Hyponatremia stable from discharge value. Although creatinine is technically within normal limits, it does represent an increase of nearly 0.4 from previous and there is also azotemia thus this does represent an EMILY. Given the hypotension although patient is fluid overloaded, will give small amount of fluid (500cc) in addition to the midodrine PO 10mg. Transaminitis, chronic with bili actually improved although still elevated and others worse than discharge values. Bipap ordered but discussed with RT. I have concerns about patient's initial hypotension. Discussed with RT. Patient started on NIVPP O2 via Vapotherm instead to provide a bit of PEEP without as much risk as increasing hypotension. Will attempt to resuscitate further but suspect patient may require BIPAP once more stable. Patient is set to meet with [facility] team on 03/18/25. He has a LifeVest but does not wear it due to discomfort. Troponin within normal limits. Viral swab negative. Although somewhat paradoxical, will also give Lasix and will carefully watch hemodynamics. Given the concern for concomitant sepsis, will start antibiotics. ED bundle order set is vancomycin and cefepime. Will add azithromycin to cover atypicals. Blood cultures already ordered. INR 3.4, unclear if due to tubes underfilled (spurious lab) or liver dysfunction. BNP >30,000. D-dimer >13. Will proceed with CT PE study and add abd/pelvis given transaminitis. CRP and lactic are markedly elevated. Bilirubin when fractionated both indirect and direct are within normal limits. UA normal. Lactic acid still elevated but improving. Repeat troponin remains within normal limits. There is a signficant delay in obtaining CT interpretation. Phone calls made to Stat rad to try to expedite read/interpretation. Once results as below, discussed with teacher vocational training hospitalist HELEN Auguste at approximately 6:45am who accepts admission to IMU. Patient's condition has improved. HR in the 90s/low 100s. BP has consistently for hours been hypotensive with SBP in the 90s/100s however all MAPS >70 and several >75 or 80mmHg. RR in the low 20s, markedly improved from 30s-40s. Patient has not required BIPAP. Has been downtitrated to nasal cannula actually. Feels improved. Heart healthy diet ordered with fluid restriction. RUQ US ordered for CT findings. Notably, it is determined after patient has been in the ED overnight that an EKG was either never obtained or transmitted, for unclear reasons, and despite the fact that patient had 2 troponin labs collected overnight. One is now obtained stat , as below. = I received a phone call from Radiology just prior to 8:30 a.m. noting that patient does have a small pulmonary embolism as well as some other additional incidental findings on their over-read of the CT scan which defer from the interpretation by stat read. I did update Dr Cazares via phone at 08:44am. He notes that this is not a new diagnosis. Repeat lactic acid has normalized. == Critical Care: 1 or more vital organ systems impaired with a high probability of imminent or life-threatening deterioration in the patient's condition requiring frequent personal assessment and manipulation of the patient's condition. This included time spent evaluating the patient, speaking with patient, reviewing/interpreting laboratory/imaging studies, discussing the case with consultants or admitting teams, retrieving data and reviewing charts, monitoring for decompensation, documenting the visit, and performing bundled procedures exclusive of separately billed procedures. Differential Diagnosis Differential Diagnosis: heart failure exacerbation, pneumonia, pleural effusion, acute viral syndrome, acs, bronchitis, PE; lymphedema, sepsis Medical Records I have reviewed the following patient records and this information was taken into consideration when formulating the assessment and plan.: previous ER visits Lab Data MDM Lab Attestation statement: I personally reviewed the patient's lab results. 03/11/25 23:46 03/11/25 23:46 Labs: Lab Results 03/11/25 03/11/25 03/11/25 Range/Units 23:12 23:46 23:46 WBC 14.6 H (4.5-10.0) K/mm3 RBC 4.30 L (4.6-6.20) M/mm3 Hgb 12.8 L (14.0-18.0) g/dL Hct 40.2 L (42.0-52.0) % MCV 93.5 (80-100) fl MCH 29.8 (26-34) pg MCHC 31.8 L (32-36) g/dl RDW 17.6 H (11.5-14.5) % Plt Count 704 H D (150-375) k/mm3 MPV 10.6 H (7.4-10.4) fl Immature Gran % (Auto) 1.0 H (0-0.5) % Neut % (Auto) 82.1 H (45.5-73.1) % Lymph % (Auto) 10.8 L (18.3-44.2) % [place] % (Auto) 5.7 (2.6-8.5) % Eos % (Auto) 0.2 (0-4.4) % Baso % (Auto) 0.2 (0.2-1.2) % Lymph # (Auto) 1.58 (0.9-3.2) K/mm3 [place] # (Auto) 0.8 H (0.1-0.6) K/mm3 Eos # (Auto) 0.0 (0-0.3) K/mm3 Baso # (Auto) 0.0 (0.0-0.1) K/mm3 Abs Immat Gran (auto) 0.14 H (0.00-0.031) K/mm3 Absolute Neuts (auto) 12.0 H (1.3-6.7) K/mm3 Absolute Nucleated RBC 0.000 (0.0-0.012) K/mm3 Nucleated RBC % 0.0 (0.0-0.2) % PT 32.7 H (11.1-14.7) Seconds INR 3.4 APTT 41.1 H (22.3-36.8) Seconds D-Dimer 13.06 H (<0.48) ug/mL Sodium 129 L (137-145) mmol/L Potassium 4.4 (3.4-5.0) mmol/L Chloride 87 L (98-107) mmol/L Carbon Dioxide 22 (22-30) mmol/L Anion Gap 20 H (4-12) mmol/L BUN 30 H D (9-20) mg/dL Creatinine 1.00 (0.7-1.3) mg/dL Estim Creat Clear Calc 79 ml/min Estimated GFR > 60 (59 - ) Glucose 180 H (65-110) mg/dL Lactic Acid 8.7 H* (0.7-2.0) mmol/L Calcium 8.9 (8.4-10.2) mg/dL Magnesium (1.6-2.3) mg/dL Total Bilirubin 3.0 H (0.2-1.3) mg/dL Direct Bilirubin (0-0.3) mg/dL Indirect Bilirubin (0-1.1) mg/dL AST 103 H (17-59) U/L ALT 101 H (6-50) U/L Alkaline Phosphatase 170 H (38-126) U/L Troponin I 0.016 (0.000-0.034) ng/mL C-Reactive Protein 18.2 H Cancelled (<1.0) mg/dL NT-Pro-B Natriuret Pep > 20613 H (19.9-100) pg/mL Total Protein (6.3-8.2) g/dL Albumin (3.5-5.1) g/dL Lipase (23-300) U/L Urine Color (Yellow) Urine Appearance (Clear) Urine pH (5.0-9.0) Ur Specific Friend (1.001-1.035) Urine Protein (Negative) mg/dL Urine Glucose (UA) (Negative) mg/dL Urine Ketones (Negative) mg/dL Ur Blood (Man) (Negative) Urine Nitrate (Negative) Urine Bilirubin (Negative) Urine Urobilinogen (<2.0) mg/dL Leukocyte Esterase Rfl (Negative) JOSSIE/UL Nasal MRSA (PCR) (NOT DETECTE) Influenza A (RT-PCR) Negative (Negative) Influenza B (RT-PCR) Negative (Negative) RSV (RT-PCR) Negative (Negative) SARS-CoV-2 RNA (RT-PCR) Negative (Negative) 03/11/25 03/12/25 03/12/25 Range/Units 23:46 00:50 01:21 WBC (4.5-10.0) K/mm3 RBC (4.6-6.20) M/mm3 Hgb (14.0-18.0) g/dL Hct (42.0-52.0) % MCV (80-100) fl MCH (26-34) pg MCHC (32-36) g/dl RDW (11.5-14.5) % Plt Count (150-375) k/mm3 MPV (7.4-10.4) fl Immature Gran % (Auto) (0-0.5) % Neut % (Auto) (45.5-73.1) % Lymph % (Auto) (18.3-44.2) % [place] % (Auto) (2.6-8.5) % Eos % (Auto) (0-4.4) % Baso % (Auto) (0.2-1.2) % Lymph # (Auto) (0.9-3.2) K/mm3 [place] # (Auto) (0.1-0.6) K/mm3 Eos # (Auto) (0-0.3) K/mm3 Baso # (Auto) (0.0-0.1) K/mm3 Abs Immat Gran (auto) (0.00-0.031) K/mm3 Absolute Neuts (auto) (1.3-6.7) K/mm3 Absolute Nucleated RBC (0.0-0.012) K/mm3 Nucleated RBC % (0.0-0.2) % PT (11.1-14.7) Seconds INR APTT (22.3-36.8) Seconds D-Dimer (<0.48) ug/mL Sodium (137-145) mmol/L Potassium (3.4-5.0) mmol/L Chloride (98-107) mmol/L Carbon Dioxide (22-30) mmol/L Anion Gap (4-12) mmol/L BUN (9-20) mg/dL Creatinine (0.7-1.3) mg/dL Estim Creat Clear Calc ml/min Estimated GFR (59 - ) Glucose (65-110) mg/dL Lactic Acid (0.7-2.0) mmol/L Calcium (8.4-10.2) mg/dL Magnesium (1.6-2.3) mg/dL Total Bilirubin (0.2-1.3) mg/dL Direct Bilirubin 0.0 (0-0.3) mg/dL Indirect Bilirubin 1.0 (0-1.1) mg/dL AST (17-59) U/L ALT (6-50) U/L Alkaline Phosphatase (38-126) U/L Troponin I (0.000-0.034) ng/mL C-Reactive Protein (<1.0) mg/dL NT-Pro-B Natriuret Pep Cancelled (19.9-100) pg/mL Total Protein 8.3 H (6.3-8.2) g/dL Albumin 4.2 (3.5-5.1) g/dL Lipase 112 (23-300) U/L Urine Color (Yellow) Urine Appearance (Clear) Urine pH (5.0-9.0) Ur Specific Friend (1.001-1.035) Urine Protein (Negative) mg/dL Urine Glucose (UA) (Negative) mg/dL Urine Ketones (Negative) mg/dL Ur Blood (Man) (Negative) Urine Nitrate (Negative) Urine Bilirubin (Negative) Urine Urobilinogen (<2.0) mg/dL Leukocyte Esterase Rfl (Negative) JOSSIE/UL Nasal MRSA (PCR) Not detected (NOT DETECTE) Influenza A (RT-PCR) (Negative) Influenza B (RT-PCR) (Negative) RSV (RT-PCR) (Negative) SARS-CoV-2 RNA (RT-PCR) (Negative) 03/12/25 03/12/25 Range/Units 02:19 08:50 WBC (4.5-10.0) K/mm3 RBC (4.6-6.20) M/mm3 Hgb (14.0-18.0) g/dL Hct (42.0-52.0) % MCV (80-100) fl MCH (26-34) pg MCHC (32-36) g/dl RDW (11.5-14.5) % Plt Count (150-375) k/mm3 MPV (7.4-10.4) fl Immature Gran % (Auto) (0-0.5) % Neut % (Auto) (45.5-73.1) % Lymph % (Auto) (18.3-44.2) % [place] % (Auto) (2.6-8.5) % Eos % (Auto) (0-4.4) % Baso % (Auto) (0.2-1.2) % Lymph # (Auto) (0.9-3.2) K/mm3 [place] # (Auto) (0.1-0.6) K/mm3 Eos # (Auto) (0-0.3) K/mm3 Baso # (Auto) (0.0-0.1) K/mm3 Abs Immat Gran (auto) (0.00-0.031) K/mm3 Absolute Neuts (auto) (1.3-6.7) K/mm3 Absolute Nucleated RBC (0.0-0.012) K/mm3 Nucleated RBC % (0.0-0.2) % PT (11.1-14.7) Seconds INR APTT (22.3-36.8) Seconds D-Dimer (<0.48) ug/mL Sodium (137-145) mmol/L Potassium (3.4-5.0) mmol/L Chloride (98-107) mmol/L Carbon Dioxide (22-30) mmol/L Anion Gap (4-12) mmol/L BUN (9-20) mg/dL Creatinine (0.7-1.3) mg/dL Estim Creat Clear Calc ml/min Estimated GFR (59 - ) Glucose (65-110) mg/dL Lactic Acid 3.9 H 1.9 (0.7-2.0) mmol/L Calcium (8.4-10.2) mg/dL Magnesium 2.0 (1.6-2.3) mg/dL Total Bilirubin (0.2-1.3) mg/dL Direct Bilirubin (0-0.3) mg/dL Indirect Bilirubin (0-1.1) mg/dL AST (17-59) U/L ALT (6-50) U/L Alkaline Phosphatase (38-126) U/L Troponin I 0.013 (0.000-0.034) ng/mL C-Reactive Protein (<1.0) mg/dL NT-Pro-B Natriuret Pep (19.9-100) pg/mL Total Protein (6.3-8.2) g/dL Albumin (3.5-5.1) g/dL Lipase (23-300) U/L Urine Color Dark yellow (Yellow) Urine Appearance Clear (Clear) Urine pH 5.5 (5.0-9.0) Ur Specific Friend 1.012 (1.001-1.035) Urine Protein Negative (Negative) mg/dL Urine Glucose (UA) Negative (Negative) mg/dL Urine Ketones Negative (Negative) mg/dL Ur Blood (Man) Negative (Negative) Urine Nitrate Negative (Negative) Urine Bilirubin Negative (Negative) Urine Urobilinogen 1.0 (<2.0) mg/dL Leukocyte Esterase Rfl Negative (Negative) JOSSIE/UL Nasal MRSA (PCR) (NOT DETECTE) Influenza A (RT-PCR) (Negative) Influenza B (RT-PCR) (Negative) RSV (RT-PCR) (Negative) SARS-CoV-2 RNA (RT-PCR) (Negative) ABG Data ABG results: 03/12/25 00:42 VBG pH 7.470 H* VBG pCO2 34.4 L VBG pO2 42.9 VBG HCO3 24.5 O2 Delivery Device High flow therapy O2 Liters/Min 40.0 FiO2 30 Attestation: I personally reviewed and interpreted this ABG as follows: Interpretation: Alkalotic Imaging Data Attestation: I personally reviewed and interpreted this imaging study as follows: My impression: No pneumothorax but patient has very large left side pleural effusion on my independent interpretation Radiologist's impression: ITS Impressions Chest X-Ray 03/12/25 06:14 IMPRESSION: 1. Large left and small right pleural effusions. 2. Bilateral atelectasis and/or airspace disease, left lung worse. Abdomen Ultrasound 03/12/25 07:50 IMPRESSION: 1. Nonspecific gallbladder wall thickening in the presence of ascites and probable cirrhosis. If clinical ambiguity for cholecystitis, consider HIDA scan. 2. Hepatomegaly, with steatosis. Suspect cirrhosis. 3. Hepatic vein waveforms suggest right heart dysfunction. Chest/Abdomen/Pelvis CTA 03/12/25 08:19 IMPRESSION: CHEST- 1. Small PE right lower lobe. 2. Cardiomegaly, no evidence of right heart strain. But suspect right heart dysfunction. 3. Massive left circumferential pleural effusion with significant lobar atelectasis and diffuse airspace consolidation/pneumonia. Underlying pulmonary lesion cannot be excluded. Recommend repeat CT chest in one month. PET/CT can also be considered if pleural effusion and lobar consolidation persists. 4. Large right pleural effusion. ABDOMEN/PELVIS- 1. Moderate ascites. 2. Nonspecific gallbladder wall thickening given ascites and liver disease probable cirrhosis. 3. Otherwise no acute abdominopelvic findings. CXR Stat Rad: Large left and small right pleural effusions. No pneumothorax. Compressive changes in the left lung with underlying airspace opacities. Additional opacities right lung base. No incidental findings. CTA chest stat rad: Moderate right and moderate to large left-sided pleural effusion. No pulmonary artery embolism. Left upper and left lower lobe atelectasis and pneumonia. CT abdomen and pelvis Stat Rad: Heterogenous enhancement of the liver without evidence of concerning hepatic lesion. Gallbladder wall thickening which may be secondary to overlying hepatic disease. If concern for acute cholecystitis recommend right upper quadrant ultrasound. Mild to moderate abdominal and pelvic ascites. ECG Data EKG #1: Attestation: I personally reviewed and interpreted this ECG as follows: ECG completion date: 03/12/25 ECG completion time: 07:40 Prior ECG tracings: available for review (02/26/25- some T wave flattening in lateral precordial lead but upright in other) Interpretation: Sinus tachycardia at a rate of 102 beats per minute. TX interval 136. QRS 89. QT/QTC 390/508. T-wave inversions in lateral precordial leads V5 and V6. Critical Care Time Critical Care Time Critical Care Time: Yes Time Type: Intermittent Initial evaluation, discuss w/ involved parties, attempting to gather old records: 15 minutes Documenting medical record: 10 minutes Review of results (EKG's, labs, imaging): 10 minutes Serial repeat bedside evaluation: 10 minutes Discussing case with multiple memebers of the care team and consultants: 5 minutes Total Critical Care Time: 50 Discharge Plan Discharge Clinical Impression: Shortness of breath, Bilateral pleural effusion, Leukocytosis, Thrombocytosis, Normocytic anemia, Chronic hyponatremia, EMILY (acute kidney injury), High transaminase levels, Elevated INR, Acute on chronic congestive heart failure, CRP elevated, Acidosis, lactic, Left lower lobe pneumonia, Left upper lobe pneumonia, Thickening of wall of gallbladder, Abdominal ascites, Pulmonary embolism of right lower lobe, Cardiomegaly, Sepsis Patient Disposition: Still a Patient Condition: Serious Time of Disposition: 06:56
[2025-03-11 23:59] LABS: Influenza A QL RT-PCR Negative (Negative); Influenza B QL RT-PCR Negative (Negative); RSV RNA, RT-PCR Negative (Negative); SARS-CoV-2 RNA PCR Negative (Negative)
[2025-03-12] VITALS (91 sets, daily range): BP systolic 81–121; BP diastolic 39–84; PULSE 97–138; RESP 14–40; TEMP 36.5–37; O2SAT 89–100; BMI 22.4
[2025-03-12 00:01] LABS: Hematocrit 40.2 % (42.0-52.0); Hemoglobin 12.8 g/dL (14.0-18.0); Immature Granulocyte Percent A 1.0 % (0-0.5); Lymphocytes Absolute Auto 1.58 K/mm3 (0.9-3.2); Mean Corpuscular HGB Conc 31.8 g/dl (32-36); Mean Corpuscular Hemoglobin 29.8 pg (26-34); Mean Corpuscular Volume 93.5 fl (80-100); Nucleated Red Blood Cells Absolute Auto 0.000 K/mm3 (0.0-0.012); Nucleated Red Blood Cells Perc 0.0 % (0.0-0.2); Platelet Count Result 704 k/mm3 (150-375); Red Blood Count 4.30 M/mm3 (4.6-6.20); White Blood Count 14.6 K/mm3 (4.5-10.0)
[2025-03-12 00:04] LABS: INR 3.4; Partial Thromboplastin Time 41.1 Seconds (22.3-36.8); Prothrombin Time 32.7 Seconds (11.1-14.7)
[2025-03-12 00:05] LABS: Alanine Aminotransferase 101 U/L (6-50); Albumin Level 4.2 g/dL (3.5-5.1); Alkaline Phosphatase 170 U/L (38-126); Anion Gap 20 mmol/L (4-12); Aspartate Amino Transferase 103 U/L (17-59); Bilirubin,Total 3.0 mg/dL (0.2-1.3); Blood Urea Nitrogen 30 mg/dL (9-20); Calcium 8.9 mg/dL (8.4-10.2); Carbon Dioxide 22 mmol/L (22-30); Chloride 87 mmol/L (98-107); Estimated CRCL calculation 79 ml/min; Estimated Glomerular Filt Rate > 60; Glucose 180 mg/dL (65-110); Lipase 112 U/L (23-300); Potassium 4.4 mmol/L (3.4-5.0); Sodium 129 mmol/L (137-145); Total Protein 8.3 g/dL (6.3-8.2)
[2025-03-12] MEDS: MIDODRINE HCL 10 MG TABLET PO (00:09)
[2025-03-12 00:17] LABS: Troponin I 0.016 ng/mL (0.000-0.034)
[2025-03-12 00:30] LABS: NT Pro B Type Natriuretic Pept > 30000 pg/mL (19.9-100)
[2025-03-12] MEDS: FUROSEMIDE INJ 40 MG/4 ML VIAL 20 MG IV PUSH (00:35)
[2025-03-12 00:40] LABS: CRP 18.2 mg/dL (<1.0)
[2025-03-12 00:51] LABS: Fractional Inspired Oxygen 30 %; HCO3 VBG 24.5 mEq/l (24.0-30.0); PCO2 VBG 34.4 mmHg (42.0-48.0); PO2 VBG 42.9 mmHg (35.0-45.0)
[2025-03-12] MEDS: SODIUM CHLORIDE 0.9% IV 500 ML 999 ML IV CONT (00:52)
[2025-03-12 00:53] LABS: Liters per Minute 40.0 LPM; pH VBG 7.470 (7.300-7.400)
[2025-03-12] MEDS: CEFEPIME 2 GM in SODIUM CHLORIDE 0.9% IV 50 ML 100 ML IVPB ×2 (01:36→10:50)
[2025-03-12] MEDS: AZITHROMYCIN 500 MG TABLET PO (01:37)
[2025-03-12] MEDS: VANCOMYCIN 1,750 MG/NS 500 ML 1,750 MG/500 ML BAG 250 MG IVPB (02:20)
[2025-03-12 02:27] LABS: Add Urine Microscopic? YES; Appearance Urine Clear (Clear); Glucose Urine UA Negative (Negative); Leukocyte Esterase Ur Negative LEU/UL (Negative); Nitrate Urine Negative (Negative); Specific Grav Ur 1.012 (1.001-1.035)
[2025-03-12 02:37] LABS: MRSA (PCR) NOT DETECTED (NOT DETECTE)
[2025-03-12 02:59] LABS: Troponin I 0.013 ng/mL (0.000-0.034)
--- NOTE | 2025-03-12 07:28 | PC.NURSE ---
this RN came onto shift and noticed there was no EKG done for 8hrs. EKG being obtained at this time
--- NOTE | 2025-03-12 07:35 | ECG_ITS ---
Test Date: 2025-03-12 07:40:57 Measurements Intervals [place] Rate: 102 P: 71 OK: 136 QRS: -10 QRSD: 89 T: 117 QT: 390 QTc: 508 Interpretive Statements SINUS TACHYCARDIA POSSIBLE LEFT ATRIAL ENLARGEMENT LOW QRS VOLTAGE IN LIMB LEADS POSSIBLE ANTERIOR MYOCARDIAL INFARCTION , OF INDETERMINATE ST-T WAVE ABNORMALITY IN LATERAL LEADS- CONSIDER ISCHEMIA BASELINE ARTIFACT- I, II, III, AVR, AVF ABNORMAL ECG Compared to ECG 02/26/2025 06:04:43 HEART RATE HAS DECREASED POSSIBLE ISCHEMIA NOW PRESENT Electronically Signed On 03-12-2025 09:15:39 [facility] by Sunday Owens D.O.
[2025-03-12 08:01] LABS: Magnesium 2.0 mg/dL (1.6-2.3)
--- NOTE | 2025-03-12 08:10 | PM.IMHP2 ---
H&P: HPI History of Present Illness Date/Time: 03/12/25 08:10 Chief Complaint: Shortness of breath Narrative: 45-year-old male presents to [facility] ER on 03/11/2025 with chief complaint shortness of breath getting progressively worse. Has PMH remote polysubstance abuse, alcohol use disorder abstinence since 2019, heavy marijuana abuse recently quit, previous transitioner on spironolactone and estradiol, left upper extremity DVT diagnosed 03/01/2025 on Eliquis, systolic heart failure diagnosed 02/24/2025 (echocardiogram with EF estimated 15%, cardiac catheterization -nonischemic cardiomyopathy) unable to tolerate LifeVest, history of NSVT. Recently diagnosed and discharged from [facility] for acute heart failure exacerbation, hypotension placed on midodrine, hyperkalemia, hyponatremia status post tolvaptan, iron deficiency anemia, congestive hepatopathy, left upper extremity DVT. On arrival to the ER the patient was hypotensive x2, complaining of shortness of breath, decreased urine output, worsening bilateral lower extremity edema. No hypoxia noted. CT chest abdomen pelvis preliminary study revealing moderate right and moderate to large left-sided pleural effusion with left upper and left lower lobe atelectasis and pneumonia, no PE. Heterogeneous enhancement of liver without evidence of concerning hepatic lesion. Gallbladder wall thickening. Pelvic ascites. WBC 14.6, hemoglobin 12.8, platelet count 704, INR 3.4. Patient reports compliance with medications, noncompliant with LifeVest as it was uncomfortable. VBG pH 7.47, pCO2 34.4, sodium 129, BUN 30, serum creatinine 1.0. Lactic acid 8.7 improvement at 3.9. AST 103, ALT 101, troponin negative x2. ProBNP greater than 3000, CRP 18.2. Quad viral screen negative. Urinalysis unremarkable. EKG no acute ST changes. Patient received midodrine, Lasix 20 mg IV x1, vancomycin, cefepime, azithromycin. Patient reports significant improvement in his breathing while he is sitting up, still has some orthopnea. His lower extremity edema has slightly improved after some urine output. Review of Systems Review of Systems: All systems reviewed & are unremarkable except as noted in HPI and below (Subjective) [facility] Past Medical History Medical History (Updated 03/12/25 @ 06:10 by Kyara Davis MD) Elevated liver enzymes Hyponatremia Anasarca Acute systolic (congestive) heart failure Family History Family History (Updated 02/22/25 @ 22:21 by Naomi Mcmullen RN) Mother Diabetes mellitus Alcoholism Father Parkinsons disease Alcoholism Other Diabetes 1.5, managed as type 1 Social History Social History Smoking status: Never smoker Alcohol intake: former Substance use: former Substance use type: former substance user and marijuana Other substance usage details: quit a few weeks ago Lack of Transportation: No Lack of Food: Never True Current Housing: I Have Housing Concerned About Future Housing: Decline to Answer Difficulty Paying Gas/Electric Bills: No Difficulty Paying for Meds: No Currently Unemployed: No Education: Bachelor's Degree Difficulty w/ Childcare or Family Care: No Spiritual care concerns: No Meds Home Medications and Allergies Home Medications ?Medication ?Instructions ?Recorded ?Confirmed ?Type apixaban 5 mg tablet (Eliquis) 5 mg PO Q12HR #60 tabs 03/02/25 Rx apixaban 5 mg tablet (Eliquis) 10 mg (2 x 5 mg) PO Q12HR #21 tabs 03/02/25 Rx furosemide 40 mg tablet 40 mg PO DAILY #30 tabs 03/02/25 Rx levofloxacin 750 mg tablet 750 mg PO DAILY #1 tablet 03/02/25 Rx magnesium oxide 400 mg (241.3 mg 400 mg PO DAILY #30 tabs 03/02/25 Rx magnesium) tablet metoprolol tartrate 25 mg tablet 25 mg PO Q12HR #30 tabs 03/02/25 Rx midodrine 10 mg tablet 10 mg PO BID #30 tabs 03/02/25 Rx pregabalin 50 mg capsule (Lyrica) 50 mg PO Q12HR #30 caps 03/02/25 Rx Allergies Allergy/AdvReac Type Severity Reaction Status Date / Time No Known Allergies Allergy Verified 03/11/25 22:51 Vital Signs Vital Signs - 24 hr 03/11/25 22:47 03/11/25 22:59 03/11/25 23:00 Temperature 97.0 F L Pulse Rate 121 H 121 H 119 H Respiratory Rate 28 H 32 H 30 H Blood Pressure 81/53 L 92/22 L Pulse Oximetry 100 Oxygen Delivery Room Air Oxygen Flow Rate Fraction of Inspired Oxygen 03/11/25 23:01 03/11/25 23:01 03/11/25 23:01 Temperature Pulse Rate 120 H Respiratory Rate 32 H 26 H Blood Pressure Pulse Oximetry 100 Oxygen Delivery Room Air Oxygen Flow Rate Fraction of Inspired Oxygen 03/11/25 23:02 03/11/25 23:03 03/11/25 23:03 Temperature 96.8 F L Pulse Rate 121 H 119 H 117 H Respiratory Rate 33 H 34 H 32 H Blood Pressure 95/70 L 102/54 L 102/54 L Pulse Oximetry 100 Oxygen Delivery Oxygen Flow Rate Fraction of Inspired Oxygen 03/11/25 23:15 03/11/25 23:30 03/11/25 23:45 Temperature Pulse Rate 119 H 118 H 119 H Respiratory Rate 38 H 34 H 34 H Blood Pressure Pulse Oximetry Oxygen Delivery Oxygen Flow Rate Fraction of Inspired Oxygen 03/11/25 23:49 03/11/25 23:52 03/11/25 23:53 Temperature Pulse Rate 118 H 122 H 120 H Respiratory Rate 32 H 35 H 31 H Blood Pressure 64/49 L 65/48 L Pulse Oximetry Oxygen Delivery Oxygen Flow Rate Fraction of Inspired Oxygen 03/11/25 23:55 03/12/25 00:00 03/12/25 00:01 Temperature Pulse Rate 123 H 123 H 120 H Respiratory Rate 25 H 33 H 40 H Blood Pressure 69/54 L 81/55 L Pulse Oximetry 93 Oxygen Delivery Oxygen Flow Rate Fraction of Inspired Oxygen 03/12/25 00:11 03/12/25 00:15 03/12/25 00:16 Temperature Pulse Rate 120 H 118 H 115 H Respiratory Rate 24 H 39 H 15 Blood Pressure 102/39 L 83/63 L Pulse Oximetry Oxygen Delivery Oxygen Flow Rate Fraction of Inspired Oxygen 03/12/25 00:20 03/12/25 00:21 03/12/25 00:26 Temperature Pulse Rate 119 H 120 H 116 H Respiratory Rate 32 H 31 H 26 H Blood Pressure 97/70 L 91/78 L Pulse Oximetry 100 100 Oxygen Delivery High Flow Therapy with Na Oxygen Flow Rate 40 Fraction of Inspired Oxygen 30 03/12/25 00:30 03/12/25 00:31 03/12/25 00:36 Temperature Pulse Rate 119 H 119 H 120 H Respiratory Rate 21 H 20 27 H Blood Pressure 88/62 L 92/56 L Pulse Oximetry 100 99 100 Oxygen Delivery Oxygen Flow Rate Fraction of Inspired Oxygen 03/12/25 00:45 03/12/25 00:46 03/12/25 00:47 Temperature Pulse Rate 121 H 120 H 120 H Respiratory Rate 22 H 32 H 34 H Blood Pressure 100/68 101/84 Pulse Oximetry 100 100 99 Oxygen Delivery Oxygen Flow Rate Fraction of Inspired Oxygen 03/12/25 00:51 03/12/25 00:52 03/12/25 00:56 Temperature Pulse Rate 120 H 118 H 121 H Respiratory Rate 38 H 36 H 26 H Blood Pressure 94/71 L 94/71 L 99/62 L Pulse Oximetry 99 100 Oxygen Delivery Oxygen Flow Rate Fraction of Inspired Oxygen 03/12/25 01:00 03/12/25 01:01 03/12/25 01:06 Temperature Pulse Rate 119 H 118 H 116 H Respiratory Rate 24 H 30 H 23 H Blood Pressure 95/81 L 94/72 L Pulse Oximetry 100 98 100 Oxygen Delivery Oxygen Flow Rate Fraction of Inspired Oxygen 03/12/25 01:11 03/12/25 01:15 03/12/25 01:16 Temperature Pulse Rate 116 H 115 H 114 H Respiratory Rate 19 14 15 Blood Pressure 104/67 Pulse Oximetry 100 100 100 Oxygen Delivery Oxygen Flow Rate Fraction of Inspired Oxygen 03/12/25 01:21 03/12/25 01:26 03/12/25 01:30 Temperature Pulse Rate 118 H 114 H 114 H Respiratory Rate 19 19 Blood Pressure 104/66 99/66 L Pulse Oximetry 100 97 94 Oxygen Delivery Oxygen Flow Rate Fraction of Inspired Oxygen 03/12/25 01:31 03/12/25 01:36 03/12/25 01:41 Temperature Pulse Rate 113 H 116 H 121 H Respiratory Rate 20 25 H 29 H Blood Pressure 99/71 L 92/66 L 95/77 L Pulse Oximetry 98 89 L Oxygen Delivery Oxygen Flow Rate Fraction of Inspired Oxygen 03/12/25 01:45 03/12/25 01:46 03/12/25 01:51 Temperature Pulse Rate 113 H 117 H 116 H Respiratory Rate 40 H 25 H 38 H Blood Pressure 96/62 L 91/68 L Pulse Oximetry 95 Oxygen Delivery Oxygen Flow Rate Fraction of Inspired Oxygen 03/12/25 01:56 03/12/25 01:57 03/12/25 02:00 Temperature Pulse Rate 114 H 115 H 113 H Respiratory Rate 21 H 33 H 24 H Blood Pressure 99/61 L Pulse Oximetry 99 100 100 Oxygen Delivery High Flow Therapy with Na Oxygen Flow Rate 40 Fraction of Inspired Oxygen 30 03/12/25 02:16 03/12/25 02:22 03/12/25 02:25 Temperature Pulse Rate 115 H 113 H 111 H Respiratory Rate 26 H 28 H 16 Blood Pressure 81/67 L 94/82 L Pulse Oximetry 98 99 100 Oxygen Delivery Oxygen Flow Rate Fraction of Inspired Oxygen 03/12/25 02:30 03/12/25 02:31 03/12/25 02:45 Temperature Pulse Rate 110 H 109 H 115 H Respiratory Rate 24 H 33 H 28 H Blood Pressure 98/67 L Pulse Oximetry 98 97 93 Oxygen Delivery Oxygen Flow Rate Fraction of Inspired Oxygen 03/12/25 02:46 03/12/25 03:00 03/12/25 03:01 Temperature Pulse Rate 104 H 102 H 102 H Respiratory Rate 17 28 H 29 H Blood Pressure 89/67 L 95/62 L Pulse Oximetry 95 95 95 Oxygen Delivery Oxygen Flow Rate Fraction of Inspired Oxygen 03/12/25 03:02 03/12/25 03:15 03/12/25 03:16 Temperature Pulse Rate 102 H 101 H 100 Respiratory Rate 31 H 25 H 30 H Blood Pressure 90/63 L Pulse Oximetry 94 93 92 Oxygen Delivery Oxygen Flow Rate Fraction of Inspired Oxygen 03/12/25 03:30 03/12/25 03:30 03/12/25 03:31 Temperature Pulse Rate 100 101 H Respiratory Rate 22 H 31 H Blood Pressure 97/69 L Pulse Oximetry 100 97 100 Oxygen Delivery Nasal Cannula Oxygen Flow Rate 2 Fraction of Inspired Oxygen 03/12/25 03:45 03/12/25 03:46 03/12/25 04:00 Temperature Pulse Rate 101 H 102 H 110 H Respiratory Rate 23 H 32 H 27 H Blood Pressure 83/60 L Pulse Oximetry 100 100 Oxygen Delivery Oxygen Flow Rate Fraction of Inspired Oxygen 03/12/25 04:02 03/12/25 04:03 03/12/25 04:15 Temperature Pulse Rate 112 H 110 H 106 H Respiratory Rate 27 H 21 H 21 H Blood Pressure 96/60 L 104/72 Pulse Oximetry Oxygen Delivery Oxygen Flow Rate Fraction of Inspired Oxygen 03/12/25 04:16 03/12/25 04:30 03/12/25 04:31 Temperature Pulse Rate 107 H 109 H 110 H Respiratory Rate 33 H 33 H 36 H Blood Pressure 108/66 Pulse Oximetry Oxygen Delivery Oxygen Flow Rate Fraction of Inspired Oxygen 03/12/25 04:45 03/12/25 04:46 03/12/25 05:00 Temperature Pulse Rate 107 H 105 H 98 Respiratory Rate 30 H 24 H 20 Blood Pressure 93/61 L Pulse Oximetry Oxygen Delivery Oxygen Flow Rate Fraction of Inspired Oxygen 03/12/25 05:01 03/12/25 05:02 03/12/25 05:15 Temperature Pulse Rate 100 100 99 Respiratory Rate 21 H 33 H 31 H Blood Pressure 97/59 L Pulse Oximetry Oxygen Delivery Oxygen Flow Rate Fraction of Inspired Oxygen 03/12/25 05:16 03/12/25 05:30 03/12/25 05:31 Temperature Pulse Rate 100 100 97 Respiratory Rate 26 H 25 H 15 Blood Pressure 86/61 L 100/58 L Pulse Oximetry Oxygen Delivery Oxygen Flow Rate Fraction of Inspired Oxygen 03/12/25 05:45 03/12/25 05:46 03/12/25 06:00 Temperature Pulse Rate 101 H 103 H 101 H Respiratory Rate 18 22 H 26 H Blood Pressure 98/66 L Pulse Oximetry Oxygen Delivery Oxygen Flow Rate Fraction of Inspired Oxygen 03/12/25 06:01 03/12/25 06:15 03/12/25 06:16 Temperature Pulse Rate 99 99 101 H Respiratory Rate 24 H 30 H 26 H Blood Pressure 88/68 L 101/65 Pulse Oximetry Oxygen Delivery Oxygen Flow Rate Fraction of Inspired Oxygen 03/12/25 06:30 03/12/25 06:31 03/12/25 06:45 Temperature Pulse Rate 103 H 103 H 103 H Respiratory Rate 34 H 30 H 32 H Blood Pressure 94/55 L 94/74 L Pulse Oximetry Oxygen Delivery Oxygen Flow Rate Fraction of Inspired Oxygen 03/12/25 07:01 03/12/25 07:16 Temperature Pulse Rate 103 H 101 H Respiratory Rate 18 23 H Blood Pressure 98/66 L 102/65 Pulse Oximetry Oxygen Delivery Oxygen Flow Rate Fraction of Inspired Oxygen Exam Const: General: comfortable and no acute distress HENMT: Mouth: Yes moist mucous membranes Eyes: Pupils: Equal, round and reactive pupils present Resp: Effort & Inspection: normal respiratory effort Other: Bilateral crackles at the bases Cardio: Rate: tachycardic Rhythm: regular rhythm GI: Inspection: non-distended GI Palp: Yes Soft to palpation Extrem: Other: 2+ pitting edema bilateral lower extremities from the toes to mid tibial regions Results Labs Labs: Short CBC 03/11/25 Range/Units 23:46 WBC 14.6 H (4.5-10.0) K/mm3 Hgb 12.8 L (14.0-18.0) g/dL Hct 40.2 L (42.0-52.0) % Plt Count 704 H D (150-375) k/mm3 BMP 03/11/25 23:46 Sodium 129 L Potassium 4.4 Chloride 87 L Carbon Dioxide 22 BUN 30 H D Creatinine 1.00 Glucose 180 H Calcium 8.9 Cardiac Enzymes 03/11/25 03/12/25 Range/Units 23:46 02:19 Troponin I 0.016 0.013 (0.000-0.034) ng/mL Liver Function 03/11/25 03/12/25 Range/Units 23:46 00:50 Total Bilirubin 3.0 H (0.2-1.3) mg/dL Direct Bilirubin 0.0 (0-0.3) mg/dL AST 103 H (17-59) U/L ALT 101 H (6-50) U/L Alkaline Phosphatase 170 H (38-126) U/L Albumin 4.2 (3.5-5.1) g/dL Urine 03/12/25 Range/Units 02:19 Urine Color Dark yellow (Yellow) Urine Appearance Clear (Clear) Urine pH 5.5 (5.0-9.0) Ur Specific [place] 1.012 (1.001-1.035) Urine Protein Negative (Negative) mg/dL Urine Glucose (UA) Negative (Negative) mg/dL Assessment and Plan Assessment and plan (1) Hypotension: Code(s): I95.9 - Hypotension, unspecified Status: Acute (2) Acute CHF: Code(s): I50.9 - Heart failure, unspecified Status: Acute (3) Acute systolic (congestive) heart failure: Code(s): I50.21 - Acute systolic (congestive) heart failure Status: Acute (4) Elevated INR: Code(s): R79.1 - Abnormal coagulation profile Status: Acute (5) Transaminitis: Code(s): R74.01 - Elevation of levels of liver transaminase levels Status: Acute (6) Abdominal ascites: Code(s): R18.8 - Other ascites Status: Acute (7) Lactic acidosis: Code(s): E87.20 - Acidosis, unspecified Status: Acute (8) Hyponatremia: Code(s): E87.1 - Hypo-osmolality and hyponatremia Status: Acute (9) Normocytic anemia: Code(s): D64.9 - Anemia, unspecified Status: Acute (10) Bilateral pleural effusion: Code(s): J90 - Pleural effusion, not elsewhere classified Status: Acute (11) Left lower lobe pneumonia: Code(s): J18.9 - Pneumonia, unspecified organism Status: Acute (12) Left upper lobe pneumonia: Code(s): J18.9 - Pneumonia, unspecified organism Status: Acute Plan 45-year-old male presents to [facility] ER on 03/11/2025 with chief complaint shortness of breath getting progressively worse. Has PMH remote polysubstance abuse, alcohol use disorder abstinence since 2019, heavy marijuana abuse recently quit, previous transitioner on spironolactone and estradiol, left upper extremity DVT diagnosed 03/01/2025 on Eliquis, systolic heart failure diagnosed 02/24/2025 (echocardiogram with EF estimated 15%, cardiac catheterization -nonischemic cardiomyopathy) unable to tolerate LifeVest, history of NSVT. Recently diagnosed and discharged from [facility] for acute heart failure exacerbation, hypotension placed on midodrine, hyperkalemia, hyponatremia status post tolvaptan, iron deficiency anemia, congestive hepatopathy, left upper extremity DVT. On arrival to the ER the patient was hypotensive x2, complaining of shortness of breath, decreased urine output, worsening bilateral lower extremity edema. No hypoxia noted. CT chest abdomen pelvis preliminary study revealing moderate right and moderate to large left-sided pleural effusion with left upper and left lower lobe atelectasis and pneumonia, no PE. Heterogeneous enhancement of liver without evidence of concerning hepatic lesion. Gallbladder wall thickening. Pelvic ascites. WBC 14.6, hemoglobin 12.8, platelet count 704, INR 3.4. Patient reports compliance with medications, noncompliant with LifeVest as it was uncomfortable. VBG pH 7.47, pCO2 34.4, sodium 129, BUN 30, serum creatinine 1.0. Lactic acid 8.7 improvement at 3.9. AST 103, ALT 101, troponin negative x2. ProBNP greater than 3000, CRP 18.2. Quad viral screen negative. Urinalysis unremarkable. EKG no acute ST changes. Patient received midodrine, Lasix 20 mg IV x1, vancomycin, cefepime, azithromycin. Patient reports significant improvement in his breathing while he is sitting up, still has some orthopnea. His lower extremity edema has slightly improved after some urine output. ----- Shortness of breath, no hypoxia noted. Currently on room air. Continue O2 protocol. Breathing improved. Bilateral pleural effusions left greater than right. Likely related to acute heart failure. Continue diuresis. Hold apixaban in case needing thoracentesis. NPO morning of 03/14/2025. Acute heart failure exacerbation, systolic with EF 15%. Patient reports noncompliance with LifeVest as the pads were causing him pain while lying down. Has an appointment on March 18 with [place] [facility]. Inpatient Cardiology consult. Continue telemetry. Left upper and left lower lobe pneumonia: Continue vancomycin, cefepime. Changes azithromycin to doxycycline, discontinue Zofran. Monitor leukocytosis, chronic since last admission. Pending blood cultures. Lactic acidosis. Likely due to heart failure, 8.7 improved to 3.9. Recheck now. Transaminitis, likely congestive hepatopathy. Continue to monitor. Hyponatremia, likely due to heart failure. Fluid restriction. Lasix. Continue serum monitoring. History of an SVT, keep potassium greater than 4. Magnesium greater than 2. Recent DVT left upper extremity. Holding apixaban. Iron-deficiency anemia. Stable. Continue iron. ----- Patient wishes to be full code. 1500 mL fluid restriction per 24 hours, heart healthy diet. Holding apixaban. SCDs. Prior Studies I have reviewed the following patient records and this information was taken into consideration when formulating the assessment and plan.: previous labs, previous ER visits and previous hospitalizations Time Spent with Patient Time with patient: 75 minutes or greater Hospitalist [facility] Advance Care Plan I have confirmed that the patient's Advanced Care Plan is present, code status is documented, or surrogate decision maker is listed in patient medical record.: Yes Medication Reconciliation I have utilized all available resources to obtain, update and review the patients current medications (includes all prescriptions, OTC, herbals, cannabis, and nutritional supplements).: Yes
--- NOTE | 2025-03-12 09:05 | WPCEDHO ---
ED Hand Off Checklist All vitals saved: yes IV Site documented: yes All med administrations documented: yes Triage Note Triage Note 45yo M to Er c/o ongoing 03/11/25 22:47 difficulty breathing. Reports dx with CHF and started Lasix BID without improvement and without UOP and messing me up. Tachypneic in triage, RA SPO2 99% . Last dose 2030 tonight. BLE edema and pallor noted. Hypotensive x2 in triage Allergies No Known Allergies Allergy (Verified 03/11/25 22:51) Current Diagnoses Anemia, unspecified (03/12/25) Hypo-osmolality and hyponatremia (03/12/25) Acidosis, unspecified (03/12/25) Acute systolic (congestive) heart failure (03/12/25) Heart failure, unspecified (03/12/25) Hypotension, unspecified (03/12/25) Pneumonia, unspecified organism (03/12/25) Pleural effusion, not elsewhere classified (03/12/25) Other ascites (03/12/25) Elevation of levels of liver transaminase levels (03/12/25) Abnormal coagulation profile (03/12/25) Family History (Last Updated 02/22/25 @ 22:21 by Naomi Mcmullen RN) Mother Diabetes mellitus Alcoholism Father Parkinsons disease Alcoholism Other Diabetes 1.5, managed as type 1 Administered/Completed Medications Discontinued Medications Azithromycin (Azithromycin 500 Mg Tablet) 500 mg PO ONCE STA Stop: 03/12/25 00:28 Last Admin: 03/12/25 01:37 Dose: 500 mg Documented By: NIEVES Furosemide (Furosemide Inj 40 Mg/4 Ml Vial) 20 mg IV PUSH ONCE STA Stop: 03/12/25 00:25 Last Admin: 03/12/25 00:35 Dose: 20 mg Documented By: NIEVES Sodium Chloride (Normal Saline Iv) 500 mls @ 999 mls/hr IV CONT .Q31M STA Stop: 03/12/25 00:51 Last Infusion: 03/12/25 02:05 Dose: Infused Documented By: Admin: 03/12/25 00:52 Dose: 999 mls/hr Documented By: NIEVES Cefepime HCl 2 gm/ Sodium (Chloride) 50 mls @ 100 mls/hr IVPB ONCE STA Stop: 03/12/25 00:56 Last Infusion: 03/12/25 02:04 Dose: Infused Documented By: Admin: 03/12/25 01:36 Dose: 100 mls/hr Documented By: NIEVES Vancomycin HCl (Vancomycin 1,750 Mg/Ns 500 Ml) 1,750 mg in 500 mls @ 250 mls/hr IVPB ONCE ONE Stop: 03/12/25 03:59 Last Infusion: 03/12/25 04:39 Dose: Infused Documented By: Admin: 03/12/25 02:20 Dose: 250 mls/hr Documented By: NIEVES Midodrine (Midodrine Hcl 10 Mg Tablet) 10 mg PO ONCE STA Stop: 03/11/25 23:53 Last Admin: 03/12/25 00:09 Dose: 10 mg Documented By: NIEVES Notes 03/12/25 07:28 Nurse Note by Tierney Mckeon this RN came onto shift and noticed there was no EKG done for 8hrs. EKG being obtained at this time Initialized on 03/12/25 07:28 - END OF NOTE Interventions/Assessments General Assessment Start: 03/11/25 22:32 Freq: Status: Active Protocol: Document 03/11/25 23:01 NIEVES (Rec: 03/11/25 23:03 NIEVES [id number]) GA Neurological Assessment Neurological Yes Assessment WNL Level of Alert Consciousness Arousable to Verbal Orientation Oriented to Person,Oriented to Place Memory Description Intact Ability to Maintain Normal Balance GA HEENT Assessment HEENT Assessment WNL Yes Head Symptoms None Neck Symptoms None Neck Movement No Limitations Mouth Symptoms/ None/Normal Appearance GA Cardiovascular Assessment Cardiovascular No Assessment WNL Cardiovascular None Symptoms Skin Description Normal Color GA Respiratory Assessment Symptoms Shortness of Breath at Rest Respiratory Rate (12 32 H -20) Pattern Tachypnea Cough Description None Sputum Amount None Oxygen Delivery Room Air Method GA Gastrointestinal Assessment Gastrointestinal Yes Assessment WNL GA Genitourinary Assessment Genitourinary WNL Except Parameters Genitourinary Unable to Void Symptoms GA Reproductive Assessment Reproductive Yes Assessment WNL GA Integumentary Assessment Integumentary Yes Assessment WNL GA Psychosocial Assessment Psychosocial Yes Assessment WNL Have You Had Any No Thoughts of Harm Another Person? Do You Have a Plan No on How You Would Harm Someone? Do You Have the No Means Available to Harm Someone? IV / Saline Lock, Insert Start: 03/11/25 23:07 Freq: STAT Status: Active Protocol: Document 03/12/25 06:35 JJJ (Rec: 03/12/25 06:35 JJ [id number]) IV Assessment Peripheral Access Right Hand IV Catheter Access Continued Peripheral Access Right Antecubital IV Catheter Access Continued PA: Cardiovascular Assessment Start: 03/11/25 22:52 Freq: Status: Active Protocol: Document 03/11/25 23:01 JJJ (Rec: 03/11/25 23:03 [facility] [id number]) Cardiovascular Assessment Cardiovascular None Symptoms Skin Description Dusky Chest Pain Assessment Chest Pain Intensity 0 PA: Respiratory Assessment Start: 03/11/25 22:52 Freq: Status: Active Protocol: Document 03/11/25 23:01 JJJ (Rec: 03/11/25 23:03 [facility] [id number]) Oxygen Delivery Oxygen Delivery Room Air Pulse Oximetry (90- 100 100) Last Vital Signs Temperature 96.8 F L 03/11/25 23:03 Pulse Rate 112 H 03/12/25 09:01 Respiratory Rate 32 H 03/12/25 09:01 Pulse Oximetry 97 03/12/25 09:01 Blood Pressure 104/67 03/12/25 09:01 Blood Pressure Mean 78 03/12/25 09:01 Blood Pressure Position Sitting 03/11/25 23:03 Oxygen Delivery Nasal Cannula 03/12/25 03:30 Oxygen Flow Rate 2 03/12/25 03:30 Fraction of Inspired Oxygen 30 03/12/25 02:00 Weight 67.1 kg 03/11/25 22:47 Last Result - Abnormals Only WBC 14.6 K/mm3 (4.5-10.0) H 03/11/25 23:46 RBC 4.30 M/mm3 (4.6-6.20) L 03/11/25 23:46 Hgb 12.8 g/dL (14.0-18.0) L 03/11/25 23:46 Hct 40.2 % (42.0-52.0) L 03/11/25 23:46 MCHC 31.8 g/dl (32-36) L 03/11/25 23:46 RDW 17.6 % (11.5-14.5) H 03/11/25 23:46 Plt Count 704 k/mm3 (150-375) H D 12/26/25 23:46 MPV 10.6 fl (7.4-10.4) H 03/11/25 23:46 Immature Gran % (Auto) 1.0 % (0-0.5) H 03/11/25 23:46 Neut % (Auto) 82.1 % (45.5-73.1) H 03/11/25 23:46 Lymph % (Auto) 10.8 % (18.3-44.2) L 03/11/25 23:46 [place] # (Auto) 0.8 K/mm3 (0.1-0.6) H 03/11/25 23:46 Abs Immat Gran (auto) 0.14 K/mm3 (0.00-0.031) H 03/11/25 23:46 Absolute Neuts (auto) 12.0 K/mm3 (1.3-6.7) H 03/11/25 23:46 PT 32.7 Seconds (11.1-14.7) H 03/11/25 23:46 APTT 41.1 Seconds (22.3-36.8) H 03/11/25 23:46 D-Dimer 13.06 ug/mL (<0.48) H 03/11/25 23:46 VBG pH 7.470 (7.300-7.400) H* 03/12/25 00:42 VBG pCO2 34.4 mmHg (42.0-48.0) L 03/12/25 00:42 Sodium 129 mmol/L (137-145) L 03/11/25 23:46 Chloride 87 mmol/L (98-107) L 03/11/25 23:46 Anion Gap 20 mmol/L (4-12) H 03/11/25 23:46 BUN 30 mg/dL (9-20) H D 03/11/25 23:46 Glucose 180 mg/dL (65-110) H 03/11/25 23:46 Lactic Acid 3.9 mmol/L (0.7-2.0) H 03/12/25 02:19 Total Bilirubin 3.0 mg/dL (0.2-1.3) H 03/11/25 23:46 AST 103 U/L (17-59) H 03/11/25 23:46 ALT 101 U/L (6-50) H 03/11/25 23:46 Alkaline Phosphatase 170 U/L (38-126) H 03/11/25 23:46 C-Reactive Protein 18.2 mg/dL (<1.0) H 03/11/25 23:46 NT-Pro-B Natriuret Pep > 30386 pg/mL (19.9-100) H 03/11/25 23:46 Total Protein 8.3 g/dL (6.3-8.2) H 03/11/25 23:46 Most Recent Suicide Severity Rating Suicide Severity Rating NO RISK INDICATED 03/11/25 22:47
[2025-03-12] MEDS: FERROUS SULFATE 325 MG TABLET PO (09:10)
--- NOTE | 2025-03-12 10:13 | ADMIMU ---
This patient, Roni Grace, was admitted to IMU status, and placed in IMU Room 209-01. Patient/family oriented to hospital policies and general routines including ID bracelet, bed and alarms, visiting hours, pain management, procedures, bathroom and other care routines, personal items, smoking policy, room service/diet, and visiting hours. Valuables list has been completed. Information on how to activate the Rapid Response Team has been discussed. Patient/Family are encouraged to report perceived risks to care and to ask questions if they do not understand what they are told or what they should do.
[2025-03-12] MEDS: DOXYCYCLINE HYCLATE 100 MG TABLET PO (10:50)
--- NOTE | 2025-03-12 11:25 | P.CONCA_ITS ---
Assessment and Plan Assessment and plan (1) CHF (congestive heart failure): Code(s): I50.9 - Heart failure, unspecified Status: Acute Plan This is a 45-year-old man who recently was unfortunately found to have a profound nonischemic cardiomyopathy he was discharged on the regimen detailed above and is back in the hospital not surprisingly with shortness of breath. He has been taken off of midodrine which I would agree with. Obviously this is a very difficult management decision and at this point I believe this patient is sick enough to require inpatient to inpatient transfer to [facility] for advanced heart failure care given his very low ejection fraction, stigmata of low cardiac output as well as hypotension that is precluding affective guideline directed medical therapy. Clark Thorpe MD [facility] History of Present Illness History of Present Illness Consult date/time: 03/12/25 11:25 Reason For Visit: Acute on chronic heart failure;PNA;Pleural Effusio Narrative: This is a 45-year-old man unknown to me prior to this consultation who is being seen at the request of the hospitalist because of congestive heart failure. The patient was just hospitalized here at [facility] earlier this month with new onset congestive heart failure was seen by my colleagues. He unfortunately was found to have a profound nonischemic cardiomyopathy with marked left ventricular dilation very low ejection fraction of 15% and angiographically non diseased coronary arteries. He was treated with diuresis with some clinical improvement his care was complicated by hypotension which prevented most efforts at initiating guideline directed medical therapy at the end of the hospitalization he was discharged with a combination of low-dose metoprolol as well as midodrine because of hypotension. He was referred to the heart failure group at [place] for advanced CHF treatment and that appointment is currently scheduled for early next month. He came back into this hospital last evening because of worsening shortness of breath since his discharge 2 weeks ago he has shortness breath with minimal activity as well as shortness of breath if he tries to lie flat at night to go to bed. He came back to the emergency room where his chest x-ray shows massive cardiomegaly a large left pleural effusion and a small to moderate size right pleural effusion. Upon seeing him in the room he appears to be remarkably comfortable. His ECG shows sinus tachycardia his laboratory data shows a BUN of 30 with a creatinine of 1 increasing BUN compared to the previous exam his hemogram is reasonable other than his platelet count is now 700,000. During the last hospitalization he was found on CT scan to have a small right-sided pulmonary embolism and for that reason was started on apixaban as well. He was provided a LifeVest upon discharge if he found it to be uncomfortable and is not wearing it. Review of Systems 2 Constitutional: Constitutional: Reports fatigue Eyes: Eyes: Reports no additional eye complaints ENT: Reports system reviewed and no additional complaints, except as documented Cardiovascular: Cardiovascular: Reports as per HPI and Reports leg edema Respiratory: Respiratory: Reports dyspnea Gastrointestinal: Gastrointestinal: Reports no additional gastrointestinal complaints Musculoskeletal: Musculoskeletal: Reports no additional musculoskeletal complaints Integumentary/Breasts: Skin/Breast: Reports system reviewed and no additional complaints, except as docu Neurologic: Reports system reviewed and no additional complaints, except as documented Endocrine: Endocrine: Reports no additional endocrine complaints Hematologic/Lymphatic: Hematologic/Lymphatic: Reports no additional hematologic/lymphatic complaints Allergic/Immunologic: Allergic/Immunologic: Reports no additional allergic/immunologic complaints [facility] Past Medical History Medical History (Updated 03/12/25 @ 08:38 by Kyara Davis MD) Elevated liver enzymes Hyponatremia Anasarca Acute systolic (congestive) heart failure Family History Family History (Updated 02/22/25 @ 22:21 by Naomi Mcmullen RN) Mother Diabetes mellitus Alcoholism Father Parkinsons disease Alcoholism Other Diabetes 1.5, managed as type 1 Social History Social History Smoking status: Former smoker Alcohol intake: former Substance use: former Substance use type: marijuana Other substance usage details: quit a few weeks ago Lack of Transportation: No Lack of Food: Never True Current Housing: I Have Housing Concerned About Future Housing: No Difficulty Paying Gas/Electric Bills: No Difficulty Paying for Meds: No Currently Unemployed: No Education: Bachelor's Degree Difficulty w/ Childcare or Family Care: No Spiritual care concerns: No Meds Home Medications and Allergies Home Medications ?Medication ?Instructions ?Recorded ?Confirmed ?Type apixaban 5 mg tablet (Eliquis) 5 mg PO Q12HR #60 tabs 03/02/25 03/12/25 Rx furosemide 40 mg tablet 40 mg PO DAILY #30 tabs 02/1403/12/25 Rx magnesium oxide 400 mg (241.3 mg 400 mg PO DAILY #30 t abs 03/02/25 03/12/25 Rx magnesium) tablet metoprolol tartrate 25 mg tablet 25 mg PO Q12HR #30 ta bs 03/02/25 03/12/25 Rx midodrine 10 mg tablet 10 mg PO BID #30 tabs 03/12/25 Rx pregabalin 50 mg capsule (Lyrica) 50 mg PO Q12HR #30 c aps 03/02/25 03/12/25 Rx Allergies Allergy/AdvReac Type Severity Reaction Status Date / Time No Known Allergies Allergy Verified 03/12/25 10:13 Vital Signs Vital Signs - 24 hr 03/11/25 22:47 03/11/25 22:59 03/11/25 23:00 Temperature 36.1 C L Pulse Rate 121 H 121 H 119 H Respiratory Rate 28 H 32 H 30 H Blood Pressure 81/53 L 92/22 L Pulse Oximetry 100 Oxygen Delivery Room Air Oxygen Flow Rate Fraction of Inspired Oxygen 03/11/25 23:01 03/11/25 23:01 03/11/25 23:01 Temperature Pulse Rate 120 H Respiratory Rate 32 H 26 H Blood Pressure Pulse Oximetry 100 Oxygen Delivery Room Air Oxygen Flow Rate Fraction of Inspired Oxygen 03/11/25 23:02 03/11/25 23:03 03/11/25 23:03 Temperature 36.0 C L Pulse Rate 121 H 119 H 117 H Respiratory Rate 33 H 34 H 32 H Blood Pressure 95/70 L 102/54 L 102/54 L Pulse Oximetry 100 Oxygen Delivery Oxygen Flow Rate Fraction of Inspired Oxygen 03/11/25 23:15 03/11/25 23:30 03/11/25 23:45 Temperature Pulse Rate 119 H 118 H 119 H Respiratory Rate 38 H 34 H 34 H Blood Pressure Pulse Oximetry Oxygen Delivery Oxygen Flow Rate Fraction of Inspired Oxygen 03/11/25 23:49 03/11/25 23:52 03/11/25 23:53 Temperature Pulse Rate 118 H 122 H 120 H Respiratory Rate 32 H 35 H 31 H Blood Pressure 64/49 L 65/48 L Pulse Oximetry Oxygen Delivery Oxygen Flow Rate Fraction of Inspired Oxygen 03/11/25 23:55 03/12/25 00:00 03/12/25 00:01 Temperature Pulse Rate 123 H 123 H 120 H Respiratory Rate 25 H 33 H 40 H Blood Pressure 69/54 L 81/55 L Pulse Oximetry 93 Oxygen Delivery Oxygen Flow Rate Fraction of Inspired Oxygen 03/12/25 00:11 03/12/25 00:15 03/12/25 00:16 Temperature Pulse Rate 120 H 118 H 115 H Respiratory Rate 24 H 39 H 15 Blood Pressure 102/39 L 83/63 L Pulse Oximetry Oxygen Delivery Oxygen Flow Rate Fraction of Inspired Oxygen 03/12/25 00:20 03/12/25 00:21 03/12/25 00:26 Temperature Pulse Rate 119 H 120 H 116 H Respiratory Rate 32 H 31 H 26 H Blood Pressure 97/70 L 91/78 L Pulse Oximetry 100 100 Oxygen Delivery High Flow Therapy with Na Oxygen Flow Rate 40 Fraction of Inspired Oxygen 30 03/12/25 00:30 03/12/25 00:31 03/12/25 00:36 Temperature Pulse Rate 119 H 119 H 120 H Respiratory Rate 21 H 20 27 H Blood Pressure 88/62 L 92/56 L Pulse Oximetry 100 99 100 Oxygen Delivery Oxygen Flow Rate Fraction of Inspired Oxygen 03/12/25 00:45 03/12/25 00:46 03/12/25 00:47 Temperature Pulse Rate 121 H 120 H 120 H Respiratory Rate 22 H 32 H 34 H Blood Pressure 100/68 101/84 Pulse Oximetry 100 100 99 Oxygen Delivery Oxygen Flow Rate Fraction of Inspired Oxygen 03/12/25 00:51 03/12/25 00:52 03/12/25 00:56 Temperature Pulse Rate 120 H 118 H 121 H Respiratory Rate 38 H 36 H 26 H Blood Pressure 94/71 L 94/71 L 99/62 L Pulse Oximetry 99 100 Oxygen Delivery Oxygen Flow Rate Fraction of Inspired Oxygen 03/12/25 01:00 03/12/25 01:01 03/12/25 01:06 Temperature Pulse Rate 119 H 118 H 116 H Respiratory Rate 24 H 30 H 23 H Blood Pressure 95/81 L 94/72 L Pulse Oximetry 100 98 100 Oxygen Delivery Oxygen Flow Rate Fraction of Inspired Oxygen 03/12/25 01:11 03/12/25 01:15 03/12/25 01:16 Temperature Pulse Rate 116 H 115 H 114 H Respiratory Rate 19 14 15 Blood Pressure 104/67 Pulse Oximetry 100 100 100 Oxygen Delivery Oxygen Flow Rate Fraction of Inspired Oxygen 03/12/25 01:21 03/12/25 01:26 03/12/25 01:30 Temperature Pulse Rate 118 H 114 H 114 H Respiratory Rate 19 19 Blood Pressure 104/66 99/66 L Pulse Oximetry 100 97 94 Oxygen Delivery Oxygen Flow Rate Fraction of Inspired Oxygen 03/12/25 01:31 03/12/25 01:36 03/12/25 01:41 Temperature Pulse Rate 113 H 116 H 121 H Respiratory Rate 20 25 H 29 H Blood Pressure 99/71 L 92/66 L 95/77 L Pulse Oximetry 98 89 L Oxygen Delivery Oxygen Flow Rate Fraction of Inspired Oxygen 03/12/25 01:45 03/12/25 01:46 03/12/25 01:51 Temperature Pulse Rate 113 H 117 H 116 H Respiratory Rate 40 H 25 H 38 H Blood Pressure 96/62 L 91/68 L Pulse Oximetry 95 Oxygen Delivery Oxygen Flow Rate Fraction of Inspired Oxygen 03/12/25 01:56 03/12/25 01:57 03/12/25 02:00 Temperature Pulse Rate 114 H 115 H 113 H Respiratory Rate 21 H 33 H 24 H Blood Pressure 99/61 L Pulse Oximetry 99 100 100 Oxygen Delivery High Flow Therapy with Na Oxygen Flow Rate 40 Fraction of Inspired Oxygen 30 03/12/25 02:16 03/12/25 02:22 03/12/25 02:25 Temperature Pulse Rate 115 H 113 H 111 H Respiratory Rate 26 H 28 H 16 Blood Pressure 81/67 L 94/82 L Pulse Oximetry 98 99 100 Oxygen Delivery Oxygen Flow Rate Fraction of Inspired Oxygen 03/12/25 02:30 03/12/25 02:31 03/12/25 02:45 Temperature Pulse Rate 110 H 109 H 115 H Respiratory Rate 24 H 33 H 28 H Blood Pressure 98/67 L Pulse Oximetry 98 97 93 Oxygen Delivery Oxygen Flow Rate Fraction of Inspired Oxygen 03/12/25 02:46 03/12/25 03:00 03/12/25 03:01 Temperature Pulse Rate 104 H 102 H 102 H Respiratory Rate 17 28 H 29 H Blood Pressure 89/67 L 95/62 L Pulse Oximetry 95 95 95 Oxygen Delivery Oxygen Flow Rate Fraction of Inspired Oxygen 03/12/25 03:02 03/12/25 03:15 03/12/25 03:16 Temperature Pulse Rate 102 H 101 H 100 Respiratory Rate 31 H 25 H 30 H Blood Pressure 90/63 L Pulse Oximetry 94 93 92 Oxygen Delivery Oxygen Flow Rate Fraction of Inspired Oxygen 03/12/25 03:30 03/12/25 03:30 03/12/25 03:31 Temperature Pulse Rate 100 101 H Respiratory Rate 22 H 31 H Blood Pressure 97/69 L Pulse Oximetry 100 97 100 Oxygen Delivery Nasal Cannula Oxygen Flow Rate 2 Fraction of Inspired Oxygen 03/12/25 03:45 03/12/25 03:46 03/12/25 04:00 Temperature Pulse Rate 101 H 102 H 110 H Respiratory Rate 23 H 32 H 27 H Blood Pressure 83/60 L Pulse Oximetry 100 100 Oxygen Delivery Oxygen Flow Rate Fraction of Inspired Oxygen 03/12/25 04:02 03/12/25 04:03 03/12/25 04:15 Temperature Pulse Rate 112 H 110 H 106 H Respiratory Rate 27 H 21 H 21 H Blood Pressure 96/60 L 104/72 Pulse Oximetry Oxygen Delivery Oxygen Flow Rate Fraction of Inspired Oxygen 03/12/25 04:16 03/12/25 04:30 03/12/25 04:31 Temperature Pulse Rate 107 H 109 H 110 H Respiratory Rate 33 H 33 H 36 H Blood Pressure 108/66 Pulse Oximetry Oxygen Delivery Oxygen Flow Rate Fraction of Inspired Oxygen 03/12/25 04:45 03/12/25 04:46 03/12/25 05:00 Temperature Pulse Rate 107 H 105 H 98 Respiratory Rate 30 H 24 H 20 Blood Pressure 93/61 L Pulse Oximetry Oxygen Delivery Oxygen Flow Rate Fraction of Inspired Oxygen 03/12/25 05:01 03/12/25 05:02 03/12/25 05:15 Temperature Pulse Rate 100 100 99 Respiratory Rate 21 H 33 H 31 H Blood Pressure 97/59 L Pulse Oximetry Oxygen Delivery Oxygen Flow Rate Fraction of Inspired Oxygen 03/12/25 05:16 03/12/25 05:30 03/12/25 05:31 Temperature Pulse Rate 100 100 97 Respiratory Rate 26 H 25 H 15 Blood Pressure 86/61 L 100/58 L Pulse Oximetry Oxygen Delivery Oxygen Flow Rate Fraction of Inspired Oxygen 03/12/25 05:45 03/12/25 05:46 03/12/25 06:00 Temperature Pulse Rate 101 H 103 H 101 H Respiratory Rate 18 22 H 26 H Blood Pressure 98/66 L Pulse Oximetry Oxygen Delivery Oxygen Flow Rate Fraction of Inspired Oxygen 03/12/25 06:01 03/12/25 06:15 03/12/25 06:16 Temperature Pulse Rate 99 99 101 H Respiratory Rate 24 H 30 H 26 H Blood Pressure 88/68 L 101/65 Pulse Oximetry Oxygen Delivery Oxygen Flow Rate Fraction of Inspired Oxygen 03/12/25 06:30 03/12/25 06:31 03/12/25 06:45 Temperature Pulse Rate 103 H 103 H 103 H Respiratory Rate 34 H 30 H 32 H Blood Pressure 94/55 L 94/74 L Pulse Oximetry Oxygen Delivery Oxygen Flow Rate Fraction of Inspired Oxygen 03/12/25 07:01 03/12/25 07:16 03/12/25 07:31 Temperature Pulse Rate 103 H 101 H 100 Respiratory Rate 18 23 H 24 H Blood Pressure 98/66 L 102/65 113/73 Pulse Oximetry 92 Oxygen Delivery Oxygen Flow Rate Fraction of Inspired Oxygen 03/12/25 08:01 03/12/25 08:16 03/12/25 08:31 Temperature Pulse Rate 111 H 110 H 112 H Respiratory Rate 19 18 31 H Blood Pressure 100/71 105/61 97/59 L Pulse Oximetry 94 92 96 Oxygen Delivery Oxygen Flow Rate Fraction of Inspired Oxygen 03/12/25 08:46 03/12/25 09:01 03/12/25 10:21 Temperature 36.5 C Pulse Rate 114 H 112 H 111 H Respiratory Rate 33 H 32 H Blood Pressure 109/61 104/67 97/59 L Pulse Oximetry 94 95 97 Oxygen Delivery Oxygen Flow Rate Fraction of Inspired Oxygen Exam 2 Narrative: Well-developed well-nourished patient in no immediate distress head of the bed elevated about 45? Const: General: comfortable HENMT: Mouth: Yes moist mucous membranes Eyes: Sclera: sclerae normal Neck: Neck: supple Other: Jugular venous pressure is elevated to the angle of the jaw Resp: Effort & Inspection: normal respiratory effort Other: Dullness throughout the left hemithorax with bibasilar rales Cardio: Rate: tachycardic Rhythm: regular rhythm Other: PMI enlarged and laterally displaced in the anterior axillary line summation gallop noted GI: GI Palp: Yes Soft to palpation Auscultation: normal bowel sounds Skin: General skin exam: normal color Neuro: Other: Alert and oriented x3 Extrem: Other: Moderate bilateral edema cool extremities Results Labs and Meds 03/11/25 23:46 03/11/25 23:46 Lab results: Cardiac Enzymes 03/11/25 03/12/25 Range/Units 23:46 02:19 AST 103 H (17-59) U/L Troponin I 0.016 0.013 (0.000-0.034) ng/mL Coagulation 12/26/25 Range/Units 23:46 PT 32.7 H (11.1-14.7) Seconds APTT 41.1 H (22.3-36.8) Seconds CBC 03/11/25 Range/Units 23:46 WBC 14.6 H (4.5-10.0) K/mm3 RBC 4.30 L (4.6-6.20) M/mm3 Hgb 12.8 L (14.0-18.0) g/dL Hct 40.2 L (42.0-52.0) % Plt Count 704 H D (150-375) k/mm3 Lymph # (Auto) 1.58 (0.9-3.2) K/mm3 [place] # (Auto) 0.8 H (0.1-0.6) K/mm3 Eos # (Auto) 0.0 (0-0.3) K/mm3 Baso # (Auto) 0.0 (0.0-0.1) K/mm3 Comprehensive Metabolic Panel 03/11/25 03/12/25 Range/Units 23:46 00:50 Sodium 129 L (137-145) mmol/L Potassium 4.4 (3.4-5.0) mmol/L Chloride 87 L (98-107) mmol/L Carbon Dioxide 22 (22-30) mmol/L BUN 30 H D (9-20) mg/dL Creatinine 1.00 (0.7-1.3) mg/dL Glucose 180 H (65-110) mg/dL Calcium 8.9 (8.4-10.2) mg/dL Direct Bilirubin 0.0 (0-0.3) mg/dL Indirect Bilirubin 1.0 (0-1.1) mg/dL AST 103 H (17-59) U/L ALT 101 H (6-50) U/L Alkaline Phosphatase 170 H (38-126) U/L Total Protein 8.3 H (6.3-8.2) g/dL Albumin 4.2 (3.5-5.1) g/dL Intake and Output 03/11/25 03/12/25 03/12/25 23:59 07:59 15:59 Intake Total 1050 Output Total 200 Balance 850 Intake: IV 1050 Sodium Chloride 0.9% IV 500 ml 500 @ 999 mls/hr IV CONT .Q31M STA Rx#:[id number] Cefepime 2 gm In Sodium 50 Chloride 0.9% IV 50 ml @ 100 mls/hr IVPB ONCE STA Rx#: [id number] Vancomycin 1,750 mg/Ns 500 ml 1 500 ,750 mg In 500 ml @ 250 mls/hr IVPB ONCE ONE Rx#:[id number] Output: Urine 200 Other: # Unmeasured Voids 1 # Incontinent Voids 0 # Urine Diapers 0 Number of Bowel Movements Today 1 Patient Weight 03/12/25 23:59 Weight 70.7 kg
[2025-03-12] MEDS: VANCOMYCIN 1,250 MG/NS 250 ML 1,250 MG/250 ML BAG 166.67 MG IVPB (14:10)
--- NOTE | 2025-03-12 16:16 | PC.NURSE ---
Patient to be transferred to [facility]. Patient informed of transfer and is agreeable. Transfer consent is signed. Report called to Mata at receiving facility- all questions answered. EMS was called to request ambulance transport. Pt has been updated on ETA of ambulance.
--- NOTE | 2025-03-12 17:57 | PC.NURSE ---
Report given to EMS, all questions answered. Recent vital signs reviewed.
--- NOTE | 2025-03-17 18:56 | PM.TDS ---
Transfer Discharge Sum: Prov Provider Date of admission: 03/12/25 15:29 Primary care physician: Viktoriya Hamilton, MD Admitting clinician: Jeri Morel MD Attending physician on admission: Jeri Morel Consults: 03/12/25 Consult to Physician Routine Comment: notified exchange Consulting Provider: Clark Thorpe call center recruiter/MD group to consult: cardiology Reason for consultation: repeat admission, HF low EF Has provider been notified: Yes Attending physician on discharge: Josseline Cazares Discharging clinician: Josseline Cazares Anticipated date of transfer: 03/12/25 Receiving physician/facility: [facility] DS: Admitting Diagnosis Discharge Date 03/12/25 Admitting Diagnosis Heart failure DS: Discharge Diagnosis Discharge Diagnosis (1) CHF (congestive heart failure): Code(s): I50.9 - Heart failure, unspecified Status: Acute Transfer Discharge Sum: Med Medications Active and Home Medications: Home Medications apixaban 5 mg tablet (Eliquis) 5 mg PO Q12HR #60 tabs 03/02/25 [Rx Confirmed 03/12/25] furosemide 40 mg tablet 40 mg PO DAILY #30 tabs 03/02/25 [Rx Confirmed 03/12/25] magnesium oxide 400 mg (241.3 mg magnesium) tablet 400 mg PO DAILY #30 tabs 03/02/25 [Rx Confirmed 03/12/25] metoprolol tartrate 25 mg tablet 25 mg PO Q12HR #30 tabs 03/02/25 [Rx Confirmed 03/12/25] midodrine 10 mg tablet 10 mg PO BID #30 tabs 03/02/25 [Rx Confirmed 03/12/25] pregabalin 50 mg capsule (Lyrica) 50 mg PO Q12HR #30 caps 03/02/25 [Rx Confirmed 03/12/25] Transfer Discharge Sum: Hosp Hospital Course Hospital course: Roni Grace is a 45 year old male who presented with acute on chronic heart failure. He has a severely low EF. Cardiology consultation completed, recommended tertiary care center for advanced heart failure therapies. Patient transferred in stable condition on 03/12/2025 to [place]. Patient Condition: Stable Time Spent with Patient Time attestation: Total time spent providing and/or coordinating transfer services: Total time spent: Greater than 30 minutes Exam Const: General: comfortable and no acute distress HENMT: Mouth: Yes moist mucous membranes Eyes: Pupils: Equal, round and reactive pupils present Resp: Effort & Inspection: normal respiratory effort Other: Bilateral crackles at the bases Cardio: Rate: tachycardic Rhythm: regular rhythm GI: Inspection: non-distended GI Palp: Yes Soft to palpation Extrem: Other: 2+ pitting edema bilateral lower extremities from the toes to mid tibial regions DS: Data Data Completed and Pending Labs on day of discharge: Preliminary micro results at discharge 03/11/25 23:46 Blood Culture - Preliminary Blood 03/12/25 00:50 Blood Culture - Preliminary Blood
== END 2025-03-12 18:05 | disposition short-term general hospital (02) | DRG 194 ==
LOC: ANHED 03-12 06:11 → ANHIMU 03-12 07:41
PROVIDERS: General Practice; Physician Assistant; Admitting Provider Internal Medicine; Emergency Provider Student in an Organized Health Care Education/Training Program; PCP Family Medicine; Visit Provider Internal Medicine
DX: I50.23 Acute on chronic systolic (congestive) heart failure (principal); I42.8 Other cardiomyopathies; E87.1 Hypo-osmolality and hyponatremia; N17.9 Acute kidney failure, unspecified; J18.9 Pneumonia, unspecified organism; D72.829 Elevated white blood cell count, unspecified; J90 Pleural effusion, not elsewhere classified; I82.C12 Acute embolism and thrombosis of left internal jugular vein; I82.622 Acute embolism and thrombosis of deep veins of left upper extremity; E87.5 Hyperkalemia; D50.9 Iron deficiency anemia, unspecified; R18.8 Other ascites; I95.9 Hypotension, unspecified; Z87.891 Personal history of nicotine dependence
CPT/HCPCS: 36415; 71045; 71275; 74177; 76705; 80053; 81001; 82248; 82803; 83605; 83690; 83735; 83880; 84484; 85025; 85380; 85610; 85730; 86140; 87040; 87637; 87641; 93005; 96365; 96366; 96367; 96375; 96376; 99285; A9270; G0378; J0692; J1938; J3373; J7040; Q9967